=== PATIENT | male | born 1950 | race Caucasian/White ===

== ENCOUNTER 2020-08-08 13:58 | Outpatient (REF) | payer MEDICARE, MEDICAID, SELFPAY ==
--- NOTE | 2020-08-08 | US_ITS ---
EXAMINATION: US pelvic, LIMITED/FOLLOW UP CLINICAL INFORMATION: Left buttock cyst COMPARISON: Previous CT of the pelvis May 2016 TECHNIQUE: Grayscale and color imaging of the superficial soft tissues of the left buttock. FINDINGS: There is a 4.2 x 4.1 x 3.4 cm solid appearing lesion in the subcutaneous soft tissues of the left buttock. This is hypoechoic, slightly heterogeneous and avascular. This is similar to previous CT from January 2016. This most likely represents an epidermoid cyst. IMPRESSION: Solid-appearing mass in the subcutaneous fat of the left buttock similar to previous CT from 2015. This probably represents an epidermoid cyst.
== END 2020-08-08 13:59 | disposition home or self-care (01) ==
LOC: HO.US 13:58
PROVIDERS: PCP Family Medicine; Visit Provider Emergency Medicine
DX: L72.9 Follicular cyst of the skin and subcutaneous tissue, unspecified (principal)
CPT/HCPCS: 76857

== ENCOUNTER → 2020-08-26 13:09 | Outpatient (BNVA) | payer MEDICARE, MEDICAID, SELFPAY | PROVIDERS: PCP Family Medicine; Visit Provider Surgery | DX: T80.89XA Other complications following infusion, transfusion and therapeutic injection, initial encounter (principal); M79.89 Other specified soft tissue disorders | CPT/HCPCS: 99203 ==

== ENCOUNTER 2020-09-10 06:03 | Day surgery (SDC) | payer MEDICARE, MEDICAID, SELFPAY ==
--- NOTE | 2020-09-08 14:52 | P.CONAN_ITS ---
Documented by User: Meseret Leary 09/08/20 15:07 HPI - Anesthesia Eval Consult details Narrative: 70yo M for Excision Soft Tissue Buttock Mass PMFSH Past Medical History Medical History Coronary artery disease History of CVA (cerebrovascular accident) HLD (hyperlipidemia) HTN (hypertension) Ischemic cardiomyopathy Myelofibrosis Family History Family History Mother History of cancer of unknown primary site Surgical History Surgical History History of appendectomy Social History Social History Alcohol intake: never Smoking Status: Never smoker Use of substances other than those prescribed or required for medical reasons: No Advance Directives: No Meds Allergies Allergy/AdvReac Type Severity Reaction Status Date / Time No Known Allergies Allergy Verified 08/26/20 13:29 Home Medications Medication Instructions Recorded Confirmed Type acetaminophen 500 mg tablet mg PO 08/26/20 08/26/20 History aspirin 81 mg tablet,delayed 81 mg PO DAILY 08/26/20 08/26/20 History release atorvastatin 80 mg tablet 80 mg PO DAILY 08/26/20 08/26/20 History clopidogrel 75 mg tablet 75 mg PO DAILY 08/26/20 08/26/20 History metoprolol tartrate 25 mg tablet mg PO 08/26/20 08/26/20 History ruxolitinib 20 mg tablet 20 mg PO BID 08/26/20 08/26/20 History warfarin 3 mg tablet mg PO 08/26/20 08/26/20 History Exam Exam Date and Time: September 08, 2020 1452 Narrative Narrative: EKG 04/2020: sinus rhythm@60, leftward axis, right bundle-branch block pattern. Cath 04/14/2020: Chronic total occlusion of LAD ECHO 05/28/20: LV sys function low nml, impaired relaxation, no evidence of thrombus in LV with RWMA in distal LAD terrritory, nml valve doppler, nml RV sys pressure, no pericardial effusion Per Cardiology 05/2020: 1. Atherosclerotic cardiovascular disease - Clinically, no further angina. Continue medical therapy for stable coronary disease. Recent MRI had shown nonviable chronic appearing infarct in the LV apex and inferoapical segments with aneurysm formation. 2. Chronic total occlusion of coronary artery - Plan as above. 3. Stable angina pectoris - No further anginal symptoms at this time. He was able to exercise for 7 minutes and 30 seconds on Leander protocol without any angina. 4. Left ventricular thrombosis - Continue Coumadin. Duration to be decided. In the repeat echocardiogram, no evidence of any LV thrombus. 5. Ischemic cardiomyopathy - EF on the cardiac MRI was 48%. 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 Cardiology OK'd stopping coumadin without bridge preop, stay on plavix Assessment and Plan Assessment Anesthesia Assessment: Chart Reviewed Documented by User: Mahendra Benjamin 09/10/20 07:24 [facility] Past Medical History Medical History Coronary artery disease History of CVA (cerebrovascular accident) HLD (hyperlipidemia) HTN (hypertension) Ischemic cardiomyopathy Myelofibrosis Family History Family History Mother History of cancer of unknown primary site Surgical History Surgical History History of appendectomy Social History Social History Alcohol intake: never Smoking Status: Never smoker Use of substances other than those prescribed or required for medical reasons: No Advance Directives: No Meds Allergies Allergy/AdvReac Type Severity Reaction Status Date / Time No Known Allergies Allergy Verified 08/26/20 13:29 Home Medications Medication Instructions Recorded Confirmed Type acetaminophen 500 mg tablet mg PO 08/26/20 08/26/20 History aspirin 81 mg tablet,delayed 81 mg PO DAILY 08/26/20 08/26/20 History release atorvastatin 80 mg tablet 80 mg PO DAILY 08/26/20 08/26/20 History clopidogrel 75 mg tablet 75 mg PO DAILY 08/26/20 08/26/20 History metoprolol tartrate 25 mg tablet mg PO 08/26/20 08/26/20 History ruxolitinib 20 mg tablet 20 mg PO BID 08/26/20 08/26/20 History warfarin 3 mg tablet mg PO 08/26/20 08/26/20 History Exam Narrative Narrative: Missing teeth Airway Mallampati Class: II TM Dist: >3cm Neck ROM: Full Assessment and Plan Assessment Anesthesia Assessment: Anesthesia Plan Discussed and Chart Reviewed Final Anesthetic Review NPO: Yes ASA Class: IV Final Preanesthetic Review: No Changes in Pt Med Stat, Meds/Allgs Chart Reviewed, Consent Obtained/Reviewed and Anes Risks/Benef Reviewed Patient Risk: High Procedure Risk: Low Anesthetic Plan Anesthetic Plan: MAC: and Agree w/ Assess. and Plan Disposition: Standard PACU
[2020-09-10 06:34] VITALS: BMI 28.3
[2020-09-10 06:45] VITALS: BP 116/59; PULSE 54; RESP 18; TEMP 36.3; O2SAT 95
[2020-09-10 06:45] LABS: INTERNATIONAL NORM RATIO 1.1 (0.9-1.1); Prothrombin Time 13.5 SEC (10.8-13.0)
[2020-09-10] MEDS: ceFAZolin Sodium/Dextrose,Iso 2 GM/50 ML PIGGYBACK IV (06:54)
[2020-09-10] MEDS: Lactated Ringers 1,000 ML 50 ML IVCONT (06:54)
--- NOTE | 2020-09-10 07:20 | MHC.SHP ---
Pre-Procedural Eval Section A The patient is an INPATIENT: No Changes since office visit: Yes Patient answered all questions; No Cold of Flu in the past 2 weeks, No New Medical Problems and No Changes in Medication The History & Physical has been completed within 30 days and I have reviewed it.: Yes Section B Chief Complaint: Soft tissue mass at injection site Allergies: Allergies Allergy/AdvReac Type Severity Reaction Status Date / Time No Known Allergies Allergy Verified 08/26/20 13:29 Plan Diagnosis/Plan: Unchanged Patient has been examined and remains a candidate for the planned procedure
[2020-09-10 08:20] VITALS: BP 107/54; PULSE 55; RESP 16; TEMP 36.6; O2SAT 96
--- NOTE | 2020-09-10 08:25 | P.OP_ITS ---
Operative Note Operative Note Narrative: Preoperative diagnosis: Mass left buttock Postoperative diagnosis: Cyst, left buttock Procedure: Excision of mass left buttock Electrical Equipment Technician: None Anesthesia: Monitored anesthesia care with local Estimated blood loss: Less than 5 cc Specimen: Cyst left buttock Immediate complications: None Indications: This is a 70-year-old gentleman with a history of an enlarging mass at an injection site in the upper aspect of the left buttock. He has pain associated with it and excision is planned. Procedure in detail: With patient lying on his right side, adequate sedation was obtained. Time-out procedure was performed. 2 g of cefazolin were infused for antibiotic prophylaxis. Incision lines were marked on the skin and skin and subcutaneous tissues were infiltrated with local anesthetic. Further anesthetic infiltration was carried out as needed throughout the procedure. An elliptical incision was made overlying the mass and was carried down to it. In the immediate subdermal tissues, the wall of the mass was entered. It was evident that it was a cystic structure. It appeared consistent with an epidermal cyst. It was dissected free circumferentially and excised. There was no significant bleeding. The wound was irrigated with saline solution. There was a small amount of oozing that was controlled with electrosurgical pencil. The wound was then closed with interrupted subcutaneous sutures of 3-0 Polysorb. Skin was closed with a running subcuticular suture of 4-0 Polysorb. Steri-Strips and dry sterile dressings were applied. He tolerated the procedure well and was transported to the recovery room in stable condition. Sponge and sharp counts were correct.
[2020-09-10 08:35] VITALS: BP 113/61; PULSE 58; RESP 15; TEMP 36.2; O2SAT 97
--- NOTE | 2020-09-10 08:58 | HO.POSTANES ---
Post Anesthesia Evaluation Post Anesthesia Evaluation Vital Signs: Vital Signs Temp Pulse Resp BP Pulse Ox 09/10/20 08:35 97.2 F 58 15 113/61 97 09/10/20 08:20 98 F 55 16 107/54 L 96 09/10/20 06:45 97.3 F 54 18 116/59 L 95 Anesthesia: Monitored (tiva) Mental Status: Awake Pain Control: Satisfactory Nausea/Vomiting: None Hydration: Adequate Anesthesia-Related Issues: No Anes. Related Issues
== END 2020-09-10 09:25 | disposition home or self-care (01) ==
PROVIDERS: Nurse Practitioner; PCP Family Medicine; Visit Provider Surgery
DX: T80.89XA Other complications following infusion, transfusion and therapeutic injection, initial encounter (principal); L72.0 Epidermal cyst; Y84.8 Other medical procedures as the cause of abnormal reaction of the patient, or of later complication, without mention of misadventure at the time of the procedure; I10 Essential (primary) hypertension; E78.5 Hyperlipidemia, unspecified; I25.5 Ischemic cardiomyopathy; I25.10 Atherosclerotic heart disease of native coronary artery without angina pectoris; D75.81 Myelofibrosis; Z86.73 Personal history of transient ischemic attack (TIA), and cerebral infarction without residual deficits; Z79.01 Long term (current) use of anticoagulants; Z79.82 Long term (current) use of aspirin; Z79.899 Other long term (current) drug therapy
CPT/HCPCS: 11406; 12032; 36415; 85610; 88304; J0690; J2250; J3010

== ENCOUNTER → 2020-09-18 10:09 | Outpatient (BNVA) | payer MEDICARE, MEDICAID, SELFPAY | PROVIDERS: PCP Family Medicine; Referring Provider Family Medicine; Visit Provider Surgery | DX: T80.89XA Other complications following infusion, transfusion and therapeutic injection, initial encounter (principal); M79.89 Other specified soft tissue disorders | CPT/HCPCS: 99212 ==

== ENCOUNTER → 2020-10-22 14:18 | Outpatient (BNVA) | payer MEDICARE, SELFPAY | PROVIDERS: PCP Family Medicine; Visit Provider Internal Medicine | DX: I25.10 Atherosclerotic heart disease of native coronary artery without angina pectoris (principal); I25.5 Ischemic cardiomyopathy; I51.3 Intracardiac thrombosis, not elsewhere classified | CPT/HCPCS: 99212 ==

== ENCOUNTER → 2020-12-22 13:50 | Outpatient (BNV) | payer MEDICARE, SELFPAY | PROVIDERS: PCP Family Medicine; Visit Provider Internal Medicine Medical Oncology | DX: R16.1 Splenomegaly, not elsewhere classified (principal); D75.81 Myelofibrosis | CPT/HCPCS: 99213; 99214; G2211 ==

== ENCOUNTER → 2021-03-03 07:36 | Outpatient (REF) | payer MEDICARE, SELFPAY ==
--- NOTE | 2021-03-03 07:38 | CA_ITS ---
Transthoracic Echocardiogram Patient (Last, First, Middle): Mervin Liu, Gender: Male Date of : 1950 Age: 71 Procedure Date: 03/03/2021 Procedure Type: Transthoracic Echocardiogram Location: OP Height: 165.1 cm Weight: 77.11 kg BSA: 1.85 m2 Heart Rate: bpm BP: 124 / 70 mmHg Director Athletic: Referring MD: Greg Galaviz MD Symptoms: I51.3 - Intracardiac thrombosis, not elsewhere classified Study Quality: Good ECG Rhythm: Sinus Conclusions: - The left ventricular systolic function is low normal. The visually estimated ejection fraction is between 50-55%. - The apex and apical inferior segments are akinetic. - Mildly increased right ventricular cavity size. - There is mild mitral valve regurgitation. Findings Procedure Information Contrast agent, definity, is being given per protocol without apparent complications. Left Ventricle Normal left ventricular cavity size. There is normal left ventricular wall thickness. The left ventricular systolic function is low normal. The visually estimated ejection fraction is between 50-55%. There is evidence of regional wall motion abnormalities. Diastolic function is normal for age. Wall Motion Rest Echo Findings The apex and apical inferior segments are akinetic. Right Ventricle Mildly increased right ventricular cavity size. There is normal right ventricular systolic function. Atria The left atrium is mildly dilated. The right atrium is normal in size. Aortic Valve There is a normal trileaflet aortic valve. There is no aortic valve stenosis. There is no aortic valve regurgitation. Mitral Valve The mitral valve appears normal. There is mild mitral valve regurgitation. There is no mitral valve stenosis. Pulmonic Valve The pulmonic valve was not well visualized. There is trace to mild pulmonic valve regurgitation. Tricuspid Valve Normal tricuspid valve structure. There is mild tricuspid valve regurgitation. The pulmonary artery systolic pressure is normal. Great Vessels The aortic annulus, sinuses of valsalva, and asc aorta are normal in size. Venous The inferior vena cava is normal in size and collapses greater than 50% with inspiration. Pericardium/Pleural There is no evidence of pericardial effusion. Prior Study Comparison No significant change compared to prior study dated: 05/28/2020. Measurements 2D Linear Measurements Ao Root: 3.10 2.1-3.5 cm LVOT Diam: 2.50 3.0+(-)1.3 cm Mitral Valve MV Pk E: 0.70 MV PK A: 0.67 MV Decel Time: 239.00 E/A: 1.00 E'Lateral: 9.67 E'Medial: 6.77 E/E' Med: 10.30 E/E' Lat: 7.20 PHT: 70.00 MVA PHT: 3.14 Decel Pacific: 2.92 Aortic Valve AoV Pk Mio: 1.25 AoV Mn Mio: 0.81 AoV VTI: 0.34 AoV Pk Grad: 6.00 Aov Mn Grad: 3.00 YANDEL Cont.VTI: 2.95 LVOT LVOT Pk Mio: 0.72 LVOT Mn Mio: 0.48 LVOT VTI: 0.20 LVOT Pk Grad: 2.00 LVOT Mn Grad: 1.00 LVOT Diam: 2.50 LVOT Area: 4.91 Diastolic Function MV Pk E: 0.70 MV Pk A: 0.67 E/A: 1.00 E'Medial: 6.77 E/E' Med: 10.30 E' Laterial: 9.67 E/E' Lat: 7.20 Tricuspid Valve TR Pk Mio: 2.33 TR Pk Grad: 22.00 RA Press: 3.00 RVSP: 25.00 Great Vessels Aorta Ao Root-2D: 3.10 2.0-3.7 cm Ao Asc: 3.20 2.1-3.4 cm Pulmonary Valve PV Pk Mio: 1.02 Peak PV Grad: 4.00 Updated in Other Vendor System with Status of Final Greg Galaviz MD electronically signed on 03/05/2021 4:56:27 PM with status of Final
== END ==
LOC: HO.CARD 07:36
PROVIDERS: Visit Provider Internal Medicine
DX: I51.3 Intracardiac thrombosis, not elsewhere classified (principal)
CPT/HCPCS: 93306; Q9957

== ENCOUNTER → 2021-04-30 12:10 | Outpatient (BNVA) | payer MEDICARE, SELFPAY | PROVIDERS: PCP Family Medicine; Referring Provider Family Medicine; Visit Provider Internal Medicine | DX: I25.10 Atherosclerotic heart disease of native coronary artery without angina pectoris (principal); I51.3 Intracardiac thrombosis, not elsewhere classified | CPT/HCPCS: 99212 ==

== ENCOUNTER 2021-05-12 06:34 | Outpatient (REF) | payer MEDICARE, SELFPAY ==
[2021-05-12 07:41] LABS: HDL Cholesterol 32 mg/dL; Triglycerides 79 mg/dL
[2021-05-12 08:02] LABS: Cholesterol 96 mg/dL; LDL Cholesterol Calculated 49 mg/dl
== END 2021-05-12 06:35 | disposition home or self-care (01) ==
LOC: HO.LAB 06:34
PROVIDERS: PCP Family Medicine; Visit Provider Internal Medicine
DX: E78.5 Hyperlipidemia, unspecified (principal); I25.10 Atherosclerotic heart disease of native coronary artery without angina pectoris
CPT/HCPCS: 36415; 80061

== ENCOUNTER → 2021-11-11 10:56 | Outpatient (BNVA) | payer MEDICARE, SELFPAY | PROVIDERS: PCP Family Medicine; Referring Provider Family Medicine; Visit Provider Internal Medicine | DX: I25.10 Atherosclerotic heart disease of native coronary artery without angina pectoris (principal); I51.3 Intracardiac thrombosis, not elsewhere classified; I45.10 Unspecified right bundle-branch block; Z79.01 Long term (current) use of anticoagulants; Z79.02 Long term (current) use of antithrombotics/antiplatelets; Z79.82 Long term (current) use of aspirin | CPT/HCPCS: 93005; 99212 ==

== ENCOUNTER 2023-07-12 08:28 | Outpatient (REF) | payer MEDICARE, SELFPAY ==
[2023-07-12 11:40] LABS: Alanine Aminotransferase 35 U/L (0-40); Alkaline Phosphatase 96 U/L (39-117); Anion Gap 12 (12-20); Aspartate Amino Transferase 32 U/L (5-37); Bilirubin Direct 0.3 mg/dL (0.0-0.5); Bilirubin Total 0.6 mg/dL (0.0-1.0); Blood Urea Nitrogen 15 mg/dL (9-16); Calcium 9.3 mg/dL (8.4-10.2); Carbon Dioxide 25 mmol/L (22-29); Chloride 108 mmol/L (96-108); Cholesterol 98 mg/dL (<200); Estimated Glomerular Filt Rate > 60; Glucose Random 86 mg/dL (60-115); HDL Cholesterol 32 mg/dL (>40); LDL Cholesterol Calculated 55 mg/dL (<100); Potassium 4.6 mmol/L (3.3-5.1); Sodium 140 mmol/L (135-145); Total Protein 6.9 g/dL (6.5-8.0); Triglycerides 57 mg/dL (<150)
[2023-07-12 11:45] LABS: Hematocrit 42.7 % (42.0-52.0); Hemoglobin 11.7 g/dl (14.0-18.0); Mean Corpuscular HGB Conc 27.4 g/dl (31.0-36.0); Mean Corpuscular Hemoglobin 22.4 pg (27.0-33.0); Mean Corpuscular Volume 81.6 fL (80.0-98.0); Red Blood Count 5.23 X10*6/uL (4.60-5.80); Red Cell Distribution Width 19.7 % (11.0-16.0)
[2023-07-12 11:46] LABS: NRBC Pct Auto 2.2 /100WBC (0.0-0.2); PLT ABN DIST 1; Platelet Count 41 X10*3/uL (160-400); WBC ABN SCTR FOR CBC 1
[2023-07-12 11:47] LABS: White Blood Count 18.6 X10*3/uL (4.8-10.8)
[2023-07-12 12:00] LABS: ~HepC Num1 0.04 S/CO (0.00-0.79); ~Hepatitis C Antibody Nonreactive (Nonreactive)
[2023-07-12 13:22] LABS: Atypical Lymph Absolute Manual 0.7 x10*3/uL; Atypical Lymphs Percent Manual 4 % (0-6); Band Neutrophils Percent 29 % (3-5); Blast Percent 3 %; Blastocytes Absolute 0.6 X10*3/uL; Lymphocytes Absolute Manual 2.6 X10*3/uL (1.2-4.9); Lymphocytes Percent Manual 14 % (20-40); Metamyelocytes Absolute 1.9 X10*3/uL; Metamyelocytes Percent 10 %; Monocytes Absolute Manual 1.5 X10*3/uL (0.1-1.2); Monocytes Percent Manual 8 % (2-11); Myelocytes Absolute 0.9 X10*/uL; Myelocytes Percent 5 %; Neutrophils Absolute Manual 9.9 X10*3/uL (2.0-8.3); Neutrophils Percent Manual 24 % (45-73); Promyelocytes Absolute 0.6 X10*3/uL; Promyelocytes Percent 3 %
[2023-07-12 13:23] LABS: Nucleated Red Blood Cells 4 /100WBC (0-0)
[2023-07-12 13:25] LABS: Microcytosis 1+ (5-14) /OIF; Platelet Morphology Comment NORM; RBC Morphology NOTED
[2023-07-12 13:26] LABS: Acanthocytes 1+ (0-2) /OIF; Burr Cells 2+ (3-5) /OIF; Hypochromasia 1+ (5-14) /OIF; Ovalocytes 1+ (5-14) /OIF; Polychromasia 1+ (0-2) /OIF; Schistocytes 1+ (0-2) /OIF; Tear Drop Cells 1+ (0-2) /OIF
== END 2023-07-12 08:29 | disposition home or self-care (01) ==
LOC: HO.HHCL 08:28
PROVIDERS: Visit Provider Family Medicine
DX: Z11.59 Encounter for screening for other viral diseases (principal); D47.1 Chronic myeloproliferative disease; I25.10 Atherosclerotic heart disease of native coronary artery without angina pectoris; E78.5 Hyperlipidemia, unspecified; I10 Essential (primary) hypertension
CPT/HCPCS: 36415; 80048; 80061; 80076; 85007; 85027; 86803

== ENCOUNTER 2023-08-01 13:11 | Outpatient (AMB) | payer MEDICARE, SELFPAY ==
[2023-08-01 13:17] VITALS: BP 125/63; PULSE 60; BMI 30.1
--- NOTE | 2023-08-01 13:17 | MHC.OFFVIS ---
Intake Vital Signs 08/01/23 13:17 Height 5 ft 5 in Weight 181 lb BMI 30.1 BP 125/63 Blood Pressure Location Rt brachial Position Sitting Pulse 60 Intake Visit Reasons: recall colonoscopy screening Intake Note: This patient presents for a recall colonoscopy screening. Patient denies any complaints at this time. Sheet Metal Worker Helper Required: Yes Sheet Metal Worker Helper Language: Is Manager Name: Patient declined interperter Accompanied by: Other Relationship Allergies No Known Allergies Allergy (Verified 08/01/23 13:24) Medication List - Last Reconciled 08/01/23 by Harshal Hartley MD acetaminophen 500 mg PO DAILY aspirin 81 mg PO DAILY atorvastatin 80 mg PO DAILY metoprolol tartrate 12.5 mg PO BID ruxolitinib 20 mg PO BID warfarin 3 mg PO DAILY HPI recall colonoscopy screening HPI Details 73-year-old male referred for screening colonoscopy. He denies any GI complaints. He denies any problems with bowel movements. He remains active and says he feels very healthy. He does have a history of a left ventricular thrombus and is on anticoagulation. He is also undergoing treatment for myelofibrosis and sees Dr. Flanagan regularly. [facility] Medical History (Updated 08/01/23 @ 13:43 by Harshal Hartley MD) Encounter for screening colonoscopy Left ventricular thrombus Atherosclerotic cardiovascular disease HLD (hyperlipidemia) HTN (hypertension) Ischemic cardiomyopathy History of CVA (cerebrovascular accident) Myelofibrosis Coronary artery disease Surgical History History of appendectomy Family History Mother History of cancer of unknown primary site Social History Household Members: Family Alcohol intake: former Patient Tobacco Use Status: Never used Tobacco service: No Review of Systems Const Denies chills and Denies fever(s) Card Denies chest pain, Denies dyspnea and Denies dyspnea on exertion Resp Denies cough, Denies dyspnea and Denies dyspnea on exertion GI Denies hematochezia and Denies change in bowel habits Denies hematuria and Denies difficulty urinating Musc Denies back pain and Denies limited range of motion Neuro Denies focal weakness and Denies convulsions Psych Denies depression and Denies mood swings Physical Exam Vital Signs: Last Vital Signs Pulse 60 08/01/23 13:17 BP 125/63 08/01/23 13:17 BMI result Body Mass Index 30.1 Const General: comfortable and no acute distress Orientation/consciousness: patient oriented x3 Neck Neck: Yes no lymphadenopathy Resp Auscultation: clear to auscultation bilaterally Cardio Rhythm: regular rhythm GI Other: Spleen enlarged and palpable as per baseline because of his myelofibrosis Palpation (GI): Soft to palpation, nontender and no guarding Neuro General: patient oriented x3 Assessment & Plan Assessment & Plan (1) Encounter for screening colonoscopy: Code(s): Z12.11 - Encounter for screening for malignant neoplasm of colon Plan: He was referred for a repeat colonoscopy. Review of his records show that his last colonoscopy was in 2018. A small polyp was removed at that time and this was a tubular adenoma. Current guidelines recommend a follow-up colonoscopy within 7-10 years if the adenoma is less than 1 cm I explained this to him. His next colonoscopy may therefore be in 2024. He says he is agreeable to this. He denies any current complaints at this time Coding Level of Care Code New Pt Level 3 (52520) Diagnoses Encounter for screening colonoscopy Z12.11
== END 2023-08-01 13:40 | disposition home or self-care (01) ==
PROVIDERS: PCP Family Medicine; Visit Provider Surgery
DX: Z12.11 Encounter for screening for malignant neoplasm of colon (principal)
CPT/HCPCS: 99203

== ENCOUNTER → 2023-08-01 13:11 | Outpatient (BNVA) | payer MEDICARE, SELFPAY | PROVIDERS: PCP Family Medicine; Visit Provider Surgery ==

== ENCOUNTER 2024-01-26 08:43 | Outpatient (REF) | payer MEDICARE, SELFPAY ==
[2024-01-26 11:42] LABS: Hematocrit 34.4 % (42.0-52.0); Hemoglobin 9.3 g/dl (14.0-18.0); Mean Corpuscular Hemoglobin 21.7 pg (27.0-33.0); Mean Corpuscular Volume 80.4 fL (80.0-98.0); PLT CLUMP 1; Red Blood Count 4.28 X10*6/uL (4.60-5.80); Red Cell Distribution Width 21.6 % (11.0-16.0)
[2024-01-26 11:46] LABS: NRBC Pct Auto 8.2 /100WBC (0.0-0.2); WBC ABN SCTR FOR CBC 1
[2024-01-26 11:58] LABS: Alanine Aminotransferase 78 U/L (0-40); Albumin Level 3.5 g/dL (3.5-5.0); Alkaline Phosphatase 112 U/L (39-117); Anion Gap 15 (12-20); Aspartate Amino Transferase 47 U/L (5-37); Atypical Lymphs Percent Manual 3 % (0-6); Band Neutrophils Percent 15 % (3-5); Basophils Percent Manual 1 % (0-2); Bilirubin Direct 0.3 mg/dL (0.0-0.5); Bilirubin Total 0.5 mg/dL (0.0-1.0); Blast Percent 2 %; Blood Urea Nitrogen 14 mg/dL (9-16); Carbon Dioxide 23 mmol/L (22-29); Chloride 108 mmol/L (96-108); Cholesterol 78 mg/dL (<200); Estimated Glomerular Filt Rate > 60; Glucose Random 82 mg/dL (60-115); HDL Cholesterol 28 mg/dL (>40); Iron 33 mcg/dL (45-160); LDL Cholesterol Calculated 39 mg/dL (<100); Lymphocytes Percent Manual 7 % (20-40); Metamyelocytes Percent 15 %; Monocytes Percent Manual 9 % (2-11); Myelocytes Percent 9 %; Neutrophils Percent Manual 32 % (45-73); Nucleated Red Blood Cells 16 /100WBC (0-0); Percent Iron Saturation 12 % (15-50); Potassium 3.9 mmol/L (3.3-5.1); Promyelocytes Percent 7 %; Sodium 142 mmol/L (135-145); Total Iron Binding Capacity 281 mcg/dL (228-428); Total Protein 6.7 g/dL (6.5-8.0); Triglycerides 55 mg/dL (<150); Unsaturated Iron Binding 248 ug/dL
[2024-01-26 12:00] LABS: Ferritin 290 ng/mL (20-250)
[2024-01-26 12:01] LABS: Large Platelet PRESENT; Microcytosis 1+ (5-14) /OIF; Platelet Estimate DECREASED (NORMAL); Platelet Morphology Comment NOTED; RBC Morphology NOTED
[2024-01-26 12:02] LABS: Acanthocytes 1+ (0-2) /OIF; Burr Cells 1+ (0-2) /OIF; Ovalocytes 1+ (5-14) /OIF; Polychromasia 2+ (3-5) /OIF; Schistocytes 1+ (0-2) /OIF; Stomatocytes 1+ (5-14) /OIF; Target Cells 1+ (5-14) /OIF; Tear Drop Cells 1+ (0-2) /OIF
[2024-01-26 12:05] LABS: Atypical Lymph Absolute Manual 0.9 x10*3/uL; Basophils Abs Manual 0.3 X10*3/uL (0.0-0.2); Blastocytes Absolute 0.6 X10*3/uL; Metamyelocytes Absolute 4.3 X10*3/uL; Monocytes Absolute Manual 2.6 X10*3/uL (0.1-1.2); Myelocytes Absolute 2.6 X10*/uL; Neutrophils Absolute Manual 13.3 X10*3/uL (2.0-8.3); White Blood Count 28.4 X10*3/uL (4.8-10.8)
[2024-01-26 12:06] LABS: Platelet Count 73 X10*3/uL (160-400)
[2024-01-26 12:26] LABS: Vitamin B12 > 2000 pg/mL (200-900)
== END 2024-01-26 08:44 | disposition home or self-care (01) ==
LOC: HO.HHCL 08:43
PROVIDERS: Visit Provider Family Medicine
DX: D47.1 Chronic myeloproliferative disease (principal); I10 Essential (primary) hypertension; E78.5 Hyperlipidemia, unspecified
CPT/HCPCS: 36415; 80048; 80061; 80076; 82607; 82728; 83540; 85007; 85027

== ENCOUNTER 2024-01-30 13:13 | Outpatient (AMB) | payer MEDICARE, SELFPAY ==
--- NOTE | 2024-01-30 13:29 | MHC.OFFVIS ---
Intake Vital Signs 01/30/24 13:31 Height 5 ft 5 in Weight 170 lb 10.205 oz BMI 28.4 BP 126/65 Blood Pressure Location Rt brachial Position Sitting Pulse 63 Pulse Source Pulse Oximeter Intake Visit Reasons: [facility]/01-16/Abscess removal( HS) Answering Service Operator Required: No Cardiothoracic Anesthesia Technician: Cardiothoracic Anesthesia Technician Present Allergies No Known Allergies Allergy (Verified 01/30/24 13:33) Medication List - Last Reconciled 01/30/24 by [place] NP-C acetaminophen 500 mg PO DAILY amoxicillin-pot clavulanate 875-125 mg 1 tab PO BID apixaban (Eliquis) 5 mg PO Q12H aspirin 81 mg PO DAILY atorvastatin 80 mg PO DAILY chlorhexidine gluconate 0.12% 15 mL PO BID polyethylene glycol 3350 (Purelax) 17 grams PO DAILY ruxolitinib 20 mg PO BID tamsulosin (Flomax) 0.4 mg PO BEDTIME HPI [facility]/01-16/Abscess removal( HS) HPI Details Mervin is a 73-year-old male with past medical history of hypertension, hyperlipidemia, CAD, anterior infarct, apical thrombus, right bundle branch block who presents for follow-up. His last prior visit to our office was on 11/11/2021. He was recently admitted to [facility] and had drainage of an abscess in his right cheek/jaw. He was taken off Coumadin at that time. Today he reports that he has been doing well since his hospital discharge last week. He had issues with urinary retention when he was in the hospital and he still has a Quinones catheter in place. His daughter reports that he had blood in his urine 4 days ago which has since resolved. His abscess area in the right cheek is healing up well. He did not have any cardiac issues when he was in the hospital as far as they know. No chest discomfort at rest or with activity. No heart palpitations, shortness of breath, lightheadedness, presyncope, syncope, falls. No PND, orthopnea or edema. Tells me he exercises with walking and riding his bike which he tolerates well. Taking all his other meds as directed. Daughter assisting with Mongolian interpretation at their request. Permit signed. [facility] Medical History (Updated 01/30/24 @ 15:12 by FRANK BennettC) Encounter for screening colonoscopy Left ventricular thrombus Atherosclerotic cardiovascular disease HLD (hyperlipidemia) HTN (hypertension) Ischemic cardiomyopathy History of CVA (cerebrovascular accident) Myelofibrosis Coronary artery disease Surgical History History of appendectomy Family History Mother History of cancer of unknown primary site Social History Household Members: Family Alcohol intake: former Patient Tobacco Use Status: Never used Tobacco service: No Review of Systems Const All systems reviewed & are unremarkable except as noted in HPI and below Denies fatigue, Denies frequent falls and Reports weight loss ENT Details: recent dental abcess with drainage. Denies dizziness Card Denies no additional complaints, Denies chest pain, Denies chest pain at rest, Denies chest pain with activity, Denies syncope, Denies leg edema, Denies dyspnea, Denies dyspnea on exertion and Denies orthopnea Resp Denies dyspnea and Denies dyspnea on exertion GI Denies no additional complaints Details: urinary retention - Quinones catheter in place. Has had some hematuria Neuro Denies no additional complaints, Denies dizziness, Denies syncope and Denies frequent falls Endo Denies fatigue Physical Exam Vital Signs: Last Vital Signs Pulse 63 01/30/24 13:31 BP 126/65 01/30/24 13:31 BMI result Body Mass Index 28.4 Const General: cooperative, healthy appearing, comfortable and no acute distress Orientation/consciousness: patient oriented x3 Neck Neck: Yes normal visual inspection and Yes no JVD Resp Effort & Inspection: normal respiratory effort Auscultation: clear to auscultation bilaterally, no rales, no rhonchi and no wheezes Cardio Jugular venous distension: no JVD Rate: regular rate Rhythm: regular rhythm Heart sounds: S1 normal heart sound present, S2 normal heart sound present, no murmurs and no rubs Neuro General: patient oriented x3 Extrem General: Yes normal to inspection, No no pedal edema and No calf tenderness Psych Appearance: grossly normal Mental Status: mental status grossly normal Speech and movement: Normal speech and movement present Office Procedures EKG Details: Today, read by me, sinus bradycardia, right bundle branch block, left anterior fascicular block, borderline first-degree AV block, MI interval 202 milliseconds, rate 58, QTC 398 milliseconds [id number], Complete Assessment & Plan Assessment & Plan (1) Atherosclerotic cardiovascular disease: Code(s): I25.10 - Atherosclerotic heart disease of agdaagux coronary artery without angina pectoris Plan: History of CAD with evidence of prior anterior wall TN. 03/2020 he was admitted to [facility] with reports of angina. 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 He was also found to have a left ventricular apical thrombus. He was put on Coumadin for anticoagulation. Last echocardiogram in our system done 03/03/2021 showed EF 50-55%, the apex, apical inferior segments are akinetic, mild increase in the RV cavity size. 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 Last visit to our office was 11/11/2021. He did have recent admission to [facility] for noncardiac reason however echocardiogram was done and he recalls being told there was no clot in his heart. He was having bleeding from his abscess site in his left cheek/jaw. His platelets were low and he was given platelet transfusion. His Coumadin was placed on hold. At this time he remains off Coumadin. He denies any anginal sounding symptoms. EKG done today showing sinus bradycardia, right bundle branch block, left anterior fascicular block, rate 58. Labs done on 01/26/2024 showed hematocrit 34.4, platelets 73. He has a known history myelofibrosis and follows with Dr. Flanagan. Will send her a message regarding restarting Coumadin. At this time he will continue on aspirin. Continue atorvastatin 80 mg daily with ideal LDL goal less than 70. Labs done 01/26/2024 showed LDL 39. He was on metoprolol which seems to have been stopped at some point since he was last seen. Heart rate and blood pressure are within normal limits today. No med changes made. Will plan to call him regarding Coumadin usage. Cardiology follow-up in 6 months, sooner if needed. (2) Anterior myocardial infarction: Code(s): I21.09 - ST elevation (STEMI) myocardial infarction involving other coronary artery of anterior wall Plan: As above (3) Left ventricular thrombus: Code(s): I51.3 - Intracardiac thrombosis, not elsewhere classified Plan: Not noted on last echocardiogram. 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 (4) RBBB: Code(s): I45.10 - Unspecified right bundle-branch block Plan: Finding on EKG (5) Left anterior fascicular block: Code(s): I44.4 - Left anterior fascicular block Plan: New finding on EKG. Will need to continue to follow for electrical changes (6) HTN (hypertension): Code(s): I10 - Essential (primary) hypertension Plan: Well controlled at present time. No medication changes made (7) HLD (hyperlipidemia): Code(s): E78.5 - Hyperlipidemia, unspecified Plan: As above, currently well controlled (8) Hospital discharge follow-up: Code(s): Z09 - Encounter for follow-up examination after completed treatment for conditions other than malignant neoplasm Plan: As above. Working on obtaining records for [facility] Plan Time spent on chart review, documentation, interview and assessment Coding Level of Care Code Est Pt Level 4 (98716) Diagnoses Atherosclerotic cardiovascular disease I25.10 Anterior myocardial infarction I21.09 Left ventricular thrombus I51.3 RBBB I45.10 Left anterior fascicular block I44.4 HTN (hypertension) I10 HLD (hyperlipidemia) E78.5 Hospital discharge follow-up Z09 CPT Codes EKG - CPT: [id number], Complete ([id number]) Time Spent (min) 28
[2024-01-30 13:31] VITALS: BP 126/65; PULSE 63; BMI 28.4
== END 2024-01-30 14:07 | disposition home or self-care (01) ==
PROVIDERS: PCP Family Medicine; Visit Provider Nurse Practitioner Family
DX: I25.10 Atherosclerotic heart disease of native coronary artery without angina pectoris (principal); I21.09 ST elevation (STEMI) myocardial infarction involving other coronary artery of anterior wall; I51.3 Intracardiac thrombosis, not elsewhere classified; I45.10 Unspecified right bundle-branch block; I44.4 Left anterior fascicular block; I10 Essential (primary) hypertension; E78.5 Hyperlipidemia, unspecified; Z09 Encounter for follow-up examination after completed treatment for conditions other than malignant neoplasm
CPT/HCPCS: 93010; 99214

== ENCOUNTER → 2024-01-30 13:13 | Outpatient (BNVA) | payer MEDICARE, SELFPAY | PROVIDERS: PCP Family Medicine; Visit Provider Nurse Practitioner Family | DX: I10 Essential (primary) hypertension (principal); E78.5 Hyperlipidemia, unspecified; I25.10 Atherosclerotic heart disease of native coronary artery without angina pectoris; I21.09 ST elevation (STEMI) myocardial infarction involving other coronary artery of anterior wall; I51.3 Intracardiac thrombosis, not elsewhere classified; I45.10 Unspecified right bundle-branch block; I44.4 Left anterior fascicular block | CPT/HCPCS: 93005; 99212 ==

== ENCOUNTER 2024-02-01 08:47 | Outpatient (AMB) | payer MEDICARE, SELFPAY ==
--- NOTE | 2024-02-01 09:12 | MHC.OFFVIS ---
Intake Intake Visit Reasons: Voiding Trial Intake Note: New Patient presents for initial visit for voiding trial Urology Medications: tamsulosin Blood Thinner: aspirin PVR: Player Development Manager Required: Yes Player Development Manager Name: SHANELLE MCDONALD Accompanied by: Unknown Allergies No Known Allergies Allergy (Verified 02/01/24 10:13) Medication List - Last Reconciled 02/01/24 by AMANDO Ardon acetaminophen 500 mg PO DAILY amoxicillin-pot clavulanate 875-125 mg 1 tab PO BID apixaban (Eliquis) 5 mg PO Q12H aspirin 81 mg PO DAILY atorvastatin 80 mg PO DAILY chlorhexidine gluconate 0.12% 15 mL PO BID polyethylene glycol 3350 (Purelax) 17 grams PO DAILY ruxolitinib 20 mg PO BID tamsulosin (Flomax) 0.4 mg PO BEDTIME HPI HPI Comments History of Present Illness Details Mervin is a pleasant 73-year-old Marshallese-speaking male patient of Dr. Vanessa. He has a past medical history of left ventricular thrombosis, ACD, hyperlipidemia, hypertension, ischemic cardiomyopathy, CVA, and bone marrow cancer. He presents to the office today as a new patient for urinary retention. In discussion with the patient today he reports having had a dental procedure approximately 2 weeks ago at which time he went into urinary retention and a Quinones catheter was placed. He denies having had any urinary issues prior to this episode of urinary retention. In office voiding trial performed however patient unable to independently void. Therefore discussed attempting to go home and void in call office by 15:00 if unable to void and or to replace Quinones at this current time. He reports having started Flomax since this episode of urinary retention. He otherwise denies any bothersome urinary issues or concerns. He reports having never followed up with a urologist in the past as he had never had any urological issues or concerns. [facility] Medical History Encounter for screening colonoscopy Left ventricular thrombus Atherosclerotic cardiovascular disease HLD (hyperlipidemia) HTN (hypertension) Ischemic cardiomyopathy History of CVA (cerebrovascular accident) Myelofibrosis Coronary artery disease Surgical History History of appendectomy Family History Mother History of cancer of unknown primary site Social History Household Members: Family Alcohol intake: former Patient Tobacco Use Status: Never used Tobacco service: No Review of Systems Const Reports as per HPI Eyes Reports no additional complaints ENT Reports no additional complaints Card Reports as per HPI Resp Reports no additional complaints GI Reports no additional complaints Reports as per HPI Musc Reports as per HPI Neuro Reports no additional complaints Psych Reports no additional complaints Endo Reports no additional complaints Apollo/Lymph Reports as per HPI Aller/Immun Reports as per HPI Physical Exam Const General: cooperative, healthy appearing, comfortable, no acute distress, well developed, alert and awake Nutritional Appearance: thin Orientation/consciousness: patient oriented x3 Limitations: no limitations HEENT Head: Yes normal to inspection, Yes normocephalic and Yes atraumatic Ears: hearing grossly normal bilaterally Eyes General: appearance normal, both eyes and all related structures Neck Neck: Yes normal visual inspection and Yes trachea midline Chest Chest palpation & inspection: normal inspection of the chest Resp Effort & Inspection: normal respiratory effort and able to speak in complete sentences Cardio Rate: regular rate GI Inspection: Yes normal to inspection General: Yes no CVA tenderness Back/Spine/Pelvis Back: no CVA tenderness Skin General skin exam: no rashes or lesions noted Neuro General: patient oriented x3 Extrem General: Yes normal to inspection Psych Appearance: grossly normal and well kempt Mental Status: mental status grossly normal Speech and movement: Normal speech and movement present and Clear speech present Affect: normal affect Attitude: cooperative Thought process: Normal thought process present Thought content: Normal thought content present Insight: Fair insight present (Psych) Judgement: Fair judgement present (Psych) Office Procedures Bladder/Catheter Procedure Details: 120 mls sterile water instilled into bladder, 16 fr cath w 10 ml balloon removed, pt tolerated removal well. MA to room to bladder scan. [id number] of Bladder Procedure code (CPT) selection complete Assessment & Plan Assessment & Plan (1) Urinary retention: Code(s): R33.9 - Retention of urine, unspecified (2) BPH (benign prostatic hyperplasia): Code(s): N40.0 - Benign prostatic hyperplasia without lower urinary tract symptoms Plan In office voiding trial performed however patient unable to independently void he will go home in attempt to drinking urinate he will call office if unable to void prior to 15:00; this was discussed at length Discussed at length potential causes for urinary retention. Will obtain retroperitoneal ultrasound in 3 months. Will obtain PSA in 2 months given recent Quinones catheter placement. Continue Flomax as discussed and prescribed. Start finasteride 5 mg daily. Discussed if unable to void will replace Quinones later today and will repeat office voiding trial in 1 month. Discussed at length potential for near future in office cystoscopy for further assessment evaluation. Follow-up with nursing in 2 weeks for PVR Follow-up with me in 3 months with imaging and labs to be completed prior; or sooner with any issues, concerns, and or questions. Orders: Orders AMB Bladder/Catheter Procedure Today R33.9 - Retention of urine, unspecified US retroperitoneal comp Today R33.9 - Retention of urine, unspecified AMB Urinalysis Automated Today Z13.9 - Encounter for screening, unspecified Prostate Specific Antigen 2 Months N40.0 - Benign prostatic hyperplasia without lower urinary tract symptoms Medications: New finasteride 5 mg PO DAILY 90 days 90 tabs 1RF N40.1 - Benign prostatic hyperplasia with lower urinary tract symptoms, R33.9 - Retention of urine, unspecified Patient Instructions: The patient had an opportunity to ask questions regarding the treatment plan. All questions were answered. Physical exam, labs, and imaging were discussed and reviewed in detail. As well as risks, benefits, and discussion of treatment choices. No major barriers to understanding were identified. The patient expressed understanding and agreement with the above treatment plan. The patient was made aware they should contact our office by phone for worsening of their current condition, the appearance of new symptoms, or with any questions or concerns. Compliance is encouraged with any medications and follow up testing that is ordered. It is a privilege to be allowed the opportunity to participate in? your urological care.? Again, if you have any questions or concerns If you have any questions or concerns please do not hesitate to contact me. The office is [phone]. This note is constructed using voice recognition software. While every effort has been made to ensure accuracy drug abuse social worker errors may have been included. Yours sincerely, AMANDO Ardon Coding Level of Care Code New Pt Level 4 (71011) Diagnoses Urinary retention R33.9 BPH (benign prostatic hyperplasia) N40.0 CPT Codes Bladder/Catheter Procedure - CPT: 09747-Dhsuccvwer of Bladder ([id number])
== END 2024-02-01 09:49 | disposition home or self-care (01) ==
PROVIDERS: PCP Family Medicine; Visit Provider Nurse Practitioner Family
DX: R33.9 Retention of urine, unspecified (principal); N40.0 Benign prostatic hyperplasia without lower urinary tract symptoms
CPT/HCPCS: 51700; 99204

== ENCOUNTER → 2024-02-01 08:47 | Outpatient (BNVA) | payer MEDICARE, SELFPAY | PROVIDERS: PCP Family Medicine; Visit Provider Nurse Practitioner Family | DX: N40.1 Benign prostatic hyperplasia with lower urinary tract symptoms (principal); R33.8 Other retention of urine; Z46.6 Encounter for fitting and adjustment of urinary device | CPT/HCPCS: 51700; 51798; 99202 ==

== ENCOUNTER → 2024-02-09 14:57 | Outpatient (BNV) | payer MEDICARE, SELFPAY ==
--- NOTE | 2024-02-09 14:57 | AM.OFFVISNUR ---
Intake Intake Visit Reasons: Amb Documentation Allergies No Known Allergies Allergy (Verified 02/01/24 10:13) Nursing Note Patient came to office requesting to be seen. Patient stated that patient is having lots of burning with urination and is very uncomfortable. Reviewed with Nancy- check if patient is on augmentin that is in chart, see if patient is willing to give urine sample and she will send Bactrim for patient. Let pt know Nancy would like to do a urine test and culture, she sent abx to [facility]. UA done in office after sample provided, will send urine for culture. Patient and patient agreeable with plan at this time. Results AMB Urinalysis, Automated UA Leukoctes 125 Leonard/uL Last Edit by Momo Esqueda LPN on 02/09/24 14:58 UA Nitrite Positive Last Edit by Momo Esqueda LPN on 02/09/24 14:58 UA Urobilinogen 0 mg/dL Last Edit by Momo Esqueda LPN on 02/09/24 14:58 UA Protein 300 mg/dL Last Edit by Momo Esqueda LPN on 02/09/24 14:58 UA pH 6.0 Last Edit by Momo Esqueda LPN on 02/09/24 14:58 UA Blood 200 Robbin/uL Last Edit by Momo Esqueda LPN on 02/09/24 14:58 UA Specific Premium 1.025 Last Edit by Momo Esqueda LPN on 02/09/24 14:58 UA Ketone Negative Last Edit by Momo Esqueda LPN on 02/09/24 14:58 UA Bilirubin 0 mg/dL Last Edit by Momo Esqueda LPN on 02/09/24 14:58 UA Glucose 0 mg/dL Last Edit by Momo Esqueda LPN on 02/09/24 14:58 Coding
== END ==
PROVIDERS: PCP Family Medicine
DX: R33.9 Retention of urine, unspecified (principal)
CPT/HCPCS: 81003

== ENCOUNTER 2024-02-09 17:08 | Outpatient (REF) | payer MEDICARE, SELFPAY | END 2024-02-09 17:09 | disposition home or self-care (01) | LOC: HO.LNP 17:08 | PROVIDERS: Visit Provider Nurse Practitioner Family | DX: R33.9 Retention of urine, unspecified (principal) | CPT/HCPCS: 87086; 87088; 87186 ==

== ENCOUNTER → 2024-02-29 09:17 | Outpatient (BNVA) | payer MEDICARE, SELFPAY | PROVIDERS: PCP Family Medicine; Visit Provider Nurse Practitioner Family | DX: R33.9 Retention of urine, unspecified (principal); N40.0 Benign prostatic hyperplasia without lower urinary tract symptoms | CPT/HCPCS: 51700; 51798 ==

== ENCOUNTER 2024-04-25 12:27 | Outpatient (REF) | payer MEDICARE, SELFPAY ==
--- NOTE | ~2024-04-25 | US_ITS ---
EXAMINATION: US RETROPERITONEAL COMPLETE (RENAL) CLINICAL INFORMATION: Retention of urine, unspecified. COMPARISON: CT abdomen and pelvis 06/18/2016. Ultrasound abdomen complete 01/31/2015 and 08/12/2014. TECHNIQUE: Real-time imaging of the kidneys and bladder. FINDINGS: RIGHT KIDNEY: 12.1 x 5.8 x 5.5 cm (SAG x AP x TRV). The kidney is normal in size, contour, and echogenicity. Renal cortical thickness is normal. No calculi or focal parenchymal lesions. No hydronephrosis. LEFT KIDNEY: 11.3 x 4.7 x 3.9 cm (SAG x AP x TRV). The kidney is normal in size, contour, and echogenicity. Renal cortical thickness is normal. No calculi or focal parenchymal lesions. No hydronephrosis. BLADDER: Well distended and normal. Bilateral ureteral jets are demonstrated. Prevoid bladder volume is 249 mL. Postvoid bladder volume is 110 mL. PROSTATE: Prostate dimensions are 3.5 x 3.4 x 4.1 cm (volume 25.4 mL). ADDITIONAL FINDINGS: There is splenomegaly, with a longitudinal span of 24.4 cm. Accessory splenic tissue is noted. US/US retroperitoneal comp IMPRESSION: 1. Unremarkable ultrasound appearance of the kidneys. 2. There is an increased postvoid residual volume. 3. There is splenomegaly.
== END 2024-04-25 12:28 | disposition home or self-care (01) ==
LOC: HO.US 12:27
PROVIDERS: PCP Family Medicine; Visit Provider Nurse Practitioner Family
DX: R33.9 Retention of urine, unspecified (principal)
CPT/HCPCS: 76770

== ENCOUNTER 2024-05-02 07:15 | Outpatient (REF) | payer MEDICARE, SELFPAY ==
[2024-05-02 11:12] LABS: Prostate Specific Antigen 2.13 ng/mL (<0.05-4.0)
== END 2024-05-02 07:16 | disposition home or self-care (01) ==
LOC: HO.LAB 07:15
PROVIDERS: PCP Family Medicine; Visit Provider Nurse Practitioner Family
DX: Z12.5 Encounter for screening for malignant neoplasm of prostate (principal); R33.9 Retention of urine, unspecified
CPT/HCPCS: 36415; 81003; 84153; 99212

== ENCOUNTER 2024-05-02 13:29 | Outpatient (AMB) | payer MEDICARE, SELFPAY ==
--- NOTE | 2024-05-02 13:32 | MHC.OFFVIS ---
Intake Visit Reasons: 3m/US/PSA Intake Note: Patient is present for 3m/US/PSA Urology Medication:finasteride,terazosin,methenamine hippurate,ascorbic acid Antibiotic Allergy:none Blood Thinner:aspirin [employer] Van Truck Driver Required: No Allergies No Known Allergies Allergy (Verified 05/02/24 14:16) Medication List - Last Reconciled 05/02/24 by POLA Ardon- acetaminophen 500 mg PO DAILY apixaban (Eliquis) 5 mg PO Q12H ascorbic acid (vitamin C) 500 mg PO DAILY 90 days aspirin 81 mg PO DAILY atorvastatin 80 mg PO DAILY chlorhexidine gluconate 0.12% 15 mL PO BID finasteride 5 mg PO DAILY 90 days methenamine hippurate 1 g PO DAILY 90 days metoprolol tartrate 25 mg PO BID 90 days polyethylene glycol 3350 (Purelax) 17 grams PO DAILY ruxolitinib 20 mg PO BID spironolactone (Aldactone) 25 mg PO DAILY terazosin 5 mg PO BEDTIME 30 days HPI Comments Details: Mervin is a pleasant 74-year-old Italian-speaking male patient of Dr. Vanessa. He has a past medical history of left ventricular thrombosis, ACD, hyperlipidemia, hypertension, ischemic cardiomyopathy, CVA, and bone marrow cancer. He presents to the office today for a follow up of her urinary retention. Of note, patient was seen approximately 3 months ago as a new patient for urinary retention at which time an in office voiding trial was performed and patient was unable to void and returned back to the office for reinsertion of Quinones catheter. However, he followed up with nursing thereafter and was able to successfully have another voiding trial and able to independently urinate. He reports he has been able to independently void over the last 6-8 weeks. He currently denies any bothersome urinary issues or concerns. He reports compliance with finasteride, terazosin, methenamine, and vitamin-C as prescribed. Recent retroperitoneal ultrasound results reviewed with the patient today. Bilateral kidneys with no lesions, hydronephrosis, or renal calculi. The bladder is well distended and normal. Pre void bladder volume is approximately 250 mL. Postvoid bladder volume is approximately 110 mL. Prostate measures approximately 25 mL. He denies urinary urgency, urinary frequency, incontinence, nocturia, hematuria, dysuria, foul smelling urine, changes to urinary stream, flank pain, fever, and or chills. PVR 0 mL. He otherwise offers no other issues or concerns at this time [facility] Medical History Encounter for screening colonoscopy Left ventricular thrombus Atherosclerotic cardiovascular disease HLD (hyperlipidemia) HTN (hypertension) Ischemic cardiomyopathy History of CVA (cerebrovascular accident) Myelofibrosis Coronary artery disease Surgical History History of appendectomy Family History Mother History of cancer of unknown primary site Social History Household Members: Family Alcohol intake: former Patient Tobacco Use Status: Never used Tobacco service: No Review of Systems Const Reports as per HPI Eyes Reports no additional complaints ENT Reports no additional complaints Card Reports as per HPI Resp Reports no additional complaints GI Reports no additional complaints Reports as per HPI Musc Reports as per HPI Neuro Reports no additional complaints Psych Reports no additional complaints Endo Reports no additional complaints Apollo/Lymph Reports as per HPI Aller/Immun Reports as per HPI Physical Exam Const General: cooperative, healthy appearing, comfortable, no acute distress, well developed, alert and awake Nutritional Appearance: thin Orientation/consciousness: patient oriented x3 Limitations: no limitations HEENT Head: Yes normal to inspection, Yes normocephalic and Yes atraumatic Ears: hearing grossly normal bilaterally Eyes General: appearance normal, both eyes and all related structures Neck Neck: Yes normal visual inspection and Yes trachea midline Chest Chest palpation & inspection: normal inspection of the chest Resp Effort & Inspection: normal respiratory effort and able to speak in complete sentences Cardio Rate: regular rate GI Inspection: Yes normal to inspection General: Yes no CVA tenderness Back/Spine/Pelvis Back: no CVA tenderness Skin General skin exam: no rashes or lesions noted Neuro General: patient oriented x3 Extrem General: Yes normal to inspection Psych Appearance: grossly normal and well kempt Mental Status: mental status grossly normal Speech and movement: Normal speech and movement present and Clear speech present Affect: normal affect Attitude: cooperative Thought process: Normal thought process present Thought content: Normal thought content present Insight: Fair insight present (Psych) Judgement: Fair judgement present (Psych) Results AMB Urinalysis, Automated UA Leukoctes 0 Leonard/uL Last Edit by Ynes Keane [facility] on 05/02/24 13:45 UA Nitrite Negative Last Edit by Ynes Keane [facility] on 05/02/24 13:45 UA Urobilinogen 0.2 mg/dL Last Edit by Ynes Keane [facility] on 05/02/24 13:45 UA Protein 0 mg/dL Last Edit by Ynes Keane [facility] on 05/02/24 13:45 UA pH 6.0 Last Edit by Ynes Keane [facility] on 05/02/24 13:45 UA Blood 0 Robbin/uL Last Edit by Ynes Keane [facility] on 05/02/24 13:45 UA Specific Fate 1.015 Last Edit by Ynes Keane [facility] on 05/02/24 13:45 UA Ketone Positive Last Edit by Ynes Keane [facility] on 05/02/24 13:45 UA Bilirubin 0 mg/dL Last Edit by Ynes Keane [facility] on 05/02/24 13:45 UA Glucose 0 mg/dL Last Edit by Ynes Keane [facility] on 05/02/24 13:45 Results Reviewed Results Reviewed: Laboratory Last Values Urine pH (Auto) 6.0 05/02/24 13:44 Specific Fate (Auto) 1.015 05/02/24 13:44 Urine Protein (Auto) 0 mg/dL 05/02/24 13:44 Glucose (UA)(Auto) 0 mg/dL 05/02/24 13:44 Urine Ketones (Auto) Positive 05/02/24 13:44 Urine Blood (Auto) 0 Robbin/uL 05/02/24 13:44 Urine Nitrite (Auto) Negative 05/02/24 13:44 Urine Bilirubin (Auto) 0 mg/dL 05/02/24 13:44 Urine Urobilinogen (Auto) 0.2 mg/dL 05/02/24 13:44 Leukocyte Esterase (Auto) 0 Leonard/uL 05/02/24 13:44 Date of Service: 04/25/24 EXAMINATION: US RETROPERITONEAL COMPLETE (RENAL) FINDINGS: RIGHT KIDNEY: 12.1 x 5.8 x 5.5 cm (SAG x AP x TRV). The kidney is normal in size, contour, and echogenicity. Renal cortical thickness is normal. No calculi or focal parenchymal lesions. No hydronephrosis. LEFT KIDNEY: 11.3 x 4.7 x 3.9 cm (SAG x AP x TRV). The kidney is normal in size, contour, and echogenicity. Renal cortical thickness is normal. No calculi or focal parenchymal lesions. No hydronephrosis. BLADDER: Well distended and normal. Bilateral ureteral jets are demonstrated. Prevoid bladder volume is 249 mL. Postvoid bladder volume is 110 mL. PROSTATE: Prostate dimensions are 3.5 x 3.4 x 4.1 cm (volume 25.4 mL). ADDITIONAL FINDINGS: There is splenomegaly, with a longitudinal span of 24.4 cm. Accessory splenic tissue is noted. IMPRESSION: 1. Unremarkable ultrasound appearance of the kidneys. 2. There is an increased postvoid residual volume. 3. There is splenomegaly. Assessment & Plan Assessment & Plan (1) Urinary retention: Code(s): R33.9 - Retention of urine, unspecified Category: Medical Plan In office urinalysis results reviewed with the patient today; as noted above. PVR 0ml's. Continue finasteride, terazosin, methenamine, and vitamin-C. Recent retroperitoneal ultrasound results reviewed with the patient today; as noted above. Patient currently denies any bothersome urinary issues or concerns. He reports be happy with current voiding parameters. Will obtain PSA. Follow-up in 6 months with PSA to be completed prior PVR at next office visit; or sooner with any issues, concerns, and or questions. Orders: Orders AMB Urinalysis Automated 05/02/24 Z13.9 - Encounter for screening, unspecified Prostate Specific Antigen 05/02/24 N40.0 - Benign prostatic hyperplasia without lower urinary tract symptoms Patient Instructions: The patient had an opportunity to ask questions regarding the treatment plan. All questions were answered. Physical exam, labs, and imaging were discussed and reviewed in detail. As well as risks, benefits, and discussion of treatment choices. No major barriers to understanding were identified. The patient expressed understanding and agreement with the above treatment plan. The patient was made aware they should contact our office by phone for worsening of their current condition, the appearance of new symptoms, or with any questions or concerns. Compliance is encouraged with any medications and follow up testing that is ordered. It is a privilege to be allowed the opportunity to participate in? your urological care.? Again, if you have any questions or concerns If you have any questions or concerns please do not hesitate to contact me. The office is [phone]. This note is constructed using voice recognition software. While every effort has been made to ensure accuracy back seam stitcher errors may have been included. Yours sincerely, AMANDO Ardon Coding Level of Care Code Est Pt Level 3 (85655) Diagnoses Urinary retention R33.9
== END 2024-05-02 14:12 | disposition home or self-care (01) ==
PROVIDERS: PCP Family Medicine; Visit Provider Nurse Practitioner Family
DX: R33.9 Retention of urine, unspecified (principal)
CPT/HCPCS: 99213

== ENCOUNTER 2025-03-12 11:22 | Outpatient (REF) | payer MEDICARE, SELFPAY ==
--- NOTE | ~2025-03-12 | XR_ITS ---
EXAMINATION: XR SHOULDER, RIGHT CLINICAL INFORMATION: PAIN COMPARISON: None available. TECHNIQUE: AP external rotation, Grashey, scapular Y, and axillary views of the right shoulder. FINDINGS: Normal bone mineralization. No fracture, dislocation, or suspicious bone lesion. Normal alignment. The glenohumeral joint is normal. The AC joint demonstrates mild to moderate spurring, both superior and undersurface. There is a type II acromion. No undersurface spurring. The subacromial space is preserved. Remainder of the soft tissue and bony structures appear normal. XR/XR shoulder RT min 2V IMPRESSION: No acute bony abnormalities right shoulder. Electronically signed by: Brady Jernigan MD 03/12/2025 01:14 PM EDT
--- OUTSIDE RECORDS SUMMARY | 2025-03-12 12:51 | XMS_ITS | Clinical Summary ---
Author Organization [employer] Address [address] [facility] [address] [place] [address] Care Team Providers Care Crystal Growing Technician Name Role Phone Siobhan Vanessa MD Primary Care Provider [phone] Allergies No known active allergies Medications Acetaminophen Extra Strength 500 MG tablet TAKE 2 TABLETS BY MOUTH EVERY 6 HOURS NEEDED FOR MODERATE PAIN SCALE 4-6 12/18/19 24 Active metoprolol succinate XL (Toprol XL) 25 MG 24 hr tabletIndicatio ns:Benign essential hypertension Take 1 tablet (25 mg) by mouth in the morning. Do not crush or chew. 90 tablet 3 01/25/20 24 Active tamsulosin (Flomax) 0.4 MG 24 hr capsuleIndicati ons:Benign prostatic hyperplasia with lower urinary tract symptoms, symptom details unspecified Take 1 capsule (0.4 mg) by mouth in the morning. 90 capsule 3 02/01/20 24 Active Jakafi 20 MG chemo tabletIndicatio ns:Myeloprolife rative disorder (CMS/HCC) 02/20/20 24 Active spironolactone (Aldactone) 25 MG tabletIndicatio ns:Ischemic myocardial dysfunction,Domingo ign essential hypertension Take 1 tablet (25 mg) by mouth Once per day. 30 tablet 11 02/29/20 24 Active Stool Softener/Laxati ve 50-8.6 MG tabletIndicatio ns:Constipation , unspecified constipation type TAKE 2 TABLETS BY MOUTH EVERY DAY NEEDED FOR CONSTIPATION 180 tablet 3 08/14/20 24 Active apixaban (Eliquis) 5 MG tabletIndicatio ns:Mural thrombus of left ventricle TAKE 1 TABLET BY MOUTH TWICE DAILY IN THE MORNING AND IN THE EVENING 180 tablet 3 09/03/20 24 Active aspirin (Aspirin Low Dose) 81 MG EC tabletIndicatio ns:Coronary artery disease involving [place] coronary artery of [place] heart without angina pectoris TAKE 1 TABLET BY MOUTH EVERY MORNING 90 tablet 3 11/09/19 25 Active atorvastatin (Lipitor) 80 MG tabletIndicatio ns:Coronary artery stenosis TAKE 1 TABLET BY MOUTH AT BEDTIME 90 tablet 3 03/07/20 25 Active Diclofenac Sodium 1 % gel Apply 4 g topically if needed in the morning, at noon, in the evening, and at bedtime (pain). 100 g 03/12/20 25 Active atorvastatin (Lipitor) 80 MG tabletIndicatio ns:Coronary artery stenosis take 1 tablet by oral route every day at bedtime 90 tablet 3 02/01/20 24 2024 Discontinued Active Problems Problem Noted Date Diagnosed Date Preop examination 01/25/2025 Iron deficiency anemia 02/03/2024 Assessment & Plan (02/03/2024 9:58 AM EDT): Lab Results Component Value Date FERRITIN 290 (H) 01/26/2024 HGB 9.3 (L) 01/26/2024 HGB 11.7 (L) 07/12/2023 HGB 11.7 (L) 07/12/2023 Likely due to recent blood loss. Ferritin maybe elevated as an acute phase reactant to recent infection. Will not start iron at this time due to risk of constipation while patient is having urinary retention. Will check in one month. Transaminitis 02/03/2024 Assessment & Plan (02/03/2024 9:59 AM EDT): Lab Results Component Value Date AST 47 (H) 01/26/2024 ALT 78 (H) 01/26/2024 ALP 112 01/26/2024 DIRECTBILIRU 0.3 01/26/2024 Check Hep C and repeat in one month. Urinary retention 01/25/2024 Overview (05/22/2024): Quinones placed 01/21/24 in hospital at [place] [facility] for urinary retention. They recommend follow up 1 week urology. -Seen by urology 02/01/24 In office voiding trial performed however patient unable to independently void. - Bladder scan showed over 800mls, Quinones catheter reinserted, follow up in 1 month. - Finasteride added by Urology -seen by urology 05/22/24 Continue finasteride, terazosin, methenamine, and vitamin-C. Assessment & Plan (02/03/2024 10:02 AM EDT): Quinones placed 01/21/24 in hospital [facility] for urinary retention. They recommend follow up 1 week urology. -Seen by urology 02/01/24 In office voiding trial performed however patient unable to independently void. - Bladder scan showed over 800mls, Quinones catheter reinserted, follow up in 1 month. - Finasteride added by Urology Assessment & Plan (01/25/2024 12:27 PM EDT): Quinones placed 01/21/24 in hospital [facility] for urinary retention. They recommend follow up 1 week urology. -referral placed 01/25/24 Dementia 01/17/2024 Overview (02/22/2024): Patients VNA from [facility] requested evaluation for worsening memory 01/2024. Family repots memory has been getting progressively worse. MOCA/mini mental exam done with RN . MMSE2 in Welsh completed with pt. Pt states graduated high school as highest level of education. Pt was able to recall and repeat 2/3 words directly after they were listed for him but several minutes later when asked to recall, remembered 1/3. He knew the month and day of the week but when asked what year it was responded, 2002 , thought it was summer and that we are on the third floor. He was completely disoriented to place. He was unable to do any math. Also offered alternate activity of spelling leche backwards and couldn't complete that either, just answered, cow . He was able to name facial parts and follow a simple written instruction (after a long pause and lots of prompting). He was unable to repeat a spoken sentence in chilean and was also unable to write a sentence that was spoken to him. Was prompted to write Mi color favorito es... followed by his favorite color. He said, byrnes and then wrote Sool without the rest of the sentence. He was able to name a square but answered, lines for triangle and zero for [place]. Lastly he was able to copy a shape on paper. -Pt scored a 10 out of a possible 30 points. This is considered severe cognitive impairment and at an increased odds for dementia status. -referral to geriatrics memory clinic placed 02/22/24 Assessment & Plan (02/22/2024 9:18 AM EDT): Patients VNA from [facility] requested evaluation for worsening memory 01/2024. Family repots memory has been getting progressively worse. MOCA/mini mental exam done with RN . MMSE2 in Welsh completed with pt. Pt states graduated high school as highest level of education. Pt was able to recall and repeat 2/3 words directly after they were listed for him but several minutes later when asked to recall, remembered 1/3. He knew the month and day of the week but when asked what year it was responded, 2002 , thought it was summer and that we are on the third floor. He was completely disoriented to place. He was unable to do any math. Also offered alternate activity of spelling leche backwards and couldn't complete that either, just answered, cow . He was able to name facial parts and follow a simple written instruction (after a long pause and lots of prompting). He was unable to repeat a spoken sentence in chilean and was also unable to write a sentence that was spoken to him. Was prompted to write Mi color favorito es... followed by his favorite color. He said, byrnes and then wrote Sool without the rest of the sentence. He was able to name a square but answered, lines for triangle and zero for [place]. Lastly he was able to copy a shape on paper. -Pt scored a 10 out of a possible 30 points. This is considered severe cognitive impairment and at an increased odds for dementia status. -referral to geriatrics memory clinic placed 02/22/24 Chronic congestive splenomegaly 07/08/2023 Overview (07/08/2023): -Due to myeloproliferative disorder Assessment & Plan (07/08/2023 9:25 AM EDT): -Due to myeloproliferative disorder Frail elderly 07/08/2023 Assessment & Plan (01/25/2024 12:32 PM EDT): Pt requires 24 hour care. Referred to our med records 01/25/24 for resources. Assessment & Plan (07/08/2023 9:39 AM EDT): He had 28 hours YARD ENGINEER serves but when he moved he was reevaluated by someone who did not speak Welsh. Pt state he said yes to everything but did not know what was being asked and lost services. Number for [facility] given to sister 07/08/23 to call for evaluation. Has [facility] for INR draws as was not able to get to outside INR checks. 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 Changed to eliquis after eco showed resolution of thrombus at [facility] 12/2023. Discharge summary from [facility] reviewed states LIV demonstrated resolution of LV mural thrombus and patient was transitioned off warfarin an onto Eliquis for clot prophylaxis in the setting of LV aneurysm and history of DVTs. Assessment & Plan (01/25/2024 1:52 PM EDT): - For left ventricular thrombus. Changed to eliquis after eco showed resolution of thrombus at [facility] 12/2023. Assessment & Plan (07/08/2023 8:28 AM EDT): - For left ventricular thrombus. INR dosed by PCP. Preventative health care 07/06/2023 Overview (01/25/2024): -next physical exam due after 07/08/2024 -eye care facilitated by [facility] -has health care proxy on file 01/25/24 Assessment & Plan (01/25/2024 1:53 PM EDT): -next physical exam due after 07/08/2024 -eye care facilitated by Eliezer -dentist [facility] -has health care proxy on file 01/25/24 History of CVA (cerebrovascular accident) 2022 Overview (07/06/2023): He saw neurology during hospitalization Oct 2011who reviewed his neurological work up in [place] including carotid ultrasound that was unremarkable. Neurology recommended no further work up and continuing aspirin. - coninue ASA and atorvastatin 80qhs Assessment & Plan (07/08/2023 8:29 AM EDT): He saw neurology during hospitalization Oct 2011who reviewed his neurological work up in [place] including carotid ultrasound that was unremarkable. Neurology recommended no further work up and continuing aspirin. 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 No evidence of hematoma. Reassurance given and we reviewed importance of taking his meds (which he does) even though bruising is a side effect. Reviewed to go ER for any falls that involve head trauma. He and his YARD ENGINEER agree with the plan. Assessment & Plan (03/11/2023 3:33 PM EDT): Today I re-check INR is 3.5 I advise to hold coumadin for today and then resume Hematology office will be contacted to reports coumadin side effect decision to continue or switch to other agent will be done by specialist, I explain this to patient he understood and agreed Coronary artery stenosis 12/26/2021 Overview (02/18/2024): Admitted to [facility] in March of 2020 due to cardiac issues and angina like symptoms. Cardiac catherization 03/2020 showed proximal LAD 100% stenosis, thought to be a chronic total occlusion . He was also found to have left ventricular apical thrombus and anticoagulation started.ASA initially held but accidentally restarted. Pt saw cardiology 11/11/2020 and asa and Coumadin continued and Plavix d/c. Cardiac MRI showed non viable chronic appearing infarct in the L apex and in the inferior apical segments with aneurysm formation. -Continue low-dose beta cass 25 mg 1.5 tab a day with baseline bradycardia. -Continue atorvastatin 80 mg qd. -Continue ASA and Eliquis changed in [facility] 12/2023 due to thrombus resolved on echo and required transfusion for bleeding tooth abscess -Followed by Dr. Greg Galaviz of [facility], we called 07/08/23 and they repot he missed last appointment. -echo in [facility] 12/2023 showed mildly reduced ejection fraction of 45% and was initiated on metoprolol as part of GDMT. -seen by [facility] 01/2024, continue Eliquis Assessment & Plan (07/08/2023 9:33 AM EDT): Admitted to [facility] in March of 2020 due to cardiac issues and angina like symptoms. Cardiac catherization 03/2020 showed proximal LAD 100% stenosis, thought to be a chronic total occlusion .He was also found to have left ventricular apical thrombus and anticoagulation started. He is on Coumadin and ASA. ASA initially held but accidentally restarted. Pt saw cardiology 11/11/2020 and asa and Coumadin continued and Plavix d/c. Pt has no further angina. Continue medical therapy Cardiac MRI showed non viable chronic appearing infarct in the L apex and in the inferior apical segments with aneurysm formation. -Continue low-dose beta cass 25 mg 1.5 tab a day with baseline bradycardia. -Continue atorvastatin 80 mg qd. -Continue ASA and Coumadin (for cardiac thrombus) -Followed by Dr. Greg Galaviz of [facility], we called 07/08/23 and they repot he missed last appointment. Benign essential hypertension 12/26/2021 Overview (07/06/2023): -Blood pressure is at goal -Continue lifestyle modifications -Continue current medications Dyslipidemia 12/26/2021 Overview (07/06/2023): No results found for: CHOLESTEROL, LDLCHOL, TRIG, HDLCHOL, CHOLHDLRAT -continue lifestyle modifications -continue atorvastatin 80mg qhs Tubular adenoma 07/13/2018 Overview (12/11/2024): -05/[address] Hartley revealed a small polyp that was subsequently removed. Next colonoscopy due in 5 years. -referral placed 07/08/23 and 12/11/24 Assessment & Plan (12/11/2024 12:13 PM EST): -05/[address] Hartley revealed a small polyp that was subsequently removed. Next colonoscopy due in 5 years. -referral placed 07/08/23 and 12/11/24 Assessment & Plan (07/08/2023 8:29 AM EDT): -05/[address] Hartley revealed a small polyp that was subsequently removed. Next colonoscopy due in 5 years. History of appendectomy 01/17/2013 Myeloproliferative disorder 01/17/2013 Overview (04/26/2024): - Followed by Dr. Flanagan, Surgical Territory Manager.Note from 04/19/24 reviewed. - Stable on Jakafi (Ruxolitinib) started June 28, 2014 - CAT scan of abdomen performed on 06/01/16. -he has difficulty maintain weight due to his chronic illness , Rx Boost for nutrition supplementation Assessment & Plan (07/08/2023 9:01 AM EDT): - Followed by Dr. Flanagan, Surgical Territory Manager. - Stable on Jakafi (Ruxolitinib) started June 28, 2014 - CAT scan of abdomen performed on 06/01/16. - he has difficulty maintain weight due to his chronic illness , Rx Boost for nutrition supplementation Resolved Problems Problem Noted Date Diagnosed Date Resolved Date CVA (cerebral vascular accident) 01/17/2024 01/25/2024 Submandibular abscess 01/17/20242023 Overview (01/25/2024): S/p I and D 12/2023, doing well. Tooth was extracted. No evidence of infection. Assessment & Plan (01/25/2024 1:52 PM EDT): S/p I and D 12/2023, doing well. Tooth was extracted. No evidence of infection. Anticoagulated on Coumadin 07/06/2023 0 01/25/2024 Overview (07/08/2023): -for left ventricular thrombus. INR dosed by PCP. Assessment & Plan (07/08/2023 9:33 AM EDT): -for left ventricular thrombus. INR dosed by PCP. -pt to have molar teeth removed via surgery. Pt on coumadin for mural aneurysm with thrombus. -Followed by Dr. Greg Galaviz of [facility], we called 07/08/23 and they repot he missed last appointment. They recommend fax dental note to them and they will fill out recommendations. They will contact pt if he needs to come in. Encounters Date Type Department Care Team Description 03/12/2025 10:00 AM EDT Office Visit [facility] [address] [place] [phone] Acute pain of right shoulder (Primary Dx) 03/06/[address] [address] Siobhan Vanessa MD Coronary artery stenosis 01/25/2025 10:30 AM EDT Office Visit [address] [address] Roshni Robertson FNP Preop examination (Primary Dx); Mural thrombus of left ventricle; Benign essential hypertension; History of CVA (cerebrovascular accident) 01/25/2025 Travel 01/25/[address] [address] Maria Alejandra Watts RN 01/24/2025 Orders Only [address] [address] Siobhan Vanessa MD 01/08/[address] [address] Siobhan Vanessa MD march Recalls 01/08/2025 Travel 01/01/2025 Telephone [facility] [address] [place] [address] Siobhan Vanessa MD Chart Prep from Last 3 Months Immunizations Name Administration Dates Next Due Influenza injectable quadriv alent IIV4 with preservative 08/12/2016,10/03/2015 Influenza injectable quadrivalent preservative f ree 11/11/2021 Influenza, IIV3, injectable 08/01/2014 Influenza, Split (incl. purified surface antigen ) 01/17/2013 Pfizer Covid-19 Vaccine 12+ Bivalent 07/08/2023 Pneumococcal Conjugate PCV 13 11/14/2015 Pneumococcal Polysaccharide PPSV23 11/11/2021 Tdap 05/06/2014 Zoster, Recombinant 07/08/2023 Social History Tobacco Use Types Packs/Day Years Used Date Smoking Tobacco: Never Passive Smoke Exposure: Never Smokeless Tobacco: Never Tobacco Cessation:Counseling Given: Not Answered Depression Answer Date Recorded Patient Health Questionnaire-9 Score 0 01/25/2025 Patient Health Questionnaire-9 Score 0 01/25/2025 Last PHQ-9: Questionnaire Data Not on file 0 01/25/2025 Housing Stability Answer Date Recorded What is your housing situation today? I have marlen cristina 01/25/[address] you li ve. Do you have problems with any of the following? None of the above 01/25/2025 Food Insecurity Answer Date Recorded Within the past 12 months, y ou worried that your food would run out before you got money to buy more: Never True 01/25/2025 Within the past 12 months,th e food you bought just didn't last and you didn't have enough money to get more: Never True Transportation Answer Date Recorded In the past 12 months, has l ack of transportation kept you from medical appts, meetings, work or from getting things needed for daily living? No 01/25/2025 Utilities Answer Date Recorded In the past 12 months, has t he electric, gas, oil or water company threatened to shut off services in your home? No 01/25/2025 Depression Answer Date Recorded Patient Health Questionnaire-2 Score 0 01/25/2025 Internet Access Answer Date Recorded Internet Access Q1 Yes 01/25/2025 Internet Access Q2 Not on file 01/25/2025 Sex and Gender Information Value Date Recorded Sex Assigned at Male 08/30/2022 10:22 AM EDT Legal Sex Male 10:22 AM EDT Gender Identity Male 08/30/2022 10:22 AM EDT Sexual Orientation Straight 08/30/2022 10 :22 AM EDT Last Filed Vital Signs Vital Sign Reading Time Taken Comments Blood Pressure 113/72 03/12/2025 10:00 AM EDT Pulse 67 03/12/2025 10:00 AM EDT Temperature 36.7 ??C (98 ??F) 03/12/2025 10:00 AM EDT Respiratory Rate 18 03/12/2025 10:00 AM EDT Oxygen Saturation 98% 03/12/2025 10:00 AM EDT Inhaled Oxygen Concentration - - Weight 77.6 kg (171 lb) 03/12/2025 10:00 AM EDT Height 165.1 cm (5' 5 ) 01/25/2025 11:18 AM EDT Body Mass Index 28.46 01/25/2025 11:18 AM EDT Plan of Treatment Upcoming Encounters Date Type Department Care Team (Late st Contact Info) Description 04/03/2025 10:30 AM EDT Office Visit [facility] [address] [place] [phone] Siobhan Vanessa MD [address] [place] [address] Health Maintenance Due Date Last Done Comments CT Colonography 1950 FIT DNA/Cologuard 1950 FIT 1950 FOBT 1950 Sigmoidoscopy 1950 Colonoscopy 06/23/2023 06/23/2018 Colorectal Cancer Screening 06/23/2023 Zoster Vaccines (2 of 2) 09/02/2023 07/08/2023 DTaP/Tdap/Td Vaccines (2 - Td or Tdap) 05/06/2024 05/06/2014 COVID-19 Vaccine ( - season) 2024 07/08/2023, 11/11/2021, 01/30/2021, Additional history exists Influenza Vaccine (#1) 2024 , 08/12/2016, 10/03/2015, Additional history exists RSV Patients and Patients Aged 60 years or older (1 - 1-dose 75+ series) 2025 Alcohol/Substance Use Screening 01/25/2026 01/25/2025 Depression Screening 01/25/2026 01/25/2025, 01/26/20 SDOH Screening 01/25/2026 01/25/2025 Tobacco Screening 03/12/2026 03/12/2025 Lipid Panel 01/25/2029 01/26/2024, 07/01, 05/12/2021, Additional history exists Pneumococcal Vaccine: 50+ Years Completed 11/11/2021, 11/14/2015 Hepatitis C Screening Completed 07/12/2023 HIB Vaccines Aged Out No longer eligi ble based on patient's age to complete this topic HPV Vaccines Aged Out No longer eligi ble based on patient's age to complete this topic Hepatitis A Vaccines Aged Out No long er eligible based on patient's age to complete this topic Hepatitis B Vaccines Aged Out No long er eligible based on patient's age to complete this topic IPV Vaccines Aged Out No longer eligi ble based on patient's age to complete this topic Meningococcal Vaccine Aged Out No cheyanne sabra eligible based on patient's age to complete this topic RSV under 20 months Aged Out No longe r eligible based on patient's age to complete this topic Rotavirus Vaccines Aged Out No longer eligible based on patient's age to complete this topic Goals Goal Patient Goal Type Associated Problems Recent Progress Patient-Stated? Author Blood Pressure < 140/90 Blood Pressure 113/72(2024 10:00 AM EDT) No Carmenza Ybarra Record your blood pressure once per day Blood Pressure No Carmenza Ybarra Procedures Procedure Name Priority Date/Time Associated Diagnosis Comments LIPID PANEL, STANDARD Routine 01/26/2024 8:46 AM EDT Dyslipidemia HEPATITIS C ANTIBODY Routine 07/12/2023 8:31 AM EDT Encounter for hepatitis C screening test for low risk patient [facility] COLONOSCOPY Routine 06/23/2018 from Last 3 Months or Most Recently Relevant to Health Maintenance Results * (ABNORMAL) Lipid Panel, Standard (01/26/2024 8:46 AM EDT) Triglycerides 55 <150 mg/dL [facility] Comment:Desirable Triglyceri de: less than 150 mg/dLBorderline High Triglyceride 150-199 mg/dLHigh Triglyceride: 200-499 mg/dLVery High Triglyceride: greater than or equal to 5OO mg/dL Cholesterol 78 <200 mg/dL [facility] Comment:Desirable Cholestero l: less than 200 mg/dLBorderline High Cholesterol: 200-239 mg/dLHigh Cholesterol: greater than 239 mg/dL LDL Cholesterol Calculated 39 <100 mg/dL [facility] Comment:Desirable LDL: less than 100 mg/dLNear Optimal/Above Optimal LDL: 110- 129 mg/dLBorderline High LDL: 130-159 mg/dLHigh LDL: 160-189 mg/dLVery High LDL: greater than or equal to 190 mg/dL HDL Cholesterol 28(L) >40 mg/dL [facility] Comment:Desirable HDL: great er than 40 mg/dL Note: This HDL assay may give artificially low results in patients with liver disease. Blood Venous blood specimen / Unknown 01/26/2024 8:46 AM EDT 01/26/2024 11:17 AM EDT Siobhan Vanessa MD LAB BLOOD ORDERABLES Final Result Performing Organization Address [facility] de Phone Number [facility] [address] [place] [phone] * Hepatitis C Ab (07/12/2023 8:31 AM EDT) Hepatitis C Antibody Nonreactive Nonreactive [facility] Comment:Antibodies to HCV no t detected; does not exclude early acuteHCV infection. Blood 07/12/2023 8:31 AM EDT 07/12/2023 11:10 AM EDT Siobhan Vanessa MD LAB BLOOD ORDERABLES Final Result Performing Organization Address [facility] Co de Phone Number [facility] [address] [place] [address] [phone] * Colonoscopy (06/23/2018) Colonoscopy tubular adenoma with Dr. Hartley us Historical Provider HEALTH MAINTENANCE Final Result from Last 3 Months or Most Recently Relevant to Health Maintenance Insurance [facility] DUAL COMPLETE Advance Directives Documents on File Type Date Recorded Patient Director Funeral Expl anation Advance Directives and Livin g Will 01/25/2024 Health Care Proxy Care Teams Crystal Growing Technician Relationship Specialty Start Date End Date Rasheeda, MD Siobhan [address] [place] [address], [place] [address] PCP - General Family Medicine 01/04/12
--- OUTSIDE RECORDS SUMMARY | 2025-03-12 12:51 | XMS_ITS | Encounter Summary ---
Author Organization [employer] Address [address] [facility] 7t [place] [address] Care Team Providers Care Lpn Name Role Phone Siobhan Vanessa MD Primary Care Provider +- [phone] Encounter Details Date Type Department Care Team ([facility] st Contact Info) Description 01/24/2025 Orders Only [facility] MEDICINE [address] [place], [place] [phone] Siobhan Vanessa MD [address] [place] [address] Social History Tobacco Use Types Packs/Day Years Used Date Smoking Tobacco: Never Passive Smoke Exposure: Never Smokeless Tobacco: Never Depression Answer Date Recorded Patient Health Questionnaire-9 Score 0 01/25/2025 Patient Health Questionnaire-9 Score 0 01/25/2025 Last PHQ-9: Questionnaire Data Not on file 0 01/25/2025 Housing Stability Answer Date Recorded What is your housing situation today? I have marlen evans 01/25/[address] you li [...] Orientation Straight 08/30/2022 10 :22 AM EDT documented as of this encounter Plan of Treatment Upcoming Encounters Date Type Department Care Team (Late st Contact Info) Description 04/03/2025 10:30 AM EDT Office Visit [facility] MEDICINE [address] [place] [address] Siobhna Vanessa MD [address] [place] [address] documented as of this encounter Goals Goal Patient Goal Type Associated Problems Recent Progress Patient-Stated? Author Blood Pressure < 140/90 Blood Pressure 113/72(2024 10:00 AM EDT) No Carmenza Ybarra Record your blood pressure once per day Blood Pressure No Carmenza Ybarra documented as of this encounter Visit Diagnoses Not on filedocumented in this encounter Additional Health Concerns Assessment Noted Time PHQ-9 Depression Total Score: 5 07/08/20 23 9:02 AM EDT documented as of this encounter Care Teams Lpn Relationship Specialty Start Date End Date Siobhan Vanessa MD [address] [place] [address] PCP - General Family Medicine 01/04/12 documented as of this encounter
--- OUTSIDE RECORDS SUMMARY | 2025-03-12 12:51 | XMS_ITS | Encounter Summary ---
Author Organization [employer] Address [address] [facility] 7t [place] [address] Care Team Providers Care Special Crimes Investigator Name Role Phone Siobhan Vanessa MD Primary Care Provider +1- [phone] Reason for Visit * Reason Onset Date Comments Med Refill 2024 Encounter Details Date Type Department Care Team (Late st Contact Info) Description 2024 Telephone [facility] MEDICINE [address] [place], [place] [phone] Siobhan Vanessa MD 230 [place] [address] Med Refill Social History Tobacco Use Types Packs/Day Years Used Date Smoking Tobacco: Never Passive Smoke Exposure: Never Smokeless Tobacco: Never Depression Answer Date Recorded Patient Health Questionnaire-9 Score 5 07/08/2023 Housing Stability Answer Date Recorded What is your housing situation today? I have marlen evans 08/17/[address] you li ve. Do you have problems with any of the following? None of the above 08/17/2023 Food Insecurity Answer Date Recorded Within the past 12 months, y ou worried that your food would run out before you got money to buy more: Never True 08/17/2023 Within the past 12 months,th e food you bought just didn't last and you didn't have enough money to get more: Never True Transportation Answer Date Recorded In the past 12 months, has l ack of transportation kept you from medical appts, meetings, work or from getting things needed for daily living? No 08/17/2023 Utilities Answer Date Recorded In the past 12 months, has t he electric, gas, oil or water company threatened to shut off services in your home? No 08/17/2023 Depression Answer Date Recorded Patient Health Questionnaire-2 Score 2 07/08/2023 Sex and Gender Information Value Date Recorded Sex Assigned at Male 08/30/2022 10:22 AM EDT Legal Sex Male 10:22 AM EDT Gender Identity Male 08/30/2022 10:22 AM EDT Sexual Orientation Straight 08/30/2022 10 :22 AM EDT documented as of this encounter Miscellaneous Notes * Telephone Encounter - Yessi Light PharmD - 02/28/2024 9:24 AM EDT Spironolactone 25mg daily was started during hospitalization in December, prescribed by [facility] for HFr[facility]. Patient has been taking since discharge * Telephone Encounter - Roxy Gayle LPN - 2024 2:21 PM EDT Please review request.Medication was discontinued on 01/25/24 * Telephone Encounter - Yani Spears - 2024 2:07 PM EDT TC from pt requesting a med refil for medication spironolactone 25mg. Pt need refill for medboxes pt is without meds. PCP DR. Vanessa documented in this encounter Plan of Treatment Upcoming Encounters Date Type Department Care Team (Late st Contact Info) Description 04/03/2025 10:30 AM EDT Office Visit [facility] MEDICINE [address] [place], [place] [phone] Siobhan Vanessa MD 230 [place] [address] documented as of this encounter Goals Goal [...] documented as of this encounter Care Teams Special Crimes Investigator Relationship Specialty Start Date End Date Siobhan Vanessa MD 230 [place] [address] PCP - General Family Medicine 01/04/12 documented as of this encounter
--- OUTSIDE RECORDS SUMMARY | 2025-03-12 12:51 | XMS_ITS | Encounter Summary ---
Author Organization [employer] Address 75 [facility] 7t [place] [address] Care Team Providers Care Fishing Tool Technician Oil Well Name Role Phone Siobhan Vanessa MD Primary Care Provider +- [phone] Encounter Details Date Type Department Care Team ([facility] st Contact Info) Description 2024 Orders Only [facility] MEDICINE [address] [place], [place] [phone] Siobhan Vanessa MD 230 [place] [address] Social History Tobacco Use Types Packs/Day Years [...] t he electric, gas, oil or water [employer] threatened to shut off services in your [...] Description 04/03/2025 10:30 AM EDT Office Visit [facility] MEDICINE [address] [place] [address] Siobhan Vanessa MD [address] [place] [address] documented as of this encounter Goals Goal [...] documented as of this encounter Care Teams Fishing Tool Technician Oil Well Relationship Specialty Start Date End Date Siobhan Vanessa MD [address] [place] [address] PCP - General Family Medicine 01/04/12 documented as of this encounter
--- OUTSIDE RECORDS SUMMARY | 2025-03-12 12:51 | XMS_ITS | Encounter Summary ---
Author Organization [employer] Address [address] [facility] 7t [place] [address] Care Team Providers Care Lace And Textiles Restorer Name Role Phone Siobhan Vanessa MD Primary Care Provider +1- [phone] Reason for Visit * Reason Onset Date Comments Med Refill 02/28/2024 Encounter Details Date Type Department Care Team (Late st Contact Info) Description 02/28/2024 Telephone [facility] MEDICINE 230 [place], [place] [phone] Siobhan Vanessa MD [address] [place] [address] Med Refill Social History Tobacco Use Types [...] encounter Miscellaneous Notes * Telephone Encounter - Laura Ramirez LPN - 02/28/2024 9:51 AM EDT Medication was discontinued. * Telephone Encounter - Jacquelin Martinez - 02/28/2024 9:34 AM EDT TC from pt requesting medication refill. Medications needing refill : spironolactone (Aldactone) 25 MG tablet Pt is getting delivery today To be sent to: [facility] - [place], [place] - [address] [place] [address] documented in this encounter Plan of Treatment Upcoming Encounters Date Type Department Care Team ([facility] st Contact Info) Description 04/03/2025 10:30 AM EDT Office Visit [facility] MEDICINE [address] [place] [address] Siobhan Vanessa MD [address] [place] [address] documented as of this encounter Goals Goal Patient Goal Type Associated Problems Recent Progress Patient-Stated? Author Blood Pressure < 140/90 Blood Pressure 113/72(2024 10:00 AM EDT) Carmenza Wren Record your blood pressure once per day Blood Pressure No Carmenza Ybarra documented as of this encounter Visit Diagnoses Not on filedocumented in this encounter Additional Health Concerns Assessment Noted Time PHQ-9 Depression Total Score: 5 07/08/20 23 9:02 AM EDT documented as of this encounter Care Teams Lace And Textiles Restorer Relationship Specialty Start Date End Date Siobhan Vanessa MD [address] [place] [address] PCP - General Family Medicine 01/04/12 documented as of this encounter
--- OUTSIDE RECORDS SUMMARY | 2025-03-12 12:52 | XMS_ITS | Encounter Summary ---
Author Organization [employer] Address 75 [facility] 7t [place] [address] Care Team Providers Care Data Modeler Name Role Phone Siobhan Vanessa MD Primary Care Provider +1- [phone] Reason for Visit * Reason Onset Date Comments Med Refill 09/29/2023 Encounter Details Date Type Department Care Team ([facility] st Contact Info) Description 09/29/2023 Telephone [facility] MEDICINE [address] [place], [place] [phone] Siobhan Vanessa MD [address] [place] [address] Med Refill Social History Tobacco Use Types [...] Telephone Encounter - Laura Ramirez LPN - 09/29/2023 1:41 PM EST Medication is prescribed by Oncology. * Telephone Encounter - Donna Hansen - 09/29/2023 1:37 PM EST Tc from pt requesting medication refill on Jakafi 20 MG chemo tablet to be sent to [facility] - [place], [place] - [address] [facility] documented in this encounter Plan of Treatment Upcoming Encounters Date Type Department Care Team (Late st Contact Info) Description 04/03/2025 10:30 AM EDT Office Visit [facility] MEDICINE [address] [place] [address] Siobhan Vanessa MD [address] [place] [address] documented as of this encounter Goals Goal [...] documented as of this encounter Care Teams Data Modeler Relationship Specialty Start Date End Date Siobhan Vanessa MD [address] [place] [address] PCP - General Family Medicine 01/04/12 documented as of this encounter
--- OUTSIDE RECORDS SUMMARY | 2025-03-12 12:52 | XMS_ITS | Encounter Summary ---
Author Organization [employer] Address [address] [facility] 7t [place] [address] Care Team Providers Care Herbicide Service Sales Representative Name Role Phone Siobhan Vanessa MD Primary Care Provider +1- [phone] Reason for Visit * Reason Onset Date Comments Coagulation Disorder 02/22/2023 Encounter Details Date Type Department Care Team (Late st Contact Info) Description 02/22/2023 Telephone [facility] MEDICINE [address] [place] [address] Siobhan Vanessa MD [address] [place] [address] Coagulation Disorder Social History Tobacco Use Types Packs/Day Years Used Date Smoking Tobacco: Never Assessed Sex and Gender Information Value Date Recorded Sex Assigned at Male 08/30/2022 10:22 AM EDT Legal Sex Male 10:22 AM EDT Gender Identity Male 08/30/2022 10:22 AM EDT Sexual Orientation Straight 08/30/2022 10 :22 AM EDT documented as of this encounter Miscellaneous Notes * Telephone Encounter - Kristie Solis - 02/22/2023 12:16 PM EDT Tc from Rosie zelaya Visiting Nurse calling to report an INR for a mutual Pt. Please contact rosie at [phone] documented in this encounter Plan of Treatment Upcoming Encounters Date Type Department Care Team (Late st Contact Info) Description 04/03/2025 10:30 AM EDT Office Visit [facility] MEDICINE [address] [place] [address] Siobhan Vanessa MD [address] [place] [address] documented as of this encounter Visit Diagnoses Not on filedocumented in this encounter Care Teams Herbicide Service Sales Representative Relationship Specialty Start Date End Date Siobhan Vanessa MD [address] [place] [address] PCP - General Family Medicine 01/04/12 documented as of this encounter
--- OUTSIDE RECORDS SUMMARY | 2025-03-12 12:52 | XMS_ITS | Encounter Summary ---
Author Organization [employer] Address [address] [facility] 7t [place] [address] Care Team Providers Care Reservations Specialist Name Role Phone Siobhan Vanessa MD Primary Care Provider +1- [phone] Reason for Visit * Reason Onset Date Comments INR Report 11/22/2023 Encounter Details Date Type Department Care Team ([facility] st Contact Info) Description 11/22/2023 Telephone [facility] MEDICINE [address] [place] [address] Siobhan Vanessa MD [address] [place] [address] INR Report Social History Tobacco Use Types Packs/Day Years [...] encounter Miscellaneous Notes * Telephone Encounter - Ami Natarajan RN - 11/22/2023 3:41 PM EST Incoming call to critical line to Report INR of 1.6. Per maria dolores carvajal VM at team nurse Mayda CARRANZA ext but has not had a call back with orders. Forwarded to team for follow up. * Telephone Encounter - Ally Oliveira - 11/22/2023 3:34 PM EST Tc from Kayla from [facility] calling to report INR . documented in this encounter Plan of Treatment Upcoming Encounters Date Type Department Care Team (Late st Contact Info) Description 04/03/2025 10:30 AM EDT Office Visit [facility] MEDICINE [address] [place] [address] Siobhan Vanessa MD [address] [place] [address] documented as of this encounter Goals Goal [...] documented as of this encounter Care Teams Reservations Specialist Relationship Specialty Start Date End Date Siobhan Vanessa MD [address] [place] [address] PCP - General Family Medicine 01/04/12 documented as of this encounter
--- OUTSIDE RECORDS SUMMARY | 2025-03-12 12:52 | XMS_ITS | Clinical Summary ---
Author Organization [facility] Address [address] [place] [address] Care Team Providers Care Centrifuge Separator Operator Name Role Phone Unavailable Primary Care Provider Unavailabl e Source Comments PLEASE NOTE, if this patient is a minor, it may be UNLAWFUL to discuss sensitive information that is contained in these records (such as FAMILY PLANNING, MENTAL HEALTH or SUBSTANCE ABUSE) with the minor patient's parent or other person without the patient's specific authorization.[facility] Allergies No known active allergies Medications No known medications Social History Tobacco Use Types Packs/Day Years Used Date Smoking Tobacco: Never Passive Smoke Exposure: Never Smokeless Tobacco: Never Tobacco Cessation:Counseling Given: Not Answered Social Connections Answer Date Recorded Connectedness 0 07/15/2024 Financial Resource Strain Answer Date R ecorded Financial Resource Strain 0 2022 Stress Answer Date Recorded Stress 0 10/14/2023 Physical Activity Answer Date Recorded Physical Activity 0 10/14/2023 Food Insecurity Answer Date Recorded Food 0 07/26/2024 Transportation Needs Answer Date Record ed Transportation 0 10/14/2023 Housing Stability Answer Date Recorded Housing 0 10/14/2023 Safety and Environment Answer Date Henry rded Safety 0 10/14/2023 Utilities Answer Date Recorded Utilities 0 10/14/2023 Employment Answer Date Recorded Stress 0 07/15/2024 Sex and Gender Information Value Date Recorded Sex Assigned at Not on file Legal Sex Male 7:17 AM PST Gender Identity Not on file Sexual Orientation Not on file Last Filed Vital Signs Vital Sign Reading Time Taken Comments Blood Pressure 134/87 11/11/2023 9:15 AM EST Pulse 78 11/11/2023 9:15 AM EST Temperature - - Respiratory Rate - - Oxygen Saturation - - Inhaled Oxygen Concentration - - Weight - - Height - - Body Mass Index - - Plan of Treatment Health Maintenance Due Date Last Done Comments Hepatitis C Screening 1950 Lipid Screening [address] Colonography 1995 Colonoscopy 1995 Colorectal Cancer Screening 1995 FIT/gFOBT 1995 Fecal DNA 1995 Flexible Sigmoidoscopy 1995 Imm-Zoster, Recombinant (1 of 2) 02/28/2000 Falls Prevention 2015 Imm-DTaP/Tdap/Td (2 - Td or Tdap) 05/06/2024 014 Kts-PMIHR-41 (2 - season) 2024 023 Imm-Influenza (#1) 2024 11/11/2021, 1 , 10/03/2015, Additional history exists Dental BW 10/16/2024 10/14/2023 Dental Examination 10/16/2024 10/14/2023 Dental Perio Charting 10/16/2024 10/14/2023 Dental Prophy 10/16/2024 10/14/2023 Alcohol and Drug Screen 10/31/2024 Depression Annual Screen 10/31/2024 Hypertension Screening (#1) 11/10/2024 Dental FMX/Pano 11/13/2028 11/11/2023, 10/14/2023 Imm-Pneumococcal 65+ Completed 11/11/2021, 11/14/19 16 Procedures Procedure Name Priority Date/Time Associated Diagnosis Comments 32 PANORAMIC RADIOGRAPHIC IMAGE Routine 11/11/2023 9:40 AM EST Chronic apical periodontitis COMP PERIODONTAL EVALUATION - NEW/EST PATIENT Routine 10/14/2023 1:00 PM EST Encounter for dental examination Full INTRAORAL - COMP SERIES OF RADIOGRAPHIC IMAGES Routine 10/14/2023 1:00 PM EST Encounter for dental examination Full PROPHYLAXIS - ADULT Routine 10/14/2023 1:00 PM EST Encounter for dental examination Full COMP ORAL EVALUATION - NEW/ESTABLISHED PATIENT Routine 10/14/2023 1:00 PM EST Encounter for dental examination from Last 3 Months or Most Recently Relevant to Health Maintenance Insurance [facility] - [facility]
--- OUTSIDE RECORDS SUMMARY | 2025-03-12 12:52 | XMS_ITS | Encounter Summary ---
Author Organization [employer] Address [address] [facility] 7t [place] [address] Care Team Providers Care Air Cargo Specialist Name Role Phone Siobhan Vanessa MD Primary Care Provider +- [phone] Encounter Details Date Type Department Care Team ([facility] st Contact Info) Description 01/30/2024 Telephone [facility] MEDICINE [address] [place], [place] [phone] Siobhan Vanessa MD [address] [place], [place] [phone] Social History Tobacco Use Types Packs/Day Years [...] the past 12 months, has t he [employer], gas, oil or water company threatened to [...] Description 04/03/2025 10:30 AM EDT Office Visit [facility] MEDICINE [address] [place] [address] Siobhan Vanessa MD [address] [place] [address] documented as of this encounter Goals Goal [...] documented as of this encounter Care Teams Air Cargo Specialist Relationship Specialty Start Date End Date Siobhan Vanessa MD [address] [place] [address] PCP - General Family Medicine 01/04/12 documented as of this encounter
--- OUTSIDE RECORDS SUMMARY | 2025-03-12 12:52 | XMS_ITS | Encounter Summary ---
Author Organization [employer] Address [address] [facility] 7t [place] [address] Care Team Providers Care Naturopathic Oncology Provider Name Role Phone Siobhan Vanessa MD Primary Care Provider +1- [phone] Reason for Referral * Consultation (Routine) - Pending Review Specialty Diagnoses / Procedures Referred By Abby higgins Referred To Contact Orthopaedic Surgery Diagnoses Acute pain of right shoulder Cole Haas MD [address] [place] [address] Phone: tel: fax: Referral ID Status Reason Start Date Expiration Date Visits Requested Visits Authorized [id number] Pending Review Specialty Services Required 03/12/2025 03/12/2026 1 1 Reason for Visit * Reason Comments Shoulder Pain Encounter Details Date Type Department Care Team (Late st Contact Info) Description 03/12/2025 10:00 AM EDT Office Visit [facility] [address] [place] [phone] Acute pain of right shoulder (Primary Dx) Social History Tobacco Use Types Packs/Day Years [...] AM EDT documented as of this encounter Last Filed Vital Signs Vital Sign Reading Time Taken Comments Blood Pressure 113/72 03/12/2025 10:00 AM EDT Pulse 67 03/12/2025 10:00 AM EDT Temperature 36.7 ??C (98 ??F) 03/12/2025 10:00 AM EDT Respiratory Rate 18 03/12/2025 10:00 AM EDT Oxygen Saturation 98% 03/12/2025 10:00 AM EDT Inhaled Oxygen Concentration - - Weight 77.6 kg (171 lb) 03/12/2025 10:00 AM EDT Height - - Body Mass Index 28.46 01/25/2025 11:18 AM EDT documented in this encounter Plan of Treatment Upcoming Encounters Date Type Department Care Team (Late st Contact Info) Description 04/03/2025 10:30 AM EDT Office Visit [facility] MEDICINE [address] [place] [address] Siobhan Vanessa MD [address] [place] [address] Scheduled Orders Name Type Priority Associated Diagnoses Orde r Schedule XR Shoulder 2+ Views Right Imaging Routine Acute pain of right shoulder Expected: 03/12/2025, Expires: 03/12/2026 Scheduled Referrals Name Type Priority Associated Diagnoses Order Schedule Referral to Orthopaedic Surgery Outpatient Referral Routine Acute pain of right shoulder Expected: 03/12/2025 (Approximate), Expires: 03/12/2026 documented as of this encounter Goals Goal Patient Goal Type Associated Problems Recent Progress Patient-Stated? Author Blood Pressure < 140/90 Blood Pressure 113/72(2024 10:00 AM EDT) No Carmenza Ybarra Record your blood pressure once per day Blood Pressure No Carmenza Ybarra documented as of this encounter Visit Diagnoses Diagnosis Acute pain of right shoulder- Primary documented in this encounter Additional Health Concerns Assessment Noted Time PHQ-9 Depression Total Score: 0 01/26/20 25 11:20 AM EDT documented as of this encounter Care Teams Naturopathic Oncology Provider Relationship Specialty Start Date End Date Siobhan Vanessa MD [address] [place] [address] PCP - General Family Medicine 01/04/12 documented as of this encounter
--- OUTSIDE RECORDS SUMMARY | 2025-03-12 12:52 | XMS_ITS | Encounter Summary ---
Author Organization [employer] Address 75 [facility] 7t [place] [address] Care Team Providers Care Tester Vibrator Equipment Name Role Phone Siobhan Vanessa MD Primary Care Provider +- [phone] Reason for Visit * Reason Comments Med Refill Encounter Details Date Type Department Care Team (Late st Contact Info) Description 03/06/2025 Refill [facility] MEDICINE [address] [place], [place] [phone] Siobhan Vanessa MD [address] [place], [place] [phone] Coronary artery stenosis Social History Tobacco Use Types Packs/Day Years [...] Description 04/03/2025 10:30 AM EDT Office Visit [facility] MEDICINE [address] [place] [address] Siobhan Vanessa MD [address] [place] [address] documented as of this encounter Goals Goal Patient Goal Type Associated Problems Recent Progress Patient-Stated? Author Blood Pressure < 140/90 Blood Pressure 113/72(2024 10:00 AM EDT) No Carmenza Ybarra Record your blood pressure once per day Blood Pressure No Carmenza Ybarra documented as of this encounter Visit Diagnoses Diagnosis Coronary artery stenosis Coronary atherosclerosis of unspecified type of vessel, [place] or graft documented in this encounter Additional Health Concerns Assessment Noted Time PHQ-9 Depression Total Score: 0 01/26/20 25 11:20 AM EDT documented as of this encounter Care Teams Tester Vibrator Equipment Relationship Specialty Start Date End Date Siobhan Vanessa MD [address] [place] [address] PCP - General Family Medicine 01/04/12 documented as of this encounter
--- OUTSIDE RECORDS SUMMARY | 2025-03-12 12:52 | XMS_ITS | Clinical Summary ---
Author Organization [facility] Address [address] [place] [address] Care Team Providers Care Hand Quilter Name Role Phone Siobhan Vanessa MD Primary Care Provider [phone] Allergies No known active allergies Medications No known medications Active Problems No known active problems Social History Tobacco Use Types Packs/Day Years Used Date Smoking Tobacco: Never Assessed Sex and Gender Information Value Date Recorded Sex Assigned at Male 01/16/2024 7:18 PM EDT Gender Identity Male 01/16/2024 7:18 PM EDT Sexual Orientation Not on file Job Start Date Occupation Industry Not on file Not on file Not on file Last Filed Vital Signs Vital Sign Reading Time Taken Comments Blood Pressure 136/75 01/16/2024 11:53 PM EDT Pulse 77 01/16/2024 11:53 PM EDT Temperature 36.7 ??C (98.1 ??F) 01/16/2024 11:53 PM E DT Respiratory Rate 17 01/16/2024 11:53 PM EDT Oxygen Saturation 98% 01/16/2024 11:53 PM EDT Inhaled Oxygen Concentration - - Weight - - Height - - Body Mass Index - - Plan of Treatment Health Maintenance Due Date Last Done Comments Hepatitis C Screening 1950 Depression Screening 1962 Preventative Health Evaluation 02/28/1968 Colon Cancer Screening (Colonoscopy) 1995 Fall Risk Assessment 2015 Shingrix-Zoster Vaccine (2 of 2) 09/02/2023 07/08/2023 DTap / Tdap / Td (2 - Td or Tdap) 05/06/2024 05/06/2014 COVID-19 Vaccine (2 - season) 2024 07/08/2023 Influenza Vaccine (#1) 2024 2, 08/12/2016, 10/03/2015, Additional history exists RSV Adult > 60+ Yrs or (1 - 1-dose 75+ series) 2025 Pneumococcal Vaccine Completed 11/11/2021, 11/14/19 16 Hepatitis B Vaccines Aged Out No long er eligible based on patient's age to complete this topic RSV Ped < 20 months Aged Out No longe r eligible based on patient's age to complete this topic Care Teams Hand Quilter Relationship Specialty Start Date End Date [place], MD Siobhan [address] [place] [address] PCP - General Family Medicine 01/16/24
--- OUTSIDE RECORDS SUMMARY | 2025-03-12 12:52 | XMS_ITS ---
Author Name Tati Martinez NP Address [address] [place] [address] Phone [phone] [facility] Care Team Providers Care Financial Planning Advisor Name Role Phone Tati Martinez Unavailable [phone] Unavailable Unavailable Unavailable Reason for Referral Not Available Allergies, adverse reactions, alerts No known allergies History of medication use Medication Class Instructions Start Date End Date Aspirin Low Dose 81 mg Tab delayed rel No Data Available 2022-10-25 No Data Available Warfarin Sodium 3 mg Tab Take one tablet by mouth daily 2022-10-13 2024-03-28 Atorvastatin Calcium 80 mg Tab take 1 tablet orally once daily 2022-04-15 No Data Available Jakafi 20 mg Tab 1 tablet orally daily 2022-04-09 No Data Available Metoprolol Succinate ER 25 m g Tab ER 24hr TAKE 1 TABLET BY MOUTH EVERY MORNING DO NOT BREAK, CRUSH, DISSOLVE OR CHEW 2022-05-27 No Data Available Aspirin 81 mg Tab delayed rel take 1 tab let orally once daily 2024-03-28 No Data Available Finasteride 5 mg Tab 1 tablet orally daily 2024-03-28 2024-03-28 Methenamine Hippurate 1 GM Tab 1 tablet orally 2 times per day 2024-03-28 No Data Available Spironolactone 25 mg Tab 1 tab po q am 2024-03-28 No Data Available Terazosin 5 mg Cap 1 tab daily 2024-03-28 No Data A vailable Vitamin C 500 mg Tab 1 tablet daily 2024-03-28 No Da ta Available Eliquis 5 mg Tab 1 tablet once daily 2024-03-28 No D sandi Available Medbox Status USE DIRECTED 2023-09-07 No Data Mabel ilable Acetaminophen 325 mg Tab TAKE 3 TAB (975 MG TOTAL) BY MOUTH 3 (THREE) TIMES A DAY IN THE MORNING, MID-DAY AND EARLY EVENING. 2023-12-04 No Data Available traMADol 50 mg Tab TAKE 1 TABLET BY ANGELY TH TWICE DAILY 2023-12-04 No Data Available Ibuprofen 600 mg Tab TAKE 1 TABLET BY MO UTH 3 TIMES A DAY (EVERY 6 HOURS) FOR 7 DAYS 2024-01-11 No Data Available Amoxicillin 500 mg Tab TAKE 1 TABLET BY MOUTH 3 TIMES A DAY FOR 7 DAYS 2024-01-11 No Data Available Stool Softener/Laxative 50/8.6 mg Tab TAKE 2 TABLETS BY MOUTH EVERY DAY NEEDED FOR CONSTIPATION 2024-01-21 No Data Available Tamsulosin 0.4 mg Cap TAKE 1 CAPSULE BY MOUTH EVERY EVENING 2024-01-21 No Data Available Spironolactone 25 mg Tab TAKE 1 TABLET B Y MOUTH EVERY MORNING 2024-01-21 No Data Available Eliquis 5 mg Tab TAKE 1 TABLET BY ANGELY TH TWICE DAILY IN THE MORNING AND IN THE EVENING 2024-01-21 No Data Available [facility] Purelax 17 GM Packet TAKE 1 PACKET ( 17 G TOTAL) BY MOUTH DAILY. DO NOT START BEFORE JANUARY 22, 2024. 2024-01-21 No Data Available Chlorhexidine Gluconate 0.12 % Solution SWISH WITH 15MLS TWICE DAILY, SPIT OUT/DONT SWALLOW 2024-01-21 No Data Available Bisacodyl 10 mg Suppository INSERT 1 SUP POSITORY INTO THE RECTUM DAILY NEEDED FOR CONSTIPATION. 2024-01-21 No Data Available Amoxicillin-Pot Clavulanate 875/125 mg Tab TAKE 1 TABLET BY MOUTH TWICE A DAY 2024-01-21 No Data Available Finasteride 5 mg Tab TAKE 1 TABLET BY MO UTH EVERY DAY 2024-02-01 No Data Available Vitamin C 500 mg Tab TAKE 1 TABLET BY MO UTH EVERY MORNING 2024-02-29 No Data Available Terazosin 5 mg Cap TAKE 1 CAPSULE BY MO UTH AT BEDTIME 2024-02-29 No Data Available Methenamine Hippurate 1 GM Tab TAKE 1 TABLET BY MOUTH EVERY MORNING 2024-02-29 No Data Available Problem List Problem Status Onset Date Resolved Date History of DVT (deep vein th rombosis)tank terminal gauger current use of anticoagulant Active 2023-04-19 N/A Hypertension Active 2023-04-19 N/A History of CVA (cerebrovascular accident) Active 2023-04-19 N/A Other problems related to 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 Encounters Encounters Type Facility Date of Service Diagnosis/Complaint New patient,40-59min; chronic exacerbation, 2 stable chronic or 1 acute illness add add modifier 95 for video (do not use for phone, instead use [id number]) [facility] ([place] MyelofibrosisImmunodeficienc y, unspecifiedPersonal history of other venous thrombosis and embolismLong term (current) use of anticoagulantsPrsnl hx of TIA (TIA), and cereb infrc w/o resid deficitsEssential (primary) hypertension New patient,40-59min; chronic exacerbation, 2 stable chronic or 1 acute illness add add modifier 95 for video (do not use for phone, instead use 65328-58) [facility] New patient,40-59min; chronic exacerbation, 2 stable chronic or 1 acute illness add add modifier 95 for video (do not use for phone, instead use 66121-13) [facility] New patient,40-59min; chronic exacerbation, 2 stable chronic or 1 acute illness add add modifier 95 for video (do not use for phone, instead use 36727-65) [facility] New patient,40-59min; chronic exacerbation, 2 stable chronic or 1 acute illness add add modifier 95 for video (do not use for phone, instead use 44936-76) [facility] New patient,40-59min; chronic exacerbation, 2 stable chronic or 1 acute illness add add modifier 95 for video (do not use for phone, instead use 94736-15) [facility] New patient,40-59min; chronic exacerbation, 2 stable chronic or 1 acute illness add add modifier 95 for video (do not use for phone, instead use 15920-61) [facility] [place] New patient,40-59min; chronic exacerbation, 2 stable chronic or 1 acute illness add add modifier 95 for video (do not use for phone, instead use 48216-32) [facility] [place] New patient,40-59min; chronic exacerbation, 2 stable chronic or 1 acute illness add add modifier 95 for video (do not use for phone, instead use 21037-73) [facility] ([place] New patient,40-59min; chronic exacerbation, 2 stable chronic or 1 acute illness add add modifier 95 for video (do not use for phone, instead use 29043-94) [facility] ([place]23 Unlisted special service; to be used for medical record reviews and reporting CPTII codes (1111F, etc) [facility] ([place]) 08/08/2023 Other specified counseling Unlisted special service; to be used for medical record reviews and reporting CPTII codes (1111F, etc) [facility]) 08/08/2023 Unlisted special service; to be used for medical record reviews and reporting CPTII codes (1111F, etc) [facility] ([place] 08[place]08/[place]23 Estab. patient 30-39min; chronic exacerbation, 2 stable chronic or 1 acute illness add add modifier 95 for video, (do not use for phone, instead use 65886-77) [facility] ([place] 03[place]28/2024 MyelofibrosisImmunodeficienc y, unspecifiedOther problems related to medical facilities and other health carePersonal history of other venous thrombosis and embolismLong term (current) use of anticoagulantsPrsnl hx of TIA (TIA), and cereb infrc w/o resid deficitsEssential (primary) hypertensionUnspecified dementia without behavioral disturbancePersonal history of other medical treatment Estab. patient 30-39min; chronic exacerbation, 2 stable chronic or 1 acute illness add add modifier 95 for video, (do not use for phone, instead use 30273-43) [facility] ([place] 03[place]28/20[place] Estab. patient 30-39min; chronic exacerbation, 2 stable chronic or 1 acute illness add add modifier 95 for video, (do not use for phone, instead use 56158-03) [facility] [place] 03[place]28[place] Estab. patient 30-39min; chronic exacerbation, 2 stable chronic or 1 acute illness add add modifier 95 for video, (do not use for phone, instead use 16983-23) [facility] [place] 03[place]28/[place] Estab. patient 30-39min; chronic exacerbation, 2 stable chronic or 1 acute illness add add modifier 95 for video, (do not use for phone, instead use 74562-89) [facility] [place] 03[place]28/[place] Estab. patient 30-39min; chronic exacerbation, 2 stable chronic or 1 acute illness add add modifier 95 for video, (do not use for phone, instead use 29676-24) [facility] [place] 03[place]28/20[place] Estab. patient 30-39min; chronic exacerbation, 2 stable chronic or 1 acute illness add add modifier 95 for video, (do not use for phone, instead use 66655-18) [facility] [place] 03[place]28/20[place] Estab. patient 30-39min; chronic exacerbation, 2 stable chronic or 1 acute illness add add modifier 95 for video, (do not use for phone, instead use 74997-97) [facility] [place] 03[place]28/20[place] Estab. patient 30-39min; chronic exacerbation, 2 stable chronic or 1 acute illness add add modifier 95 for video, (do not use for phone, instead use 78209-55) [facility] [place] 03[place]28/20[place] Estab. patient 30-39min; chronic exacerbation, 2 stable chronic or 1 acute illness add add modifier 95 for video, (do not use for phone, instead use 87399-69) [facility] [place] 03[place]/2024 No Data Available [facility] [place]19[place]2024 Unspecified dementia without behavioral disturbanceMyelofibrosisOther problems related to medical facilities and other health careImmunodeficiency, unspecified No Data Available [facility], ([place]) 07/19/2024 Vital Signs Date of Collection Vitals 2023-04-19 08:55:27 Height - 165.1 cmWei ght - 77.11 kgBody Mass Index (BMI) - 28.29 kg/m2BP Diastolic - 93.0 mm[Hg]BP Systolic - 149.0 mm[Hg]Pain Scale - 0.0 {score} 2024-03-28 11:15:09 Weight - 77.11 kgBod y Mass Index (BMI) - 28.29 kg/m2BP Diastolic - 70.0 mm[Hg]BP Systolic - 132.0 mm[Hg] Social History Social History Social History Observation Description Effec tive Time Current Smoking Status Never smoker 2025-02-28 3 Sex Male History of Procedures Procedures Service Procedure code Service date Servicing provider Phone# New patient,40-59min; chronic exacerbation, 2 stable chronic or 1 acute illness add add modifier 95 for video (do not use for phone, instead use [id number]) 19210 2023-04-19 No Data Available No Data Availa ble Medication List Documented (1159F) 1159F 2023-04-19 No Data Available No Data Mabel ilable Medication Review by prescribing provider or pharmacist documented (1160F) 1160F 2023-04-19 No Data Available No Data Mabel ilable Functional Status Assessed (1170F) 1170F 2023-04-19 No Data Available No Data Avail able Pain Assessment - NO pain present (1126F) 1126F 2023-04-19 No Data Available No Data A vailable Advance Care Directive Advance care planning discussion documented in the medical record (1158F) 1158F 2023-04-19 No Data Available No Data Availa ble BMI obtained (3008F) 3008F 2023-04-19 No Data Availab le No Data Available SBP >= 140 3077F 2023-04-19 No Data Available No Data Available DBP >=90 3080F 2023-04-19 No Data Available No Data Available Advance care planning discussed and documented ? advance care plan or surrogate decision-maker was documented in the medical record. (1123F) 1123F 2023-04-19 No Data Available No Data Availa ble Unlisted special service; to be used for medical record reviews and reporting CPTII codes (1111F, etc) 49805 2023-08-08 No Data Available No Data Availa ble SBP < 130 (3074F) 3074F 2023-08-08 No Data Available No Data Available DBP <80 (3078F) 3078F 2023-08-08 No Data Available No Data Available Estab. patient 30-39min; chronic exacerbation, 2 stable chronic or 1 acute illness add add modifier 95 for video, (do not use for phone, instead use 13006-59) 54062 2024-03-28 No Data Available No Data Availa ble Medication List Documented (1159F) 1159F 2024-03-28 No Data Available No Data Mabel ilable Medication Review by prescribing provider or pharmacist documented (1160F) 1160F 2024-03-28 No Data Available No Data Mabel ilable Pain Assessment - NO pain present (1126F) 1126F 2024-03-28 No Data Available No Data A vailable BMI obtained (3008F) 3008F 2024-03-28 No Data Availab le No Data Available Advance Care Directive Advance care planning discussion documented in the medical record (1158F) 1158F 2024-03-28 No Data Available No Data Availa ble Advance care planning discussed and documented ? advance care plan or surrogate decision-maker was documented in the medical record. (1123F) 1123F 2024-03-28 No Data Available No Data Availa ble SBP 130-139 (3075F) 3075F 2024-03-28 No Data Availabl e No Data Available DBP <80 (3078F) 3078F 2024-03-28 No Data Available No Data Available Functional Status Assessed (1170F) 1170F 2024-03-28 No Data Available No Data Avail able No Data Available 87081 2024-07-19 No Data Available No Data Available Medication List Documented (1159F) 1159F 2024-07-19 No Data Available No Data Mabel ilable Functional Status Functional Category Effective Dates Activities of Daily Livin2023-04-19 Dressing: Independent 2023-04-19 Bathing: Independent 2023-04-19 Eating: Independent 2023-04-19 Ambulation/Walking: Independent Toileting: Independent 2023-04-19 Transferring: Independent 2023-04-19 Mental Status Status Date No deficits. Alert and Oriented X 3. 202 01-04-20 Assessments Date of Service Assessments 2023-04-19 08:55:27 MyelofibrosisImmunod eficiencyHistory of DVT (deep vein thrombosis)care home current use of anticoagulantHistory of CVA (cerebrovascular accident)Hypertension 2024-03-28 11:15:09 MyelofibrosisImmunod eficiencyOther problems related to medical facilities and other health careHistory of DVT (deep vein thrombosis)tank terminal gauger current use of anticoagulantHistory of CVA (cerebrovascular accident)HypertensionDementia without behavioral disturbance, psychotic disturbance, mood disturbance, or anxiety, unspecified dementia severity, unspecified dementia typeHospitalization or health care facility admission within last 6 months 2024-07-19 15:21:32 Other problems relat ed to medical facilities and other health careDementia without behavioral disturbance, psychotic disturbance, mood disturbance, or anxiety, unspecified dementia severity, unspecified dementia typeMyelofibrosisImmunodeficiency Plan of Care Date of Service Plans 2023-04-19 08:55:27 Pain Assessment - NO pain documented (1126F)Medication Review by prescribing provider or pharmacist documented (1160F)Medication List Documented (1159F)Functional Status Assessed (1170F)Advance Care Directive Advance care planning discussion documented in the medical record (1158F)BMI obtained (3008F)SBP >= 140DBP >=90Televideo new patient,40-59min; chronic exacerbation, 2 stable chronic or 1 acute illness add modifier 95Advance care planning discussed and documented ? advance care plan or surrogate decision-maker was documented in the medical record. (1123F)Continue to see PCP. Follow-up with [facility] as needed for any acute or disease education needs that may arise.Follows up with Manager Career, Oncologist and PCP regularly. Manager Career every 6 months. Has appt this week.Oncologist every 6 month. Next appt this week. Taking:Jakafi 20 mg Tab QDImmunodeficiency due to: weakened immune system, encourage hand washing, avoid large crowds, stay up to date on vaccines (annual flu), monitor for and report early any s/s of infectionDenies any acute complaints.Advised to follow up as scheduled.Contact [facility] 23/05 as needed.History of DVT.care home current use of anticoagulants with INR goal of 2.0-3.0Last INR 2.50 04/12/23 outside records. Has home nurse once a week. Last INR reported by patient 2.3, done by home nurse today 04/19/23. Taking:Warfarin Sodium 3 mg Tab QDDenies any acute complaints. Advised to follow up with Hem as scheduled.Contact CB 23/05 as needed.History of stroke 10 years ago. Denies any sequela. Denies any acute complaints. Reports he can perform all ADL independently. Has home nurse once a week. Taking:Atorvastatin Calcium 80 mg Tab take 1 tablet orally once dailyReports he stays active, follows a heart healthy diet, and likes to workout daily.Follows up with PCP regularly.Reports BP has been normal checked by home nurse once a week. Last home nurse visit was this morning and BP was normal per patient, but he does not remember reading.Last BP from outside records 149/93.Taking:Metoprolol Tartrate 25 mg Tab TAKE 1/2 TABLET BY MOUTH TWICE DAILYDoing well on current treatment.Denies any acute complaint.Continue treatment as prescribed, follow up as instructed.Monitor BP regularly.Low Sodium diet. Contact CB 23/05 as needed. 2023-08-08 11:11:29 Unlisted special ser vice; to be used for medical record reviews and reporting CPTII codes (1111F, etc)SBP < 130 (3074F)DBP <80 (3078F) 2024-03-28 11:15:09 Medication Review by prescribing provider or pharmacist documented (1160F)Medication List Documented (1159F)Functional Status Assessed (1170F)Advance Care Directive Advance care planning discussion documented in the medical record (1158F)BMI obtained (3008F)SBP 130-139 (3075F)DBP <80 (3078F)Televideo 30-39min; chronic exacerbation, 2 stable chronic or 1 acute illness add modifier 95Advance care planning discussed and documented ? advance care plan or surrogate decision-maker was documented in the medical record. (1123F)Continue to see PCP. Follow-up with [facility] as needed for any acute or disease education needs that may arise.Follows up with Manager Career, Oncologist and PCP regularly. Manager Career every 6 months. Has appt this week.Oncologist every 6 month. Next appt this week. Taking:Jakafi 20 mg Tab QDImmunodeficiency due to: weakened immune system, encourage hand washing, avoid large crowds, stay up to date on vaccines (annual flu), monitor for and report early any s/s of infectionDenies any acute complaints.Advised to follow up as scheduled.Contact [facility] 23/05 as needed.When member to call: 1. If bp is elevated sbp>150; dbp>90 or symptomatic-h/a, dizziness, cp, sob. 2. if there is a fall 3. if BS >300 or BS<90 or symptomatic; i.e., dizzy, off balance , shaky, general weakness. 4. if UTI symptoms arise-urinary frequency, dysuria, low abd pain. 5. if pain in knees increases/ or joint pain increased Please remember to call CBContinue to see PCP. Follow-up with [facility] as needed for any acute or disease education needs that may arise 23/05.DEMENTIA CONTINGENCY PLANMember to call for the following symptoms: Agitation/ Anxiety/ BP <100/60??/ Delirium/ WithdrawnPlanned intervention: Ask home health nurse to obtain sample for urinalysis and culture/ Ask about last bowel movement/ Assess for UTI symptoms; if present, start Bactrim DS BID x3 days/ Trazodone 50mg at bedtimeHistory of DVT.tank terminal gauger current use of anticoagulants with INR goal of 2.0-3.0Last INR 2.50 04/12/23 outside records. Has home nurse once a week. Last INR reported by patient 2.3, done by home nurse today 04/19/23. Taking:Warfarin Sodium 3 mg Tab QDDenies any acute complaints. Advised to follow up with Hem as scheduled.Contact CB 23/05 as needed.History of stroke 10 years ago. Denies any sequela. Denies any acute complaints. Reports he can perform all ADL independently. Has home nurse once a week. Taking:Atorvastatin Calcium 80 mg Tab take 1 tablet orally once dailyReports he stays active, follows a heart healthy diet, and likes to workout daily.Follows up with PCP regularly.Reports BP has been normal checked by home nurse once a week. Last home nurse visit was this morning and BP was normal per patient, but he does not remember reading.Last BP from outside records 149/93.Taking:Metoprolol Tartrate 25 mg Tab TAKE 1/2 TABLET BY MOUTH TWICE DAILYDoing well on current treatment.Denies any acute complaint.Continue treatment as prescribed, follow up as instructed.Monitor BP regularly.Low Sodium diet. Contact CB 23/05 as needed.Dx recently due to increased forgetfulness, self neglect, requring assistance with all IADLs and most ADLs. He is in the process of obtaining CERTIFIED OPHTHALMIC TECHNOLOGIST hours (number provided for follow up)01/17/24: MMSE2 scored 10/30 pointsMedical Records requested, approx 01/18/24 'Pt presented with submandibular abscess. Sent to 4 facilities, ultimately at [facility] where I and D was done. Hospital course complicated by urinary retention, quinteros placed 01/21/24 recommending follow up with urinology 1 week for voiding trail. Pt is on Tamsulosin. Echo done and per daughter thrombus resolved. Pt changed from warfarin to eliquis. Daughter reports pt doing well. Urinary cathter is uncomfortable.' 2024-07-19 15:21:32 Phone (patient, pare nt, or guardian); 5-10 minutes of medical discussion (no modifier 95)Continue to see PCP. Follow-up with [facility] as needed for any acute or disease education needs that may arise 23/05.Add Contingency PlanDx recently due to increased forgetfulness, self neglect, requring assistance with all IADLs and most ADLs. He is in the process of obtaining CERTIFIED OPHTHALMIC TECHNOLOGIST hours (number provided for follow up)01/17/24: MMSE2 scored 10/30 points07/19/24Sister/CG reports he is doing well enough, is in good spirits, enjoys going fishing and they have gone 2 or 3 times recently.Follows up with Manager Career, Oncologist and PCP regularly. Manager Career every 6 months. Has appt this week.Oncologist every 6 month. Next appt this week. Taking:Jakafi 20 mg Tab QDImmunodeficiency due to: weakened immune system, encourage hand washing, avoid large crowds, stay up to date on vaccines (annual flu), monitor for and report early any s/s of infectionDenies any acute complaints.Advised to follow up as scheduled.Contact [facility] 23/05 as needed. 07/19/2024Have been having trouble getting the Jakafi, it was shipped but [employer] has not delivered it, they say no one was home but no one rang the doorbell.Advice - give address of the management office at the building (staff is friendly with patient). Also be sure to alert prescriber before pt runs out.Caregiver verbalized understanding. Goals Date Goal 2023-04-19 Remember to keep all appointments with your PCP and specialists. Call CB 23/05 if you have questions or concerns. [facility] Health Concerns Date Concern 2024-07-19 Visit completed via audio by telephone. Patient/Guardian agreed to visit via telehealth.Time spent in visit: 0:10:00 2024-07-19 Most recent hospital stay(s) or ER visit(s) and precipitating factors: 2024-07-19 HEDIS review:
--- OUTSIDE RECORDS SUMMARY | 2025-03-12 12:52 | XMS_ITS ---
Author Name [facility] Organization Unknown Results Test Name/Text Value Interpretation Date Range Source INR PPP 2.4 Above high normal [id number] 0.8 - 1.1 [facility] PT TIME PPP 28.2sec Above high normal [id number] 10.5 - 13.3 [facility] History of Medication Use Medication Directions Dispensed Refills Start Date End Date Stat us acetaminophen (TYLENOL) tablet 975 mg 975 mg, Oral, Once, On 01/16/24 at 2130, For 1 dose 01/17/2024 01/17/2024 completed Problems Problem Status Onset Date Problem Type Date of Resoluti on Source Dento alveolar abscess active EncounterDiagnosisAct [facility]SF RAN Encounters Encounter Type Encounter Reason Primary Diagnosis Location Date Inpatient Periapical abscess without sinus Periapical abscess without sinus [facility] 01/17/2024 Emergency Periapical abscess without sinus Periapical abscess without sinus [facility] [place] [facility] 01/16/2024 Care Team Organization Name Specialty Phone Email Start Date End Da te [facility] 01/17/2024 [facility] 01/17/2024 01/16/2025 [facility] 01/17/2024 [facility] 01/16/2024 [facility] 01/16/2024 [facility] 01/16/2024
--- OUTSIDE RECORDS SUMMARY | 2025-03-12 12:52 | XMS_ITS | Encounter Summary ---
Author Organization [employer] Address [address] [facility] 7t [place] [address] Care Team Providers Care Procurement Representative Name Role Phone Siobhan Vanessa MD Primary Care Provider + [phone] Encounter Details Date Type Department Care Team (Late st Contact Info) Description 12/27/2022 Abstract [facility] [address] [place] [address] [phone] Siobhan Vanessa MD [address] [place] [address] [phone] Social History Tobacco Use Types Packs/Day Years [...] Description 04/03/2025 10:30 AM EDT Office Visit [facility] [address] [place] [address] [phone] Siobhan Vanessa MD [address] [place] [address] [phone] documented as of this encounter Procedures Procedure Name Priority Date/Time Associated Diagnosis Comments HM COLONOSCOPY Routine 06/23/2018 documented in this encounter Results * Hm Colonoscopy (06/23/2018) Colonoscopy tubular adenoma with Dr. Hartley us Historical Provider HEALTH MAINTENANCE Final Result documented in this encounter Visit Diagnoses Not on filedocumented in this encounter Care Teams Procurement Representative Relationship Specialty Start Date End Date Siobhan Vanessa MD [address] [place] [address] PCP - General Family Medicine 01/04/12 documented as of this encounter
--- OUTSIDE RECORDS SUMMARY | 2025-03-12 12:52 | XMS_ITS | Clinical Summary ---
Author Organization Formerly [facility] Address [address] [place] [address] Care Team Providers Care Gun Stocker Name Role Phone Siobhan Vanessa MD Primary Care Provider [phone]- [phone] Allergies No known active allergies Medications aspirin enteric coated (ECOTRIN LOW STRENGTH) 81 MG EC tabletIndicatio ns:Dental abscess,Cerebro vascular accident (CVA), unspecified mechanism (HCC) Take 1 tablet (81 mg total) by mouth daily. 30 tablet 01/21/20 24 Active ruxolitinib (Jakafi) 20 MG tabletIndicatio ns:Myeloprolife rative neoplasm (HCC) Take 1 tablet (20 mg total) by mouth 2 (two) times a day 60 tablet 01/21/20 24 Active atorvastatin (LIPITOR) 80 MG tabletIndicatio ns:Cerebrovascu lar accident (CVA), unspecified mechanism (HCC) Take 1 tablet (80 mg total) by mouth daily. 30 tablet 01/21/20 24 Active acetaminophen (TYLENOL) 325 MG tabletIndicatio ns:Dental abscess Take 3 tablets (975 mg total) by mouth 3 (three) times a day in the morning, mid-day and early evening. 90 tablet 01/21/20 24 Active apixaban (ELIQUIS) 5 MG tabletIndicatio ns:Aneurysm of heart Take 1 tablet (5 mg total) by mouth every 12 (twelve) hours around the clock. 30 tablet 01/21/20 24 Active bisacodyl (DULCOLAX) 10 MG suppositoryIndi cations:Urinary retention Insert 1 suppository (10 mg total) into the rectum daily as needed for constipation. 12 suppository 01/21/20 24 Active chlorhexidine (PERIDEX) 0.12 % oral solutionIndicat ions:Dental abscess Apply 15 mL to the mouth or throat 2 (two) times a day. 420 mL 01/21/20 24 Active metoPROLOL SUCCINATE (TOPROL-XL) 25 MG 24 hr tabletIndicatio ns:Aneurysm of heart Take 1 tablet (25 mg total) by mouth daily. 30 tablet 01/21/20 24 Active polyethylene glycol (miraLAx) 17 g packetIndicatio ns:Urinary retention Take 1 packet (17 g total) by mouth daily. Do not start before January 22, 2024. 30 packet 01/22/20 24 Active senna-docusate (SENNA-S) 8.6-50 MGIndications:U rinary retention Take 2 tablets by mouth nightly. 60 tablet 01/21/20 24 Active tamsulosin (FLOMAX) 0.4 MG capsuleIndicati ons:Urinary retention Take 1 capsule (0.4 mg total) by mouth every evening after dinner. 30 capsule 01/21/20 24 Active spironolactone (ALDACTONE) 25 MG tabletIndicatio ns:LV (left ventricular) mural thrombus Take 1 tablet (25 mg total) by mouth daily. 30 tablet 01/21/20 24 Active Active Problems Problem Noted Date Diagnosed Date Submandibular abscess 01/17/2024 Primary hypertension 01/17/2024 Mixed hyperlipidemia 01/17/2024 Myeloproliferative neoplasm 01/17/2024 CVA (cerebral vascular accident) 01/17/2024 Aneurysm of heart 01/17/2024 Cognitive impairment 01/17/2024 Resolved Problems Problem Noted Date Diagnosed Date Resolved Date LV (left ventricular) mural thrombus 01/17/2024 01/21/2024 Social History Tobacco Use Types Packs/Day Years Used Date Smoking Tobacco: Never Smokeless Tobacco: Never Tobacco Cessation:Counseling Given: Not Answered Alcohol Use Standard Drinks/Week Comments Not Currently 0 (1 standard drink = 0.6 oz pur e alcohol) [facility] Utilities Answer Date Recorded In the past 12 months has e [employer], gas, oil, or water [employer] threatened to shut off services in your home? No 01/20/2024 AUDIT-C Answer Date Recorded Q1: How often do you have a drink containing alcohol? Never 01/17/2024 Q2: How many drinks containi ng alcohol do you have on a typical day when you are drinking? Patient does not drink Q3: How often do you have si x or more drinks on one occasion? Never 01/17/2024 Overall Financial Resource Strain (CARDIA) Answe r Date Recorded How hard is it for you to pa y for the very basics like food, housing, medical care, and heating? Somewhat hard 01/20/2024 Hunger Vital Sign Answer Date Recorded Within the past 12 months, y ou worried that your food would run out before you got the money to buy more. Never true 01/20/20 24 Within the past 12 months, t he food you bought just didn't last and you didn't have money to get more. Never true 01/20/2024 PRAPARE - Transportation Answer Date Re corded In the past 12 months, has l ack of transportation kept you from medical appointments or from getting medications? No 12/30 In the past 12 months, has l ack of transportation kept you from meetings, work, or from getting things needed for daily living? No 01/20/2024 Housing Stability Vital Sign Answer Mina e Recorded In the last 12 months, was t here a time when you were not able to pay the mortgage or rent on time? No 01/20/2024 In the last 12 months, how many places have you lived? 1 01/20/2024 In the last 12 months, was t here a time when you did not have a steady place to sleep or slept in a chcf (including now)? No 01/20/2024 Sex and Gender Information Value Date Recorded Sex Assigned at Male 01/17/2024 12:39 AM EDT Legal Sex Male 11:10 PM EDT Gender Identity Male 01/17/2024 12:39 AM EDT Sexual Orientation Heterosexual (straight) 01/16 12:39 AM EDT Last Filed Vital Signs Vital Sign Reading Time Taken Comments Blood Pressure 132/70 01/21/2024 8:21 AM EDT Pulse 74 01/21/2024 8:21 AM EDT Temperature 36.1 ??C (97 ??F) 01/21/2024 6:50 AM EDT Respiratory Rate 18 01/20/2024 2:43 PM EDT Oxygen Saturation 96% 01/21/2024 6:50 AM EDT Inhaled Oxygen Concentration - - Weight 78 kg (171 lb 15.3 oz) 01/17/2024 11:53 A M EDT Height 165.1 cm (5' 5 ) 01/17/2024 11:53 AM EDT Body Mass Index 28.62 01/17/2024 11:53 AM EDT Plan of Treatment Health Maintenance Due Date Last Done Comments Hepatitis C Virus Screening 1950 DTaP/Tdap/Td Vaccines (1 - Tdap) 1969 Colonoscopy 1995 Pneumococcal Vaccines 50+ (1 of 1 - PCV) 02/28/2000 Zoster (Shingles) Vaccine (1 of 2) 02/28/2000 COVID-19 Vaccine (2 - season) 2024 07/08/2023 RSV Vaccine 60 years and older and Patients (1 - 1-dose 75+ series) 2025 Influenza Vaccine 05/31/2025 11/11/2021, , 10/03/2015, Additional history exists Hepatitis B Vaccines Aged Out No long er eligible based on patient's age to complete this topic Insurance [facility] [employer] [facility] MEDICARE Advance Directives Documents on File Type Date Recorded Patient Airline Managerial Supervisor Expl anation Advance Directive-Scan 01/17/2024 Josh WALTERS. HEALTH CARE PROXY 01/17/2024 HH * Full Code (Latest Code Status on File) Date Activated Date Inactivated Comments 01/17/2024 5:57 AM Healthcare Agents on File Name Relationship Healthcare Agent Relationship Communication Gladys Nesbitt Healthcare employer relations representative 1. Health Care Airline Managerial Supervisor Care Teams Gun Stocker Relationship Specialty Start Date End Date Siobhan Vanessa MD [address] [place] [id number] PCP - General Family Medicine 01/17/24
== END 2025-03-12 11:23 | disposition home or self-care (01) ==
LOC: HO.HHCX 11:22
PROVIDERS: Visit Provider Emergency Medicine
DX: M25.511 Pain in right shoulder (principal)
CPT/HCPCS: 73030

== ENCOUNTER → 2025-03-12 11:23 | Outpatient (BNV) | payer MEDICARE, SELFPAY | PROVIDERS: Visit Provider Radiology Diagnostic Radiology | DX: M25.511 Pain in right shoulder (principal) | CPT/HCPCS: 73030 ==

== ENCOUNTER 2025-03-28 09:21 | Outpatient (AMB) | payer MEDICARE, SELFPAY ==
[2025-03-28 09:27] VITALS: BP 114/60; PULSE 80; O2SAT 96; BMI 27.4
--- NOTE | 2025-03-28 09:27 | MHC.OFFVIS ---
Vital Signs 03/28/25 09:27 Height 5 ft 5 in Weight 164 lb 7.437 oz BMI 27.4 BP 114/60 Blood Pressure Location Lt brachial Position Sitting Pulse 80 Pulse Source Pulse Oximeter Pulse Oximetry (%) 96 Oxygen Delivery Method Room Air Intake Visit Reasons: 1yr follow-up Intake Note: Pt presents to the office today for a 1 year follow up. Pt states he is overall feeling well and denies any concerns at this time. Wind Turbine Installer Required: Yes Wind Turbine Installer Language: Abattoir Manager Services: Wind Turbine Installer Present Wind Turbine Installer Name: Sophie([id number]) Accompanied by: Sister Allergies No Known Allergies Allergy (Verified 03/28/25 09:27) Medication List - Last Reconciled 03/28/25 by LUISA Bennett acetaminophen 500 mg PO DAILY apixaban (Eliquis) 5 mg PO Q12H ascorbic acid (vitamin C) 500 mg PO DAILY 90 days aspirin 81 mg PO DAILY atorvastatin 80 mg PO DAILY chlorhexidine gluconate 0.12% 15 mL PO BID finasteride 5 mg PO DAILY 90 days methenamine hippurate 1 g PO DAILY 90 days metoprolol tartrate 25 mg PO BID 90 days polyethylene glycol 3350 (Purelax) 17 grams PO DAILY ruxolitinib 20 mg PO BID ruxolitinib 20 mg PO BID spironolactone 25 mg PO QAM terazosin 5 mg PO BEDTIME 30 days HPI HPI 1yr follow-up: Details: Mervin is a 75-year-old male with past medical history of hypertension, hyperlipidemia, CAD, anterior infarct, apical thrombus, right bundle branch block who presents for follow-up. His last prior visit to our office was on 01/30/2024. Today he reports that he recently hurt his right arm trying to put an air conditioner in the window. He is experiencing pain and bruising. His daughter says that he has a tear but does not know of any details. His arm is in a sling and he has orthopedic follow-up in 2 weeks. No plan for surgery at this time. No chest discomfort at rest or with activity. No shortness of breath, PND, orthopnea or edema. No lightheadedness, presyncope, syncope. He walks routinely and tolerates normal ADLs without difficulty. Taking all his other meds as directed. Daughter assisting with Maldivian interpretation at their request. [facility] Medical History Encounter for screening colonoscopy Left ventricular thrombus Atherosclerotic cardiovascular disease HLD (hyperlipidemia) HTN (hypertension) Ischemic cardiomyopathy History of CVA (cerebrovascular accident) Myelofibrosis Coronary artery disease Surgical History History of appendectomy Family History Mother History of cancer of unknown primary site Social History Household Members: Family Alcohol intake: former Patient Tobacco Use Status: Never used Tobacco service: No Review of Systems Const All systems reviewed & are unremarkable except as noted in HPI and below Card Denies chest pain, Denies chest pain at rest, Denies chest pain with activity, Denies syncope, Denies rapid heart rate, Denies pedal edema, Denies leg edema, Denies dyspnea, Denies dyspnea on exertion and Denies orthopnea Resp Denies dyspnea and Denies dyspnea on exertion GI Denies no additional complaints Musc Details: bruising and pain right arm following injury - wearing sling Neuro Denies syncope Physical Exam Vital Signs: Last Vital Signs Pulse 80 03/28/25 09:27 BP 114/60 03/28/25 09:27 Pulse Ox 96 03/28/25 09:27 Oxygen Delivery Method Room Air 03/28/25 09:27 BMI result Body Mass Index 27.4 Const General: cooperative, healthy appearing, comfortable and no acute distress Orientation/consciousness: patient oriented x3 Neck Neck: Yes normal visual inspection Resp Effort & Inspection: normal respiratory effort Auscultation: clear to auscultation bilaterally, no rales, no rhonchi and no wheezes Cardio Jugular venous distension: no JVD Rate: regular rate Rhythm: regular rhythm Heart sounds: S1 normal heart sound present, S2 normal heart sound present, no gallops, no murmurs and no rubs Neuro General: patient oriented x3 Extrem Other: Wearing sling right arm, has upper arm soft ecchimosis, right hand assessment normal General: Yes no pedal edema Psych Appearance: grossly normal Mental Status: mental status grossly normal Speech and movement: Normal speech and movement present Office Procedures EKG Details: Today, read by me, Sinus rhythm with sinus arrythmia, occassional PVC, RBBB, LAFB, rate 74, Qtc 444ms [id number], Complete Assessment & Plan Assessment & Plan (1) Atherosclerotic cardiovascular disease: Code(s): I25.10 - Atherosclerotic heart disease of [place] coronary artery without angina pectoris Category: Medical Plan: History of CAD with prior anterior wall CT. 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 He was also found to have a left ventricular apical thrombus. He was put on Coumadin for anticoagulation which has since been changed to Eliquis. Last echocardiogram in our system done 03/03/2021 showed EF 50-55%, the apex, apical inferior segments are akinetic, mild increase in the RV cavity size. 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 Following last visit notes obtained from [facility] showed that LIV was done demonstrating resolution of a left ventricular mural thrombus. 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 - he is on aspirin as well, atorvastatin, metoprolol. EKG from today showed sinus rhythm with bifascicular block ( not new), rate 74. Signs and symptoms of angina reviewed. Will update echocardiogram. Cardiology follow-up in 6 months, sooner if needed. (2) Anterior myocardial infarction: Code(s): I21.09 - ST elevation (STEMI) myocardial infarction involving other coronary artery of anterior wall Category: Medical Plan: As above (3) Left ventricular thrombus: Code(s): I51.3 - Intracardiac thrombosis, not elsewhere classified Category: Medical Plan: Last known to be resolved with Eliquis - updating echo (4) RBBB: Code(s): I45.10 - Unspecified right bundle-branch block Category: Medical Plan: Finding on EKG (5) Left anterior fascicular block: Code(s): I44.4 - Left anterior fascicular block Category: Medical Plan: Finding on EKG. Will need to continue to follow for electrical changes (6) HTN (hypertension): Code(s): I10 - Essential (primary) hypertension Category: Medical Plan: BP goal < 130/80. Well controlled at present time. No medication changes made (7) HLD (hyperlipidemia): Code(s): E78.5 - Hyperlipidemia, unspecified Category: Medical Plan: [place] LDL goal less than 70. Labs done 01/26/2024 shows LDL 39. Will update labs. Continue atorvastatin. Plan Time spent on chart review, documentation, interview and assessment I discussed with the patient to follow with orthopedics to determine if any intervention is needed for the management of his arm injury. I advised that Eliquis should be halted two days before any surgery to minimize bleeding risks. We discussed his cardiac condition and need for echocardiogram for reevaluation of his cardiac stability. I instructed the patient to notify us of any new symptoms, such as chest pain or dyspnea, and informed him of the plan for cardiology follow-up contingent on test results. Orders: Orders Comprehensive [place]. Panel Fast Today I25.10 - Atherosclerotic heart disease of [place] coronary artery without angina pectoris Lipid Panel Today I25.10 - Atherosclerotic heart disease of [place] coronary artery without angina pectoris CA echo transthoracic complete Today I21.09 - ST elevation (STEMI) myocardial infarction involving other coronary artery of anterior wall, I51.3 - Intracardiac thrombosis, not elsewhere classified Complete Blood Count Auto Diff Today I25.10 - Atherosclerotic heart disease of [place] coronary artery without angina pectoris Patient Instructions: - Follow up with patient relations specialist as planned on the - Continue taking medications as prescribed - Stop Eliquis two days before any planned surgery - Report any new chest pain or shortness of breath immediately - Await call for scheduling echocardiogram - No appointment needed for blood work Patient was informed and verbally consented to the use of an ambient scribe for clinic note documentation during this visit. Coding Level of Care Code Est Pt Level 4 (62978) Complex EM visit Add On G2211 Diagnoses Atherosclerotic cardiovascular disease I25.10 Anterior myocardial infarction I21.09 Left ventricular thrombus I51.3 RBBB I45.10 Left anterior fascicular block I44.4 HTN (hypertension) I10 HLD (hyperlipidemia) E78.5 CPT Codes EKG - CPT: [id number], Complete ([id number]) Time Spent (min) 28
--- OUTSIDE RECORDS SUMMARY | 2025-03-28 09:45 | XMS_ITS | Encounter Summary ---
Author Organization [employer] Address [address] [facility] 7t [place] [address] Care Team Providers Care Helicopter Crew Chief Name Role Phone Siobhan Vanessa MD Primary Care Provider [phone]- [phone] Reason for Visit * Reason Onset Date Comments Med Refill 02/28/2024 Encounter Details Date Type Department Care Team ([facility] st Contact Info) Description 02/28/2024 Telephone [facility] MEDICINE [address] [place], [place] [phone] Siobhan Vanessa MD [address] [place] [address] Med Refill Social History Tobacco Use Types [...] getting delivery today To be sent to: [facility] - [place], [place] - [address] [place] [address] documented in this encounter Plan of Treatment Upcoming Encounters Date Type Department Care Team ([facility] st Contact Info) Description 04/03/2025 10:30 AM EDT Office Visit [facility] MED[facility]INE [address] [place] [address] Siobhan Vanessa MD [address] [place] [address] documented as of this encounter Goals Goal Patient Goal Type Associated Problems Recent Progress Patient-Stated? Author Blood Pressure < 140/90 Blood Pressure 120/69(2024 9:27 AM EDT) Carmenza Wren Record your blood pressure once per day Blood Pressure No Carmenza Ybarra documented as of this encounter Visit Diagnoses Not on filedocumented in this encounter Additional Health Concerns Assessment Noted Time PHQ-9 Depression Total Score: 5 07/08/20 23 9:02 AM EDT documented as of this encounter Care Teams Helicopter Crew Chief Relationship Specialty Start Date End Date Siobhan Vanessa MD [address] [place] [address] PCP - General Family Medicine 01/04/12 documented as of this encounter
== END 2025-03-28 10:01 | disposition home or self-care (01) ==
LOC: HO.HCS 09:22
PROVIDERS: PCP Family Medicine; Visit Provider Nurse Practitioner Family
DX: I25.10 Atherosclerotic heart disease of native coronary artery without angina pectoris (principal); I21.09 ST elevation (STEMI) myocardial infarction involving other coronary artery of anterior wall; I51.3 Intracardiac thrombosis, not elsewhere classified; I45.10 Unspecified right bundle-branch block; I44.4 Left anterior fascicular block; I10 Essential (primary) hypertension; E78.5 Hyperlipidemia, unspecified
CPT/HCPCS: 93010; 99214; G2211

== ENCOUNTER → 2025-03-28 09:21 | Outpatient (BNVA) | payer MEDICARE, SELFPAY | PROVIDERS: PCP Family Medicine; Visit Provider Nurse Practitioner Family | DX: I25.10 Atherosclerotic heart disease of native coronary artery without angina pectoris (principal); I10 Essential (primary) hypertension; E78.5 Hyperlipidemia, unspecified; I45.10 Unspecified right bundle-branch block; I21.09 ST elevation (STEMI) myocardial infarction involving other coronary artery of anterior wall; I51.3 Intracardiac thrombosis, not elsewhere classified; I44.4 Left anterior fascicular block | CPT/HCPCS: 93005; 99212 ==

== ENCOUNTER 2025-04-05 07:48 | Outpatient (REF) | payer MEDICARE, SELFPAY ==
--- OUTSIDE RECORDS SUMMARY | 2025-04-05 07:50 | XMS_ITS | Encounter Summary ---
Author Organization [employer] Address [address] [facility] [address] [place] [address] Care Team Providers Care Sample Worker Name Role Phone Siobhan Vanessa MD Primary Care Provider [phone]- [phone] [place] Unavailable Pepper Flanagan MD Unavailable [phone] Harshal Hartley MD Unavailable [phone] Nancy Lyles NP Unavailable Reason for Visit * Reason Onset Date Comments Med Refill 02/28/2024 Encounter Details Date Type Department Care Team (Late st Contact Info) Description 02/28/2024 Telephone [facility] [address] [place], [place] [phone] Siobhan Vanessa MD [address] [place], [place] [phone] Med Refill Social History Tobacco Use Types [...] getting delivery today To be sent to: [facility] - [place], [place] - [address] [facility] documented in this encounter Plan of Treatment Not on file documented as of this encounter Goals Goal Patient Goal Type Associated Problems Recent Progress Patient-Stated? Author Blood Pressure < 140/90 Blood Pressure 102/64(2024 10:31 AM EDT) Carmenza Wren Record your blood pressure once per day Blood Pressure No Carmenza Ybarra documented as of this encounter Visit Diagnoses Not on filedocumented in this encounter Additional Health Concerns Assessment Noted Time PHQ-9 Depression Total Score: 5 07/08/20 23 9:02 AM EDT documented as of this encounter Care Teams Sample Worker Relationship Specialty Start Date End Date [place], MD Siobhan [address] [place] [address] PCP - General Family Medicine 01/04/12 [place] [address] [place] [address] Cardiology 03/28/25 Pepper Flanagan MD [address] [place] [phone] Hematology and Oncology 04/03/25 Harshal Hartley MD [address] [place] [address] General Surgery 04/03/25 Nancy Lyles NP [address] [place] [address] Urology 04/03/25 documented as of this encounter
[2025-04-05 08:35] LABS: Hematocrit 35.8 % (42.0-52.0); Hemoglobin 10.2 g/dl (14.0-18.0); Mean Corpuscular HGB Conc 28.5 g/dl (31.0-36.0); Mean Corpuscular Hemoglobin 22.4 pg (27.0-33.0); Mean Corpuscular Volume 78.5 fL (80.0-98.0); NRBC Pct Auto 3.1 /100WBC (0.0-0.2); PLT CLUMP 1; Red Blood Count 4.56 X10*6/uL (4.60-5.80); Red Cell Distribution Width 19.1 % (11.0-16.0)
[2025-04-05 09:08] LABS: Creatinine Urine 135.91 mg/dL; Microalbum/Creatinine Ratio Ur 5.1 ug/mg cr (<30)
[2025-04-05 09:18] LABS: Alanine Aminotransferase 31 U/L (0-40); Albumin Level 3.7 g/dL (3.5-5.0); Alkaline Phosphatase 78 U/L (39-117); Anion Gap 9 (12-20); Aspartate Amino Transferase 31 U/L (5-37); Bilirubin Direct 0.3 mg/dL (0.0-0.5); Bilirubin Total 0.7 mg/dL (0.0-1.0); Blood Urea Nitrogen 17 mg/dL (9-16); Calcium 9.1 mg/dL (8.4-10.2); Carbon Dioxide 26 mmol/L (22-29); Chloride 112 mmol/L (96-108); Cholesterol 69 mg/dL (<200); Estimated Glomerular Filt Rate > 60; Glucose Fasting 87 mg/dL (60-99); HDL Cholesterol 23 mg/dL (>40); Iron 35 mcg/dL (45-160); LDL Cholesterol Calculated 36 mg/dL (<100); Percent Iron Saturation 13 % (15-50); Potassium 4.4 mmol/L (3.3-5.1); Sodium 143 mmol/L (135-145); Total Iron Binding Capacity 270 mcg/dL (228-428); Total Protein 6.2 g/dL (6.5-8.0); Triglycerides 51 mg/dL (<150); Unsaturated Iron Binding 235 ug/dL
[2025-04-05 09:29] LABS: Prostate Specific Antigen 1.28 ng/mL (<0.05-4.0)
[2025-04-05 09:33] LABS: Ferritin 60 ng/mL (20-250); TSH reflex Free T4 2.33 uIU/mL (0.32-4.0)
[2025-04-05 09:48] LABS: Folate 11.1 ng/mL (> or = 4.0); Vitamin B12 > 2000 pg/mL (200-900)
[2025-04-05 12:05] LABS: Band Neutrophils Percent 6 % (3-5); Basophils Percent Manual 2 % (0-2); Blast Percent 1 %; Eosinophils Percent Manual 2 % (0-4); Lymphocytes Percent Manual 12 % (20-40); Metamyelocytes Percent 6 %; Monocytes Percent Manual 15 % (2-11); Myelocytes Percent 6 %; Neutrophils Percent Manual 46 % (45-73); Nucleated Red Blood Cells 5 /100WBC (0-0); Promyelocytes Percent 4 %
[2025-04-05 12:09] LABS: Macrocytosis 1+ (5-14) /OIF; Microcytosis 1+ (5-14) /OIF; RBC Morphology NOTED
[2025-04-05 12:12] LABS: Burr Cells 3+ (>5) /OIF; Large Platelet PRESENT; Platelet Estimate DECREASED (NORMAL); Platelet Morphology Comment NOTED; Polychromasia 1+ (0-2) /OIF; Schistocytes 1+ (0-2) /OIF; Tear Drop Cells 3+ (>5) /OIF
[2025-04-05 13:29] LABS: Basophils Abs Manual 0.3 X10*3/uL (0.0-0.2); Blastocytes Absolute 0.2 X10*3/uL; Eosinophils Absolute Manual 0.3 X10*3/uL (0.0-0.4); Lymphocytes Absolute Manual 2.1 X10*3/uL (1.2-4.9); Monocytes Absolute Manual 2.6 X10*3/uL (0.1-1.2); Neutrophils Absolute Manual 8.9 X10*3/uL (2.0-8.3); Platelet Count 65 X10*3/uL (160-400); Promyelocytes Absolute 0.7 X10*3/uL; White Blood Count 17.2 X10*3/uL (4.8-10.8)
== END 2025-04-05 07:49 | disposition home or self-care (01) ==
LOC: HO.LAB 07:48
PROVIDERS: Nurse Practitioner Family; PCP Family Medicine; Visit Provider Nurse Practitioner Family
DX: I25.10 Atherosclerotic heart disease of native coronary artery without angina pectoris (principal); I10 Essential (primary) hypertension; N40.0 Benign prostatic hyperplasia without lower urinary tract symptoms; D50.9 Iron deficiency anemia, unspecified; R74.01 Elevation of levels of liver transaminase levels; Z12.5 Encounter for screening for malignant neoplasm of prostate
CPT/HCPCS: 36415; 80053; 80061; 80076; 82043; 82570; 82607; 82728; 82746; 83540; 84153; 84443; 85007; 85027

== ENCOUNTER 2025-04-11 14:21 | Outpatient (AMB) | payer MEDICARE, SELFPAY ==
--- NOTE | 2025-04-11 14:48 | A.OFFVIS_ITS ---
Intake Visit Reasons: follow up/PSA/PVR Intake Note: Patient presents today for follow up on: Retention and psa lab resuts PSA: 1.28 Urology Medication:finasteride,terazosin,methenamine , and vitamin c Antibiotic Allergy:none Blood Thinner:aspirin PVR:88 ml Activities Coordinator Required: Yes Activities Coordinator Services: Activities Coordinator Present Activities Coordinator Name: Matthew Guillen609 Accompanied by: Self / Same As Patient Allergies No Known Allergies Allergy (Verified 04/11/25 15:15) Medication List - Last Reconciled 04/11/25 by AMANDO Ardon acetaminophen 500 mg PO DAILY apixaban (Eliquis) 5 mg PO Q12H ascorbic acid (vitamin C) 500 mg PO DAILY 90 days aspirin 81 mg PO DAILY atorvastatin 80 mg PO DAILY chlorhexidine gluconate 0.12% 15 mL PO BID methenamine hippurate 1 g PO DAILY 90 days metoprolol tartrate 25 mg PO BID 90 days ruxolitinib 20 mg PO BID ruxolitinib 20 mg PO BID spironolactone 25 mg PO QAM terazosin 5 mg PO BEDTIME 30 days HPI Comments Details: Mervin is a pleasant 75-year-old Algerian-speaking male patient of Dr. aVnessa. He has a past medical history of left ventricular thrombosis, ACD, hyperlipidemia, hypertension, ischemic cardiomyopathy, CVA, and bone marrow cancer. He presents to the office today for a follow up of her urinary retention. In discussion with the patient today he reports to be doing and feeling well. He reports compliance with finasteride, methenamine, vitamin-C, and terazosin as prescribed. He does report noting episodes of urinary urgency and frequency however he feels he is managing this well independently. In office urinalysis results reviewed with the patient today. PVR 88 mL. He reports since having Quinones catheter removed he has been able to void independently without difficulty. Previous workup has included retroperitoneal ultrasound 04/23 noting bilateral kidneys with no lesions, hydronephrosis, or renal calculi. The bladder is well distended and normal. Pre void bladder volume is approximately 250 mL. Postvoid bladder volume is approximately 110 mL. Prostate measures approximately 25 mL. He denies incontinence, hematuria, dysuria, foul smelling urine, changes to urinary stream, flank pain, fever, and or chills. Recent PSA results are as follows: PSA: 05/23 2.1, 04/24 1.3 He otherwise offers no other issues or concerns at this time. [facility] Medical History Encounter for screening colonoscopy Left ventricular thrombus Atherosclerotic cardiovascular disease HLD (hyperlipidemia) HTN (hypertension) Ischemic cardiomyopathy History of CVA (cerebrovascular accident) Myelofibrosis Coronary artery disease Surgical History History of appendectomy Family History Mother History of cancer of unknown primary site Social History Household Members: Family Alcohol intake: former Patient Tobacco Use Status: Never used Tobacco service: No Review of Systems Const Reports as per HPI Eyes Reports no additional complaints ENT Reports no additional complaints Card Reports as per HPI Resp Reports no additional complaints GI Reports no additional complaints Reports as per HPI Musc Reports as per HPI Neuro Reports no additional complaints Psych Reports no additional complaints Endo Reports no additional complaints Apollo/Lymph Reports as per HPI Aller/Immun Reports as per HPI Physical Exam Const General: cooperative, healthy appearing, comfortable, no acute distress, well developed, alert and awake Nutritional Appearance: thin Orientation/consciousness: patient oriented x3 Limitations: no limitations HEENT Head: Yes normal to inspection, Yes normocephalic and Yes atraumatic Ears: hearing grossly normal bilaterally Eyes General: appearance normal, both eyes and all related structures Neck Neck: Yes normal visual inspection and Yes trachea midline Chest Chest palpation & inspection: normal inspection of the chest Resp Effort & Inspection: normal respiratory effort and able to speak in complete sentences Cardio Rate: regular rate GI Inspection: Yes normal to inspection General: Yes no CVA tenderness Back/Spine/Pelvis Back: no CVA tenderness Skin General skin exam: no rashes or lesions noted Neuro General: patient oriented x3 Extrem General: Yes normal to inspection Psych Appearance: grossly normal and well kempt Mental Status: mental status grossly normal Speech and movement: Normal speech and movement present and Clear speech present Affect: normal affect Attitude: cooperative Thought process: Normal thought process present Thought content: Normal thought content present Insight: Fair insight present (Psych) Judgement: Fair judgement present (Psych) Office Procedures Post Void Residual Post Residual Void Post Void Residual (PVR): 88 [id number] Void Residual by ultrasound Results AMB Urinalysis, Automated UA Leukoctes 0 Loenard/uL Last Edit by Ana Rosa Nicholas [place] on 04/11/25 15:05 UA Nitrite Negative Last Edit by [facility] [place] on 04/11/25 15:05 UA Urobilinogen 3.5 mg/dL Last Edit by Ana Rosa [place] on 04/11/25 15:05 UA Protein 15 mg/dL Last Edit by [facility] [place] on 04/11/25 15:05 UA pH 6.0 Last Edit by [facility] [place] on 04/11/25 15:05 UA Blood 0 Robbin/uL Last Edit by [facility] [place] on 04/11/25 15:05 UA Specific Dundas 1.010 Last Edit by Ana Rosa [place] on 04/11/25 15:05 UA Ketone Negative Last Edit by Ana Rosa [place] on 04/11/25 15:05 UA Bilirubin 0 mg/dL Last Edit by [facility] [place] on 04/11/25 15:05 UA Glucose 0 mg/dL Last Edit by [facility] [place] on 04/11/25 15:05 Results Reviewed Results Reviewed: Laboratory Last Values Urine pH (Auto) 6.0 04/11/25 14:50 Specific Dundas (Auto) 1.010 04/11/25 14:50 Urine Protein (Auto) 15 mg/dL 04/11/25 14:50 Glucose (UA)(Auto) 0 mg/dL 04/11/25 14:50 Urine Ketones (Auto) Negative 04/11/25 14:50 Urine Blood (Auto) 0 Robbin/uL 04/11/25 14:50 Urine Nitrite (Auto) Negative 04/11/25 14:50 Urine Bilirubin (Auto) 0 mg/dL 06/12/25 14:50 Urine Urobilinogen (Auto) 3.5 mg/dL 04/11/25 14:50 Leukocyte Esterase (Auto) 0 Leonard/uL 04/11/25 14:50 Assessment & Plan Assessment & Plan (1) Urinary retention: Code(s): R33.9 - Retention of urine, unspecified Category: Medical (2) Lower urinary tract symptoms: Code(s): R39.9 - Unspecified symptoms and signs involving the genitourinary system Category: Medical (3) Urinary frequency: Code(s): R35.0 - Frequency of micturition Category: Medical (4) Nocturia: Code(s): R35.1 - Nocturia Category: Medical Plan In office urinalysis results with the patient today; as noted above. PVR 88 mL. Recent PSA results reviewed with the patient today; as noted above. Continue finasteride, terazosin, methenamine, and vitamin-C as prescribed. We discussed bladder triggers and irritants. We discussed potential causes of lower urinary tract symptoms patients had is experiencing as well as further treatment options and risks and benefits of these treatment options. Will continue with surveillance monitoring at this time. Follow-up in 3 months with PVR; or sooner with any issues, concerns, and or questions. Orders: Orders AMB Urinalysis Automated 04/11/25 Z13.9 - Encounter for screening, unspecified AMB Post Void Residual by ultrasound 04/11/25 R33.9 - Retention of urine, unspecified Patient Instructions: The patient had an opportunity to ask questions regarding the treatment plan. All questions were answered. Physical exam, labs, and imaging were discussed and reviewed in detail. As well as risks, benefits, and discussion of treatment choices. No major barriers to understanding were identified. The patient expressed understanding and agreement with the above treatment plan. The patient was made aware they should contact our office by phone for worsening of their current condition, the appearance of new symptoms, or with any questions or concerns. Compliance is encouraged with any medications and follow up testing that is ordered. It is a privilege to be allowed the opportunity to participate in? your urological care.? Again, if you have any questions or concerns If you have any questions or concerns please do not hesitate to contact me. The office is [phone]. This note is constructed using voice recognition software. While every effort has been made to ensure accuracy hogshead filler errors may have been included. Yours sincerely, POLA Ardon-BC Coding Level of Care Code Est Pt Level 3 (92966) Complex EM visit Add On G2211 Diagnoses Urinary retention R33.9 Lower urinary tract symptoms R39.9 Urinary frequency R35.0 Nocturia R35.1 CPT Codes Post Residual Void - PVR CPT Code: 74882-Kcni Void Residual by ultrasound ([id number])
--- OUTSIDE RECORDS SUMMARY | 2025-04-11 16:54 | XMS_ITS | Encounter Summary ---
Author Organization [employer] Address [address] [facility] [address] [place] [address] Care Team Providers Care Science Editor Name Role Phone Siobhan Vanessa MD Primary Care Provider [phone] [place] Unavailable Pepper Flanagan MD Unavailable [phone] Harshal Hartley MD Unavailable [phone] Nancy Lyles NP Unavailable Reason for Visit * Reason Onset Date Comments Med Refill 02/28/2024 Encounter Details Date Type Department Care Team (Late st Contact Info) Description 02/28/2024 Telephone [facility] [address] [place], [place] [phone] Siobhan Vanessa MD [address] [place], [place] [phone] Med Refill Social History Tobacco Use Types [...] getting delivery today To be sent to: [facility] - [place], [place] - [address] [facility] documented in this encounter Plan of [...] documented as of this encounter Care Teams Science Editor Relationship Specialty Start Date End Date Rasheeda, MD Siobhan [address] [place] [address] PCP - General Family Medicine 01/04/12 [place] [address] [place] [address] Cardiology 03/28/25 Pepper Flanagan MD [address] [place] [address] Hematology and Oncology 04/03/25 Harshal Hartley MD [address] [place] [address] General Surgery 04/03/25 Nancy Lyles NP [address] [place] [address] Urology 04/03/25 documented as of this encounter
== END 2025-04-11 15:15 | disposition home or self-care (01) ==
LOC: HO.HUSH 14:22
PROVIDERS: PCP Family Medicine; Visit Provider Nurse Practitioner Family
DX: Z13.9 Encounter for screening, unspecified (principal)

== ENCOUNTER → 2025-04-11 14:21 | Outpatient (BNVA) | payer MEDICARE, SELFPAY | PROVIDERS: PCP Family Medicine; Visit Provider Nurse Practitioner Family | DX: R33.9 Retention of urine, unspecified (principal); R39.9 Unspecified symptoms and signs involving the genitourinary system; R35.1 Nocturia; R35.0 Frequency of micturition | CPT/HCPCS: 51798; 81003; 99212 ==

== ENCOUNTER 2025-07-15 14:11 | Outpatient (AMB) | payer MEDICARE, SELFPAY ==
--- OUTSIDE RECORDS SUMMARY | 2025-07-11 08:30 | XMS_ITS | Encounter Summary ---
Author Organization [facility] Address [address] [place] [address] Care Team Providers Care Special Procedures Tech Name Role Phone Siobhan Vanessa MD Primary Care Provider [phone]- [phone] Reason for Visit * Consultation (Routine) - Authorized Specialty Diagnoses / Procedures Referred By Abby higgins Referred To Contact Physical Therapy Diagnoses Unspecified rotator cuff tear or rupture of left shoulder, not specified as traumatic Other specific arthropathies, not elsewhere classified, left shoulder Suzanne Coffey PA [address] [place] [phone] Phone: tel: fax: Referral ID Status Reason Start Date Expiration Date Visits Requested Visits Authorized [id number] Authorized Specialty Services Required 04/24/2025 04/24/2026 15 15 Encounter Details Date Type Department Care Team (Late st Contact Info) Description 07/11/2025 8:30 AM EDT Treatment [address] [address] Vitor Joe PTA Chronic right shoulder pain (Primary Dx) Social History Tobacco Use Types Packs/Day Years Used Date Smoking Tobacco: Never Assessed Sex and Gender Information Value Date Recorded Sex Assigned at Not on file Legal Sex Male 5:05 AM EST Gender Identity Not on file Sexual Orientation Not on file documented as of this encounter Progress Notes * Vitor Joe PTA - 07/11/2025 8:30 AM EDT [facility] - Outpatient PHYSICAL THERAPY DAILY TREATMENT NOTE - OP Date: 07/11/2025 Visit Number: 4 Patient Name: Mervin Alonso : 1950 Age: 75 y.o. Gender: male Diagnosis: ICD-10-CM ICD-9-CM 1. Chronic right shoulder pain M25.511 719.41 G89.29 338.29 Date of Onset/Surgery: 06/19/2025 Referring Provider: Suzanne Coffey PA Insurance: Payor: [facility] MEDICARE / Plan: [facility] MEDICARE ADVANTAGE / Product Type: *No Product type* / Patient Identified by: Vitor Joe PTA Language: Sami Medications: No current outpatient medications on file prior to visit. No current facility-administered medications on file prior to visit. Allergies: has No Known Allergies. Precautions: H/o R biceps tendon tear, HTN, coronary artery stenosis, h/o cancer (bone) Fall risk: No SUBJECTIVE Subjective Report: pt reports feeling the tape was somewhat helpful. Doing exs at home. Chart Reviewed: Yes Pain 7/10 right shoulder pain OBJECTIVE TREATMENT INTERVENTION: UBE x 3 min forward only Standing shld pulleys for flexion in tolerable ROM Red tubing rows and B shld ext x 20 ea Black tubing R scap depression x 20 Seated shld flexion with bolster on table x 15 x 2 sets Seated scap squeeze with tactile cues to avoid R shld elevation x 15 R GH jt post and inf glides R GH jt distraction Passive Shld IR/ER in supine Trial of kinesiotaping to R shld for ant/post delt support - -not done, still has tape from last visit ASSESSMENT/Response to Treatment Fair Pt continues with sig UT substitution with shld elevation - somewhat better with cues Patient Education: Education provided: Yes. Taping instructions/precautions Education Provided To: Patient and Family utilizing Explanation mode(s) of education Response to Education: Verbal Understanding PLAN POC Development/Review: No Change in the Plan of Care; Participants: Patient Total Treatment Time: 30 Modalities: Therapeutic procedures: Manual Therapy Time Entry: 15 Therapeutic Exercise Time Entry: 15 Documentation completed by Vitor Joe PTA documented in this encounter Plan of Treatment Upcoming Encounters Date Type Department Care Team (Late st Contact Info) Description 07/17/2025 8:30 AM EDT Treatment [facility] [address] [address] Nuzhat Ernandez, PT 07/23/2025 8:30 AM EDT Treatment [address] [address] Vitor Joe, MOTOR VEHICLE COMPLIANCE ANALYST 07/25/2025 8:30 AM EDT Treatment [address] [address] Vitor Joe, MOTOR VEHICLE COMPLIANCE ANALYST 07/30/2025 8:30 AM EDT Treatment [address] [address] Nuzhat Ernandez, PT documented as of this encounter Visit Diagnoses Diagnosis Chronic right shoulder pain- Primary Pain in joint, shoulder region documented in this encounter Care Teams Special Procedures Tech Relationship Specialty Start Date End Date Siobhan Vanessa MD [address] [place] [phone] PCP - General 01/16/24 documented as of this encounter
--- OUTSIDE RECORDS SUMMARY | 2025-07-15 08:30 | XMS_ITS | Encounter Summary ---
Author Organization [facility] Address [address] [place] [address] Care Team Providers Care Global Ceo Name Role Phone Siobhan Vanessa MD Primary Care Provider [phone]- [phone] Reason for Visit * Consultation (Routine) - Authorized Specialty Diagnoses / Procedures Referred By Abby higgins Referred To Contact Physical Therapy Diagnoses Unspecified rotator cuff tear or rupture of left shoulder, not specified as traumatic Other specific arthropathies, not elsewhere classified, left shoulder Suzanne Coffey PA [address] [place] [phone] Phone: tel: fax: Referral ID Status Reason Start Date Expiration Date Visits Requested Visits Authorized [id number] Authorized Specialty Services Required 04/24/2025 04/24/2026 15 15 Encounter Details Date Type Department Care Team (Late st Contact Info) Description 07/15/2025 8:30 AM EDT Treatment [facility] [address] [facility] [address] [place] [address] Natan Morris PTA Chronic right shoulder pain [...] Morris PTA - 07/15/2025 8:30 AM EDT [facility] - Outpatient PHYSICAL THERAPY DAILY TREATMENT NOTE - OP Date: 07/15/2025 Visit Number: 5 Patient Name: Mervin Alonso : 1950 Age: 75 y.o. Gender: male Diagnosis: ICD-10-CM ICD-9-CM 1. Chronic right shoulder pain M25.511 719.41 G89.29 338.29 Date of Onset/Surgery: No data found Referring Provider: Suzanne Coffey PA Insurance: Payor: [employer] MEDICARE / Plan: [facility] MEDICARE ADVANTAGE / Product Type: *No Product type* / Patient Identified by: Natan Morris PTA Language: Citizen Of [place] Medications: No current outpatient medications on file [...] Info) Description 07/17/2025 8:30 AM EDT Treatment [address] [address] Nuzhat Ernandez, RUDY 07/23/2025 8:30 AM EDT Treatment [facility] [address] [address] Vitor Joe, ENTERPRISE SYSTEMS ENGINEER 07/25/2025 8:30 AM EDT Treatment [facility] [address] [address] Vitor Joe, ENTERPRISE SYSTEMS ENGINEER 07/30/2025 8:30 AM EDT Treatment [address] [address] Nuzhat Ernandez, PT documented as of this encounter Visit Diagnoses Diagnosis Chronic right shoulder pain- Primary Pain in joint, shoulder region documented in this encounter Care Teams Global Ceo Relationship Specialty Start Date End Date Rasheeda, MD Siobhan [address] [place] [phone] PCP - General 01/16/24 documented as of this encounter
--- OUTSIDE RECORDS SUMMARY | 2025-07-15 11:30 | XMS_ITS | Encounter Summary ---
Author Organization [employer] Address [address] [facility] [address] [place] [address] Care Team Providers Care Cardiac Cath Lab Manager Name Role Phone Siobhan Vanessa MD Primary Care Provider [phone] [place] Unavailable Pepper Flanagan MD Unavailable [phone] Harshal Hartley MD Unavailable [phone] Nancy Lyles NP Unavailable Encounter Details Date Type Department Care Team (Late st Contact Info) Description 07/15/2025 11:30 AM EDT Office Visit [facility] [address] [place], [place] [phone] Siobhan Vanessa MD [address] [place], [place] [phone] Dementia without behavioral disturbance, psychotic disturbance, mood disturbance, or anxiety, unspecified dementia severity, unspecified dementia type (CMS/HCC) (Primary Dx); Dyslipidemia; Benign essential hypertension; Iron deficiency anemia, unspecified iron deficiency anemia type; Transaminitis; Myelofibrosis (CMS/HCC); Myeloproliferative disorder (CMS/HCC); Tubular adenoma; Injury of tendon of biceps Social History Tobacco Use Types Packs/Day Years Used Date Smoking Tobacco: Never Passive Smoke Exposure: Never Smokeless Tobacco: Never Tobacco Cessation:Counseling Given: Not Answered Alcohol Use Standard Drinks/Week Comments Never 0 (1 standard drink = 0.6 oz pur e alcohol) Depression Answer Date Recorded Patient Health Questionnaire-9 [...] Sign Reading Time Taken Comments Blood Pressure 114/58 07/15/2025 11:25 AM EDT Pulse 52 07/15/2025 11:25 AM EDT Temperature 36.2 C (97.1 F) 07/15/2025 11:25 AM EDT Respiratory Rate 20 07/15/2025 11:25 AM EDT Oxygen Saturation 99% 07/15/2025 11:25 AM EDT Inhaled Oxygen Concentration - - Weight 71.9 kg (158 lb 9.6 oz) 07/15/2025 11:25 AM EDT Height 165.7 cm (5' 5.25 ) 07/15/2025 11:25 AM E DT Body Mass Index 26.19 07/15/2025 11:25 AM EDT documented in this encounter Progress Notes * Siobhan Vanessa MD - 07/15/2025 11:30 AM EDT Subjective Patient ID: Mervin Alonso is a 75 y.o. male with past medical history of hypertension, hyperlipidemia, transaminitis, mural thrombus of left ventricle, CVA, myeloproliferative disorder, and mild conative memory dysfunction who presents for follow-up chronic conditions. Family enquired about disability and discussed pt would not qualify as he does not have the necessary diagnoses. Encouraged to call for follow-up regarding tubular adenoma for colon cancer screening. Discussed coming back and getting labs done fasting. Review of Systems Constitutional: Negative for fever and unexpected weight change. Respiratory: Negative for shortness of breath. Cardiovascular: Negative for chest pain. Gastrointestinal: Negative for abdominal pain. Genitourinary: Negative for difficulty urinating. Musculoskeletal: Negative for back pain. Objective Visit Vitals BP 114/58 (BP Location: Left arm, Patient Position: Sitting, BP Cuff Size: Adult) Pulse 52 Temp 97.1 ??F (36.2 ??C) (Temporal) Resp 20 Body mass index is 26.19 kg/m??. Physical Exam Constitutional: Appearance: Normal appearance. Cardiovascular: Rate and Rhythm: Normal rate and regular rhythm. Heart sounds: Normal heart sounds. Pulmonary: Effort: Pulmonary effort is normal. Breath sounds: Normal breath sounds. Abdominal: General: Abdomen is flat. Palpations: Abdomen is soft. Tenderness: There is no abdominal tenderness. Musculoskeletal: Cervical back: Normal range of motion and neck supple. Lymphadenopathy: Cervical: No cervical adenopathy. Skin: General: Skin is warm and dry. Neurological: Mental Status: Mental status is at baseline. Psychiatric: Behavior: Behavior normal. Assessment & Plan Dementia without behavioral disturbance, psychotic disturbance, mood disturbance, or anxiety, unspecified dementia severity, unspecified dementia type (CMS/HCC) Patients VNA from [facility] requested evaluation for worsening memory 01/2024. Family repots memory has been getting progressively worse. MOCA/mini mental exam done with RN . MMSE2 in [place] completed with pt. Pt states graduated high school as highest level of education. Pt was able to recall and repeat 2/3 words directly after they were listed for him but several minutes later when asked to recall, remembered 1/3. He knew the month and day of the week but when askedwhat year it was responded, 2002 , thought [...] (after a long pause and lots of prompting).He was unable to repeat a spoken sentence in y[place]i and was also unable to write a sentence that was spoken to him. Was prompted to write Mi color favorito es... followed by his favorite color. Hesaid, byrnes and then wrote Sool without the rest of the sentence. He was able to name a square but answered, lines for triangle and zero for torres martinez. Lastly he was able to copy a shape on paper. -Pt scored a 10 out of a possible 30 points. This is considered severe cognitive impairment and at an increased odds for dementia status. -referral to geriatrics memory clinic placed 02/22/24 -stable no behavior disturbance 07/15/25 Dyslipidemia Lab Results Component Value Date CHOL 78 01/26/2024 CHOL 98 07/12/2023 TRIG 55 01/26/2024 TRIG 57 07/12/2023 HDL 28 (L) 01/26/2024 HDL 32 (L) 07/12/2023 LDLCHOLCAL 39 01/26/2024 LDLCHOLCAL 55 07/12/2023 -continue lifestyle modification -continue atorvastatin 80mg at bedtime -ordered repeat FLP's 07/15/25 Orders: Lipid Panel, Standard; Future Benign essential hypertension -Blood pressure is at goal -Continue lifestyle modifications -Continue current medications Orders: Albumin, Random Urine W/Creatinine; Future Basic Metabolic Panel; Future Iron deficiency anemia, unspecified iron deficiency anemia type Lab Results Component Value Date FERRITIN 290 (H) 01/26/2024 HGB 10.2 (L) 04/05/2025 HGB 10.2 (L) 04/05/2025 HGB 9.3 (L) 01/26/2024 -recheck labs Orders: Hepatic Function Panel; Future Hepatitis C Antibody with Reflex to HCV, RNA, Quantitative, Real-Time PCR; Future Transaminitis Lab Results Component Value Date TOTALBILIRUB 0.5 01/26/2024 AST 47 (H) 01/26/2024 ALT 78 (H) 01/26/2024 ALP 112 01/26/2024 HEPCAB Nonreactive 07/12/2023 FERRITIN 290 (H) 01/26/2024 -ordered repeat liver labs 07/15/25 Myelofibrosis (CMS/HCC) - Followed by Dr. Flanagan, Transportation Mechanic.Note from 04/19/24 reviewed. - Stable on Jakafi (Ruxolitinib) started June 28, 2014 - CAT scan of abdomen performed on 06/01/16. -he has difficulty maintain weight due to his chronic illness , Rx Boost for nutrition supplementation Myeloproliferative disorder (CMS/HCC) - Followed by Dr. Flanagan, Transportation Mechanic.Note from 04/19/24 reviewed. - Stable on Jakafi (Ruxolitinib) started June 28, 2014 - CAT scan of abdomen performed on 06/01/16. -he has difficulty maintain weight due to his chronic illness , Rx Boost for nutrition supplementation Tubular adenoma -05/[address] Hartley revealed a small polyp that was subsequently removed. Next colonoscopy due in 5 years. -referral placed 07/08/23 and 12/11/24 and 04/03/25 -07/15/25 given number to call Injury of tendon of biceps -Seen by [facility] [place], [facility] 04/16/25x ray revased superior humeral head migration, degenerative changes at the greater tuberosity with cystic changes. 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 Follow up in about 9 months (around 04/14/2026) for physical. I, Allison Greer, am serving as a scribe to document services personally performed by Dr. Amaya, based on the patient's response to questions by provider and providers statements to me. documented in this encounter Miscellaneous Notes * Assessment & Plan Note - Siobhan Vanessa MD - 07/15/2025 11:30 AM EDT Associated Problem(s): Dyslipidemia Lab Results Component Value Date CHOL 78 01/26/2024 CHOL 98 07/12/2023 TRIG 55 01/26/2024 TRIG 57 07/12/2023 HDL 28 (L) 01/26/2024 HDL 32 (L) 07/12/2023 LDLCHOLCAL 39 01/26/2024 LDLCHOLCAL 55 07/12/2023 -continue lifestyle modification -continue atorvastatin 80mg at bedtime -ordered repeat FLP's 07/15/25 Orders: Lipid Panel, Standard; Future * Assessment & Plan Note - Siobhan Vanessa MD - 07/15/2025 11:30 AM EDT Associated Problem(s): Benign essential hypertension -Blood pressure is at goal -Continue lifestyle modifications -Continue current medications Orders: Albumin, Random Urine W/Creatinine; Future Basic Metabolic Panel; Future * Assessment & Plan Note - Siobhan Vanessa MD - 07/15/2025 11:30 AM EDT Associated Problem(s): Transaminitis Lab Results Component Value Date TOTALBILIRUB 0.5 01/26/2024 AST 47 (H) 01/26/2024 ALT 78 (H) 01/26/2024 ALP 112 01/26/2024 HEPCAB Nonreactive 07/12/2023 FERRITIN 290 (H) 01/26/2024 -ordered repeat liver labs 07/15/25 * Assessment & Plan Note - Siobhan Vanessa MD - 07/15/2025 11:30 AM EDT Associated Problem(s): Tubular adenoma -05/[address] Hartley revealed a small polyp that was subsequently removed. Next colonoscopy due in 5 years. -referral placed 07/08/23 and 12/11/24 and 04/03/25 -07/15/25 given number to call * Assessment & Plan Note - Siobhan Vanessa MD - 07/15/2025 11:30 AM EDT Associated Problem(s): Myeloproliferative disorder (CMS/HCC) - Followed by Dr. Flanagan, Transportation Mechanic.Note from 04/19/24 reviewed. - Stable on Jakafi (Ruxolitinib) started June 28, 2014 - CAT scan of abdomen performed on 06/01/16. -he has difficulty maintain weight due to his chronic illness , Rx Boost for nutrition supplementation * Assessment & Plan Note - Siobhan Vanessa MD - 07/15/2025 11:30 AM EDT Associated Problem(s): Iron deficiency anemia Lab Results Component Value Date FERRITIN 290 (H) 01/26/2024 HGB 10.2 (L) 04/05/2025 HGB 10.2 (L) 04/05/2025 HGB 9.3 (L) 01/26/2024 -recheck labs Orders: Hepatic Function Panel; Future Hepatitis C Antibody with Reflex to HCV, RNA, Quantitative, Real-Time PCR; Future * Assessment & Plan Note - Siobhan Vanessa MD - 07/15/2025 11:30 AM EDT Associated Problem(s): Dementia (CMS/HCC) Patients VNA from [facility] requested evaluation for worsening memory 01/2024. Family repots memory has been getting progressively worse. MOCA/mini mental exam done with RN . MMSE2 in [place] completed with pt. Pt states graduated high school as highest level of education. Pt was able to recall and repeat 2/3 words directly after they were listed for him but several minutes later when asked to recall, remembered 1/3. He knew the month and day of the week but when askedwhat year it was responded, 2002 , thought [...] (after a long pause and lots of prompting).He was unable to repeat a spoken sentence in yemeni and was also unable to write a sentence that was spoken to him. Was prompted to write Mi color favorito es... followed by his favorite color. Hesaid, byrnes and then wrote Sool without the rest of the sentence. He was able to name a square but answered, lines for triangle and zero for torres martinez. Lastly he was able to copy a shape on paper. -Pt scored a 10 out of a possible 30 points. This is considered severe cognitive impairment and at an increased odds for dementia status. -referral to geriatrics memory clinic placed 02/22/24 -stable no behavior disturbance 07/15/25 * Assessment & Plan Note - Siobhan Vanessa MD - 07/15/2025 11:30 AM EDT Associated Problem(s): Myelofibrosis (CMS/HCC) - Followed by Dr. Flanagan, Transportation Mechanic.Note from 04/19/24 reviewed. - Stable on Jakafi (Ruxolitinib) started June 28, 2014 - CAT scan of abdomen performed on 06/01/16. -he has difficulty maintain weight due to his chronic illness , Rx Boost for nutrition supplementation * Assessment & Plan Note - Siobhan Vanessa MD - 07/15/2025 11:30 AM EDT Associated Problem(s): Injury of tendon of biceps -Seen by [facility] [place], [facility] 04/16/25x ray revased superior humeral head migration, degenerative changes at the greater tuberosity with cystic changes. 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 documented in this encounter Plan of Treatment Scheduled Orders Name Type Priority Associated Diagnoses Orde r Schedule Albumin, Random Urine W/Creatinine Lab Routine Benign essential hypertension Expected: 07/15/2025 (Approximate), Expires: 07/15/2026 Hepatic Function Panel Lab Routine Iron deficiency anemia, unspecified iron deficiency anemia type Expected: 07/15/2025 (Approximate), Expires: 07/15/2026 Lipid Panel, Standard Lab Routine Dyslipidemia Expected: 07/15/2025 (Approximate), Expires: 07/15/2026 Basic Metabolic Panel Lab Routine Benign essential hypertension Expected: 07/15/2025 (Approximate), Expires: 07/15/2026 Hepatitis C Antibody with Reflex to HCV, RNA, Quantitative, Real-Time PCR Lab Routine Iron deficiency anemia, unspecified iron deficiency anemia type Expected: 07/15/2025, Expires: 07/15/2026 documented as of this encounter Goals Goal Patient Goal Type Associated Problems Recent Progress Patient-Stated? Author Blood Pressure < 140/90 Blood Pressure 114/58(2024 11:25 AM EDT) No Carmenza Ybarra Record your blood pressure once per day Blood Pressure No Carmenza Ybarra documented as of this encounter Visit Diagnoses Diagnosis Dementia without behavioral disturbance, psychotic disturbance, mood disturbance, or anxiety, unspecified dementia severity, unspecified dementia type (CMS/HCC)- Primary Dyslipidemia Other and unspecified hyperlipidemia Benign essential hypertension Essential hypertension, benign Iron deficiency anemia, unspecified iron deficiency anemia type Transaminitis Nonspecific elevation of levels of transaminase or lactic acid dehydrogenase (LDH) Myelofibrosis (CMS/HCC) Myelofibrosis Myeloproliferative disorder (CMS/HCC) Neoplasm of uncertain behavior of other lymphatic and hematopoietic tissues Tubular adenoma Benign neoplasm of unspecified site Injury of tendon of biceps documented in this encounter Additional Health Concerns Assessment Noted Time PHQ-9 Depression Total Score: 0 01/26/20 11:20 AM EDT documented as of this encounter Care Teams Cardiac Cath Lab Manager Relationship Specialty Start Date End Date Siobhan Vanessa MD [address] [place] [address] PCP - General Family Medicine 01/04/12 [place] [address] [place] [address] Cardiology 03/28/25 Pepper Flanagan MD [address] [place] [address] Hematology and Oncology 04/03/25 Harshal Hartley MD [address] [address] General Surgery 04/03/25 Nancy Lyles NP [address] [place] [address] Urology 04/03/25 [facility] [address] [place] [address] Orthopaedic Surgery 04/24/25 documented as of this encounter
--- NOTE | 2025-07-15 14:24 | A.OFFVIS_ITS ---
Intake Visit Reasons: 3m follow up/ PVR Intake Note: patient presents today for: 3mo follow up/PVR urology medications: terazosin, vit c, methenaminbe hippurate blood thinners:b aspirin, apixaban today's PVR: 121 mls Medical Billing Coder Required: Yes Medical Billing Coder Services: Medical Billing Coder Present Medical Billing Coder Name: Hever Harvey Accompanied by: Sister Allergies No Known Allergies Allergy (Verified 07/15/25 15:06) Medication List - Last Reconciled 07/15/25 by AMANDO Ardon acetaminophen 500 mg PO DAILY apixaban (Eliquis) 5 mg PO Q12H ascorbic acid (vitamin C) 500 mg PO DAILY 90 days aspirin 81 mg PO DAILY atorvastatin 80 mg PO DAILY chlorhexidine gluconate 0.12% 15 mL PO BID methenamine hippurate 1 g PO DAILY 90 days metoprolol tartrate 25 mg PO BID 90 days ruxolitinib 20 mg PO BID ruxolitinib 20 mg PO BID spironolactone 25 mg PO QAM terazosin 5 mg PO BEDTIME 30 days HPI Comments Details: Mervin is a pleasant 75-year-old [place]ican-speaking male patient of Dr. Vanessa. He has a past medical history of left ventricular thrombosis, ACD, hyperlipidemia, hypertension, ischemic cardiomyopathy, CVA, and bone marrow cancer. He presents to the office today for a follow up of her urinary retention. In discussion with the patient today he reports to be doing and feeling well. He reports compliance with finasteride, methenamine, vitamin-C, and terazosin as prescribed. He denies having had any bothersome urinary issues or concerns since his last office visit here. He reports he has been independently voiding without difficulty. In office urinalysis results reviewed with the patient today negative leukocytes negative nitrates negative microscopic hematuria. PVR 121. Previous workup has included retroperitoneal ultrasound 04/23 noting bilateral kidneys with no lesions, hydronephrosis, or renal calculi. The bladder is well distended and normal. Pre void bladder volume is approximately 250 mL. Postvoid bladder volume is approximately 110 mL. Prostate measures approximately 25 mL. He denies incontinence, hematuria, dysuria, foul smelling urine, changes to urinary stream, flank pain, fever, and or chills. Recent PSA results are as follows: PSA: 05/23 2.1, 04/24 1.3 He otherwise offers no other issues or concerns at this time. [facility] Medical History Encounter for screening colonoscopy Left ventricular thrombus Atherosclerotic cardiovascular disease HLD (hyperlipidemia) HTN (hypertension) Ischemic cardiomyopathy History of CVA (cerebrovascular accident) Myelofibrosis Coronary artery disease Surgical History History of appendectomy Family History Mother History of cancer of unknown primary site Social History Household Members: Family Alcohol intake: former Patient Tobacco Use Status: Never used Tobacco service: No Review of Systems Const Reports as per HPI Eyes Reports no additional complaints ENT Reports no additional complaints Card Reports as per HPI Resp Reports no additional complaints GI Reports no additional complaints Reports as per HPI Musc Reports as per HPI Neuro Reports no additional complaints Psych Reports no additional complaints Endo Reports no additional complaints Apollo/Lymph Reports as per HPI Aller/Immun Reports as per HPI Physical Exam Const General: cooperative, healthy appearing, comfortable, no acute distress, well developed, alert and awake Nutritional Appearance: thin Orientation/consciousness: patient oriented x3 Limitations: no limitations HEENT Head: Yes normal to inspection, Yes normocephalic and Yes atraumatic Ears: hearing grossly normal bilaterally Eyes General: appearance normal, both eyes and all related structures Neck Neck: Yes normal visual inspection and Yes trachea midline Chest Chest palpation & inspection: normal inspection of the chest Resp Effort & Inspection: normal respiratory effort and able to speak in complete sentences Cardio Rate: regular rate GI Inspection: Yes normal to inspection General: Yes no CVA tenderness Back/Spine/Pelvis Back: no CVA tenderness Skin General skin exam: no rashes or lesions noted Neuro General: patient oriented x3 Extrem General: Yes normal to inspection Psych Appearance: grossly normal and well kempt Mental Status: mental status grossly normal Speech and movement: Normal speech and movement present and Clear speech present Affect: normal affect Attitude: cooperative Thought process: Normal thought process present Thought content: Normal thought content present Insight: Fair insight present (Psych) Judgement: Fair judgement present (Psych) Office Procedures Post Void Residual Post Residual Void Post Void Residual (PVR): 121 [id number] Void Residual by ultrasound Assessment & Plan Assessment & Plan (1) Urinary retention: Code(s): R33.9 - Retention of urine, unspecified Category: Medical (2) Lower urinary tract symptoms: Code(s): R39.9 - Unspecified symptoms and signs involving the genitourinary system Category: Medical (3) Urinary frequency: Code(s): R35.0 - Frequency of micturition Category: Medical (4) Nocturia: Code(s): R35.1 - Nocturia Category: Medical Plan In office urinalysis results with the patient today; as noted above. PVR 121 mL. Continue finasteride, terazosin, methenamine, and vitamin-C as prescribed. Patient currently denies any bothersome urinary issues or concerns. He reports be happy with current voiding parameters. We did discussed potential causes of urinary retention. We will continue with surveillance monitoring at this time. Will obtain PSA in 3-6 months Follow-up in 3-6 months with PSA and PVR; or sooner with any issues, concerns, and or questions. Orders: Orders Prostate Specific Antigen 3 Months R33.9 - Retention of urine, unspecified, R35.0 - Frequency of micturition, R35.1 - Nocturia, R39.9 - Unspecified symptoms and signs involving the genitourinary system AMB Post Void Residual by ultrasound Today R35.1 - Nocturia US retroperitoneal comp 3 Months R33.9 - Retention of urine, unspecified, R35.0 - Frequency of micturition, R35.1 - Nocturia, R39.9 - Unspecified symptoms and signs involving the genitourinary system Patient Instructions: The patient had an opportunity to ask questions regarding the treatment plan. All questions were answered. Physical exam, labs, and imaging were discussed and reviewed in detail. As well as risks, benefits, and discussion of treatment choices. No major barriers to understanding were identified. The patient expressed understanding and agreement with the above treatment plan. The patient was made aware they should contact our office by phone for worsening of their current condition, the appearance of new symptoms, or with any questions or concerns. Compliance is encouraged with any medications and follow up testing that is ordered. It is a privilege to be allowed the opportunity to participate in? your urological care.? Again, if you have any questions or concerns If you have any questions or concerns please do not hesitate to contact me. The office is [phone]. This note is constructed using voice recognition software. While every effort has been made to ensure accuracy printed circuit board assembly repairer errors may have been included. Yours sincerely, AMANDO Ardon Coding Level of Care Code Est Pt Level 3 (75587) Complex EM visit Add On G2211 Diagnoses Urinary retention R33.9 Lower urinary tract symptoms R39.9 Urinary frequency R35.0 Nocturia R35.1 CPT Codes Post Residual Void - PVR CPT Code: 29605-Ebwh Void Residual by ultrasound ([id number])
--- OUTSIDE RECORDS SUMMARY | 2025-07-15 19:31 | XMS_ITS | Encounter Summary ---
Author Organization [employer] Address [address] [place] [address] Care Team Providers Care Concrete Mixer Name Role Phone Siobhan Vanessa MD Primary Care Provider [phone] [place] Unavailable Pepper Flanagan MD Unavailable [phone] Harshal Hartley MD Unavailable [phone] Nancy Lyles NP Unavailable Reason for Visit * Reason Onset Date Comments Med Refill 02/28/2024 Encounter Details Date Type Department Care Team (Late st Contact Info) Description 02/28/2024 Telephone [facility] MEDICINE [address] [place] [address] Siobhan Vanessa MD [address] [place] [address] Med Refill Social History Tobacco Use Types [...] getting delivery today To be sent to: [facility] - [place], [place] - [address] [facility] documented in this encounter Plan of Treatment Not on file documented as of this encounter Goals Goal Patient Goal Type Associated Problems Recent Progress Patient-Stated? Author Blood Pressure < 140/90 Blood Pressure 114/58(2024 11:25 AM EDT) Carmenza Wren Record your blood pressure once per day Blood Pressure No Carmenza Ybarra documented as of this encounter Visit Diagnoses Not on filedocumented in this encounter Additional Health Concerns Assessment Noted Time PHQ-9 Depression Total Score: 5 07/08/20 23 9:02 AM EDT documented as of this encounter Care Teams Concrete Mixer Relationship Specialty Start Date End Date Siobhan Vanessa MD [address] [place] [address] PCP - General Family Medicine 01/04/12 [place] [address] [place] [address] Cardiology 03/28/25 Pepper Flanagan MD [address] [place] [address] Hematology and Oncology 04/03/25 Harshal Hartley MD [address] [address] General Surgery 04/03/25 Nancy Lyles NP [address] [place] [address] Urology 04/03/25 [facility]opedic [place], [facility] [address] [place] [address] Orthopaedic Surgery 04/24/25 documented as of this encounter
--- OUTSIDE RECORDS SUMMARY | 2025-07-15 19:31 | XMS_ITS | Encounter Summary ---
Author Organization [employer] Address [address] [place] [address] Care Team Providers Care Instructor Robotics Name Role Phone Siobhan Vanessa MD Primary Care Provider [phone] [place] Unavailable Pepper Flanagan MD Unavailable [phone] Harshal Hartley MD Unavailable Nancy Lyles NP Unavailable Encounter Details Date Type Department Care Team (Late st Contact Info) Description 2024 Orders Only [facility] MEDICINE [address] [place], [place] [phone] Siobhan Vanessa MD [address] [place], [place] [phone] Social History Tobacco Use Types Packs/Day Years Used Date Smoking Tobacco: Never Passive Smoke Exposure: Never Smokeless Tobacco: Never Depression Answer Date Recorded Patient Health Questionnaire-9 Score 5 07/08/2023 Housing Stability Answer Date Recorded What is your housing situation today? I have marlenrosario evans 08/17/[address] you [...] as of this encounter Plan of Treatment Not on [...] documented as of this encounter Care Teams Instructor Robotics Relationship Specialty Start Date End Date Siobhan Vanessa MD [address] [place] [address] PCP - General Family Medicine 01/04/[address] [place] [address] [place] [address] Cardiology 03/28/25 Pepper Flanagan MD [address] [place] [address] Hematology and Oncology 04/03/25 Harshal Hartley MD [address] [place] [address] General Surgery 04/03/25 Nancy Lyles NP [address] [place] [address] Urology 04/03/25 [facility] Orthopedic [place], [facility] [address] [place] [address] Orthopaedic Surgery 04/24/25 documented as of this encounter
--- OUTSIDE RECORDS SUMMARY | 2025-07-15 19:31 | XMS_ITS | Encounter Summary ---
Author Organization [employer] Address [address] [facility] [address] [place] [address] Care Team Providers Care Rate Analyst Name Role Phone Siobhan Vanessa MD Primary Care Provider [phone] [place] Unavailable Pepper Flanagan MD Unavailable [phone] Harshal Hartley MD Unavailable Nancy Lyles NP Unavailable Reason for Visit * Reason Onset Date Comments Med Refill 2024 Encounter Details Date Type Department Care Team (Late st Contact Info) Description 2024 Telephone [facility] MEDICINE [address] [place] [address] Siobhan Vanessa MD [address] [place] [address] Med Refill Social History Tobacco [...] started during hospitalization in December, prescribed by [facility] for HFrEF. Patient has been taking since [...] documented as of this encounter Care Teams Rate Analyst Relationship Specialty Start Date End Date Siobhan Vanessa MD [address] [place] [address] PCP - General Family Medicine 01/04/12 [place] [address] [place] [address] [address] [place] [address] Cardiology 03/28/25 Pepper Flanagan MD [address] [place] [address] Hematology and Oncology 04/03/25 Harshal Hartley MD [address] [place] [address] [address] [place] [address] General Surgery 04/03/25 Nancy Lyles NP [address] [place] [address] Urology 04/03/25 [facility] Orthopedic [place], [facility] [address] [place] [address] Orthopaedic Surgery 04/24/25 documented as of this encounter
--- OUTSIDE RECORDS SUMMARY | 2025-07-15 19:31 | XMS_ITS ---
Author Name LamLea jin NP Umer Address [address] [place] [address] Phone [phone] [facility] Care Team Providers Care Cycle Analyst Name Role Phone Lea Lam Unavailable [phone] JORDI HAWKINS Unavailable [phone] Unavailable Unavailable Unavailable Reason for Referral Not [...] mg Tab TAKE 1 TABLET BY MO UT EVERY DAY 2024-02-01 No Data Available Vitamin C 500 mg Tab TAKE 1 TABLET BY MO UTH EVERY MORNING 2024-02-29 No Data Available Terazosin 5 mg Cap TAKE 1 CAPSULE BY MO UT AT BEDTIME 2024-02-29 No Data Available Methenamine Hippurate 1 GM Tab TAKE 1 TABLET BY MOUTH EVERY MORNING 2024-02-29 No Data Available Latanoprost 0.005 % Solution INSTILL 1 D ROP INTO BOTH EYES AT BEDTIME 2024-12-04 No Data Available Ketorolac Tromethamine 0.5 % Solution USE 1 DROP IN OPERATIVE EYE TWICE DAILY. START 2 DAYS PRIOR TO SURGERY. 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 Has home nurse once a week. Last INR reported by patient 2.3, done by home nurse today 04/19/23. Denies any acute complaints. Advised to follow up with Hem as scheduled.Contact CB 23/05 as needed. Eliquis for DVT Hypertension Active 2023-04-01 0 N/A Follows up with PCP regularly.Reports BP has been normal checked by home nurse once a week. Last home nurse visit was this morning and BP was normal per patient, but he does not remember reading.Last BP from outside records 149/93.Taking:Metoprol ol Tartrate 25 mg Tab TAKE 1/2 TABLET BY MOUTH TWICE DAILYDoing well on current treatment.Denies any acute complaint.Continue treatment as prescribed, follow up as instructed.Monitor BP regularly.Low Sodium diet. Contact CB 23/05 as needed.Does not have a machine at home. States never has had a problem with BP taking BP med for blood clots Encouraged heart healthy diet History of CVA (cerebrovascu lar accident) Active 2023-04-01 0 N/A History of stroke 10 years ago. Denies any sequela. Denies any acute complaints. Reports he can perform all ADL independently. Has home nurse once a week. Taking:Atorvastatin Calcium 80 mg Tab take 1 tablet orally once dailyReports he stays active, follows a heart healthy diet, and likes to workout daily. Other problems related to nc dical facilities and other health care Active 2023-12-30 2 N/A PAIN CONTINGENCY PLANLast updated: 07/11/2025Member to call for the following symptoms: Decreased mobility/ Fall / Increased painPlanned intervention: Tylenol 1,000mg q6h/ Voltaren gel to affected area/ Apply heat to affected area/ Apply ice to affected area Hospitalization or health ca re facility admission within last 6 months Resolved 2024-03-01 9 2025-07-11 Medical Records requested, approx 01/18/24 'Pt presented with submandibular abscess. Sent to 4 facilities, ultimately at where I and D was done. Hospital course complicated by urinary retention, quinteros placed 01/21/24 recommending follow up with urinology 1 week for voiding trail. Pt is on Tamsulosin. Echo done and per daughter thrombus resolved. Pt changed from warfarin to eliquis. Daughter reports pt doing well. Urinary cathter is uncomfortable.' Dementia without behavioral disturbance, psychotic disturbance, mood disturbance, or anxiety, unspecified dementia severity, unspecified dementia type Active 2024-03-01 9 N/A Dx recently due to increased forgetfulness, self neglect, requring assistance with all IADLs and most ADLs. He is in the process of obtaining PRODUCT MANAGEMENT ANALYST hours (number provided for follow up)01/17/24: MMSE2 scored 10/30 points07/19/24Sister/CG reports he is doing well enough, is in good spirits, enjoys going fishing and they have gone 2 or 3 times recently.confirms DX of dementia. No on meds currently. Able to answer questions appropriately. Reports as being forgetful.. MyelofibrosisImmunodeficiency Active 0 N/A Follows up with Cable Systems Installer, Oncologist and PCP regularly. [employer] Systems Installer every 6 months. Has appt this week.Oncologist [...] alert prescriber before pt runs out.Caregiver verbalized understanding.Continue s follow up with on every 3 months. Recommended consistent use of medications. HLD (hyperlipidemia) Active 2025-07-01 1 N/A Continue statin as prescribed.Avoid animal products. Follow low sodium/heart healthy diet. Arm pain Active 2025-07-01 1 N/A Right arm pain. Decreased ROM. fall at home while walking on the sidewalk.Going to PT. Has not had an xray yet. Follow up with PCP today 07/11/2025Taking diclofenac for pain Recommend ice/ heat and muscle rubs. Encounters Encounters Type Facility Date of Service Diagnosis/Complaint New patient,40-59min; chronic exacerbation, 2 stable chronic or 1 acute illness add add modifier 95 for video (do not use for phone, instead use 97534-07) [facility], ([place]) [place]19[place] MyelofibrosisImmunodeficienc y, unspecifiedPersonal history of other venous thrombosis and embolismLong term (current) use of anticoagulantsPrsnl hx of TIA (TIA), and cereb infrc w/o resid deficitsEssential (primary) hypertension New patient,40-59min; chronic exacerbation, 2 stable chronic or 1 acute illness add add modifier 95 for video (do not use for phone, instead use 36823-79) [facility], ([place]) 04/19/2023 New patient,40-59min; chronic exacerbation, 2 stable chronic or 1 acute illness add add modifier 95 for video (do not use for phone, instead use 68164-23) [facility], ([place]) 04[place]19/2023 New patient,40-59min; chronic exacerbation, 2 stable chronic or 1 acute illness add add modifier 95 for video (do not use for phone, instead use 63775-80) [facility], ([place]) 04/19/2023 New patient,40-59min; chronic exacerbation, 2 stable chronic or 1 acute illness add add modifier 95 for video (do not use for phone, instead use 46195-23) [facility], ([place] 04/19/2023 New patient,40-59min; chronic exacerbation, 2 stable chronic or 1 acute illness add add modifier 95 for video (do not use for phone, instead use 69318-00) [facility], ([place]) 04/19/2023 New patient,40-59min; chronic exacerbation, 2 stable chronic or 1 acute illness add add modifier 95 for video (do not use for phone, instead use 16295-42) [facility], ([place]) 04/19/2023 New patient,40-59min; chronic exacerbation, 2 stable chronic or 1 acute illness add add modifier 95 for video (do not use for phone, instead use 33582-36) [facility], ([place]) 04/19/2023 New patient,40-59min; chronic exacerbation, 2 stable chronic or 1 acute illness add add modifier 95 for video (do not use for phone, instead use 91860-58) [facility], ([place]) 04/19/2023 New patient,40-59min; chronic exacerbation, 2 stable chronic or 1 acute illness add add modifier 95 for video (do not use for phone, instead use 48626-26) [facility], ([place]) 04/19/2023 Unlisted special service; to be used for medical record reviews and reporting CPTII codes (1111F, etc) [facility] ([place]) 08/08/2023 Other specified counseling Unlisted special service; to be used for medical record reviews and reporting CPTII codes (1111F, etc) [facility] ([place] 08/08/2023 Unlisted special service; to be used for medical record reviews and reporting CPTII codes (1111F, etc) [facility] ([place]) 08/08/2023 Estab. patient 30-39min; chronic exacerbation, 2 stable chronic or 1 acute illness add add modifier 95 for video, (do not use for phone, instead use 11284-84) [facility], ([place]) 03/28/2024 MyelofibrosisImmunodeficienc y, unspecifiedOther problems related to [...] (do not use for phone, instead use 80847-51) [facility], ([place]) 03/28/2024 Estab. patient 30-39min; chronic exacerbation, 2 stable chronic or 1 acute illness add add modifier 95 for video, (do not use for phone, instead use 30826-22) [facility], ([place]) 03/28/2024 Estab. patient 30-39min; chronic exacerbation, 2 stable chronic or 1 acute illness add add modifier 95 for video, (do not use for phone, instead use 47739-74) [facility], ([place]) 03/28/2024 Estab. patient 30-39min; chronic exacerbation, 2 stable chronic or 1 acute illness add add modifier 95 for video, (do not use for phone, instead use 16713-07) [facility], ([place]) 03/28/2024 Estab. patient 30-39min; chronic exacerbation, 2 stable chronic or 1 acute illness add add modifier 95 for video, (do not use for phone, instead use 27576-35) [facility], ([place]) 03/28/2024 Estab. patient 30-39min; chronic exacerbation, 2 stable chronic or 1 acute illness add add modifier 95 for video, (do not use for phone, instead use 30780-76) [facility], ([place]) 03/28/2024 Estab. patient 30-39min; chronic exacerbation, 2 stable chronic or 1 acute illness add add modifier 95 for video, (do not use for phone, instead use 13564-62) [facility], ([place]) 03/28/2024 Estab. patient 30-39min; chronic exacerbation, 2 stable chronic or 1 acute illness add add modifier 95 for video, (do not use for phone, instead use 27071-71) [facility], ([place]) 03/28/2024 Estab. patient 30-39min; chronic exacerbation, 2 stable chronic or 1 acute illness add add modifier 95 for video, (do not use for phone, instead use 50022-42) [facility], ([place]) 03/28/2024 No Data Available [facility], [facility] 07/19/2024 Unspecified dementia without behavioral disturbanceMyelofibrosisOther problems related to medical facilities and other health careImmunodeficiency, unspecified No Data Available [facility], ([place] 07/19/20[place] Estab. patient 10-29min; 1 minor problem; add add modifier 95 for video, modifier 93 for phone [facility], [place] 07/11/2025 MyelofibrosisImmunodeficienc y, unspecifiedUnspecified dementia without behavioral disturbancePersonal history of other venous thrombosis and embolismLong term (current) use of anticoagulantsPrsnl hx of TIA (TIA), and cereb infrc w/o resid deficitsEssential (primary) hypertensionHyperlipidemia, unspecifiedPain in arm, unspecified Estab. patient 10-29min; 1 minor problem; add add modifier 95 for video, modifier 93 for phone [facility], ([place]) 07/11/2025 Estab. patient 10-29min; 1 minor problem; add add modifier 95 for video, modifier [address] [facility], ([place]) 07/11/2025 Estab. patient 10-29min; 1 minor problem; add add modifier 95 for video, modifier [address] [facility], [facility] 07/11/2025 Estab. patient 10-29min; 1 minor problem; add add modifier 95 for video, modifier [address] [facility], [facility] 07/11/2025 Estab. patient 10-29min; 1 minor problem; add add modifier 95 for video, modifier [address] [facility], [place] 07/11/2025 Estab. patient 10-29min; 1 minor problem; add add modifier 95 for video, modifier [address] [facility], [place]) 07/11/2025 Vital Signs Date of Collection Vitals 2023-04-19 08:55:27 Height - 165.1 cmWei ght - 77.11 kgBody Mass Index (BMI) - 28.29 kg/m2BP Diastolic - 93.0 mm[Hg]BP Systolic - 149.0 mm[Hg]Pain Scale - 0.0 {score} 2024-03-28 11:15:09 Weight - 77.11 kgBod y Mass Index (BMI) - 28.29 kg/m2BP Diastolic - 70.0 mm[Hg]BP Systolic - 132.0 mm[Hg] 2025-07-11 06:46:04 Height - 165.1 cmWei ght - 72.58 kgBody Mass Index (BMI) - 26.63 kg/m2Pain Scale - 8.0 {score} Social History Social History Social History Observation Description Effec tive Time Current Smoking Status Never smoker 2025-07-01 5 Sex Male Gender identity Man History of Procedures Procedures Service Procedure code Service date Servicing provider Phone# New patient,40-59min; chronic exacerbation, 2 stable chronic or 1 acute illness add add modifier 95 for video (do not use for phone, instead use 76812-09) 78669 2023-04-19 No Data Available No Data Availa [...] Available Advance care planning discussed and documented advance care plan or surrogate decision-maker was documented in the medical record. (1123F) 1123F 2023-04-19 No Data Available No Data Availa ble Unlisted special service; to be used for medical record reviews and reporting CPTII codes (1111F, etc) 07025 2023-08-08 No Data Available No Data Availa ble SBP < 130 (3074F) 3074F 2023-08-08 No Data Available No Data Available DBP <80 (3078F) 3078F 2023-08-08 No Data Available No Data Available Estab. patient 30-39min; chronic exacerbation, 2 stable chronic or 1 acute illness add add modifier 95 for video, (do not use for phone, instead use 86475-90) 77015 2024-03-28 No Data Available No Data Availa [...] ble Advance care planning discussed and documented advance care plan or surrogate decision-maker was documented in the medical record. (1123F) 1123F 2024-03-28 No Data Available No Data Availa ble SBP 130-139 (3075F) 3075F 2024-03-28 No Data Availabl e No Data Available DBP <80 (3078F) 3078F 2024-03-28 No Data Available No Data Available Functional Status Assessed (1170F) 1170F 2024-03-28 No Data Available No Data Avail able No Data Available [id number] 2024-07-19 No Data Available No Data Available Medication List Documented (1159F) 1159F 2024-07-19 No Data Available No Data Mabel ilable Estab. patient 10-29min; 1 minor problem; add add modifier 95 for video, modifier 93 for phone [id number] 2025-07-11 No Data Available No Data Availa ble Medication List Documented (1159F) 1159F 2025-07-11 No Data Available No Data Mabel ilable Medication Review by prescribing provider or pharmacist documented (1160F) 1160F 2025-07-11 No Data Available No Data Mabel ilable Functional Status Assessed (1170F) 1170F 2025-07-11 No Data Available No Data Avail able Advance Care Directive Advance care planning discussion documented in the medical record (1158F) 1158F 2025-07-11 No Data Available No Data Availa ble Advance care planning discussed and documented advance care plan or surrogate decision-maker was documented in the medical record. (1123F) 1123F 2025-07-11 No Data Available No Data Availa ble Pain Assessment - NO pain present (1126F) 1126F 2025-07-11 No Data Available No Data A vailable Functional Status Functional Category Effective Dates Cognition Status: Dementia - mild (needs IADL assistance) 2025-07-11 ADL: Bathing Needs Assistanc e , Dressing Needs Assistance , Eating Independent , Ambulation Independent , Transferring Independent and Toileting Independent 2025-07-11 IADL: Medication Needs Chance tance , Meal Prep Needs Assistance , Shopping Needs Assistance , Driving or Public Transport Needs Assistance , Housework Needs Assistance , Finances Needs Assistance 2025-07-11 How many falls within the last 6 months? 1 2025-07-11 Do you feel unsteady on your feet? No 25-07-11 Do you worry about falling? No 2025-07-01 1 DME used with ambulation: None 2025-07-01 1 Mental Status No Information Assessments Date of Service Assessments 2023-04-19 08:55:27 MyelofibrosisImmunod eficiencyHistory of DVT (deep vein thrombosis)intermediate current use of anticoagulantHistory of CVA (cerebrovascular accident)Hypertension 2024-03-28 11:15:09 MyelofibrosisImmunod eficiencyOther problems related to medical facilities and other health careHistory of DVT (deep vein thrombosis)intermediate project manager current use of anticoagulantHistory of CVA (cerebrovascular accident)HypertensionDementia without behavioral disturbance, psychotic disturbance, mood disturbance, or anxiety, unspecified dementia severity, unspecified dementia typeHospitalization or health care facility admission within last 6 months 2024-07-19 15:21:32 Other problems relat ed to medical facilities and other health careDementia without behavioral disturbance, psychotic disturbance, mood disturbance, or anxiety, unspecified dementia severity, unspecified dementia typeMyelofibrosisImmunodeficiency 2025-07-11 06:46:04 MyelofibrosisImmunod eficiencyDementia without behavioral disturbance, psychotic disturbance, mood disturbance, or anxiety, unspecified dementia severity, unspecified dementia typeHistory of DVT (deep vein thrombosis)intermediate project manager current use of anticoagulantHistory of CVA (cerebrovascular accident)HypertensionHLD (hyperlipidemia)Arm painOther problems related to medical facilities and other health care Plan of Care Date of Service Plans [...] modifier 95Advance care planning discussed and documented advance care plan or surrogate decision-maker was documented in the medical record. (1123F)Continue to see PCP. Follow-up with [facility] as needed for any acute or disease education needs that may arise.Follows up with Cable Systems Installer, Oncologist and PCP regularly. Cable Systems Installer every 6 months. Has appt this week.Oncologist every 6 month. Next appt this week. 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 Has home nurse once a week. Last INR reported by patient 2.3, done by home nurse today 04/19/23. Taking:Warfarin Sodium 3 mg Tab QDDenies any acute complaints. Advised to follow up with Hem as scheduled.Contact CB 24/ as needed.History of stroke 10 years ago. [...] as instructed.Monitor BP regularly.Low Sodium diet. Contact 23/05 as needed. 2023-08-08 11:11:29 Unlisted special [...] modifier 95Advance care planning discussed and documented advance care plan or surrogate decision-maker was documented in the medical record. (1123F)Continue to see PCP. Follow-up with [facility] as needed for any acute or disease education needs that may arise.Follows up with Cable Systems Installer, Oncologist and PCP regularly. Cable Systems Installer every 6 months. Has appt this week.Oncologist every 6 month. Next appt this week. Taking:Jakafi 20 mg Tab QDImmunodeficiency due to: weakened immune system, encourage hand washing, avoid large crowds, stay up to date on vaccines (annual flu), monitor for and report early any s/s of infectionDenies any acute complaints.Advised to follow up as scheduled.Contact [facility] 24 as needed.When member to call: 1. If [...] for the following symptoms: Agitation/ Anxiety/ BP <100/60 / Delirium/ WithdrawnPlanned intervention: Ask home health nurse to obtain sample for urinalysis and culture/ Ask about last bowel movement/ Assess for UTI symptoms; if present, start Bactrim DS BID x3 days/ Trazodone 50mg at bedtimeHistory of DVT.intermediate project manager current use of anticoagulants with INR goal [...] He is in the process of obtaining PRODUCT MANAGEMENT ANALYST hours (number provided for follow up)01/17/24: MMSE2 scored 10/30 pointsMedical Records requested, approx 01/18/24 'Pt presented with submandibular abscess. Sent to 4 facilities, ultimately at where I and D was done. Hospital [...] modifier 95)Continue to see PCP. Follow-up with [facility] as needed for any acute or disease education needs that may arise 23/05.Add Contingency PlanDx recently due to increased forgetfulness, self neglect, requring assistance with all IADLs and most ADLs. He is in the process of obtaining PRODUCT MANAGEMENT ANALYST hours (number provided for follow up)01/17/24: MMSE2 scored 10/30 points07/19/24Sister/CG reports he is doing well enough, is in good spirits, enjoys going fishing and they have gone 2 or 3 times recently.Follows up with Cable Systems Installer, Oncologist and PCP regularly. Cable Systems Installer every 6 months. Has appt this week.Oncologist [...] prescriber before pt runs out.Caregiver verbalized understanding. 2025-07-11 06:46:04 Medication Review by prescribing provider or pharmacist documented (1160F)Medication List Documented (1159F)Functional Status Assessed (1170F)Advance Care Directive Advance care planning discussion documented in the medical record (1158F)Advance care planning discussed and documented advance care plan or surrogate decision-maker was documented in the medical record. (1123F)Estab. patient 20-29min; 1 stable chronic or 2 minor; add add modifier 95 for video, modifier 93 for phoneContinue to see PCP. Follow-up with [facility] as needed for any acute or disease education needs that may arise.Taking:Jakafi 20 mg Tab QDContinues follow up with on every 3 months. Recommended consistent use of medications.confirms DX of dementia. No on meds currently. Able to answer questions appropriately. Reports as being forgetful..Eliquis for DVTHistory of stroke 10 years ago. Denies any sequela. Denies any acute complaints. Has home nurse once a week. Taking:Atorvastatin Calcium 80 mg Tab take 1 tablet orally once dailyReports he stays active, follows a heart healthy diet, and likes to workout daily.Does not have a machine at home. States never has had a problem with BP taking BP med for blood clots Encouraged heart healthy dietContinue statin as prescribed.Avoid animal products. Follow low sodium/heart healthy diet.Right arm pain. Decreased ROM. fall at home while walking on the sidewalk.Going to PT. Has not had an xray yet. Follow up with PCP today 07/11/2025Taking diclofenac for pain Recommend ice/ heat and muscle rubs.PAIN CONTINGENCY PLANLast updated: 07/11/2025[facility] the [facility]: Decreased mobility/ Fall / Increased painPlanned intervention: Tylenol 1,000mg q6h/ Voltaren gel to affected area/ Apply heat to affected area/ Apply ice to affected area Goals Date Goal 2023-04-19 Remember to keep all appointments with your PCP and specialists. Call CB 23/05 if you have questions or concerns. Discussed how to contact [facility] via phone or tablet. Health Concerns Date Concern 2025-07-11 Mervin orourke with language line assisting Armond Gonzalez present as well. agreed to visit via telehealth. Today, patient has chief complaint of: annual visit.Visit completed via:[x] audio and video; [ ] audio onlyInformed verbal consent was obtained from this patient to communicate and provide care using virtual and other telecommunications tools. This patient has been explained the risks, if any, related to the encounter. I explained that care provided through video or audio communication cannot replace the need for physical examination or an in-person visit for some disorders or urgent problems. 2025-07-11 Concerns for today's visit:No acute concerns or needs.Reviewed allergies, medications, active medical conditions, past medical and surgical history, social history. 2025-07-11 Most recent hospital stay or ER visit:Member denies ER visits or hospitalizations in last year. 2025-07-11 Open HEDIS Measures: No open measures 2025-07-11 Advance Care Planmakayla hartley Conversation<.>acp and <.>seriousillness [employer] here 2025-07-11 Functional Assessmen t<.>functional [employer] here 2025-07-11 REMINDERS (DELETE OK IOR TO SIGNING NOTE):Update demographicsAdd PCP to patient's provider listAdd pharmacyAdd pain score, weight, height, and BP in vitals. Report location where vitals were obtained if not patient reported.[place] current medications and all active diagnoses to this noteRecord PHQ2 or PHQ9 and export to noteAsk about influenza, COVID, pneumococcal, and RSV Vaccines
--- OUTSIDE RECORDS SUMMARY | 2025-07-15 19:31 | XMS_ITS | Encounter Summary ---
Author Organization [employer] Address [address] [facility] 7t [place] [address] Care Team Providers Care Front Desk Worker Name Role Phone Siobhan Vanessa MD Primary Care Provider [phone] [place] Unavailable Pepper Flanagan MD Unavailable [phone] Harshal Hartley MD Unavailable Nancy Lyles NP Unavailable Encounter Details Date Type Department Care Team (Late st Contact Info) Description 01/24/2025 Orders Only [facility] [address] [place], [place] [phone] Siobhan Vanessa MD [address] [place], [place] [phone] Social History Tobacco Use Types Packs/Day Years [...] AM EDT documented as of this encounter Functional Status * Over the past 2 weeks, how often have you been bothered by any of the following problems? Question Answer Date of Assessment Author Patient Health Questionnaire-2 Score 0 01/25/2025 11:20 AM EDT Melly Edwards [place] * Little interest or pleasure in doing things Answer Date of Assessment Author Not at all 01/25/2025 11:20 AM EDT Melly Garvey [place], [place] * Feeling down, depressed, or hopeless Answer Date of Assessment Author Not at all 01/25/2025 11:20 AM EDT Melly Garvey [place], [place] * Trouble falling or staying asleep, or sleeping too much Answer Date of Assessment Author Not at all 01/25/2025 11:20 AM EDT Melly Garvey [place], [place] * Feeling tired or having little energy Answer Date of Assessment Author Not at all 01/25/2025 11:20 AM LISAT Melly Garvey [place], [place] * Poor appetite or overeating Answer Date of Assessment Author Not at all 01/25/2025 11:20 AM EDT Melly Garvey [place], [place] * Feeling bad about yourself - or that you are a failure or have let yourself or your family down Answer Date of Assessment Author Not at all 01/25/2025 11:20 AM EDT Melly Garvey [place], [place] * Trouble concentrating on things, such as reading the newspaper or watching television Answer Date of Assessment Author Not at all 01/25/2025 11:20 AM EDT Melly Garvey [place], [place] * Moving or speaking so slowly that other people could have noticed? Or the opposite - being so fidgety or restless that you have been moving around a lot more than usual. Answer Date of Assessment Author Not at all 01/25/2025 11:20 AM EDT Melly Garvey [place], [place] * Thoughts that you would be better off or hurting yourself in some way Answer Date of Assessment Author Not at all 01/25/2025 11:20 AM EDT Melly Garvey [place], [place] * Patient Health Questionnaire-9 Score Answer Date of Assessment Author 0 01/25/2025 11:20 AM EDT Melly Garvey [place], [place] documented as of this encounter Plan of [...] documented as of this encounter Care Teams Front Desk Worker Relationship Specialty Start Date End Date Siobhan Vanessa MD [address] [place] [id number] PCP - General Family Medicine 01/04/12 [place] [address] [place] [address] [address] [place] [address] Cardiology 03/28/25 Pepper Flanagan MD [address] [place] [address] Hematology and Oncology 04/03/25 Harshal Hartley MD [address] 3rd [place] [address] General Surgery 04/03/25 Nancy Lyles NP [address] [place] [address] Urology 04/03/25 [facility]opedic [place], [facility] [address] [place] [address] Orthopaedic Surgery 04/24/25 documented as of this encounter
--- OUTSIDE RECORDS SUMMARY | 2025-07-15 19:32 | XMS_ITS | Clinical Summary ---
Author Organization [facility] Address [address] [place] [address] Care Team Providers Care Commissioner Conservation Of Resources Name Role Phone Siobhan Vanessa MD Primary Care Provider [phone]- [phone] Allergies No known active allergies Medications No [...] 77 01/16/2024 11:53 PM EDT Temperature 36.7 C (98.1 F) 01/16/2024 11:53 PM EDT Respiratory Rate 17 01/16/2024 11:53 PM EDT [...] (2 - Td or Tdap) 05/06/2024 05/06/2014 RSV Adult > 60+ Yrs or (1 - 1-dose 75+ series) 2025 COVID-19 Vaccine ( - season) 2025 07/08/2023 Influenza Vaccine (#1) 2025 2, 08/12/2016, 10/03/2015, Additional history exists Pneumococcal Vaccine Completed 11/11/2021, 11/14/19 16 Hepatitis B Vaccines Aged Out No long er eligible based on patient's age to complete this topic RSV Ped < 20 months Aged Out No longe r eligible based on patient's age to complete this topic Care Teams Commissioner Conservation Of Resources Relationship Specialty Start Date End Date [place], MD Siobhan [address] [place] [id number] PCP - General Family Medicine 01/16/24
--- OUTSIDE RECORDS SUMMARY | 2025-07-15 19:32 | XMS_ITS ---
Author Name [facility] Organization Unknown Results Test Name/Text Value Interpretation Date Range Source INR PPP 2.4 Above high normal 01/17/2024 0.8 - 1.1 C TTHSFRAN PT TIME PPP 28.2 sec Above high normal 01/17/2024 10.5 - 13 .3 CTTHSFRAN History of Medication Use Medication Directions Dispensed Refills Start Date End Date Stat acetaminophen (TYLENOL) tablet 975 mg 975 mg, Oral, Once, On 01/16/24 at 2130, For 1 dose 01/17/2024 01/17/2024 completed Problems Problem Status Onset Date Problem Type Date of Resoluti on Source Dento alveolar abscess active EncounterDiagnosisAct CTTHSF RAN Encounters Encounter Type Encounter Reason Primary Diagnosis Location Date Inpatient Periapical abscess without sinus Periapical abscess without sinus [email or web address] 01/17/2024 Emergency Periapical abscess without sinus Periapical abscess without sinus [facility] 01/16/2024 Care Team Organization Name Specialty Phone Email Start Date End Da te [email or web address] Primary Care 01/17/2024 [email or web address] 01/17/2024 01/16/2025 [facility] [employer] 01/17/2024 [facility] Primary Care 01/16/2024 [facility] 01/16/2024 05/14/2025 [facility] 01/16/2024
--- OUTSIDE RECORDS SUMMARY | 2025-07-15 19:32 | XMS_ITS | Encounter Summary ---
Author Organization [employer] Address [address] [facility] 7t [place] [address] Care Team Providers Care Electro Mechanical Solar Technician Name Role Phone Siobhan Vanessa MD Primary Care Provider [phone] [place] Unavailable Pepper Flanagan MD Unavailable [phone] Harshal Hartley MD Unavailable Nancy Lyles NP Unavailable Reason for Visit * Reason Onset Date Comments INR Report 11/22/2023 Encounter Details Date Type Department Care Team (Late st Contact Info) Description 11/22/2023 Telephone [facility] [address] [place] [address] Siobhan Vanessa MD [address] [place], [place] [phone] INR Report Social History Tobacco Use Types [...] Oliveira - 11/22/2023 3:34 PM EST Tc [facility] calling to report INR . documented in [...] documented as of this encounter Care Teams Electro Mechanical Solar Technician Relationship Specialty Start Date End Date Siobhan Vanessa MD [address] [place] [address] PCP - General Family Medicine 01/04/12 [place] [address] [place] [address] Cardiology 03/28/25 Pepper Flanagan MD [address] [place] [address] Hematology and Oncology 04/03/25 Harshal Hartley MD [address] [address] General Surgery 04/03/25 Nancy Lyles NP [address] [place] [address] Urology 04/03/25 [facility] Orthopedic [place], [facility] [address] [place] [address] Orthopaedic Surgery 04/24/25 documented as of this encounter
--- OUTSIDE RECORDS SUMMARY | 2025-07-15 19:32 | XMS_ITS | Encounter Summary ---
Author Organization [employer] Address [address] [facility] 7t [place] [address] Care Team Providers Care Shovel Oiler Name Role Phone Siobhan Vanessa MD Primary Care Provider [phone] [place] Unavailable Pepper Flanagan MD Unavailable [phone] Harshal Hartley MD Unavailable Nancy Lyles NP Unavailable Encounter Details Date Type Department Care Team (Late st Contact Info) Description 12/27/2022 Abstract [facility] [address] [place], [place] [phone] Siobhan Vanessa MD [address] [place], [place] [phone] Social History Tobacco Use Types Packs/Day Years [...] on file documented as of this encounter Procedures Procedure Name Priority Date/Time Associated Diagnosis Comments COLONOSCOPY Routine 06/23/2018 documented in this encounter Results * Colonoscopy (06/23/2018) Colonoscopy tubular adenoma with Dr. Hartley us Historical Provider HEALTH MAINTENANCE Final Result documented in this encounter Visit Diagnoses Not on filedocumented in this encounter Care Teams Shovel Oiler Relationship Specialty Start Date End Date Siobhan Vanessa MD [address] [place] [address] PCP - General Family Medicine 01/04/12 [place] [address] [facility] [address] [place] [address] Cardiology 03/28/25 Pepper Flanagan MD [address] [place] [address] Hematology and Oncology 04/03/25 Harshal Hartley MD [address] [address] General Surgery 04/03/25 Nancy Lyles NP [address] [place] [address] Urology 04/03/25 [facility] Orthopedic [place], [address] [address] Orthopaedic Surgery 04/24/25 documented as of this encounter
--- OUTSIDE RECORDS SUMMARY | 2025-07-15 19:32 | XMS_ITS | Encounter Summary ---
Author Organization [employer] Address [address] [facility] 7t [place] [address] Care Team Providers Care Line Painting Machine Operator Name Role Phone Siobhan Vanessa MD Primary Care Provider [phone] [place] Unavailable Pepper Flanagan MD Unavailable [phone] Harshal Hartley MD Unavailable [phone] Nancy Lyles NP Unavailable Reason for Visit * Reason Onset Date Comments Coagulation Disorder 02/22/2023 Encounter Details Date Type Department Care Team (Late st Contact Info) Description 02/22/2023 Telephone [facility] [address] [place], [place] [phone] Siobhan Vanessa MD [address] [place], [place] [phone] Coagulation Disorder Social History Tobacco Use Types Packs/Day Years Used Date Smoking Tobacco: Never Assessed Sex and Gender Information Value Date Recorded Sex Assigned at Male 08/30/2022 10:22 AM EDT Legal Sex Male 10:22 AM EDT Gender Identity Male 08/30/2022 10:22 AM EDT Sexual Orientation Straight 08/30/2022 10 :22 AM EDT documented as of this encounter Miscellaneous Notes * Telephone Encounter - Kristie Packrero - 02/22/2023 12:16 PM EDT Tc from [facility] Vis[facility] calling to report an INR for a mutual Pt. Please contact rosie at [phone] documented in this encounter Plan of Treatment Not on file documented as of this encounter Visit Diagnoses Not on filedocumented in this encounter Care Teams Line Painting Machine Operator Relationship Specialty Start Date End Date Siobhan Vanessa MD [address] [place] [address] PCP - General Family Medicine 01/04/12 [place] [address] [facility] 3rd [place] [address] Cardiology 03/28/25 Pepper Flanagan MD [address] [place] [address] Hematology and Oncology 04/03/25 Harshal Hartley MD [address] [address] General Surgery 04/03/25 Nancy Lyles NP [address] [place] [address] Urology 04/03/25 [facility] [place], [facility] [address] [place] [address] Orthopaedic Surgery 04/24/25 documented as of this encounter
--- OUTSIDE RECORDS SUMMARY | 2025-07-15 19:32 | XMS_ITS | Clinical Summary ---
Author Organization [employer] Address [address] [facility] [place] [address] Care Team Providers Care Certified Coding Specialist Name Role Phone Siobhan Vanessa MD Primary Care Provider [phone] [place] Unavailable Pepper Flanagan MD Unavailable [phone] Harshal Hartley MD Unavailable Nancy Lyles NP Unavailable Allergies No known active allergies Medications tamsulosin (Flomax) 0.4 MG 24 hr capsuleIndicatio ns:Benign prostatic hyperplasia with lower urinary tract symptoms, symptom details unspecified Take 1 capsule (0.4 mg) by mouth in the morning. 90 capsule 3 4 Active Jakafi 20 MG chemo tabletIndication s:Myeloprolifera tive disorder (CMS/HCC) 4 Active Stool Softener/Laxativ e 50-8.6 MG tabletIndication s:Constipation, unspecified constipation type TAKE 2 TABLETS BY MOUTH EVERY DAY NEEDED FOR CONSTIPATION 180 tablet 3 4 Active apixaban (Eliquis) 5 MG tabletIndication s:Mural thrombus of left ventricle TAKE 1 TABLET BY MOUTH TWICE DAILY IN THE MORNING AND IN THE EVENING 180 tablet 3 4 Active Diclofenac Sodium 1 % gelIndications:P ain Apply 4 g topically if needed in the morning, at noon, in the evening, and at bedtime (pain). 100 g 5 Active metoprolol succinate XL (Toprol XL) 25 MG 24 hr tabletIndication s:Benign essential hypertension Take 1 tablet (25 mg) by mouth Once per day. Do not crush or chew. 90 tablet 3 5 026 Active spironolactone (Aldactone) 25 MG tabletIndication s:Benign essential hypertension,Isc hemic myocardial dysfunction Take 1 tablet (25 mg) by mouth Once per day. 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 Flanagan, Degreaser.Note from 04/19/24 reviewed. - Stable on Jakafi (Ruxolitinib) started June 28, 2014 - CAT scan of abdomen performed on 06/01/16. -he has difficulty maintain weight due to his chronic illness , Rx Boost for nutrition supplementation Injury of tendon of biceps 03/26/2025 Overview (07/15/2025): -Seen by [facility], [facility] 04/16/25x ray revased superior humeral head migration, degenerative changes at the greater tuberosity with cystic changes. 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 Assessment & Plan (07/15/2025 12:07 PM EDT): -Seen by [facility], [facility] 04/16/25x ray revased superior humeral head migration, degenerative changes at the greater tuberosity with cystic changes. 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 Assessment & Plan (03/26/2025 12:00 PM EDT): I will prescribe the patient tramadol 50 mg every 6 hours for 7 days until he follows up with PCP and also orthopedics Iron deficiency anemia 02/03/2024 Overview (07/15/2025): Lab Results Component Value Date FERRITIN 290 (H) 01/26/2024 HGB 10.2 (L) 04/05/2025 HGB 10.2 (L) 04/05/2025 HGB 9.3 (L) 01/26/2024 -recheck labs Assessment & Plan (07/15/2025 12:07 PM EDT): Lab Results Component Value Date FERRITIN 290 (H) 01/26/2024 HGB 10.2 (L) 04/05/2025 HGB 10.2 (L) 04/05/2025 HGB 9.3 (L) 01/26/2024 -recheck labs Orders: Hepatic Function Panel; Future Hepatitis C Antibody with Reflex to HCV, RNA, Quantitative, Real-Time PCR; Future Assessment & Plan (04/03/2025 10:43 AM EDT): Lab Results Component Value Date FERRITIN 290 (H) 01/26/2024 HGB 9.3 (L) 01/26/2024 HGB 11.7 (L) 07/12/2023 HGB 11.7 (L) 07/12/2023 -recheck labs Assessment & Plan (02/03/2024 9:58 AM EDT): [...] Will check in one month. Transaminitis 02/03/2024 Overview (07/15/2025): Lab Results Component Value Date TOTALBILIRUB 0.5 01/26/2024 AST 47 (H) 01/26/2024 ALT 78 (H) 01/26/2024 ALP 112 01/26/2024 HEPCAB Nonreactive 07/12/2023 FERRITIN 290 (H) 01/26/2024 -ordered repeat liver labs 07/15/25 Assessment & Plan (07/15/2025 12:07 PM EDT): Lab Results Component Value Date TOTALBILIRUB 0.5 01/26/2024 AST 47 (H) 01/26/2024 ALT 78 (H) 01/26/2024 ALP 112 01/26/2024 HEPCAB Nonreactive 07/12/2023 FERRITIN 290 (H) 01/26/2024 -ordered repeat liver labs 07/15/25 Assessment & Plan (04/03/2025 10:44 AM EDT): Lab Results Component Value Date TOTALBILIRUB 0.5 01/26/2024 AST 47 (H) 01/26/2024 ALT 78 (H) 01/26/2024 ALP 112 01/26/2024 HEPCAB Nonreactive 07/12/2023 FERRITIN 290 (H) 01/26/2024 Assessment & Plan (02/03/2024 9:59 AM EDT): Lab Results Component Value Date AST 47 (H) 01/26/2024 ALT 78 (H) 01/26/2024 ALP 112 01/26/2024 DIRECTBILIRU 0.3 01/26/2024 Check Hep C and repeat in one month. Urinary retention 01/25/2024 Overview (04/12/2025): Quinones placed 01/21/24 in [facility] for urinary retention. They recommend follow up 1 week urology. -Seen by urology 02/01/24 In office voiding trial performed however patient unable to independently void. - Bladder scan showed over 800mls, Quinones catheter reinserted, follow up in 1 month. - Finasteride added by Urology -seen by urology 05/22/24 Continue finasteride, terazosin, methenamine, and vitamin-C. -note from Cornelius Trupti agee 04/12/25 Assessment & Plan (02/03/2024 10:02 AM EDT): Quinones placed 01/21/24 in hospital at [facility] for urinary retention. They recommend follow up 1 week urology. -Seen by urology 02/01/24 In office voiding trial performed however patient unable to independently void. - Bladder scan showed over 800mls, Quinones catheter reinserted, follow up in 1 month. - Finasteride added by Urology Assessment & Plan (01/25/2024 12:27 PM EDT): Quinones placed 01/21/24 in hospital at [facility] for urinary retention. They recommend follow up 1 week urology. -referral placed 01/25/24 Dementia 01/17/2024 Overview (07/15/2025): Patients VNA from [facility] requested evaluation for worsening memory 01/2024. Family repots memory has been getting progressively worse. MOCA/mini mental exam done with RN . MMSE2 in Czech completed with pt. Pt states graduated high [...] unable to repeat a spoken sentence in telugu and was also unable to write a sentence that was spoken to him. Was prompted to write Mi color favorito es... followed by his favorite color. He said, byrnes and then wrote Sool without the rest of the sentence. He was able to name a square but answered, lines for triangle and zero for gila river. Lastly he was able to copy a shape on paper. -Pt scored a 10 out of a possible 30 points. This is considered severe cognitive impairment and at an increased odds for dementia status. -referral to geriatrics memory clinic placed 02/22/24 -stable no behavior disturbance 07/15/25 Assessment & Plan (07/15/2025 12:07 PM EDT): Patients VNA from [facility] requested evaluation for worsening memory 01/2024. Family repots memory has been getting progressively worse. MOCA/mini mental exam done with RN . MMSE2 in Czech completed with pt. Pt states graduated high [...] unable to repeat a spoken sentence in telugu and was also unable to write a sentence that was spoken to him. Was prompted to write Mi color favorito es... followed by his favorite color. He said, byrnes and then wrote Sool without the rest of the sentence. He was able to name a square but answered, lines for triangle and zero for gila river. Lastly he was able to copy a shape on paper. -Pt scored a 10 out of a possible 30 points. This is considered severe cognitive impairment and at an increased odds for dementia status. -referral to geriatrics memory clinic placed 02/22/24 -stable no behavior disturbance 07/15/25 Assessment & Plan (04/03/2025 10:42 AM EDT): Patients VNA from [facility] requested evaluation for worsening memory 01/2024. Family repots memory has been getting progressively worse. MOCA/mini mental exam done with RN . MMSE2 in Czech completed with pt. Pt states graduated high [...] unable to repeat a spoken sentence in telugu and was also unable to write a sentence that was spoken to him. Was prompted to write Mi color favorito es... followed by his favorite color. He said, byrnes and then wrote Sool without the rest of the sentence. He was able to name a square but answered, lines for triangle and zero for gila river. Lastly he was able to copy a shape on paper. -Pt scored a 10 out of a possible 30 points. This is considered severe cognitive impairment and at an increased odds for dementia status. -referral to geriatrics memory clinic placed 02/22/24 Assessment & Plan (02/22/2024 9:18 AM EDT): Patients VNA from [facility] requested evaluation for worsening memory 01/2024. Family repots memory has been getting progressively worse. MOCA/mini mental exam done with RN . MMSE2 in Czech completed with pt. Pt states graduated high [...] unable to repeat a spoken sentence in telugu and was also unable to write a sentence that was spoken to him. Was prompted to write Mi color favorito es... followed by his favorite color. He said, byrnes and then wrote Sool without the rest of the sentence. He was able to name a square but answered, lines for triangle and zero for gila river. Lastly he was able to copy a [...] 9:39 AM EDT): He had 28 hours PARLIAMENTARY ARCHIVIST serves but when he moved he was reevaluated by someone who did not speak Czech. Pt state he said yes to everything but did not know what was being asked and lost services. Number for [facility] given to sister 07/08/23 to call for evaluation. Has [facility] for INR draws as was not able to get to outside INR checks. 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 Changed to eliquis after eco showed resolution of thrombus at [facility] 12/2023. 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 Assessment & Plan (04/03/2025 10:42 AM EDT): - For left ventricular thrombus. Changed to eliquis after eco showed resolution of thrombus at [facility] 12/2023. 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 Assessment & Plan (01/25/2024 1:52 PM EDT): - For left ventricular thrombus. Changed to eliquis after eco showed resolution of thrombus at [facility] 12/2023. Assessment & Plan (07/08/2023 8:28 AM EDT): - For left ventricular thrombus. INR dosed by PCP. Other specified health status 07/06/2023 Overview (04/03/2025): -next comprehensive annual evaluation due after 04/03/26 -eye care facilitated by [facility] health care proxy on file 01/25/24 Assessment & Plan (04/03/2025 10:44 AM EDT): -next comprehensive annual evaluation due after 04/03/26 -eye care facilitated by [facility] health care proxy on file 01/25/24 Assessment & Plan (01/25/2024 1:53 PM EDT): -next physical exam due after 07/08/2024 -eye care facilitated by [facility] health care proxy on file 01/25/24 History of CVA (cerebrovascular accident) 2022 Overview (07/06/2023): He saw neurology during hospitalization Oct 2011who reviewed his neurological work up in [place] including carotid ultrasound that was unremarkable. Neurology recommended no further work up and continuing aspirin. - coninue ASA and atorvastatin 80qhs Assessment & Plan (04/03/2025 10:43 AM EDT): He saw neurology during hospitalization Oct 2011who reviewed his neurological work up in [place] including carotid ultrasound that was unremarkable. Neurology recommended no further work up and continuing aspirin. - coninue ASA and atorvastatin 80qhs Assessment & Plan (07/08/2023 8:29 AM EDT): He saw neurology during hospitalization Oct 2011who reviewed his neurological work up in [place] including carotid ultrasound that was unremarkable. Neurology recommended no further work up and continuing aspirin. - coninue ASA and atorvastatin 80qhs Coronary artery stenosis 12/26/2021 Overview (03/28/2025): Admitted to [facility] in March of 2020 due to [...] qd. -Continue ASA and Eliquis changed in [facility] 12/2023 due to thrombus resolved on echo and required transfusion for bleeding tooth abscess -Followed by Dr. Greg Galaviz of [facility], we called 07/08/23 and they repot he missed last appointment. -echo in [facility] 12/2023 showed mildly reduced ejection fraction of 45% and was initiated on metoprolol as part of GDMT. -seen by [place] [facility] 02/2025 continue Eliquis Assessment & Plan (04/03/2025 10:43 AM EDT): Admitted to [facility] in March of 2020 due to [...] qd. -Continue ASA and Eliquis changed in [facility] 12/2023 due to thrombus resolved on echo and required transfusion for bleeding tooth abscess -Followed by Dr. Greg Galaviz of [facility], we called 07/08/23 and they repot he missed last appointment. -echo in [facility] 12/2023 showed mildly reduced ejection fraction of 45% and was initiated on metoprolol as part of GDMT. -seen by [place] 02/2025 continue Eliquis Assessment & Plan (07/08/2023 9:33 AM EDT): Admitted to [facility] in March of 2020 due to [...] thrombus) -Followed by Dr. Greg Galaviz of [facility], we called 07/08/23 and they repot he missed last appointment. Benign essential hypertension 12/26/2021 Overview (07/06/2023): -Blood pressure is at goal -Continue lifestyle modifications -Continue current medications Assessment & Plan (07/15/2025 12:07 PM EDT): -Blood pressure is at goal -Continue lifestyle modifications -Continue current medications Orders: Albumin, Random Urine W/Creatinine; Future Basic Metabolic Panel; Future Assessment & Plan (04/03/2025 10:42 AM EDT): -Blood pressure is at goal -Continue lifestyle modifications -Continue current medications Dyslipidemia 12/26/2021 Overview (07/15/2025): Lab Results Component Value Date CHOL 78 01/26/2024 CHOL 98 07/12/2023 TRIG 55 01/26/2024 TRIG 57 07/12/2023 HDL 28 (L) 01/26/2024 HDL 32 (L) 07/12/2023 LDLCHOLCAL 39 01/26/2024 LDLCHOLCAL 55 07/12/2023 -continue lifestyle modification -continue atorvastatin 80mg at bedtime -ordered repeat FLP's 07/15/25 Assessment & Plan (07/15/2025 12:07 PM EDT): Lab Results Component Value Date CHOL 78 01/26/2024 CHOL 98 07/12/2023 TRIG 55 01/26/2024 TRIG 57 07/12/2023 HDL 28 (L) 01/26/2024 HDL 32 (L) 07/12/2023 LDLCHOLCAL 39 01/26/2024 LDLCHOLCAL 55 07/12/2023 -continue lifestyle modification -continue atorvastatin 80mg at bedtime -ordered repeat FLP's 07/15/25 Orders: Lipid Panel, Standard; Future Assessment & Plan (04/03/2025 10:43 AM EDT): Lab Results Component Value Date CHOL 78 01/26/2024 CHOL 98 07/12/2023 TRIG 55 01/26/2024 TRIG 57 07/12/2023 HDL 28 (L) 01/26/2024 HDL 32 (L) 07/12/2023 LDLCHOLCAL 39 01/26/2024 LDLCHOLCAL 55 07/12/2023 -continue lifestyle modification -continue atorvastatin 80mg qhs Tubular adenoma 07/13/2018 Overview (07/15/2025): -05/[address] Hartley revealed a small polyp that was subsequently removed. Next colonoscopy due in 5 years. -referral placed 07/08/23 and 12/11/24 and 04/03/25 -07/15/25 given number to call Assessment & Plan (07/15/2025 12:07 PM EDT): -05/[address] Hartley revealed a small polyp that was subsequently removed. Next colonoscopy due in 5 years. -referral placed 07/08/23 and 12/11/24 and 04/03/25 -07/15/25 given number to call Assessment & Plan (04/03/2025 10:56 AM EDT): -05/[address] Hartley revealed a small polyp that was subsequently removed. Next colonoscopy due in 5 years. -referral placed 07/08/23 and 12/11/24 and 04/03/25 Assessment & Plan (12/11/2024 12:13 PM EST): [...] Overview (04/26/2024): - Followed by Dr. Flanagan, Degreaser.Note from 04/19/24 reviewed. - Stable on Jakafi (Ruxolitinib) started June 28, 2014 - CAT scan of abdomen performed on 06/01/16. -he has difficulty maintain weight due to his chronic illness , Rx Boost for nutrition supplementation Assessment & Plan (07/15/2025 12:07 PM EDT): - Followed by Dr. Flanagan, Degreaser.Note from 04/19/24 reviewed. - Stable on Jakafi (Ruxolitinib) started June 28, 2014 - CAT scan of abdomen performed on 06/01/16. -he has difficulty maintain weight due to his chronic illness , Rx Boost for nutrition supplementation Assessment & Plan (04/03/2025 10:42 AM EDT): - Followed by Dr. Flanagan, Degreaser.Note from 04/19/24 reviewed. - Stable on Jakafi (Ruxolitinib) started June 28, 2014 - CAT scan of abdomen performed on 06/01/16. -he has difficulty maintain weight due to his chronic illness , Rx Boost for nutrition supplementation Assessment & Plan (07/08/2023 9:01 AM EDT): - Followed by Dr. Flanagan, Degreaser. - Stable on Jakafi (Ruxolitinib) started June 28, 2014 - CAT scan of abdomen performed on 06/01/16. - he has difficulty maintain weight due to his chronic illness , Rx Boost for nutrition supplementation Resolved Problems Problem Noted Date Diagnosed Date Resolved Date Preop examination 01/25/2025 04/03/2025 CVA (cerebral vascular accident) 01/17/2024 01/25/2024 Submandibular [...] thrombus. -Followed by Dr. Greg Galaviz of [facility], we called 07/08/23 and they repot he missed last appointment. They recommend fax dental note to them and they will fill out recommendations. They will contact pt if he needs to come in. 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 No evidence of hematoma. Reassurance given and we reviewed importance of taking his meds (which he does) even though bruising is a side effect. Reviewed to go ER for any falls that involve head trauma. He and his PARLIAMENTARY ARCHIVIST agree with the plan. Assessment & Plan (03/11/2023 3:33 PM EDT): Today I re-check INR is 3.5 I advise to hold coumadin for today and then resume Hematology office will be contacted to reports coumadin side effect decision to continue or switch to other agent will be done by specialist, I explain this to patient he understood and agreed Encounters Date Type Department Care Team Description 07/15/2025 11:30 AM EDT Office Visit [facility] [address] [place] [phone] Siobhan Vanessa MD Dementia without behavioral disturbance, psychotic disturbance, mood disturbance, or anxiety, unspecified dementia severity, unspecified dementia type (CMS/HCC) (Primary Dx); Dyslipidemia; Benign essential hypertension; Iron deficiency anemia, unspecified iron deficiency anemia type; Transaminitis; Myelofibrosis (CMS/HCC); Myeloproliferative disorder (CMS/HCC); Tubular adenoma; Injury of tendon of biceps 07/15/2025 Travel 07/12/2025 Telephone [facility] [address] [place] [phone] Siobhan Vanessa MD CHART PREP 06/20/2025 Orders Only [facility] [address] [place] [phone] Siobhan Vanessa MD Acute pain of right shoulder (Primary Dx) 06/20/2025 Telephone [facility] [address] [place] [phone] Siobhan Vanessa MD Appointment Request 06/20/2025 Travel 06/19/2025 Telephone [facility] [address] [facility] [place] [phone] Siobhan Vanessa MD Appointment Request 06/19/2025 Telephone [facility] [address] [facility] [place] [address] Siobhan Vanessa MD Referral 05/06/2025 Telephone [facility] [address] [place], [place] [phone] Siobhan Vanessa MD Medication Question from Last 3 Months Immunizations Immunization Administration Dates Next Due Influenza injectable quadriv alent IIV4 with preservative 08/12/2016,10/03/2015 Influenza injectable quadrivalent preservative f ree 11/11/2021 Influenza, IIV3, injectable 08/01/2014 Influenza, Split (incl. purified surface antigen ) 01/17/2013 Pfizer Covid-19 Vaccine 12+ Bivalent 07/08/2023 Pneumococcal Conjugate PCV 13 11/14/2015 Pneumococcal Polysaccharide PPSV23 11/11/2021 Tdap 04/03/2025,05/06/2014 Zoster, Recombinant 07/08/2023 Social History Tobacco Use [...] Mass Index 26.19 07/15/2025 11:25 AM EDT Plan of Treatment Health Maintenance Due Date Last Done Comments CT Colonography 1950 FIT DNA/Cologuard 1950 FIT 1950 FOBT 1950 Sigmoidoscopy 1950 Colonoscopy 06/23/2023 06/23/2018 Colorectal Cancer Screening 06/23/2023 Zoster Vaccines (2 of 2) 09/02/2023 07/08/2023 RSV Patients and Patients Aged 60 years or older (1 - 1-dose 75+ series) 2025 COVID-19 Vaccine ( season) 2025 07/08/2023, 11/11/2021, 01/30/2021, Additional history exists Influenza Vaccine (#1) 2025 , 08/12/2016, 10/03/2015, Additional history exists Alcohol/Substance Use Screening 01/25/2026 01/25/2025 Depression Screening 01/25/2026 01/25/2025, 01/26/20 SDOH Screening 01/25/2026 01/25/2025 Tobacco Screening 07/15/2026 07/15/2025 Lipid Panel 01/25/2029 01/26/2024, 07/01, 05/12/2021, Additional history exists DTaP/Tdap/Td Vaccines (3 - Td or Tdap) 04/03/2035 04/03/2025, 05/06/2014 Pneumococcal Vaccine: 50+ Years Completed 11/11/2021, 11/14/2015 [...] patient's age to complete this topic Meningococcal B Vaccine Aged Out No l onger eligible based on patient's age to complete [...] 8:46 AM EDT) Triglycerides 55 <150 mg/dL [facility] Comment:Desirable Triglyceri de: less than 150 mg/dLBorderline High Triglyceride 150-199 mg/dLHigh Triglyceride: 200-499 mg/dLVery High Triglyceride: greater than or equal to 5OO mg/dL Cholesterol 78 <200 mg/dL [facility] Comment:Desirable Cholestero l: less than 200 mg/dLBorderline High Cholesterol: 200-239 mg/dLHigh Cholesterol: greater than 239 mg/dL LDL Cholesterol Calculated 39 <100 mg/dL [facility] Comment:Desirable LDL: less than 100 mg/dLNear Optimal/Above Optimal LDL: 110- 129 mg/dLBorderline High LDL: 130-159 mg/dLHigh LDL: 160-189 mg/dLVery High LDL: greater than or equal to 190 mg/dL HDL Cholesterol 28(L) >40 mg/dL [facility] Comment:Desirable HDL: great er than 40 mg/dL Note: This HDL assay may give artificially low results in patients with liver disease. Blood Venous blood specimen / Unknown 01/26/2024 8:46 AM EDT 01/26/2024 11:17 AM EDT us Siobhan Vanessa MD LAB BLOOD ORDERABLES Final Result [facility] [address], [place] [phone] * Hepatitis C Ab (07/12/2023 8:31 AM EDT) Hepatitis C Antibody Nonreactive Nonreactive [facility] Comment:Antibodies to HCV no t detected; does not exclude early acuteHCV infection. Blood 07/12/2023 8:31 AM EDT 07/12/2023 11:10 AM EDT Siobhan Vanessa MD LAB BLOOD ORDERABLES Final Result [facility] [address] [place] [phone] * Colonoscopy (06/23/2018) Colonoscopy tubular adenoma with Dr. Hartley Historical Provider HEALTH MAINTENANCE Final Result from Last 3 Months or Most Recently Relevant to Health Maintenance Insurance Advance Directives Documents on File Type Date Recorded Patient Mold Stamper Expl anation Advance Directives and Livin g Will 01/25/2024 Health Care Proxy Care Teams Certified Coding Specialist Relationship Specialty Start Date End Date Siobhan Vanessa MD [address] [place] [address] PCP - General Family Medicine 01/04/12 [facility] [address] [place] [address] Cardiology 03/28/25 Pepper Flanagan MD [address] [place] [address] Hematology and Oncology 04/03/25 Harshal Hartley MD 11 [address] [facility] 3rd [place] [address] General Surgery 04/03/25 Nancy Lyles NP [address] [place] [address] Urology 04/03/25 [facility] Orthopedic [place], [facility] [address] [place] [address] Orthopaedic Surgery 04/24/25
--- OUTSIDE RECORDS SUMMARY | 2025-07-15 19:32 | XMS_ITS | Clinical Summary ---
Author Organization [facility] Address [address] [place] [address] Phone Care Team Providers Care Behavioral Health Counselor Name Role Phone [place], Siobhan [place] Primary Care Provider +1- [phone] Allergies No known active allergies Active Problems Problem Noted Date Diagnosed Date CVA (cerebral vascular accident) (CMS/HCC V24, C MS/HCC V28) 01/17/2024 Benign essential hypertension 12/26/2021 Overview (03/21/2025): -Blood pressure is at goal -Continue lifestyle modifications -Continue current medications Coronary artery stenosis 12/26/2021 Overview (03/21/2025): Admitted to [facility] [place] in March of 2020 due to cardiac [...] qd. -Continue ASA and Eliquis changed in [facility] 12/2023 due to thrombus resolved on echo and required transfusion for bleeding tooth abscess -Followed by Dr. Greg Galaviz of [facility], we called 07/08/23 and they repot he missed last appointment. -echo in [facility] 12/2023 showed mildly reduced ejection fraction of 45% and was initiated on metoprolol as part of GDMT. -seen by [facility] 01/2024, continue Eliquis Myeloproliferative disorder ([facility]/HCC V24, [facility]/ C V28) 01/17/2013 Overview (03/21/2025): - Followed by Dr. Flanagan, [employer] [employer].Note from 04/19/24 reviewed. - Stable on Jakafi (Ruxolitinib) started June 28, 2014 - CAT scan of abdomen performed on 06/01/16. -he has difficulty maintain weight due to his chronic illness , Rx Boost for nutrition supplementation Encounters Date Type Department Care Team Description 07/15/2025 8:30 AM EDT Treatment [address] [address] Natan Morris, RV PARTS AND SERVICE DIRECTOR Chronic right shoulder pain (Primary Dx) 07/11/2025 8:30 AM EDT Treatment [address] [address] Vitor Joe, RV PARTS AND SERVICE DIRECTOR Chronic right shoulder pain (Primary Dx) 07/09/2025 8:30 AM EDT Treatment [address] [address] Vitor Joe, RV PARTS AND SERVICE DIRECTOR Chronic right shoulder pain (Primary Dx) 07/04/2025 1:30 PM EDT Treatment [address] [address] Chucky Meier, RV PARTS AND SERVICE DIRECTOR Chronic right shoulder pain (Primary Dx) 06/19/2025 7:00 AM EDT Evaluation [address] [address] Nuzhat Ernandez, PT Chronic right shoulder pain (Primary Dx) from Last 3 Months Medical History Medical History Date Comments Cancer (CMS/HCC V24, CMS/HCC V28) DX:Cancer (HCC);COMMENT:bone Social History Tobacco Use Types Packs/Day Years Used Date Smoking Tobacco: Never Assessed Sex and Gender Information Value Date Recorded Sex Assigned at Not on file Legal Sex Male 5:05 AM EST Gender Identity Not on file Sexual Orientation Not on file Obstetrics History Last Filed Vital Signs Vital Sign Reading Time Taken Comments Blood Pressure 135/81 03/21/2025 12:34 PM EDT Pulse 78 03/21/2025 12:34 PM EDT Temperature 36.7 C (98.1 F) 03/21/2025 12:34 PM EDT Respiratory Rate 12 03/21/2025 12:34 PM EDT Oxygen Saturation 97% 03/21/2025 12:34 PM EDT Inhaled Oxygen Concentration - - Weight 77.1 kg (170 lb) 03/21/2025 12:29 AM EDT Height 165.1 cm (5' 5 ) 03/21/2025 12:29 AM EDT Body Mass Index 28.29 03/21/2025 12:29 AM EDT Plan of Treatment Upcoming Encounters Date Type Department Care Team (Late st Contact Info) Description 07/17/2025 8:30 AM EDT Treatment [facility] [address] [address] Nuzhat Ernandez, PT 07/23/2025 8:30 AM EDT Treatment [facility] [address] [address] Vitor Joe, RV PARTS AND SERVICE DIRECTOR 07/25/2025 8:30 AM EDT Treatment [facility] [address] [address] Vitor Joe, RV PARTS AND SERVICE DIRECTOR 07/30/2025 8:30 AM EDT Treatment [facility] [address] [address] Nuzhat Ernandez, PT Health Maintenance Due Date Last Done Comments Zoster Vaccines (2 of 2) 09/02/2023 07/08/2023 Colorectal Cancer Screening: Colonoscopy 05/22/2024 Falls Risk Assessment 05/22/2024 Hepatitis C Screening 05/22/2024 Medicare Annual Wellness Visit 05/22/2024 Social Influencers of Health Screening 05/22/2024 Depression Screening 10/31/2024 RSV Immunization Adult Patients (1 - 1-dose 75+ series) 2025 COVID-19 Vaccine ( season) 2025 07/08/2023, 11/11/2021, 01/30/2021, Additional history exists Influenza Vaccine (#1) 2025 , 08/12/2016, 10/03/2015, Additional history exists Hypertension/CHF/CAD Annual BMP Blood Test 03/21/2026 03/21/2025, 01/21/2024, 01/20/2024, Additional history exists Cholesterol Screening (Lipid Panel) 01/25/2029 01/26/2024 DTaP,Tdap,and Td Vaccines (3 - Td or Tdap) 04/03/2035 04/03/2025, 05/06/2014 Pneumococcal Vaccine: 50+ Years Completed 11/11/2021, 11/14/2015 HIB Vaccines Aged Out No longer eligi [...] on patient's age to complete this topic MMR Vaccines Aged Out No longer eligi ble based on patient's age to complete this topic Meningococcal ACWY Vaccine Aged Out N o longer eligible based on patient's age to complete this topic Meningococcal B Vaccine Aged Out No l onger eligible based on patient's age to complete this topic RSV Immunization Patients Under 20 months Aged Out No longer eligible based on patient's age to complete this topic Varicella Vaccines Aged Out No longer eligible based on patient's age to complete this topic Procedures Procedure Name Priority Date/Time Associated Diagnosis Comments COMPREHENSIVE METABOLIC PANEL STAT 03/21/2025 12:46 AM EDT from Last 3 Months or Most Recently Relevant to Health Maintenance Results * (ABNORMAL) Comprehensive metabolic panel (03/21/2025 12:46 AM EDT) Sodium 134 133 - 145 mmol/L LAB CHEMISTRY METHOD 03/21/2025 1:51 AM [facility] Potassium 4.4 3.5 - 5.5 mmol/L LAB CHEMISTRY METHOD 03/21/2025 1:51 AM [facility] Chloride 102 96 - 110 mmol/L LAB CHEMISTRY METHOD 03/21/2025 1:51 AM [facility] CO2 25 21 - 32 mmol/L LAB CHEMISTRY METHOD 03/21/2025 1:51 AM [facility] Anion Gap 7 3 - 11 LAB CHEMISTRY METHOD 03/21/2025 1:51 AM [facility] Glucose 184(H) 70 - 100 mg/dL LAB CHEMISTRY METHOD 03/21/2025 1:51 AM [facility] BUN 16 5 - 25 mg/dL LAB CHEMISTRY METHOD 03/21/2025 1:51 AM [facility] Creatinine 0.85 0.70 - 1.30 mg/dL LAB CHEMISTRY METHOD 03/21/2025 1:51 AM [facility] eGFR 91 >=60 mL/min/1. 73m2 LAB CHEMISTRY METHOD 03/21/2025 1:51 AM [facility] Comment:Calculation based on the Chronic Kidney Disease Epidemiology Collaboration (CKD-EPI) equation refit without adjustment for race. BUN/Creatinine Ratio 18.8 LAB CHEMISTRY METHOD 03/21/2025 1:51 AM [facility] Calcium 8.5 8.5 - 10.5 mg/dL LAB CHEMISTRY METHOD 03/21/2025 1:51 AM [facility] AST (SGOT) 36 10 - 42 unit/L LAB CHEMISTRY METHOD 03/21/2025 1:51 AM [facility] ALT (SGPT) 47 10 - 60 unit/L LAB CHEMISTRY METHOD 03/21/2025 1:51 AM [facility] Alkaline Phosphatase 94 42 - 121 unit/L LAB CHEMISTRY METHOD 03/21/2025 1:51 AM EDT [facility] Total Protein 6.5 6.0 - 8.0 g/dL LAB CHEMISTRY METHOD 03/21/2025 1:51 AM EDT [facility] Albumin 3.6 3.2 - 5.0 g/dL LAB CHEMISTRY METHOD 03/21/2025 1:51 AM EDT [facility] Total Bilirubin 0.6 0.0 - 1.4 mg/dL LAB CHEMISTRY METHOD 03/21/2025 1:51 AM EDT [facility] Blood Venous blood specimen / Unknown Venipuncture / Unknown 03/21/2025 12:46 AM EDT 03/21/2025 1:27 AM EDT us Sadia Downey MD LAB BLOOD ORDERABLES Fin al Result [facility] [address] [place] [address], from Last 3 Months or Most Recently Relevant to Health Maintenance Insurance MEDICAID - [place] UNITED [employer] MEDICARE Care Teams Behavioral Health Counselor Relationship Specialty Start Date End Date [place], MD Siobhan [address] [place] [phone] PCP - General 01/16/24
--- OUTSIDE RECORDS SUMMARY | 2025-07-15 19:32 | XMS_ITS | Encounter Summary ---
Author Organization [facility] Address [address] 7t [place] [address] Care Team Providers Care Printed Circuit Boards Beveler Name Role Phone Siobhan Vanessa MD Primary Care Provider [phone]- [phone] [facility] Unavailable Pepper Flanagan MD Unavailable [phone] Harshal Hartley MD Unavailable Nancy Lyles NP Unavailable Reason for Visit * Reason Onset Date Comments CHART PREP 07/12/2025 Encounter Details Date Type Department Care Team (Late st Contact Info) Description 07/12/2025 Telephone [facility] MEDICINE [address] [place] [address] Siobhan Vanessa MD [address] [place], [place] [phone] CHART PREP Social History Tobacco Use Types Packs/Day Years Used Date Smoking Tobacco: Never Passive Smoke Exposure: Never Smokeless Tobacco: Never Alcohol Use Standard Drinks/Week Comments Never 0 [...] encounter Miscellaneous Notes * Telephone Encounter - Walker Jackson [place] - 07/12/2025 11:46 AM EDT Chart Prep Labs: done Images: not applicable Referrals: called [facility] Vaccines due: Covid, Flu, RSV, and Zoster Screenings: colonoscopy Overdue care gaps: Not applicable documented in this encounter Plan of Treatment [...] documented as of this encounter Care Teams Printed Circuit Boards Beveler Relationship Specialty Start Date End Date Siobhan Vanessa MD [address] [place] [address] PCP - General Family Medicine 01/04/12 [facility] [address] [place] [address] Cardiology 03/28/25 Pepper Flanagan MD [address] [place] [address] Hematology and Oncology 04/03/25 Harshal Hartley MD [address] [address] General Surgery 04/03/25 Nancy Lyles NP [address] [place] [address] Urology 04/03/25 [facility] Orthopedic [place], [facility] [address] [place] [address] Orthopaedic Surgery 04/24/25 documented as of this encounter
--- OUTSIDE RECORDS SUMMARY | 2025-07-15 19:32 | XMS_ITS | Clinical Summary ---
Author Organization [facility] Address [address] [place] [address] Care Team Providers Care Co Supervisor Grounds And Landscape Name Role Phone Unavailable Primary Care Provider [...] (2 - Td or Tdap) 05/06/2024 014 Dental BW 10/16/2024 10/14/2023 Dental Examination 10/16/2024 10/14/2023 Dental Perio Charting 10/16/2024 10/14/2023 Dental Prophy 10/16/2024 10/14/2023 Alcohol and Drug Screen 10/31/2024 Depression Annual Screen 10/31/2024 Hypertension Screening (#1) 11/10/2024 Imm-RSV (adult) (1 - 1-dose 75+ series) 2025 [id number] (2 - season) 2025 023 Imm-Influenza (#1) 2025 11/11/2021, 1 , 10/03/2015, Additional history exists Dental FMX/Pano 11/13/2028 11/11/2023, 10/14/2023 Imm-Pneumococcal 50+ Completed 11/11/2021, 11/14/19 16 Procedures Procedure Name [...] Most Recently Relevant to Health Maintenance Insurance [facility] - DENTAL Member Subscriber Plan / Payer (Ef fective 2022-Present) Name:Mervin Boyle Relation to Subscriber:Self Name:Mervin Boyle Payer ID:[id number] (NAIC) Group ID:Not on file Type:Indemnity Address: [place] [id number]
--- OUTSIDE RECORDS SUMMARY | 2025-07-15 19:32 | XMS_ITS | Encounter Summary ---
Author Organization [facility] Address [address] [facility] 7t [place] [address] Care Team Providers Care Bunch Maker Name Role Phone Siobhan Vanessa MD Primary Care Provider [phone]- [phone] [facility] Unavailable Pepper Flanagan MD Unavailable [phone] Harshal Hartley MD Unavailable [phone] Nancy Lyles NP Unavailable Reason for Visit * Reason Onset Date Comments Appointment Request 06/19/2025 Encounter Details Date Type Department Care Team (Late st Contact Info) Description 06/19/2025 Telephone [facility] MEDICINE [address] [place] [address] Siobhan Vanessa MD [address] [place] [address] Appointment Request Social History Tobacco Use Types Packs/Day Years [...] encounter Miscellaneous Notes * Telephone Encounter - Cindy Gtz - 06/19/2025 9:28 AM EDT Tc from [facility] requesting a Follow appt due to Pt cronic condition Contact Izabel at [phone] documented in this encounter Plan of Treatment [...] documented as of this encounter Care Teams Bunch Maker Relationship Specialty Start Date End Date Siobhan Vanessa MD [address] [place] [address] PCP - General Family Medicine 01/04/12 [facility] [address] [place] [address] Cardiology 03/28/25 Pepper Flanagan MD [address] [place] [address] Hematology and Oncology 04/03/25 Harshal Hartley MD [address] [facility] 3rd [place] [address] General Surgery 04/03/25 Nancy Lyles NP [address] [place] [address] Urology 04/03/25 [facility] Orthopedic [place], [facility] [address] [place] [address] Orthopaedic Surgery 04/24/25 documented as of this encounter
--- OUTSIDE RECORDS SUMMARY | 2025-07-15 19:32 | XMS_ITS | Encounter Summary ---
Author Organization [facility] Address [address] 7t [place] [address] Care Team Providers Care Supervisor Photocomposition Name Role Phone Siobhan Vanessa MD Primary Care Provider [phone]- [phone] [facility] Unavailable Pepper Flanagan MD Unavailable [phone] Harshal Hartley MD Unavailable [phone] Nancy Lyles NP Unavailable Encounter Details Date Type Department Care Team (Latest Contact Info) Description 07/15/2025 Travel Social History Tobacco Use Types Packs/Day Years [...] documented as of this encounter Care Teams Supervisor Photocomposition Relationship Specialty Start Date End Date Siobhan Vanessa MD [address] [place] [address] PCP - General Family Medicine 01/04/12 [facility] [address] [place] [address] Cardiology 03/28/25 Pepper Flanagan MD [address] [place] [address] Hematology and Oncology 04/03/25 Harshal Hartley MD [address] [place] [address] General Surgery 04/03/25 Nancy Lyles NP [address] [place] [address] Urology 04/03/25 [facility] Orthopedic [place], [facility] [address] [place] [address] Orthopaedic Surgery 04/24/25 documented as of this encounter
--- OUTSIDE RECORDS SUMMARY | 2025-07-15 19:32 | XMS_ITS | Clinical Summary ---
Author Organization [facility] Address [address] [place] [address] Care Team Providers Care Conference Services Director Name Role Phone Siobhan Vanessa MD Primary Care Provider +1- [phone] Allergies No known active allergies Medications aspirin [...] In the past 12 months has e [employer], gas, oil, or water [place] threatened to shut off services in your [...] place to sleep or slept in a snf (including now)? No 01/20/2024 Sex and Gender [...] 74 01/21/2024 8:21 AM EDT Temperature 36.1 C (97 F) 01/21/2024 6:50 AM EDT Respiratory Rate 18 [...] Zoster (Shingles) Vaccine (1 of 2) 02/28/2000 RSV Vaccine 60 years and older and Patients (1 - 1-dose 75+ series) 2025 Influenza Vaccine 05/31/2025 11/11/2021, , 10/03/2015, Additional history exists COVID-19 Vaccine ( - season) 2025 07/08/2023 Advance Care Planning Completed 01/17/2024 Hepatitis B Vaccines Aged Out No long er eligible based on patient's age to complete this topic Insurance [facility] UNITED HE[employer] MGD MEDICARE Advance Directives Documents on File Type Date Recorded Patient Dental Officer Expl anation Advance Directive-Scan 01/17/2024 Josh WALTERS. HEALTH CARE PROXY 01/17/2024 HH * Full Code (Latest Code Status on File) Date Activated Date Inactivated Comments 01/17/2024 5:57 AM Healthcare Agents on File Name Relationship Healthcare Agent Relationship Communication Gladys Nesbitt Healthcare installation service representative 1. Health Care Dental Officer Care Teams Conference Services Director Relationship Specialty Start Date End Date Siobhan Vanessa MD [address] [place] [address] PCP - General Family Medicine 01/17/24
--- OUTSIDE RECORDS SUMMARY | 2025-07-15 19:32 | XMS_ITS | Encounter Summary ---
Author Organization [facility] Address [address] [facility] 7t [place] [address] Care Team Providers Care Driver Material Handler Name Role Phone Siobhan Vanessa MD Primary Care Provider [phone]- [phone] [facility] Unavailable Pepper Flanagan MD Unavailable [phone] Harshal Hartley MD Unavailable Nancy Lyles NP Unavailable Reason for Visit * Reason Onset Date Comments Med Refill 09/29/2023 Encounter Details Date Type Department Care Team (Late st Contact Info) Description 09/29/2023 Telephone [facility] MEDICINE [address] [place] [address] Siobhan Vanessa MD [address] [place] [address] Med Refill Social History Tobacco [...] MG chemo tablet to be sent to [facility] [place], [place] - [address] [facility] documented in this encounter Plan of [...] documented as of this encounter Care Teams Driver Material Handler Relationship Specialty Start Date End Date Bentley Vanessaie, MD [address] [place] [address] PCP - General Family Medicine 01/04/12 [facility] [address] 3rd [place] [address] Cardiology 03/28/25 Pepper Flanagan MD [address] [place] [address] Hematology and Oncology 04/03/25 Harshal Hartley MD [address]rd [place] [address] General Surgery 04/03/25 Nancy Lyles NP [address] [place] [address] Urology 04/03/25 [facility] Orthopedic [place], [address] [address] Orthopaedic Surgery 04/24/25 documented as of this encounter
== END 2025-07-15 15:11 | disposition home or self-care (01) ==
LOC: HO.HUSH 14:12
PROVIDERS: PCP Family Medicine; Visit Provider Nurse Practitioner Family
DX: R33.9 Retention of urine, unspecified (principal); R39.9 Unspecified symptoms and signs involving the genitourinary system; R35.0 Frequency of micturition; R35.1 Nocturia
CPT/HCPCS: 99213; G2211

== ENCOUNTER → 2025-07-15 14:11 | Outpatient (BNVA) | payer MEDICARE, SELFPAY | PROVIDERS: PCP Family Medicine; Visit Provider Nurse Practitioner Family | DX: R33.9 Retention of urine, unspecified (principal); R39.9 Unspecified symptoms and signs involving the genitourinary system; R35.0 Frequency of micturition; R35.1 Nocturia | CPT/HCPCS: 51798; 99212 ==

== ENCOUNTER 2025-07-16 08:25 | Outpatient (REF) | payer MEDICARE, SELFPAY ==
--- OUTSIDE RECORDS SUMMARY | 2025-07-11 08:30 | XMS_ITS | Encounter Summary ---
Author Organization [facility] Address [address] [place] [address] Care Team Providers Care Clinic Mgr Name Role Phone Siobhan Vanessa MD Primary Care Provider [phone] Reason for Visit * Consultation (Routine) - Authorized Specialty Diagnoses / Procedures Referred By Abby higgins Referred To Contact Physical Therapy Diagnoses Unspecified rotator cuff tear or rupture of left shoulder, not specified as traumatic Other specific arthropathies, not elsewhere classified, left shoulder Suzanne Coffey PA [address] [place] [phone] Phone: tel: fax: Referral ID Status Reason Start Date Expiration Date Visits Requested Visits Authorized [id number] Authorized Specialty Services Required 04/24/2025 04/24/2026 15 15 Encounter Details Date Type Department Care Team (Late st Contact Info) Description 07/11/2025 8:30 AM EDT Treatment [address] [place] [address] Vitor Joe PTA Chronic right shoulder pain [...] Joe PTA - 07/11/2025 8:[address] [facility] - Outpatient PHYSICAL THERAPY DAILY TREATMENT NOTE - OP Date: 07/11/2025 Visit Number: 4 Patient Name: Mervin Alonso : 1950 Age: 75 y.o. Gender: male Diagnosis: ICD-10-CM ICD-9-CM 1. Chronic right shoulder pain M25.511 719.41 G89.29 338.29 Date of Onset/Surgery: 06/19/2025 Referring Provider: Suzanne Coffey PA Insurance: Payor: [facility] MEDICARE / Plan: [facility] MEDICARE ADVANTAGE / Product Type: *No Product type* / Patient Identified by: Vitor Joe PTA Language: Greek Medications: No current outpatient medications on file [...] 07/17/2025 8:30 AM EDT Treatment [facility] [address] [address] Nuzhat Ernandez, PT 07/23/2025 8:30 AM EDT Treatment [address] [address] Vitor Joe, RETENTION REPRESENTATIVE 07/25/2025 8:30 AM EDT Treatment [address] [address] Vitor Joe, RETENTION REPRESENTATIVE 07/30/2025 8:30 AM EDT Treatment [address] [address] Nuzhat Ernandez, PT documented as of this encounter Visit Diagnoses Diagnosis Chronic right shoulder pain- Primary Pain in joint, shoulder region documented in this encounter Care Teams Clinic Mgr Relationship Specialty Start Date End Date Siobhan Vanessa MD [address] [place] [phone] PCP - General 01/16/24 documented as of this encounter
--- OUTSIDE RECORDS SUMMARY | 2025-07-15 08:30 | XMS_ITS | Encounter Summary ---
Author Organization [facility] Address [address] [place] [address] Care Team Providers Care Roll Grinder Name Role Phone Siobhan Vanessa MD Primary Care Provider [phone]- [phone] Reason for Visit * Consultation (Routine) - Authorized Specialty Diagnoses / Procedures Referred By Abby higgins Referred To Contact Physical Therapy Diagnoses Unspecified rotator cuff tear or rupture of left shoulder, not specified as traumatic Other specific arthropathies, not elsewhere classified, left shoulder Suzanne Coffey PA [address] [place] [phone] Phone: tel: fax: Referral ID Status Reason Start Date Expiration Date Visits Requested Visits Authorized [id number] Authorized Specialty Services Required 04/24/2025 04/24/2026 15 15 Encounter Details Date Type Department Care Team (Late st Contact Info) Description 07/15/2025 8:30 AM EDT Treatment [facility] [address] [facility] [address] [place] [address] Natan Morris PTA Chronic right shoulder pain (Primary Dx) Social History Tobacco Use Types Packs/Day Years Used Date Smoking Tobacco: Never Assessed Sex and Gender Information Value Date Recorded Sex Assigned at Not on file Legal Sex Male 5:05 AM EST Gender Identity Not on file Sexual Orientation Not on file documented as of this encounter Progress Notes * Natan Morris PTA - 07/15/2025 8:30 AM EDT [facility] - Outpatient PHYSICAL THERAPY DAILY TREATMENT NOTE - OP Date: 07/15/2025 Visit Number: 5 Patient Name: Mervin Alonso : 1950 Age: 75 y.o. Gender: male Diagnosis: ICD-10-CM ICD-9-CM 1. Chronic right shoulder pain M25.511 719.41 G89.29 338.29 Date of Onset/Surgery: No data found Referring Provider: Suzanne Coffey PA Insurance: Payor: [employer] MEDICARE / Plan: [facility] MEDIC[facility] ADVANTAGE / Product Type: *No Product type* / Patient Identified by: Natan Morris PTA Language: Wallisian Medications: No current outpatient medications on file prior to visit. No current facility-administered medications on file prior to visit. Allergies: has No Known Allergies. Precautions: H/o R biceps tendon tear, HTN, coronary artery stenosis, h/o cancer (bone) Fall risk: No SUBJECTIVEpt reports feeling pretty good right now. Chart Reviewed: Yes Pain 02/07 right shoulder pain TREATMENT INTERVENTION: UBE x 4:25 min forward only shld pulleys for flexion in tolerable ROM Red tubing rows and B shld ext x 20 ea Black tubing R scap depression x 20-held Seated shld flexion with bolster on table x 15 x 2 sets Seated scap squeeze with tactile cues to avoid R shld elevation x 15 R GH jt post and inf glides R GH jt distraction Passive Shld IR/ER in supine ASSESSMENT/Response to Treatment Fair Pt continues to guard and have limited elevation with exercises Patient Education: Education provided: Yes. Taping instructions/precautions Education Provided To: Patient and Family utilizing Explanation mode(s) of education Response to Education: Verbal Understanding PLAN POC Development/Review: No Change in the Plan of Care; Participants: Patient Total Treatment Time: 30 Modalities: Therapeutic procedures: Documentation completed by Natan Morris PTA documented in this encounter Plan of Treatment Upcoming Encounters Date Type Department Care Team (Late st Contact Info) Description 07/17/2025 8:30 AM EDT Treatment [address] [address] Nuzhat Ernandez, RUDY 07/23/2025 8:30 AM EDT Treatment [facility] [address] [address] Vitor Joe, FIELD KILN BURNER 07/25/2025 8:30 AM EDT Treatment [facility] [address] [address] Vitor Joe, FIELD KILN BURNER 07/30/2025 8:30 AM EDT Treatment [address] [address] Nuzhat Ernandez, PT documented as of this encounter Visit Diagnoses Diagnosis Chronic right shoulder pain- Primary Pain in joint, shoulder region documented in this encounter Care Teams Roll Grinder Relationship Specialty Start Date End Date Rasheeda, MD Siobhan [address] [place] [phone] PCP - General 01/16/24 documented as of this encounter
--- OUTSIDE RECORDS SUMMARY | 2025-07-15 11:30 | XMS_ITS | Encounter Summary ---
Author Organization [employer] Address [address] [facility] 7t [place] [address] Care Team Providers Care Oliving Machine Operator Name Role Phone Siobhan Vanessa MD Primary Care Provider [phone] [place] Unavailable Pepper Flanagan MD Unavailable [phone] Harshal Hartley MD Unavailable [phone] Nancy Lyles NP Unavailable Encounter Details Date Type Department Care Team (Late st Contact Info) Description 07/15/2025 11:30 AM EDT Office Visit [facility] [address] [place], [place] [phone] Siobhan Vanessa MD [address] [place], [place] [phone] Dementia without behavioral disturbance, psychotic disturbance, mood [...] unspecified dementia type (CMS/HCC) Patients VNA from [facility] requested evaluation for worsening memory 01/2024. Family repots memory has been getting progressively worse. MOCA/mini mental exam done with RN . MMSE2 in [place]ian completed with pt. Pt states graduated high [...] unable to repeat a spoken sentence in swedish and was also unable to write a sentence that was spoken to him. Was prompted to write Mi color favorito es... followed by his favorite color. Hesaid, byrnes and then wrote Sool without the rest of the sentence. He was able to name a square but answered, lines for triangle and zero for [place]. Lastly he was able to copy a [...] Myelofibrosis (CMS/HCC) - Followed by Dr. Flanagan, Elevated Motorman.Note from 04/19/24 reviewed. - Stable on Jakafi (Ruxolitinib) started June 28, 2014 - CAT scan of abdomen performed on 06/01/16. -he has difficulty maintain weight due to his chronic illness , Rx Boost for nutrition supplementation Myeloproliferative disorder (CMS/HCC) - Followed by Dr. Flanagan, Elevated Mot[employer].Note from 04/19/24 reviewed. - Stable on Jakafi [...] Injury of tendon of biceps -Seen by [facility] [place], [facility] 04/16/25x ray revased superior humeral head [...] disorder (CMS/HCC) - Followed by Dr. Flanagan, Elevated Motorman.Note from 04/19/24 reviewed. - Stable on Jakafi [...] Associated Problem(s): Dementia (CMS/HCC) Patients VNA from [facility] requested evaluation for worsening memory 01/2024. Family repots memory has been getting progressively worse. MOCA/mini mental exam done with RN . MMSE2 in [place] completed with pt. Pt states graduated high [...] unable to repeat a spoken sentence in swedish and was also unable to write a sentence that was spoken to him. Was prompted to write Mi color favorito es... followed by his favorite color. Hesaid, byrnes and then wrote Sool without the rest of the sentence. He was able to name a square but answered, lines for triangle and zero for [place]. Lastly he was able to copy a [...] Myelofibrosis (CMS/HCC) - Followed by Dr. Flanagan, Elevated Mot[employer].Note from 04/19/24 reviewed. - Stable on Jakafi (Ruxolitinib) started June 28, 2014 - CAT scan of abdomen performed on 06/01/16. -he has difficulty maintain weight due to his chronic illness , Rx Boost for nutrition supplementation * Assessment & Plan Note - Siobhan Vanessa MD - 07/15/2025 11:30 AM EDT Associated Problem(s): Injury of tendon of biceps -Seen by [facility] [place], [facility] 04/16/25x ray revased superior humeral head [...] documented as of this encounter Care Teams Oliving Machine Operator Relationship Specialty Start Date End Date Siobhan Vanessa MD [address] [place] [address] PCP - General Family Medicine 01/04/12 [place] [address] [place] [address] Cardiology 03/28/25 Pepper Flanagan MD [address] [place] [address] Hematology and Oncology 04/03/25 Harshal Hartley MD [address] [address] General Surgery 04/03/25 Nancy Lyles NP [address] [place] [address] Urology 04/03/25 [facility] [address] [place] [address] Orthopaedic Surgery 04/24/25 documented as of this encounter
--- OUTSIDE RECORDS SUMMARY | 2025-07-16 09:56 | XMS_ITS | Encounter Summary ---
Author Organization [facility] Address [address] [facility] 7t [place] [address] Care Team Providers Care Licensing Registration Examiner Name Role Phone Siobhan Vanessa MD Primary Care Provider [phone] [facility] Unavailable Pepper Flanagan MD Unavailable [phone] Harshal Hartley MD Unavailable [phone] Nancy Lyles NP Unavailable Reason for Visit * Reason Onset Date Comments Med Refill 02/28/2024 Encounter Details Date Type Department Care Team (Late st Contact Info) Description 02/28/2024 Telephone [facility] MEDICINE [address] [place] [address] Siobhan Vanessa MD [address] [place] [address] Med Refill Social History Tobacco [...] getting delivery today To be sent to: [facility] [place], [place] - [address] [facility] documented in this encounter Plan of Treatment [...] documented as of this encounter Care Teams Licensing Registration Examiner Relationship Specialty Start Date End Date Siobhan Vanessa MD [address] [place] [address] PCP - General Family Medicine 01/04/12 [facility] [address] [place] [address] Cardiology 03/28/25 Pepper Flanagan MD [address] [place] [address] Hematology and Oncology 04/03/25 Harshal Hartley MD [address] [address] General Surgery 04/03/25 Nancy Lyles NP [address] [place] [address] Urology 04/03/25 [facility] Orthopedic [place], [facility] [address] [place] [address] Orthopaedic Surgery 04/24/25 documented as of this encounter
--- OUTSIDE RECORDS SUMMARY | 2025-07-16 09:56 | XMS_ITS | Encounter Summary ---
Author Organization [facility] Address [address] [facility] 7t [place] [address] Care Team Providers Care Greens Cutter Name Role Phone Siobhan Vanessa MD Primary Care Provider [phone]- [phone] [facility] Unavailable Pepper Flanagan MD Unavailable [phone] Harshal Hartley MD Unavailable [phone] Nancy Lyles NP Unavailable Encounter Details Date Type Department Care Team (Late st Contact Info) Description 01/24/2025 Orders Only [facility] MEDICINE [address] [place], [place] [phone] Siobhan Vanessa MD [address] [place], [place] [phone] Social History Tobacco Use Types Packs/Day Years [...] documented as of this encounter Care Teams Greens Cutter Relationship Specialty Start Date End Date Siobhan Vanessa MD [address] [place] [address] PCP - General Family Medicine 01/04/12 [facility] [address] [place] [address] 3[address] [place] [address] Cardiology 03/28/25 Pepper Flanagan MD [address] [place] [address] Hematology and Oncology 04/03/25 Harshal Hartley MD [address] 3rd [place] [address] General Surgery 04/03/25 Nancy Lyles NP [address] [place] [address] Urology 04/03/25 [facility] Orthopedic [place], [facility] [address] [place] [address] Orthopaedic Surgery 04/24/25 documented as of this encounter
--- OUTSIDE RECORDS SUMMARY | 2025-07-16 09:56 | XMS_ITS | Encounter Summary ---
Author Organization [facility] Address [address] [facility] [address] 7t [place] [address] Care Team Providers Care Web Content Coordinator Name Role Phone Siobhan Vanessa MD Primary Care Provider [phone]- [phone] [place] [facility] Unavailable Pepper Flanagan MD Unavailable [phone] Harshal Hartley MD Unavailable [phone] Nancy Lyles NP Unavailable Encounter Details Date Type Department Care Team (Late st Contact Info) Description 2024 Orders Only [facility] MEDICINE 230 [place], [place] [phone] Siobhan Vanessa MD [address] [place], [place] [phone] Social History Tobacco Use Types Packs/Day Years [...] documented as of this encounter Care Teams Web Content Coordinator Relationship Specialty Start Date End Date Siobhan Vanessa MD [address] [place] [address] PCP - General Family Medicine 01/04/[address] [place] [address] Cardiology 03/28/25 Pepper Flanagan MD [address] [place] [address] Hematology and Oncology 04/03/25 Harshal Hartley MD [address] [place] [address] General Surgery 04/03/25 Nancy Lyles NP [address] [place] [address] Urology 04/03/25 [facility] Orthopedic [place], [facility] [address] [place] [address] Orthopaedic Surgery 04/24/25 documented as of this encounter
--- OUTSIDE RECORDS SUMMARY | 2025-07-16 09:56 | XMS_ITS | Encounter Summary ---
Author Organization [employer] Address [address] [facility] 7t [place] [address] Care Team Providers Care Driver Name Role Phone Siobhan Vanessa MD Primary Care Provider [phone]- [phone] [place] Unavailable Pepper Flanagan MD Unavailable [phone] Harshal Hartley MD Unavailable Nancy Lyles NP Unavailable Reason for Visit * Reason Onset Date Comments Med Refill 2024 Encounter Details Date Type Department Care Team (Late st Contact Info) Description 2024 Telephone [facility] [address] [place] [address] Siobhan Vanessa MD [address] [place] [address] Med Refill Social History Tobacco [...] started during hospitalization in December, prescribed by [facility] for HFrEF. Patient has been taking [...] as of this encounter Care Teams Driver Relationship Specialty Start Date End Date Siobhan Vanessa MD [address] [place] [address] PCP - General Family Medicine 01/04/12 [place] [address] [place] [address] [address] [place] [address] Cardiology 03/28/25 Pepper Flanagan MD [address] [place] [address] Hematology and Oncology 04/03/25 Harshal Hartley MD [address] [place] [address] [address] [place] [address] General Surgery 04/03/25 Nancy Lyles NP [address] [place] [address] Urology 04/03/25 [facility] Orthopedic [place], [facility] [address] [place] [address] Orthopaedic Surgery 04/24/25 documented as of this encounter
--- OUTSIDE RECORDS SUMMARY | 2025-07-16 09:57 | XMS_ITS | Encounter Summary ---
Author Organization [employer] Address [address] [facility] 7t [place] [address] Care Team Providers Care Bronc Buster Name Role Phone Siobhan Vanessa MD Primary Care Provider [phone] [place] Unavailable Pepper Flanagan MD Unavailable [phone] Harshal Hartley MD Unavailable [phone] Nancy Lyles NP Unavailable Reason for Visit * Reason Onset Date Comments Appointment Request 06/19/2025 Encounter Details Date Type Department Care Team (Late st Contact Info) Description 06/19/2025 Telephone [facility] [address] [place] [address] Siobhan Vanessa MD [address] [place] [address] Appointment Request Social History Tobacco [...] to Pt cronic condition Contact Izabel at [phone] documented in this encounter Plan of Treatment [...] documented as of this encounter Care Teams Bronc Buster Relationship Specialty Start Date End Date Siobhan Vanessa MD [address] [place] [address] PCP - General Family Medicine 01/04/12 [place] [address] [place] [address] Cardiology 03/28/25 Pepper Flanagan MD [address] [place] [address] Hematology and Oncology 04/03/25 Harshal Hartley MD 11 [facility] 3[address] [place] [address] General Surgery 04/03/25 Nancy Lyles NP [address] [place] [address] Urology 04/03/25 [facility] Orthopedic [place], [facility] [address] [place] [address] Orthopaedic Surgery 04/24/25 documented as of this encounter
--- OUTSIDE RECORDS SUMMARY | 2025-07-16 09:57 | XMS_ITS | Clinical Summary ---
Author Organization [facility] Address [address] [place] [address] Care Team Providers Care Bunch Breaker Machine Operator Name Role Phone Siobhan Vanessa MD Primary Care Provider [phone]- [phone] Allergies No known active allergies Medications aspirin [...] drink = 0.6 oz pur e alcohol) [facility] Utilities Answer Date Recorded In the past 12 months has e [employer], gas, oil, or water [employer] threatened to shut off services in your [...] place to sleep or slept in a correction (including now)? No 01/20/2024 Sex and Gender [...] patient's age to complete this topic Insurance [facility] UNITED HEALTHCARE MGD MEDICARE Advance Directives Documents on File Type Date Recorded Patient Direct Mail Coordinator Expl anation Advance Directive-Scan 01/17/2024 Josh WALTERS. HEALTH CARE PROXY 01/17/2024 HH * Full Code (Latest Code Status on File) Date Activated Date Inactivated Comments 01/17/2024 5:57 AM Healthcare Agents on File Name Relationship Healthcare Agent Relationship Communication Gladys Nesbitt Healthcare technical support representative 1. Health Care Direct Mail Coordinator Care Teams Bunch Breaker Machine Operator Relationship Specialty Start Date End Date Siobhan Vanessa MD [address] [place] [address] PCP - General Family Medicine 01/17/24
--- OUTSIDE RECORDS SUMMARY | 2025-07-16 09:57 | XMS_ITS | Clinical Summary ---
Author Organization [facility] Address [address] [place] [address] Phone Care Team Providers Care Ethylbenzene Oxidizer Name Role Phone Warrick, Siobhan [place] Primary Care Provider [phone]- [phone] Allergies No known active allergies Active Problems Problem Noted Date Diagnosed Date CVA (cerebral vascular accident) (CMS/HCC V24, C MS/HCC V28) 01/17/2024 Benign essential hypertension 12/26/2021 Overview (03/21/2025): -Blood pressure is at goal -Continue lifestyle modifications -Continue current medications Coronary artery stenosis 12/26/2021 Overview (03/21/2025): Admitted to [facility] in March of 2020 due to [...] qd. -Continue ASA and Eliquis changed in [facility] 12/2023 due to thrombus resolved on echo and required transfusion for bleeding tooth abscess -Followed by Dr. Greg Galaviz of [facility], we called 07/08/23 and they repot he missed last appointment. -echo in [facility] 12/2023 showed mildly reduced ejection fraction of 45% and was initiated on metoprolol as part of GDMT. -seen by [place] 01/2024, continue Eliquis Myeloproliferative disorder ([facility]/HCC V24, [facility]/ C V28) 01/17/2013 Overview (03/21/2025): - Followed by Dr. Flanagan, Betting Agency Manager.Note from 04/19/24 reviewed. - Stable on Jakafi (Ruxolitinib) started June 28, 2014 - CAT scan of abdomen performed on 06/01/16. -he has difficulty maintain weight due to his chronic illness , Rx Boost for nutrition supplementation Encounters Date Type Department Care Team Description 07/15/2025 8:30 AM EDT Treatment [address] [address] Natan Morris, EMBOSSING MACHINE TENDER Chronic right shoulder pain (Primary Dx) 07/11/2025 8:30 AM EDT Treatment [address] [address] Vitor Joe, EMBOSSING MACHINE TENDER Chronic right shoulder pain (Primary Dx) 07/09/2025 8:30 AM EDT Treatment [address] [address] Vitor Joe, EMBOSSING MACHINE TENDER Chronic right shoulder pain (Primary Dx) 07/04/2025 1:30 PM EDT Treatment [address] [address] Chucky Meier, EMBOSSING MACHINE TENDER Chronic right shoulder pain (Primary Dx) 06/19/2025 7:00 AM EDT Evaluation [address] [address] Nuzhat Ernandez, PT Chronic right shoulder pain [...] Info) Description 07/17/2025 8:30 AM EDT Treatment [facility] [address] [address] Nuzhat Ernandez, PT 07/23/2025 8:30 AM EDT Treatment [facility] [address] [address] Vitor Joe, EMBOSSING MACHINE TENDER 07/25/2025 8:30 AM EDT Treatment [facility] [address] [address] Vitor Joe, EMBOSSING MACHINE TENDER 07/30/2025 8:30 AM EDT Treatment [facility] [address] [address] Nuzhat Ernandez, PT Health Maintenance Due Date [...] mmol/L LAB CHEMISTRY METHOD 03/21/2025 1:51 AM [facility] Potassium 4.4 3.5 - 5.5 mmol/L LAB CHEMISTRY METHOD 03/21/2025 1:51 AM [facility] Chloride 102 96 - 110 mmol/L LAB CHEMISTRY METHOD 03/21/2025 1:51 AM [facility] CO2 25 21 - 32 mmol/L LAB CHEMISTRY METHOD 03/21/2025 1:51 AM [facility] Anion Gap 7 3 - 11 LAB CHEMISTRY METHOD 03/21/2025 1:51 AM [facility] Glucose 184(H) 70 - 100 mg/dL LAB CHEMISTRY METHOD 03/21/2025 1:51 AM [facility] BUN 16 5 - 25 mg/dL LAB CHEMISTRY METHOD 03/21/2025 1:51 AM [facility] Creatinine 0.85 0.70 - 1.30 mg/dL LAB CHEMISTRY METHOD 03/21/2025 1:51 AM [facility] eGFR 91 >=60 mL/min/1. 73m2 LAB CHEMISTRY METHOD 03/21/2025 1:51 AM [facility] Comment:Calculation based on the Chronic Kidney Disease Epidemiology Collaboration (CKD-EPI) equation refit without adjustment for race. BUN/Creatinine Ratio 18.8 LAB CHEMISTRY METHOD 03/21/2025 1:51 AM [facility] Calcium 8.5 8.5 - 10.5 mg/dL LAB CHEMISTRY METHOD 03/21/2025 1:51 AM [facility] AST (SGOT) 36 10 - 42 unit/L LAB CHEMISTRY METHOD 03/21/2025 1:51 AM [facility] ALT (SGPT) 47 10 - 60 unit/L LAB CHEMISTRY METHOD 03/21/2025 1:51 AM [facility] Alkaline Phosphatase 94 42 - 121 unit/L LAB CHEMISTRY METHOD 03/21/2025 1:51 AM EDT [facility] Total Protein 6.5 6.0 - 8.0 g/dL LAB CHEMISTRY METHOD 03/21/2025 1:51 AM EDT [facility] Albumin 3.6 3.2 - 5.0 g/dL LAB CHEMISTRY METHOD 03/21/2025 1:51 AM EDT [facility] Total Bilirubin 0.6 0.0 - 1.4 mg/dL LAB CHEMISTRY METHOD 03/21/2025 1:51 AM EDT [facility] Blood Venous blood specimen / Unknown Venipuncture / Unknown 03/21/2025 12:46 AM EDT 03/21/2025 1:27 AM EDT us Sadia Downey MD LAB BLOOD ORDERABLES Fin al Result [facility] [address] [place] [address], from Last 3 Months or Most Recently Relevant to Health Maintenance Insurance MEDICAID - [place] UNITED HEALTHCARE MEDICARE Care Teams Ethylbenzene Oxidizer Relationship Specialty Start Date End Date Warrick, MD Siobhan [address] [place] [phone] PCP - General 01/16/24
--- OUTSIDE RECORDS SUMMARY | 2025-07-16 09:57 | XMS_ITS | Encounter Summary ---
Author Organization [employer] Address [address] [facility] 7t [place] [address] Care Team Providers Care Country Director Name Role Phone Siobhan Vanessa MD Primary Care Provider [phone] [place] Unavailable Pepper Flanagan MD Unavailable [phone] Harshal Hartley MD Unavailable Nancy Lyles NP Unavailable Reason for Visit * Reason Onset Date Comments INR Report 11/22/2023 Encounter Details Date Type Department Care Team (Late st Contact Info) Description 11/22/2023 Telephone [facility] MEDICINE [address] [place] [address] Siobhan Vanessa MD [address] [place], [place] [phone] INR Report Social History Tobacco Use Types [...] 11/22/2023 3:34 PM EST [facility] calling to report INR . documented in [...] documented as of this encounter Care Teams Country Director Relationship Specialty Start Date End Date Siobhan Vanessa MD [address] [place] [address] PCP - General Family Medicine 01/04/12 [place] [address] [place] [address] Cardiology 03/28/25 Pepper Flanagan MD [address] [place] [address] Hematology and Oncology 04/03/25 Harshal Hartley MD [address] [address] General Surgery 04/03/25 Nancy Lyles NP [address] [place] [address] Urology 04/03/25 [facility] Orthopedic [place], [facility] [address] [place] [address] Orthopaedic Surgery 04/24/25 documented as of this encounter
--- OUTSIDE RECORDS SUMMARY | 2025-07-16 09:57 | XMS_ITS | Encounter Summary ---
Author Organization [employer] Address [address] [facility] [address] 7t [place] [address] Care Team Providers Care Coverstitch Elastic Attacher Name Role Phone Siobhan Vanessa MD Primary Care Provider +- [phone] [place] Unavailable Pepper Flanagan MD Unavailable [phone] Harshal Hartley MD Unavailable [phone] Nancy Lyles NP Unavailable Encounter Details Date [...] documented as of this encounter Care Teams Coverstitch Elastic Attacher Relationship Specialty Start Date End Date Siobhan Vanessa MD [address] [place] [address] PCP - General Family Medicine 01/04/12 [place] [address] [place] [address] Cardiology 03/28/25 Pepper Flanagan MD [address] [place] [address] Hematology and Oncology 04/03/25 Harshal Hartley MD [address] [place] [address] General Surgery 04/03/25 Nancy Lyles NP [address] [place] [address] Urology 04/03/25 [facility] Orthopedic [place], [facility] [address] [place] [address] Orthopaedic Surgery 04/24/25 documented as of this encounter
--- OUTSIDE RECORDS SUMMARY | 2025-07-16 09:57 | XMS_ITS | Encounter Summary ---
Author Organization [employer] Address [address] [facility] 7t [place] [address] Care Team Providers Care Traffic Superintendent Name Role Phone Siobhan Vanessa MD Primary Care Provider [phone] [place] Unavailable Pepper Flanagan MD Unavailable [phone] Harshal Hartley MD Unavailable Nancy Lyles NP Unavailable Reason for Visit * Reason Onset Date Comments Coagulation Disorder 02/22/2023 Encounter Details Date Type Department Care Team (Late st Contact Info) Description 02/22/2023 Telephone [facility] [address] [place], [place] [phone] Siobhan Vanessa MD [address] [place], [place] [phone] Coagulation Disorder Social History Tobacco Use Types [...] a mutual Pt. Please contact rosie at [phone] documented in this encounter Plan of Treatment Not on file documented as of this encounter Visit Diagnoses Not on filedocumented in this encounter Care Teams Traffic Superintendent Relationship Specialty Start Date End Date Siobhan Vanessa MD [address] [place] [address] PCP - General Family Medicine 01/04/12 [place] [address] [facility] 3rd [place] [address] Cardiology 03/28/25 Pepper Flanagan MD [address] [place] [address] Hematology and Oncology 04/03/25 Harshal Hartley MD [address] [address] General Surgery 04/03/25 Nancy Lyles NP [address] [place] [address] Urology 04/03/25 [facility] Orthopedic [place], [facility] [address] [place] [address] Orthopaedic Surgery 04/24/25 documented as of this encounter
--- OUTSIDE RECORDS SUMMARY | 2025-07-16 09:57 | XMS_ITS | Clinical Summary ---
Author Organization [employer] Address [address] [facility] 7t [place] [address] Care Team Providers Care Student Worker Name Role Phone Siobhan Vanessa MD Primary Care Provider [phone] [place] Unavailable Pepper Flanagan MD Unavailable [phone] Harshal Hartley MD Unavailable Nancy Lyles [...] MG EC tabletIndication s:Coronary artery disease involving tatitlek coronary artery of tatitlek heart without angina pectoris TAKE 1 TABLET BY MOUTH EVERY MORNING 90 tablet 3 5 Active atorvastatin (Lipitor) 80 MG tabletIndication s:Coronary artery stenosis TAKE 1 TABLET BY MOUTH AT BEDTIME 90 tablet 3 5 Active Active Problems Problem Noted Date Diagnosed Date Myelofibrosis 07/15/2025 Assessment & Plan (07/15/2025 12:07 PM EDT): - Followed by Dr. Flanagan, Local Area Network Systems Adminstrator.Note from 04/19/24 reviewed. - Stable on Jakafi (Ruxolitinib) started June 28, 2014 - CAT scan of abdomen performed on 06/01/16. -he has difficulty maintain weight due to his chronic illness , Rx Boost for nutrition supplementation Injury of tendon of biceps 03/26/2025 Overview (07/15/2025): -Seen by [facility], [facility] 04/16/25x ray revased superior humeral head migration, degenerative changes at the greater tuberosity with cystic changes. 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 Assessment & Plan (07/15/2025 12:07 PM EDT): -Seen by [facility] [employer] [facility], [facility] 04/16/25x ray revased superior humeral head [...] 01/25/2024 Overview (04/12/2025): Quinones placed 01/21/24 in [facility] for urinary retention. They recommend follow up [...] EDT): Quinones placed 01/21/24 in hospital at [facility] for urinary retention. They recommend follow up 1 week urology. -Seen by urology 02/01/24 In office voiding trial performed however patient unable to independently void. - Bladder scan showed over 800mls, Quinones catheter reinserted, follow up in 1 month. - Finasteride added by Urology Assessment & Plan (01/25/2024 12:27 PM EDT): Quinones placed 01/21/24 in hospital at [facility] for urinary retention. They recommend follow up 1 week urology. -referral placed 01/25/24 Dementia 01/17/2024 Overview (07/15/2025): Patients VNA from [facility] requested evaluation for worsening memory 01/2024. Family repots memory has been getting progressively worse. MOCA/mini mental exam done with RN . MMSE2 in [place] completed with pt. Pt states graduated high [...] unable to repeat a spoken sentence in yoruba and was also unable to write a sentence that was spoken to him. Was prompted to write Mi color favorito es... followed by his favorite color. He said, byrnes and then wrote Sool without the rest of the sentence. He was able to name a square but answered, lines for triangle and zero for nez perce. Lastly he was able to copy a shape on paper. -Pt scored a 10 out of a possible 30 points. This is considered severe cognitive impairment and at an increased odds for dementia status. -referral to geriatrics memory clinic placed 02/22/24 -stable no behavior disturbance 07/15/25 Assessment & Plan (07/15/2025 12:07 PM EDT): Patients VNA from [facility] requested evaluation for worsening memory 01/2024. Family repots memory has been getting progressively worse. MOCA/mini mental exam done with RN . MMSE2 in [place] completed with pt. Pt states graduated high [...] unable to repeat a spoken sentence in yoruba and was also unable to write a sentence that was spoken to him. Was prompted to write Mi color favorito es... followed by his favorite color. He said, byrnes and then wrote Sool without the rest of the sentence. He was able to name a square but answered, lines for triangle and zero for nez perce. Lastly he was able to copy a shape on paper. -Pt scored a 10 out of a possible 30 points. This is considered severe cognitive impairment and at an increased odds for dementia status. -referral to geriatrics memory clinic placed 02/22/24 -stable no behavior disturbance 07/15/25 Assessment & Plan (04/03/2025 10:42 AM EDT): Patients VNA from [facility] requested evaluation for worsening memory 01/2024. Family repots memory has been getting progressively worse. MOCA/mini mental exam done with RN . MMSE2 in [place] completed with pt. Pt states graduated high [...] unable to repeat a spoken sentence in yoruba and was also unable to write a sentence that was spoken to him. Was prompted to write Mi color favorito es... followed by his favorite color. He said, byrnes and then wrote Sool without the rest of the sentence. He was able to name a square but answered, lines for triangle and zero for nez perce. Lastly he was able to copy a shape on paper. -Pt scored a 10 out of a possible 30 points. This is considered severe cognitive impairment and at an increased odds for dementia status. -referral to geriatrics memory clinic placed 02/22/24 Assessment & Plan (02/22/2024 9:18 AM EDT): Patients VNA from [facility] requested evaluation for worsening memory 01/2024. Family repots memory has been getting progressively worse. MOCA/mini mental exam done with RN . MMSE2 in [place] completed with pt. Pt states graduated high [...] unable to repeat a spoken sentence in yoruba and was also unable to write a sentence that was spoken to him. Was prompted to write Mi color favorito es... followed by his favorite color. He said, byrnes and then wrote Sool without the rest of the sentence. He was able to name a square but answered, lines for triangle and zero for nez perce. 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 Pt state he said yes to everything but did not know what was being asked and lost services. Number for [facility] given to sister 07/08/23 to call for evaluation. Has [facility] for INR draws as was not able to get to outside INR checks. 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 Changed to eliquis after eco showed resolution of thrombus at [facility] 12/2023. Discharge summary from [facility] reviewed states LIV demonstrated resolution of LV mural thrombus and patient was transitioned off warfarin an onto Eliquis for clot prophylaxis in the setting of LV aneurysm and history of DVTs. Assessment & Plan (04/03/2025 10:42 AM EDT): - For left ventricular thrombus. Changed to eliquis after eco showed resolution of thrombus at [facility] 12/2023. Discharge summary from [facility] reviewed states LIV demonstrated resolution of LV mural thrombus and patient was transitioned off warfarin an onto Eliquis for clot prophylaxis in the setting of LV aneurysm and history of DVTs. Assessment & Plan (01/25/2024 1:52 PM EDT): - For left ventricular thrombus. Changed to eliquis after eco showed resolution of thrombus at [facility] 12/2023. Assessment & Plan (07/08/2023 8:28 AM EDT): - For left ventricular thrombus. INR dosed by PCP. Other specified health status 07/06/2023 Overview (04/03/2025): -next comprehensive annual evaluation due after 04/03/26 -eye care facilitated by [facility] health care proxy on file 01/25/24 Assessment & Plan (04/03/2025 10:44 AM EDT): -next comprehensive annual evaluation due after 04/03/26 -eye care facilitated by [facility] health care proxy on file 01/25/24 Assessment & Plan (01/25/2024 1:53 PM EDT): -next physical exam due after 07/08/2024 -eye care facilitated by [facility] health care proxy on file 01/25/24 History of CVA (cerebrovascular accident) 2022 Overview (07/06/2023): He saw neurology during hospitalization Oct 2011who reviewed his neurological work up in [place] including carotid ultrasound that was unremarkable. Neurology recommended no further work up and continuing aspirin. - coninue ASA and atorvastatin 80qhs Assessment & Plan (04/03/2025 10:43 AM EDT): He saw neurology during hospitalization Oct 2011who reviewed his neurological work up in [place] including carotid ultrasound that was unremarkable. Neurology recommended no further work up and continuing aspirin. - coninue ASA and atorvastatin 80qhs Assessment & Plan (07/08/2023 8:29 AM EDT): He saw neurology during hospitalization Oct 2011who reviewed his neurological work up in [place] including carotid ultrasound that was unremarkable. Neurology recommended no further work up and continuing aspirin. - coninue ASA and atorvastatin 80qhs Coronary artery stenosis 12/26/2021 Overview (03/28/2025): Admitted to [facility] in March of 2020 due to [...] qd. -Continue ASA and Eliquis changed in [facility] 12/2023 due to thrombus resolved on echo and required transfusion for bleeding tooth abscess -Followed by Dr. Greg Galaviz of [facility], we called 07/08/23 and they repot he missed last appointment. -echo in [facility] 12/2023 showed mildly reduced ejection fraction of 45% and was initiated on metoprolol as part of GDMT. -seen by [facility] 02/2025 continue Eliquis Assessment & Plan (04/03/2025 10:43 AM EDT): Admitted to [facility] in March of 2020 due to [...] qd. -Continue ASA and Eliquis changed in [facility] 12/2023 due to thrombus resolved on echo and required transfusion for bleeding tooth abscess -Followed by Dr. Greg Galaviz of [facility], we called 07/08/23 and they repot he missed last appointment. -echo in [facility] 12/2023 showed mildly reduced ejection fraction of 45% and was initiated on metoprolol as part of GDMT. -seen by [facility] 02/2025 continue Eliquis Assessment & Plan (07/08/2023 9:33 AM EDT): Admitted to [facility] in March of 2020 due to [...] thrombus) -Followed by Dr. Greg Galaviz of [facility], we called 07/08/23 and they [...] Overview (04/26/2024): - Followed by Dr. Flanagan, Local Area Network Systems Adminstrator.Note from 04/19/24 reviewed. - Stable on Jakafi (Ruxolitinib) started June 28, 2014 - CAT scan of abdomen performed on 06/01/16. -he has difficulty maintain weight due to his chronic illness , Rx Boost for nutrition supplementation Assessment & Plan (07/15/2025 12:07 PM EDT): - Followed by Dr. Flanagan, Local Area Network Systems Adminstrator.Note from 04/19/24 reviewed. - Stable on Jakafi (Ruxolitinib) started June 28, 2014 - CAT scan of abdomen performed on 06/01/16. -he has difficulty maintain weight due to his chronic illness , Rx Boost for nutrition supplementation Assessment & Plan (04/03/2025 10:42 AM EDT): - Followed by Dr. Flanagan, Local Area Network Systems Adminstrator.Note from 04/19/24 reviewed. - Stable on Jakafi (Ruxolitinib) started June 28, 2014 - CAT scan of abdomen performed on 06/01/16. -he has difficulty maintain weight due to his chronic illness , Rx Boost for nutrition supplementation Assessment & Plan (07/08/2023 9:01 AM EDT): - Followed by Dr. Flanagan, Local Area Network Systems Adminstrator. - Stable on Jakafi (Ruxolitinib) started June [...] thrombus. -Followed by Dr. Greg Galaviz of [facility], we called 07/08/23 and they [...] that involve head trauma. 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 Assessment & Plan [...] Description 07/15/2025 11:30 AM EDT Office Visit [facility] [address] [place] [address] Siobhan Vanessa MD Dementia without behavioral disturbance, psychotic disturbance, mood disturbance, or anxiety, unspecified dementia severity, unspecified dementia type (CMS/HCC) (Primary Dx); Dyslipidemia; Benign essential hypertension; Iron deficiency anemia, unspecified iron deficiency anemia type; Transaminitis; Myelofibrosis (CMS/HCC); Myeloproliferative disorder (CMS/HCC); Tubular adenoma; Injury of tendon of biceps 07/15/2025 Travel 07/12/2025 Telephone [facility] [address] [place] [address] Siobhan Vanessa MD CHART PREP 06/20/2025 Orders Only [facility] [address] [place] [address] Siobhan Vanessa MD Acute pain of right shoulder (Primary Dx) 06/20/2025 Telephone [facility] [address] [place] [phone] Siobhan Vanessa MD Appointment Request 06/20/2025 Travel 06/19/2025 Telephone [facility] [address] [facility] [place] [phone] Siobhan Vanessa MD Appointment Request 06/19/2025 Telephone [facility] [address] [facility] [place] [address] Siobhan Vanessa MD Referral 05/06/2025 Telephone [facility] [address] [place], [place] [phone] Siobhan Vanessa MD Medication Question from Last [...] 8:46 AM EDT) Triglycerides 55 <150 mg/dL [facility] Comment:Desirable Triglyceri de: less than 150 mg/dLBorderline High Triglyceride 150-199 mg/dLHigh Triglyceride: 200-499 mg/dLVery High Triglyceride: greater than or equal to 5OO mg/dL Cholesterol 78 <200 mg/dL [facility] Comment:Desirable Cholestero l: less than 200 mg/dLBorderline High Cholesterol: 200-239 mg/dLHigh Cholesterol: greater than 239 mg/dL LDL Cholesterol Calculated 39 <100 mg/dL [facility] Comment:Desirable LDL: less than 100 mg/dLNear Optimal/Above Optimal LDL: 110- 129 mg/dLBorderline High LDL: 130-159 mg/dLHigh LDL: 160-189 mg/dLVery High LDL: greater than or equal to 190 mg/dL HDL Cholesterol 28(L) >40 mg/dL [facility] Comment:Desirable HDL: great er than 40 mg/dL Note: This HDL assay may give artificially low results in patients with liver disease. Blood Venous blood specimen / Unknown 01/26/2024 8:46 AM EDT 01/26/2024 11:17 AM EDT us Siobhan Vanessa MD LAB BLOOD ORDERABLES Final Result [facility] [address] [place], [place] [phone] * Hepatitis C Ab (07/12/2023 8:31 AM EDT) Hepatitis C Antibody Nonreactive Nonreactive [facility] Comment:Antibodies to HCV no t detected; does not exclude early acuteHCV infection. Blood 07/12/2023 8:31 AM EDT 07/12/2023 11:10 AM EDT Siobhan Vanessa MD LAB BLOOD ORDERABLES Final Result [facility] [address] [place] [address] [phone] * Colonoscopy (06/23/2018) Colonoscopy tubular adenoma with Dr. Hartley Historical Provider HEALTH MAINTENANCE Final Result from Last 3 Months or Most Recently Relevant to Health Maintenance Insurance Advance Directives Documents on File Type Date Recorded Patient Squilgeer Expl anation Advance Directives and Livin g Will 01/25/2024 Health Care Proxy Care Teams Student Worker Relationship Specialty Start Date End Date Siobhan Vanessa MD [address] [place] [address] PCP - General Family Medicine 01/04/12 [facility] [address] [place] [address] Cardiology 03/28/25 Pepper Flanagan MD [address] [place] [address] Hematology and Oncology 04/03/25 Harshal Hartley MD [address] [facility] [address] [place] [address] General Surgery 04/03/25 Nancy Lyles NP [address] [place] [address] Urology 04/03/25 [facility] [place], [facility] [address] [place] [address] Orthopaedic Surgery 04/24/25
--- OUTSIDE RECORDS SUMMARY | 2025-07-16 09:57 | XMS_ITS | Encounter Summary ---
Author Organization [employer] Address [address] [facility] 7t [place] [address] Care Team Providers Care Level Vial Inside Grinder Name Role Phone Siobhan Vanessa MD Primary Care Provider [phone] [place] Unavailable Pepper Flanagan MD Unavailable [phone] Harshal Hartley MD Unavailable Nancy Lyles NP Unavailable Reason for Visit * Reason Onset Date Comments Med Refill 09/29/2023 Encounter Details Date Type Department Care Team (Late st Contact Info) Description 09/29/2023 Telephone [facility] [address] [place] [address] Siobhan Vanessa MD [address] [place] [address] Med Refill Social History Tobacco [...] MG chemo tablet to be sent to [facility] [place], [place] - [address] [facility] [...] documented as of this encounter Care Teams Level Vial Inside Grinder Relationship Specialty Start Date End Date Bentley Vanessaie, MD [address] [place] [address] PCP - General Family Medicine 01/04/12 [place] [address]rd [place] [address] Cardiology 03/28/25 Pepper Flanagan MD [address] [place] [address] Hematology and Oncology 04/03/25 Harshal Hartley MD [address] [place] [address] General Surgery 04/03/25 Nancy Lyles NP [address] [place] [address] Urology 04/03/25 [facility] [place], [address] [address] Orthopaedic Surgery 04/24/25 documented as of this encounter
--- OUTSIDE RECORDS SUMMARY | 2025-07-16 09:57 | XMS_ITS | Encounter Summary ---
Author Organization [employer] Address [address] 7t [place] [address] Care Team Providers Care Fluoroscope Operator Name Role Phone Siobhan Vanessa MD Primary Care Provider [phone] [place] Unavailable Pepper Flanagan MD Unavailable [phone] Harshal Hartley MD Unavailable Nancy Lyles NP Unavailable Reason for Visit * Reason Onset Date Comments CHART PREP 07/12/2025 Encounter Details Date Type Department Care Team (Late st Contact Info) Description 07/12/2025 Telephone [facility] [address] [place] [address] Siobhan Vanessa MD [address] [place], [place] [phone] CHART PREP Social History Tobacco Use Types [...] documented as of this encounter Care Teams Fluoroscope Operator Relationship Specialty Start Date End Date Siobhan Vanessa MD [address] [place] [address] PCP - General Family Medicine 01/04/12 [place] [address] [place] [address] Cardiology 03/28/25 Pepper Flanagan MD [address] [place] [address] Hematology and Oncology 04/03/25 Harshal Hartley MD [address] [address] General Surgery 04/03/25 Nancy Lyles NP [address] [place] [address] Urology 04/03/25 [facility] [place], [facility] [address] [place] [address] Orthopaedic Surgery 04/24/25 documented as of this encounter
--- OUTSIDE RECORDS SUMMARY | 2025-07-16 09:57 | XMS_ITS | Encounter Summary ---
Author Organization [employer] Address [address] [facility] 7t [place] [address] Care Team Providers Care Dye And Chemical Coordinator Name Role Phone Siobhan Vanessa MD Primary Care Provider [phone] [place] Unavailable Pepper Flanagan MD Unavailable [phone] Harshal Hartley MD Unavailable Nancy Lyles NP Unavailable Encounter Details Date Type Department Care Team (Late st Contact Info) Description 12/27/2022 Abstract [facility] [address] [place], [place] [phone] Siobhan Vanessa MD [address] [place], [place] [phone] Social History Tobacco Use Types Packs/Day Years [...] on filedocumented in this encounter Care Teams Dye And Chemical Coordinator Relationship Specialty Start Date End Date Siobhan Vanessa MD [address] [place] [address] PCP - General Family Medicine 01/04/12 [place] [address] [facility] [address] [place] [address] Cardiology 03/28/25 Pepper Flanagan MD [address] [place] [address] Hematology and Oncology 04/03/25 Harshal Hartley MD [address] [address] General Surgery 04/03/25 Nancy Lyles NP [address] [place] [address] Urology 04/03/25 [facility] [place], [address] [phone] Orthopaedic Surgery 04/24/25 documented as of this encounter
--- OUTSIDE RECORDS SUMMARY | 2025-07-16 09:57 | XMS_ITS | Clinical Summary ---
Author Organization [facility] Address [address] [place] [address] Care Team Providers Care Hand Nailer Name Role Phone Unavailable Primary Care Provider [...] (adult) (1 - 1-dose 75+ series) 2025 [id number] (2 - season) 2025 023 Imm-Influenza (#1) [...] Most Recently Relevant to Health Maintenance Insurance [facility] Member Subscriber Plan / Payer (Ef fective 2022-Present) Name:Mervin Boyle Relation to Subscriber:Self Name:Mervin Boyle Payer ID:[id number] (NAIC) Group ID:Not on file Type:Indemnity Address: [place] [id number]
--- OUTSIDE RECORDS SUMMARY | 2025-07-16 09:57 | XMS_ITS ---
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 Other problems related to pr dical facilities and other health care Active [...] abscess. Sent to 4 facilities, ultimately at [facility] where I and D was done. Hospital [...] He is in the process of obtaining APPARATUS ENGINEERING TECHNOLOGIST hours (number provided for follow up)01/17/24: MMSE2 scored 10/30 points07/19/24Sister/CG reports he is doing well enough, is in good spirits, enjoys going fishing and they have gone 2 or 3 times recently.confirms DX of dementia. No on meds currently. Able to answer questions appropriately. Reports as being forgetful.. MyelofibrosisImmunodeficiency Active 0 N/A Follows up with Flute Grinder, Oncologist and PCP regularly. Flute Grinder every 6 months. Has appt this week.Oncologist [...] (do not use for phone, instead use [id number]) [facility] ([place] MyelofibrosisImmunodeficienc y, unspecifiedPersonal history of other venous thrombosis and embolismLong term (current) use of anticoagulantsPrsnl hx of TIA (TIA), and cereb infrc w/o resid deficitsEssential (primary) hypertension New patient,40-59min; chronic exacerbation, 2 stable chronic or 1 acute illness add add modifier 95 for video (do not use for phone, instead use 05629-48) [facility] New patient,40-59min; chronic exacerbation, 2 stable chronic or 1 acute illness add add modifier 95 for video (do not use for phone, instead use 46249-78) [facility] New patient,40-59min; chronic exacerbation, 2 stable chronic or 1 acute illness add add modifier 95 for video (do not use for phone, instead use 83125-51) [facility] New patient,40-59min; chronic exacerbation, 2 stable chronic or 1 acute illness add add modifier 95 for video (do not use for phone, instead use 51644-36) [facility] New patient,40-59min; chronic exacerbation, 2 stable chronic or 1 acute illness add add modifier 95 for video (do not use for phone, instead use 69036-62) [facility] New patient,40-59min; chronic exacerbation, 2 stable chronic or 1 acute illness add add modifier 95 for video (do not use for phone, instead use 61518-57) [facility] New patient,40-59min; chronic exacerbation, 2 stable chronic or 1 acute illness add add modifier 95 for video (do not use for phone, instead use 33709-91) [facility] New patient,40-59min; chronic exacerbation, 2 stable chronic or 1 acute illness add add modifier 95 for video (do not use for phone, instead use 15813-43) [facility] New patient,40-59min; chronic exacerbation, 2 stable chronic or 1 acute illness add add modifier 95 for video (do not use for phone, instead use 26953-43) [facility]2023 Unlisted special service; to be used for medical record reviews and reporting CPTII codes (1111F, etc) [facility] [place]/2023 Other specified counseling Unlisted special service; to be used for medical record reviews and reporting CPTII codes (1111F, etc) [facility] [place]23 Unlisted special service; to be used for medical record reviews and reporting CPTII codes (1111F, etc) [facility] [place] Estab. patient 30-39min; chronic exacerbation, 2 stable chronic or 1 acute illness add add modifier 95 for video, (do not use for phone, instead use 32923-73) [facility] 03[place] MyelofibrosisImmunodeficienc y, unspecifiedOther problems related to [...] (do not use for phone, instead use 33881-68) [facility] ([place] Estab. patient 30-39min; chronic exacerbation, 2 stable chronic or 1 acute illness add add modifier 95 for video, (do not use for phone, instead use 28337-54) [facility] Estab. patient 30-39min; chronic exacerbation, 2 stable chronic or 1 acute illness add add modifier 95 for video, (do not use for phone, instead use 41698-33) [facility] Estab. patient 30-39min; chronic exacerbation, 2 stable chronic or 1 acute illness add add modifier 95 for video, (do not use for phone, instead use 65969-18) [facility] Estab. patient 30-39min; chronic exacerbation, 2 stable chronic or 1 acute illness add add modifier 95 for video, (do not use for phone, instead use 47414-91) [facility] Estab. patient 30-39min; chronic exacerbation, 2 stable chronic or 1 acute illness add add modifier 95 for video, (do not use for phone, instead use 71811-57) [facility] Estab. patient 30-39min; chronic exacerbation, 2 stable chronic or 1 acute illness add add modifier 95 for video, (do not use for phone, instead use 39083-97) [facility] Estab. patient 30-39min; chronic exacerbation, 2 stable chronic or 1 acute illness add add modifier 95 for video, (do not use for phone, instead use 78574-57) [facility] Estab. patient 30-39min; chronic exacerbation, 2 stable chronic or 1 acute illness add add modifier 95 for video, (do not use for phone, instead use 86401-86) [facility] 03/28/[place] No Data Available [facility], [facility]) 07/19/2024 Unspecified dementia without behavioral disturbanceMyelofibrosisOther problems related to medical facilities and other health careImmunodeficiency, unspecified No Data Available [facility] Estab. patient 10-29min; 1 minor problem; add add modifier 95 for video, modifier 93 for phone [facility] 07[place]/2025 MyelofibrosisImmunodeficienc y, unspecifiedUnspecified dementia without behavioral disturbancePersonal history of other venous thrombosis and embolismLong term (current) use of anticoagulantsPrsnl hx of TIA (TIA), and cereb infrc w/o resid deficitsEssential (primary) hypertensionHyperlipidemia, unspecifiedPain in arm, unspecified Estab. patient 10-29min; 1 minor problem; add add modifier 95 for video, modifier 93 for phone [facility]/20[place] Estab. patient 10-29min; 1 minor problem; add add modifier 95 for video, modifier 93 for [facility], [place] 07/11/20[place] Estab. patient 10-29min; 1 minor problem; add add modifier 95 for video, modifier 93 for [facility], [facility]) 07/11/2025 Estab. patient 10-29min; 1 minor problem; add add modifier 95 for video, modifier 93 for [facility], [facility]) 07/11/2025 Estab. patient 10-29min; 1 minor problem; add add modifier 95 for video, modifier 93 for [facility] 07/11/2025 Estab. patient 10-29min; 1 minor problem; add add modifier 95 for video, modifier 93 for [facility] 07/11/2025 Vital Signs Date of Collection Vitals [...] Time Current Smoking Status Never smoker 2025-07-01 6 Sex Male Gender identity Man History of Procedures Procedures Service Procedure code Service date Servicing provider Phone# New patient,40-59min; chronic exacerbation, 2 stable chronic or 1 acute illness add add modifier 95 for video (do not use for phone, instead use 26656-88) [id number] 2023-04-19 No Data Available No Data Availa [...] reviews and reporting CPTII codes (1111F, etc) 73591 2023-08-08 No Data Available No Data Availa ble SBP < 130 (3074F) 3074F 2023-08-08 No Data Available No Data Available DBP <80 (3078F) 3078F 2023-08-08 No Data Available No Data Available Estab. patient 30-39min; chronic exacerbation, 2 stable chronic or 1 acute illness add add modifier 95 for video, (do not use for phone, instead use 23082-50) 45119 2024-03-28 No Data Available No Data Availa [...] No Data Avail able No Data Available [id number] 2024-07-19 No Data Available No Data Available Medication List Documented (1159F) 1159F 2024-07-19 No Data Available No Data Mabel ilable Estab. patient 10-29min; 1 minor problem; add add modifier 95 for video, modifier 93 for phone 75048 2025-07-11 No Data Available No Data Availa [...] 08:55:27 MyelofibrosisImmunod eficiencyHistory of DVT (deep vein thrombosis)skilled nursing current use of anticoagulantHistory of CVA (cerebrovascular accident)Hypertension 2024-03-28 11:15:09 MyelofibrosisImmunod eficiencyOther problems related to medical facilities and other health careHistory of DVT (deep vein thrombosis)predatory animal exterminator current use of anticoagulantHistory of CVA (cerebrovascular [...] unspecified dementia typeHistory of DVT (deep vein thrombosis)predatory animal exterminator current use of anticoagulantHistory of CVA (cerebrovascular [...] education needs that may arise.Follows up with Flute Grinder, Oncologist and PCP regularly. Flute Grinder every 6 months. Has appt this week.Oncologist every 6 month. Next appt this week. 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 Flute Grinder every 6 months. Has appt this week.Oncologist every 6 month. Next appt this week. Taking:Jakafi 20 mg Tab QDImmunodeficiency due to: weakened immune system, encourage hand washing, avoid large crowds, stay up to date on vaccines (annual flu), monitor for and report early any s/s of infectionDenies any acute complaints.Advised to follow up as scheduled.Contact [facility] 24 as needed.When member to call: [...] x3 days/ Trazodone 50mg at bedtimeHistory of DVT.predatory animal exterminator current use of anticoagulants with INR goal [...] He is in the process of obtaining APPARATUS ENGINEERING TECHNOLOGIST hours (number provided for follow up)01/17/24: MMSE2 scored 10/30 pointsMedical Records requested, approx 01/18/24 'Pt presented with submandibular abscess. Sent to 4 facilities, ultimately at [facility] where I and D was done. Hospital [...] He is in the process of obtaining APPARATUS ENGINEERING TECHNOLOGIST hours (number provided for follow up)01/17/24: MMSE2 scored 10/30 points07/19/24Sister/CG reports he is doing well enough, is in good spirits, enjoys going fishing and they have gone 2 or 3 times recently.Follows up with Flute Grinder, Oncologist and PCP regularly. Flute Grinder every 6 months. Has appt this week.Oncologist [...] heat and muscle rubs.PAIN CONTINGENCY PLANLast updated: 07/11/2025[facility] the [facility]: Decreased mobility/ Fall / Increased painPlanned intervention: Tylenol 1,000mg q6h/ Voltaren gel to affected area/ Apply heat to affected area/ Apply ice to affected area Goals Date Goal 2023-04-19 Remember to keep all appointments with your PCP and specialists. Call CB 23/05 if you have questions or concerns. Discussed how to contact [facility] via phone or tablet. Health Concerns Date [...] Assessmen t<.>functional FastKey here 2025-07-11 REMINDERS (DELETE IL IOR TO SIGNING NOTE):Update demographicsAdd PCP to patient's provider listAdd pharmacyAdd pain score, weight, height, and BP in vitals. Report location where vitals were obtained if not patient reported.[place] current medications and all active diagnoses to this noteRecord PHQ2 or PHQ9 and export to noteAsk about influenza, COVID, pneumococcal, and RSV Vaccines
[2025-07-16 11:42] LABS: Hematocrit 38.0 % (42.0-52.0); Hemoglobin 10.8 g/dl (14.0-18.0); Mean Corpuscular HGB Conc 28.4 g/dl (31.0-36.0); Mean Corpuscular Hemoglobin 22.6 pg (27.0-33.0); Mean Corpuscular Volume 79.7 fL (80.0-98.0); NRBC Abs Auto 0.290 X10*3/uL (0.0-0.012); PLT CLUMP 1; Red Blood Count 4.77 X10*6/uL (4.60-5.80)
[2025-07-16 11:59] LABS: NRBC Pct Auto 1.9 /100WBC (0.0-0.2)
[2025-07-16 12:25] LABS: Alanine Aminotransferase 37 U/L (0-40); Albumin Level 4.0 g/dL (3.5-5.0); Alkaline Phosphatase 77 U/L (39-117); Anion Gap 8 (12-20); Aspartate Amino Transferase 38 U/L (5-37); Blood Urea Nitrogen 10 mg/dL (9-16); Calcium 8.8 mg/dL (8.4-10.2); Carbon Dioxide 28 mmol/L (22-29); Chloride 109 mmol/L (96-108); Estimated Glomerular Filt Rate > 60; Potassium 3.8 mmol/L (3.3-5.1); Sodium 141 mmol/L (135-145); Total Protein 6.4 g/dL (6.5-8.0)
[2025-07-16 12:26] LABS: Band Neutrophils Percent 8 % (3-5); Basophils Percent Manual 5 % (0-2); Blast Percent 2 %; Eosinophils Percent Manual 1 % (0-4); Lymphocytes Percent Manual 9 % (20-40); Metamyelocytes Percent 8 %; Microcytosis 1+ (5-14) /OIF; Monocytes Percent Manual 15 % (2-11); Myelocytes Percent 7 %; Neutrophils Percent Manual 43 % (45-73); Promyelocytes Percent 2 %; RBC Morphology NOTED
[2025-07-16 12:28] LABS: Acanthocytes 1+ (0-2) /OIF; Alanine Aminotransferase 37 U/L (0-40); Albumin Level 3.9 g/dL (3.5-5.0); Alkaline Phosphatase 77 U/L (39-117); Anion Gap 10 (12-20); Aspartate Amino Transferase 38 U/L (5-37); Blood Urea Nitrogen 10 mg/dL (9-16); Calcium 8.7 mg/dL (8.4-10.2); Carbon Dioxide 27 mmol/L (22-29); Chloride 109 mmol/L (96-108); Cholesterol 84 mg/dL (<200); Estimated Glomerular Filt Rate > 60; HDL Cholesterol 28 mg/dL (>40); Large Platelet PRESENT; Ovalocytes 1+ (5-14) /OIF; Potassium 3.9 mmol/L (3.3-5.1); Sodium 142 mmol/L (135-145); Tear Drop Cells 3+ (>5) /OIF; Total Protein 6.3 g/dL (6.5-8.0); Triglycerides 66 mg/dL (<150)
[2025-07-16 12:29] LABS: Polychromasia 1+ (0-2) /OIF
[2025-07-16 12:30] LABS: ~HepC Num1 0.06 S/CO (0.00-0.79); ~Hepatitis C Antibody Nonreactive (Nonreactive)
[2025-07-16 12:31] LABS: Basophils Abs Manual 0.8 X10*3/uL (0.0-0.2); Blastocytes Absolute 0.3 X10*3/uL; Eosinophils Absolute Manual 0.2 X10*3/uL (0.0-0.4); Lymphocytes Absolute Manual 1.4 X10*3/uL (1.2-4.9); Metamyelocytes Absolute 1.2 X10*3/uL; Monocytes Absolute Manual 2.3 X10*3/uL (0.1-1.2); Myelocytes Absolute 1.1 X10*/uL; Neutrophils Absolute Manual 7.8 X10*3/uL (2.0-8.3); Platelet Count 74 X10*3/uL (160-400); Promyelocytes Absolute 0.3 X10*3/uL; Toxic Vacuolation PRESENT; White Blood Count 15.3 X10*3/uL (4.8-10.8)
[2025-07-16 13:11] LABS: Microalbum/Creatinine Ratio Ur 6.7 ug/mg cr (<30)
== END 2025-07-16 08:26 | disposition home or self-care (01) ==
LOC: HO.HHCL 08:25
PROVIDERS: PCP Family Medicine; Referring Provider Internal Medicine Medical Oncology; Visit Provider Nurse Practitioner Family
DX: D50.9 Iron deficiency anemia, unspecified (principal); I10 Essential (primary) hypertension; I51.3 Intracardiac thrombosis, not elsewhere classified; D75.81 Myelofibrosis; E78.5 Hyperlipidemia, unspecified
CPT/HCPCS: 36415; 80053; 80061; 80076; 82043; 82248; 82570; 83615; 85007; 85025; 85027; 86803

== ENCOUNTER 2025-09-09 14:33 | Outpatient (AMB) | payer MEDICARE, SELFPAY ==
--- NOTE | 2025-09-09 14:59 | MHC.OFFVIS ---
Vital Signs 09/09/25 15:07 Height 5 ft 5 in Weight 169 lb BMI 28.1 BP 131/61 Blood Pressure Location Lt brachial Position Sitting Pulse 69 Intake Visit Reasons: Colonoscopy screening Intake Note: This patient presents for recall colonoscopy screening. Pt c/o; last colonoscopy 08/01/2023, reports no rectal bleeding or pain, reports left inguinal hernia, bulge, discomfort, reports he was evaluated at [facility] in [place], [place] on 08/26/2025 and was referred to [facility] General Surgery for further evaluation. Kidney Puller Required: Yes Kidney Puller Language: Administrative Support Assoc Services: Kidney Puller Present Kidney Puller Name: Ihsan Information Interpreted: non-clinical & clinical Accompanied by: Family/Other Allergies No Known Allergies Allergy (Verified 09/09/25 15:09) HPI HPI Colonoscopy screening: Details: 75-year-old male referred for colonoscopy for screening and for a left inguinal hernia. Review of his records show that his last colonoscopy was in 2018 and he had a small polyp removed with a time. I had seen him in 2022 and told him that he was not be due for a colonoscopy then. He denies GI complaints. He denies blood per rectum. Says he feels well overall. He however says that he had been to the urgent care center recently because of a lump on his left groin. He was told he had had a left inguinal hernia. He says that this has been uncomfortable for him. He has noticed this for a few months. He has been on anticoagulation because of a left ventricular thrombus in the past. 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 HLD (hyperlipidemia) HTN (hypertension) Ischemic cardiomyopathy History of CVA (cerebrovascular accident) Myelofibrosis Coronary artery disease Surgical History History of appendectomy Family History Mother History of cancer of unknown primary site Social History Household Members: Family Alcohol intake: former Patient Tobacco Use Status: Never used Tobacco service: No Review of Systems Const Denies chills and Denies fever(s) Card Denies chest pain, Denies dyspnea and Denies dyspnea on exertion Resp Denies cough, Denies dyspnea and Denies dyspnea on exertion GI Denies hematochezia and Denies change in bowel habits Denies hematuria and Denies difficulty urinating Musc Denies back pain and Denies limited range of motion Neuro Denies focal weakness and Denies convulsions Psych Denies depression and Denies mood swings Physical Exam Vital Signs: Last Vital Signs Pulse 69 09/09/25 15:07 BP 131/61 09/09/25 15:07 BMI result Body Mass Index 28.1 Const General: comfortable and no acute distress Orientation/consciousness: patient oriented x3 Neck Neck: Yes no lymphadenopathy Resp Auscultation: clear to auscultation bilaterally Cardio Rhythm: regular rhythm GI Other: Left inguinal hernia, reducible Palpation (GI): Soft to palpation, nontender, no guarding and Splenomegaly present Neuro General: patient oriented x3 Assessment & Plan Assessment & Plan (1) Colon cancer screening: Code(s): Z12.11 - Encounter for screening for malignant neoplasm of colon Category: Medical Plan: I explained to the technique of colonoscopy. He says he understands the risks including but not limited to bleeding and perforation, as well as the benefits and alternatives. He says he wants to proceed. He however wants to do the left inguinal hernia 1st before proceeding with a colonoscopy as the hernia has been bothering him. (2) Left inguinal hernia: Code(s): K40.90 - Unilateral inguinal hernia, without obstruction or gangrene, not specified as recurrent Category: Medical Plan: He has this reducible left inguinal hernia. I explained the technique of repair with mesh. I reviewed the risks including but not limited to bleeding, infections, injury to other organs, recurrence, postop pain, as well as the benefits and alternatives. I explained to him what to expect postoperatively. He understands and wants to proceed as he says that this has been bothering him. (3) Splenomegaly: Code(s): R16.1 - Splenomegaly, not elsewhere classified Category: Medical Plan: Physical exam currently shows he has splenomegaly. He does not seem to be aware of this. I am going to send her for a CAT scan and he may need to have workup for this splenomegaly before proceeding with surgery. Orders: Orders CT abdomen pelvis wo IV con 09/09/25 R16.1 - Splenomegaly, not elsewhere classified Coding Level of Care Code New Pt Level 4 (66980) Diagnoses Colon cancer screening Z12.11 Left inguinal hernia K40.90 Splenomegaly R16.1
[2025-09-09 15:07] VITALS: BP 131/61; PULSE 69; BMI 28.1
--- OUTSIDE RECORDS SUMMARY | 2025-09-09 16:52 | XMS_ITS | Encounter Summary ---
Author Organization [employer] Address [address] [place] [address] Care Team Providers Care Catheter Finisher And Inspector Name Role Phone Siobhan Vanessa MD Primary Care Provider [phone] [place] Unavailable Pepper Flanagan MD Unavailable [phone] Harshal Hartley MD Unavailable Nancy Lyles NP Unavailable Reason for Visit * Reason Onset Date Comments Med Refill 2024 Encounter Details Date Type Department Care Team (Late st Contact Info) Description 2024 Telephone [facility] [address] [place] [address] Siobhan Vanessa MD [address] [place] [address] Med Refill Social History Tobacco [...] started during hospitalization in December, prescribed by [facility] for HFrEF. Patient has been taking since discharge * Telephone Encounter - Roxy Gayle LPN - 2024 2:21 PM EDT Please review request.Medication was discontinued on 01/25/24 * Telephone Encounter - Yain Spears - 2024 2:07 PM EDT TC [...] documented as of this encounter Care Teams Catheter Finisher And Inspector Relationship Specialty Start Date End Date Siobhan Vanessa MD [address] [place] [address] PCP - General Family Medicine 01/04/12 [place] [address] [place] [address] [address] [place] [address] Cardiology 03/28/25 Pepper Flanagan MD [address] [place] [address] Hematology and Oncology 04/03/25 Harshal Hartley MD [address] [place] [address] [address] [place] [address] General Surgery 04/03/25 Nancy Lyles NP [address] [place] [address] Urology 04/03/25 [facility] [place], [facility] [address] [place] [address] Orthopaedic Surgery 04/24/25 documented as of this encounter
--- OUTSIDE RECORDS SUMMARY | 2025-09-09 16:52 | XMS_ITS | Encounter Summary ---
Author Organization [employer] Address [address] [place] [address] Care Team Providers Care Metal Pourer Name Role Phone Siobhan Vanessa MD Primary Care Provider [phone] [place] Unavailable Pepper Flanagan MD Unavailable [phone] Harshal Hartley MD Unavailable Nancy Lyles NP Unavailable Reason for Visit * Reason Onset Date Comments Coagulation Disorder 02/22/2023 Encounter Details Date Type Department Care Team (Late st Contact Info) Description 02/22/2023 Telephone [facility] [address] [place], [place] [phone] Siobhan Vanessa MD [address] [place], [place] [phone] Coagulation Disorder Social History Tobacco Use Types [...] a mutual Pt. Please contact rosie at [phone] documented in this encounter Plan of Treatment Not on file documented as of this encounter Visit Diagnoses Not on filedocumented in this encounter Care Teams Metal Pourer Relationship Specialty Start Date End Date Siobhan Vanessa MD [address] [place] [address] PCP - General Family Medicine 01/04/12 [place] [address] [facility] [address] [place] [address] Cardiology 03/28/25 Pepper Flanagan MD [address] [place] [address] Hematology and Oncology 04/03/25 Harshal Hartley MD [address] [address] General Surgery 04/03/25 Nancy Lyles NP [address] [place] [address] Urology 04/03/25 [facility]opedic [place], [facility] [address] [place] [address] Orthopaedic Surgery 04/24/25 documented as of this encounter
--- OUTSIDE RECORDS SUMMARY | 2025-09-09 16:52 | XMS_ITS | Clinical Summary ---
Author Organization [employer] Address [address] [place] [address] Care Team Providers Care Nail Tech Name Role Phone Siobhan Vanessa MD Primary Care Provider [phone] [place] Unavailable Pepper Flanagan MD Unavailable [phone] Harshal Hartley MD Unavailable Nancy Lyles NP Unavailable Allergies No known active allergies Medications tamsulosin (Flomax) 0.4 MG 24 hr capsuleIndicati ons:Benign prostatic hyperplasia with lower urinary tract symptoms, symptom details unspecified Take 1 capsule (0.4 mg) by mouth in the morning. 90 capsule 3 02/01/20 24 Active Jakafi 20 MG chemo tabletIndicatio ns:Myeloprolife rative disorder (CMS/HCC) (HCC) 02/20/20 24 Active Stool Softener/Laxati ve 50-8.6 MG tabletIndicatio ns:Constipation , unspecified constipation type TAKE 2 TABLETS BY MOUTH EVERY DAY NEEDED FOR CONSTIPATION 180 tablet 3 08/14/20 24 Active Diclofenac Sodium 1 % gelIndications: Pain Apply 4 g topically if needed in the morning, at noon, in the evening, and at bedtime (pain). 100 g 04/03/20 25 Active metoprolol succinate XL (Toprol XL) 25 MG 24 hr tabletIndicatio ns:Benign essential hypertension Take 1 tablet (25 mg) by mouth Once per day. Do not crush or chew. 90 tablet 3 04/03/20 25 2025 Active spironolactone (Aldactone) 25 MG tabletIndicatio ns:Benign essential hypertension,Is chemic myocardial dysfunction Take 1 tablet (25 mg) by mouth Once per day. 30 tablet 11 04/03/20 25 2025 Active aspirin (Aspirin Low Dose) 81 MG EC tabletIndicatio ns:Coronary artery disease involving holy cross coronary artery of holy cross heart without angina pectoris TAKE 1 TABLET BY MOUTH EVERY MORNING 90 tablet 3 04/03/20 25 Active atorvastatin (Lipitor) 80 MG tabletIndicatio ns:Coronary artery stenosis TAKE 1 TABLET BY MOUTH AT BEDTIME 90 tablet 3 04/03/20 25 Active Eliquis 5 MG tabletIndicatio ns:Mural thrombus of left ventricle TAKE 1 TABLET BY MOUTH TWICE DAILY IN THE MORNING AND IN THE EVENING 180 tablet 3 08/20/20 25 Active apixaban (Eliquis) 5 MG tabletIndicatio ns:Mural thrombus of left ventricle TAKE 1 TABLET BY MOUTH TWICE DAILY IN THE MORNING AND IN THE EVENING 180 tablet 3 09/03/20 24 2024 Discontinued Active Problems Problem Noted Date Diagnosed Date Myelofibrosis (CMS/HCC) 07/15/2025 Assessment & Plan (07/15/2025 12:07 PM EDT): - Followed by Dr. Flanagan, Produce Sorter.Note from 04/19/24 reviewed. - Stable on Jakafi (Ruxolitinib) started June 28, 2014 - CAT scan of abdomen performed on 06/01/16. -he has difficulty maintain weight due to his chronic illness , Rx Boost for nutrition supplementation Injury of tendon of biceps 03/26/2025 Overview (07/15/2025): -Seen by [facility] [place], [facility] 04/16/25x ray revased superior humeral head migration, degenerative changes at the greater tuberosity with cystic changes. 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 Assessment & Plan (07/15/2025 12:07 PM EDT): -Seen by [facility] [place], [facility] 04/16/25x ray revased superior humeral head [...] in one month. Urinary retention 01/25/2024 Overview (07/18/2025): Quinones placed 01/21/24 in hospital [facility] for urinary retention. They recommend follow up 1 week urology. -Seen by urology 02/01/24 In office voiding trial performed however patient unable to independently void. - Bladder scan showed over 800mls, Quinones catheter reinserted, follow up in 1 month. - Finasteride added by Urology -seen by urology 05/22/24 Continue finasteride, terazosin, methenamine, and vitamin-C. -note from Cornelius agee 07/15/25 Assessment & Plan (02/03/2024 10:02 AM EDT): Quinones placed 01/21/24 in hospital at [facility] for urinary retention. They recommend follow up 1 week urology. -Seen by urology 02/01/24 In office voiding trial performed however patient unable to independently void. - Bladder scan showed over 800mls, Quinones catheter reinserted, follow up in 1 month. - Finasteride added by Urology Assessment & Plan (01/25/2024 12:27 PM EDT): Quinones placed 01/21/24 in hospital [facility] for urinary retention. They recommend follow up 1 week urology. -referral placed 01/25/24 Dementia ([facility] 01/17/2024 Overview (07/15/2025): Patients VNA from [facility] requested evaluation for worsening memory 01/2024. Family repots memory has been getting progressively worse. MOCA/mini mental exam done with RN . MMSE2 in [place]ian completed with pt. Pt states graduated high [...] unable to repeat a spoken sentence in sri [place]ank[place] and was also unable to write a sentence that was spoken to him. Was prompted to write Mi color favorito es... followed by his favorite color. He said, byrnes and then wrote Sool without the rest of the sentence. He was able to name a square but answered, lines for triangle and zero for [place]. Lastly he was able to copy a shape on paper. -Pt scored a 10 out of a possible 30 points. This is considered severe cognitive impairment and at an increased odds for dementia status. -referral to geriatrics memory clinic placed 02/22/24 -stable no behavior disturbance 07/15/25 Assessment & Plan (07/15/2025 12:07 PM EDT): Patients VNA from [facility] requested evaluation for worsening memory 01/2024. Family repots memory has been getting progressively worse. MOCA/mini mental exam done with RN . MMSE2 in [place]ian completed with pt. Pt states graduated high [...] unable to repeat a spoken sentence in [place] and was also unable to write a sentence that was spoken to him. Was prompted to write Mi color favorito es... followed by his favorite color. He said, byrnes and then wrote Sool without the rest of the sentence. He was able to name a square but answered, lines for triangle and zero for [place]. Lastly he was able to copy a shape on paper. -Pt scored a 10 out of a possible 30 points. This is considered severe cognitive impairment and at an increased odds for dementia status. -referral to geriatrics memory clinic placed 02/22/24 -stable no behavior disturbance 07/15/25 Assessment & Plan (04/03/2025 10:42 AM EDT): Patients VNA from [facility] requested evaluation for worsening memory 01/2024. Family repots memory has been getting progressively worse. MOCA/mini mental exam done with RN . MMSE2 in [place]ian completed with pt. Pt states graduated high [...] unable to repeat a spoken sentence in [place] and was also unable to write a sentence that was spoken to him. Was prompted to write Mi color favorito es... followed by his favorite color. He said, byrnes and then wrote Sool without the rest of the sentence. He was able to name a square but answered, lines for triangle and zero for [place]. Lastly he was able to copy a shape on paper. -Pt scored a 10 out of a possible 30 points. This is considered severe cognitive impairment and at an increased odds for dementia status. -referral to geriatrics memory clinic placed 02/22/24 Assessment & Plan (02/22/2024 9:18 AM EDT): Patients VNA from [facility] requested evaluation for worsening memory 01/2024. Family repots memory has been getting progressively worse. MOCA/mini mental exam done with RN . MMSE2 in [place]ian completed with pt. Pt states graduated high [...] unable to repeat a spoken sentence in [place] and was also unable to write a sentence that was spoken to him. Was prompted to write Mi color favorito es... followed by his favorite color. He said, byrnes and then wrote Sool without the rest of the sentence. He was able to name a square but answered, lines for triangle and zero for [place]. Lastly he was able to copy a [...] 9:39 AM EDT): He had 28 hours [employer]ATE[employer] PLANNING [employer]SULT[employer] serves but when he moved he was reevaluated by someone who did not speak Slovenian. Pt state he said yes to everything but did not know what was being asked and lost services. Number for [facility] given to sister 07/08/23 to call for evaluation. Has [facility] for INR draws as was not able to get to outside INR checks. 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 Changed to eliquis after eco showed resolution of thrombus at [facility] 12/2023. 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 Assessment & Plan (04/03/2025 10:42 AM EDT): - For left ventricular thrombus. Changed to eliquis after eco showed resolution of thrombus at [facility] 12/2023. 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 Assessment & Plan (01/25/2024 1:52 PM EDT): - For left ventricular thrombus. Changed to eliquis after eco showed resolution of thrombus at [facility] 12/2023. Assessment & Plan (07/08/2023 8:28 AM EDT): - For left ventricular thrombus. INR dosed by PCP. Other specified health status 07/06/2023 Overview (04/03/2025): -next comprehensive annual evaluation due after 04/03/26 -eye care facilitated by [facility] health care proxy on file 01/25/24 Assessment & Plan (04/03/2025 10:44 AM EDT): -next comprehensive annual evaluation due after 04/03/26 -eye care facilitated by [facility] health care proxy on file 01/25/24 Assessment & Plan (01/25/2024 1:53 PM EDT): -next physical exam due after 07/08/2024 -eye care facilitated by [facility] health care proxy on file 01/25/24 History of CVA (cerebrovascular accident) 2022 Overview (07/06/2023): He saw neurology during hospitalization Oct 2011who reviewed his neurological work up in [place] including carotid ultrasound that was unremarkable. Neurology recommended no further work up and continuing aspirin. - coninue ASA and atorvastatin 80qhs Assessment & Plan (04/03/2025 10:43 AM EDT): He saw neurology during hospitalization Oct 2011who reviewed his neurological work up in [place] including carotid ultrasound that was unremarkable. Neurology recommended no further work up and continuing aspirin. - coninue ASA and atorvastatin 80qhs Assessment & Plan (07/08/2023 8:29 AM EDT): He saw neurology during hospitalization Oct 2011who reviewed his neurological work up in [place] including carotid ultrasound that was unremarkable. Neurology recommended no further work up and continuing aspirin. - coninue ASA and atorvastatin 80qhs Coronary artery stenosis 12/26/2021 Overview (03/28/2025): Admitted to [facility] in March of 2020 due to cardiac [...] qd. -Continue ASA and Eliquis changed in [facility] 12/2023 due to thrombus resolved on echo and required transfusion for bleeding tooth abscess -Followed by Dr. Greg Galaviz of [facility], we called 07/08/23 and they repot he missed last appointment. -echo in [facility] 12/2023 showed mildly reduced ejection fraction of 45% and was initiated on metoprolol as part of GDMT. -seen by [place] 02/2025 continue Eliquis Assessment & Plan (04/03/2025 10:43 AM EDT): Admitted to [facility] in March of 2020 due to cardiac [...] qd. -Continue ASA and Eliquis changed in [facility] 12/2023 due to thrombus resolved on echo and required transfusion for bleeding tooth abscess -Followed by Dr. Greg Galaviz of [facility], we called 07/08/23 and they repot he missed last appointment. -echo in [facility] 12/2023 showed mildly reduced ejection fraction of 45% and was initiated on metoprolol as part of GDMT. -seen by [place] 02/2025 continue Eliquis Assessment & Plan (07/08/2023 9:33 AM EDT): Admitted to [facility] in March of 2020 due to cardiac [...] thrombus) -Followed by Dr. Greg Galaviz of [facility], we called 07/08/23 and they [...] years. History of appendectomy 01/17/2013 Myeloproliferative disorder (CMS/HCC) 01/17/2013 Overview (04/26/2024): - Followed by Dr. Flanagan, Produce Sorter.Note from 04/19/24 reviewed. - Stable on Jakafi (Ruxolitinib) started June 28, 2014 - CAT scan of abdomen performed on 06/01/16. -he has difficulty maintain weight due to his chronic illness , Rx Boost for nutrition supplementation Assessment & Plan (07/15/2025 12:07 PM EDT): - Followed by Dr. Flanagan, Produce Sorter.Note from 04/19/24 reviewed. - Stable on Jakafi (Ruxolitinib) started June 28, 2014 - CAT scan of abdomen performed on 06/01/16. -he has difficulty maintain weight due to his chronic illness , Rx Boost for nutrition supplementation Assessment & Plan (04/03/2025 10:42 AM EDT): - Followed by Dr. Flanagan, Produce Sorter.Note from 04/19/24 reviewed. - Stable on Jakafi (Ruxolitinib) started June 28, 2014 - CAT scan of abdomen performed on 06/01/16. -he has difficulty maintain weight due to his chronic illness , Rx Boost for nutrition supplementation Assessment & Plan (07/08/2023 9:01 AM EDT): - Followed by Dr. Flanagan, Produce Sorter. - Stable on Jakafi (Ruxolitinib) started June 28, 2014 - CAT scan of abdomen performed on 06/01/16. - he has difficulty maintain weight due to his chronic illness , Rx Boost for nutrition supplementation Resolved Problems Problem Noted Date Diagnosed Date Resolved Date Preop examination 01/25/2025 04/03/2025 CVA (cerebral vascular accident) (CMS/HCC) 01/17/2024 01/25/2024 Submandibular abscess 01/17/20242023 Overview (01/25/2024): [...] thrombus. -Followed by Dr. Greg Galaviz of [facility], we called 07/08/23 and they [...] that involve head trauma. He and his STRATEGIC PLANNING CONSULTANT agree with the plan. Assessment & Plan [...] Encounters Date Type Department Care Team Description 08/18/2025 Refill [facility] [place] [address] Siobhan Vanessa MD Mural thrombus of left ventricle 07/16/2025 Orders Only [facility] [place] [address] Siobhan Vanessa MD 07/15/2025 11:30 AM EDT Office Visit [facility] [place] [address] Siobhan Vanessa MD Dementia without behavioral disturbance, psychotic disturbance, mood disturbance, or anxiety, unspecified dementia severity, unspecified dementia type (CMS/HCC) (Primary Dx); Dyslipidemia; Benign essential hypertension; Iron deficiency anemia, unspecified iron deficiency anemia type; Transaminitis; Myelofibrosis (CMS/HCC); Myeloproliferative disorder (CMS/HCC); Tubular adenoma; Injury of tendon of biceps 07/15/2025 Travel 07/12/2025 Telephone [facility] [address] [place] [address] Siobhan Vanessa MD CHART PREP 06/20/2025 Orders Only [facility] [address] [place] [address] Siobhan Vanessa MD Acute pain of right shoulder (Primary Dx) 06/20/2025 Telephone [facility] [address] [place] [address] Siobhan Vanessa MD Appointment Request 06/20/2025 Travel 06/19/2025 Telephone [facility] [address] [place] [address] [phone] Siobhan Vanessa MD Appointment Request 06/19/2025 Telephone [facility] [address] [place], [place] [phone] Siobhan Vanessa MD Referral from Last 3 Months Immunizations Immunization Administration [...] 2025 COVID-19 Vaccine ( - season) 2025 07/08/2023, 11/11/2021, 01/30/2021, Additional history exists Influenza Vaccine (#1) 2025 , 08/12/2016, 10/03/2015, Additional history exists Alcohol/Substance Use Screening 01/25/2026 01/25/2025 Depression Screening 01/25/2026 01/25/2025, 01/26/20 25 SDOH Screening 01/25/2026 01/25/2025 Tobacco Screening 07/15/2026 07/15/2025 Lipid Panel 01/25/2029 01/26/2024, 07/01, 05/12/2021, Additional history exists DTaP/Tdap/Td Vaccines (3 - Td or Tdap) 04/03/2035 04/03/2025, 05/06/2014 Pneumococcal Vaccine: 50+ Years Completed 11/11/2021, 11/14/2015 Hepatitis C Screening Completed 07/16/2025, 023 HIB Vaccines Aged Out No longer eligi [...] Procedure Name Priority Date/Time Associated Diagnosis Comments LD Routine 07/16/2025 8:32 AM EDT COMPREHENSIVE METABOLIC PANEL Routine 07/16/2025 8:32 AM EDT COMPLETE BLOOD COUNT MAN DIF Routine 07/16/2025 8:32 AM EDT CBC WITH AUTO DIFFERENTIAL Routine 07/16/2025 8:32 AM EDT HEPATITIS C AB W/REFL TO HCV RNA, QN, PCR Routine 07/16/2025 8:32 AM EDT Iron deficiency anemia, unspecified iron deficiency anemia type ALBUMIN, RANDOM URINE W/CREATININE Routine 07/16/2025 8:32 AM EDT Benign essential hypertension LIPID PANEL, STANDARD Routine 01/26/2024 8:46 AM EDT Dyslipidemia HM COLONOSCOPY Routine 06/23/2018 from Last 3 Months or Most Recently Relevant to Health Maintenance Results * (ABNORMAL) Complete Blood Count Manual Diff (07/16/2025 8:32 AM EDT) White Blood Count 15.3(H) 4.8 - 10.8 X10*3/uL [facility] Red Blood Count 4.77 4.60 - 5.80 X10*6/uL [facility] Hemoglobin 10.8(L) 14.0 - 18.0 g/dl [facility] Hematocrit 38.0(L) 42.0 - 52.0 % [facility] Mean Corpuscular Volume 79.7(L) 80.0 - 98.0 fL [facility] Mean Corpuscular Hemoglobin 22.6(L) 27.0 - 33.0 pg [facility] Mean Corpuscular HGB Conc 28.4(L) 31.0 - 36.0 g/dl [facility] Red Cell Distribution Width 19.9(H) 11.0 - 16.0 % [facility] Platelet Count 74(L) 160 - 400 X10*3/uL [facility] NRBC Pct Auto 1.9(H) 0.0 - 0.2 /100WBC [facility] NRBC Abs Auto 0.290(H) 0.0 - 0.012 X10*3/uL [facility] Neutrophils % Manual 43(L) 45 - 73 % [facility] Band Neutrophils Percent 8(H) 3 - 5 % [facility] Lymphocytes Percent Manual 9(L) 20 - 40 % [facility] Monocytes Percent Manual 15(H) 2 - 11 % [facility] EOSINOPHILS % MANUAL 1 0 - 4 % [facility] BASOPHILS % MANUAL 5(H) 0 - 2 % [facility] Metamyelocytes % (Manual) 8 % [facility] Myelocytes 7 % [facility] Promyelocytes 2 % [facility] Blasts % Manual 2 % [facility] NEUTROPHILS ABSOLUTE MANUAL 7.8 2.0 - 8.3 X10*3/uL [facility] LYMPHOCYTES ABSOLUTE MANUAL 1.4 1.2 - 4.9 X10*3/uL [facility] MONOCYTES ABSOLUTE MANUAL 2.3(H) 0.1 - 1.2 X10*3/uL [facility] EOSINOPHILS ABSOLUTE MANUAL 0.2 0.0 - 0.4 X10*3/uL [facility] BASOPHILS ABSOLUTE MANUAL 0.8(H) 0.0 - 0.2 X10*3/uL [facility] Absolute Metamyelocytes 1.2 X10*3/uL [facility] Absolute Myelocytes 1.1 X10*/uL [facility] ABSOLUTE PROMYELOCYTES 0.3 X10*3/uL [facility] Absolute Basts 0.3 X10*3/uL [facility] Nucleated RBC's 2(H) 0 - 0 /100WBC [facility] Platelet Estimate DECREASED NORMAL [facility] Large Platelet [facility] Giant Platelets [facility] Platelet Morphology Comment NOTED [facility] RBC Morphology NOTED [facility] POLYCHROMASIA 1+ (0-2) /F [facility] Microcytosis 1+ (5-14) /OIF [facility] Tear Drop Cells 3+ (>5) /OIF [facility] Ovalocytes 1+ (5-14) /[facility] Toxic Vacuolation [facility] Acanthocytes 1+ (0-2) /[facility] 07/16/2025 8:32 AM EDT 07/16/2025 11:16 AM EDT Siobhan Vanessa MD LAB BLOOD ORDERABLES Final Result Performing Organization Address City/[facility]/ZIP Co de Phone Number [facility] [address] [place] [phone] * Albumin, Random Urine W/Creatinine (07/16/2025 8:32 AM EDT) Creatinine, Urine 117.69 mg/dL [facility] Microalbumin Urine 8.0 mg/L [facility] Microalbum Creatinine Ratio Ur 6.7 <30 ug/mg cr [facility] Comment:Albumin/Creatinine R atio Reference Ranges: Normal: < 30 ug/mg creatinine Microalbuminuria: 30 - 300 ug/mg creatinineClinical Albuminuria: > 300 ug/mg creatinine Urine 07/16/2025 8:32 AM EDT 07/16/2025 12:18 PM EDT Siobhan Vanessa MD LAB URINE ORDERABLES Final Result Performing Organization Address [facility]/ZIP Co de Phone Number [facility] [address] [place] [phone] * Hepatitis C Antibody with Reflex to HCV, RNA, Quantitative, Real-Time PCR (07/16/2025 8:32 AM EDT) Pathologist [facility] Hepatitis C Antibody Nonreactive Nonreactive [facility] Comment:Antibodies to HCV no t detected; does not exclude early acuteHCV infection. Blood Venous blood specimen / Unknown 07/16/2025 8:32 AM EDT 07/16/2025 11:16 AM EDT Siobhan Vanessa MD LAB BLOOD ORDERABLES Final Result Performing Organization Address [facility]/ZIP Co de Phone Number [facility] [address] [place] [phone] * (ABNORMAL) Lactate Dehydrogenase (LD) (07/16/2025 8:32 AM EDT) Pathologist [facility] Lactate Dehydrogenase 959(H) 118 - 273 U/L [facility] 07/16/2025 8:32 AM EDT 07/16/2025 11:16 AM EDT Generic External Data Provider LAB BLOOD ORDERAB LES Final Result Performing Organization Address [facility]/ZIP Co de Phone Number [facility] [address] [place] [phone] * (ABNORMAL) Comprehensive Metabolic Panel (07/16/2025 8:32 AM EDT) Pathologist [facility] Sodium 141 135 - 145 mmol/L [facility] Potassium 3.8 3.3 - 5.1 mmol/L [facility] Chloride 109(H) 96 - 108 mmol/L [facility] Carbon Dioxide 28 22 - 29 mmol/L [facility] Anion Gap 8(L) 12 - 20 [facility] Urea Nitrogen (BUN) 10 9 - 16 mg/dL [facility] Creatinine, Serum 0.87 0.5 - 1.4 mg/dL [facility] Estimated Glomerular Filt Rate >60 [facility] Comment:Chronic Kidney Disea se: Estimated GFR < 60 mL/min/1.82l8[place]hee Kidney Disease: Estimated GFR < 15 mL/min/1.73m2 Glucose 80 60 - 115 mg/dL [facility] Calcium 8.8 8.4 - 10.2 mg/dL [facility] Bilirubin, Total 0.7 0.0 - 1.0 mg/dL [facility] Aspartate Amino Transferase 38(H) 5 - 37 U/L [facility] Alanine Aminotransferase 37 0 - 40 U/L [facility] Total Protein 6.4(L) 6.5 - 8.0 g/dL [facility] Albumin Level 4.0 3.5 - 5.0 g/dL [facility] Alkaline Phosphatase 77 39 - 117 U/L [facility] 07/16/2025 8:32 AM EDT 07/16/2025 11:16 AM EDT us Generic External Data Provider LAB BLOOD ORDERAB LES Final Result [facility] [address] [place] [phone] * (ABNORMAL) Lipid Panel, Standard (01/26/2024 8:46 AM EDT) Triglycerides 55 <150 mg/dL [facility] Comment:Desirable Triglyceri de: less than 150 mg/dLBorderline High Triglyceride 150-199 mg/dLHigh Triglyceride: 200-499 mg/dLVery High Triglyceride: greater than or equal to 5OO mg/dL Cholesterol 78 <200 mg/dL [facility] Comment:Desirable Cholestero l: less than 200 mg/dLBorderline High Cholesterol: 200-239 mg/dLHigh Cholesterol: greater than 239 mg/dL LDL Cholesterol Calculated 39 <100 mg/dL [facility] Comment:Desirable LDL: less than 100 mg/dLNear Optimal/Above Optimal LDL: 110- 129 mg/dLBorderline High LDL: 130-159 mg/dLHigh LDL: 160-189 mg/dLVery High LDL: greater than or equal to 190 mg/dL HDL Cholesterol 28(L) >40 mg/dL [facility] Comment:Desirable HDL: great er than 40 mg/dL Note: This HDL assay may give artificially low results in patients with liver disease. Blood Venous blood specimen / Unknown 01/26/2024 8:46 AM EDT 01/26/2024 11:17 AM EDT Siobhan Vanessa MD LAB BLOOD ORDERABLES Final Result [facility] [address] [place] [address] [phone] * Colonoscopy (06/23/2018) Colonoscopy tubular adenoma with Dr. Hartley Historical Provider HEALTH MAINTENANCE Final Result from Last 3 Months or Most Recently Relevant to Health Maintenance Insurance Advance Directives Documents on File Type Date Recorded Patient Manager Media Relations Expl anation Advance Directives and Livin g Will 01/25/2024 Health Care Proxy Care Teams Nail Tech Relationship Specialty Start Date End Date [place], MD Siobhan [address] [place] [address] PCP - General Family Medicine 01/04/12 [place] [address] [place] [address] Cardiology 03/28/25 Pepper Flanagan MD [address] [place] [address] Hematology and Oncology 04/03/25 Harshal Hartley MD [address] [address] General Surgery 04/03/25 Nancy Lyles NP [address] [place] [address] Urology 04/03/25 [facility] Orthopedic [place], [facility] [address] [place] [address] Orthopaedic Surgery 04/24/25
--- OUTSIDE RECORDS SUMMARY | 2025-09-09 16:52 | XMS_ITS | Encounter Summary ---
Author Organization [employer] Address [address] [facility] [address] 7t [place] [address] Care Team Providers Care Chronometer Assembler And Adjuster Name Role Phone Siobhan Vanessa MD Primary Care Provider [phone] [place] Unavailable Pepper Flanagan MD Unavailable [phone] Harshal Hartley MD Unavailable [phone] Nancy Lyles NP Unavailable Encounter Details Date Type Department Care Team (Late st Contact Info) Description 2024 Orders Only [facility] MEDICINE [address] [place], [place] [phone] Siobhan Vanessa MD 230 [place], [place] [phone] Social History Tobacco Use Types Packs/Day Years [...] documented as of this encounter Care Teams Chronometer Assembler And Adjuster Relationship Specialty Start Date End Date Siobhan Vanessa MD [address] [place] [address] PCP - General Family Medicine 01/04/[address] [place] [address] Cardiology 03/28/25 Pepper Flanagan MD [address] [place] [address] Hematology and Oncology 04/03/25 Harshal Hartley MD [address] [place] [address] General Surgery 04/03/25 Nancy Lyles NP [address] [place] [address] Urology 04/03/25 [facility] Orthopedic [place], [facility] [address] [place] [address] Orthopaedic Surgery 04/24/25 documented as of this encounter
--- OUTSIDE RECORDS SUMMARY | 2025-09-09 16:52 | XMS_ITS | Encounter Summary ---
Author Organization [employer] Address 75 [facility] 7t [place] [address] Care Team Providers Care Automotive Teacher Name Role Phone Siobhan Vanessa MD Primary Care Provider [phone]- [phone] [place] Unavailable Pepper Flanagan MD Unavailable [phone] Harshal Hartley MD Unavailable [phone] Nancy yLles NP Unavailable Encounter Details Date Type Department Care Team (Late st Contact Info) Description 01/24/2025 Orders Only [facility] MEDICINE 230 [place], [place] [phone] Siobhan Vanessa MD 230 [place], [place] [phone] Social History Tobacco Use Types Packs/Day Years [...] documented as of this encounter Care Teams Automotive Teacher Relationship Specialty Start Date End Date Siobhan Vanessa MD [address] [place] [address] PCP - General Family Medicine 01/04/12 [place] [address] [place] [address] 3[address] [place] [address] Cardiology 03/28/25 Pepper Flanagan MD [address] [place] [address] Hematology and Oncology 04/03/25 Harshal Hartley MD [address] 3rd [place] [address] General Surgery 04/03/25 Nancy Lyles NP [address] [place] [address] Urology 04/03/25 [facility] Orthopedic [place], [facility] [address] [place] [address] Orthopaedic Surgery 04/24/25 documented as of this encounter
--- OUTSIDE RECORDS SUMMARY | 2025-09-09 16:52 | XMS_ITS | Encounter Summary ---
Author Organization [employer] Address 75 [facility] 7t [place] [address] Care Team Providers Care Project Intern Name Role Phone Siobhan Vanessa MD Primary Care Provider [phone]- [phone] [place] Unavailable Pepper Flanagan MD Unavailable [phone] Harshal Hartley MD Unavailable Nancy Lyles NP Unavailable Encounter Details Date Type Department Care Team (Late st Contact Info) Description 12/27/2022 Abstract [facility] MEDICINE 230 [place], [place] [phone] Siobhan Vanessa MD 230 [place], [place] [phone] Social History Tobacco Use Types Packs/Day Years [...] on filedocumented in this encounter Care Teams Project Intern Relationship Specialty Start Date End Date Siobhan Vanessa MD [address] [place] [address] PCP - General Family Medicine 01/04/12 [place] [address] [facility] 3rd [place] [address] Cardiology 03/28/25 Pepper Flanagan MD [address] [place] [address] Hematology and Oncology 04/03/25 Harshal Hartley MD [address] [address] General Surgery 04/03/25 Nancy Lyles NP [address] [place] [address] Urology 04/03/25 [facility] Orthopedic [place], [address] [address] Orthopaedic Surgery 04/24/25 documented as of this encounter
--- OUTSIDE RECORDS SUMMARY | 2025-09-09 16:52 | XMS_ITS | Clinical Summary ---
Author Organization [facility] Address [address] [place] [address] Care Team Providers Care Calibration Checker Name Role Phone Siobhan Vanessa MD Primary Care Provider [phone]- [phone] Allergies No known active allergies Medications aspirin [...] drink = 0.6 oz pur e alcohol) [facility] Utilities Answer Date Recorded In the past 12 months has e [employer], gas, oil, or water Code Fever threatened to shut off services in your [...] place to sleep or slept in a halfway (including now)? No 01/20/2024 Sex and Gender [...] Vaccine (1 of 2) 02/28/2000 RSV Vaccine 50 years and older and Patients (1 - 1-dose 75+ series) 2025 Influenza Vaccine 05/31/2025 11/11/2021, , 10/03/2015, Additional history exists COVID-19 Vaccine ( - season) 2025 07/08/2023 Advance Care Planning Completed 01/17/2024 Hepatitis B Vaccines Aged Out No long er eligible based on patient's age to complete this topic Insurance [facility] UNITED HEALTHCARE MGD MEDICARE Advance Directives Documents on File Type Date Recorded Patient Reacher Expl anation Advance Directive-Scan 01/17/2024 Josh WALTERS. HEALTH CARE PROXY 01/17/2024 HH * Full Code (Latest Code Status on File) Date Activated Date Inactivated Comments 01/17/2024 5:57 AM Healthcare Agents on File Name Relationship Healthcare Agent Relationship Communication Gladys Nesbitt Healthcare charter representative 1. Health Care Reacher Care Teams Calibration Checker Relationship Specialty Start Date End Date Siobhan Vanessa MD [address] [place] [address] PCP - General Family Medicine 01/17/24
--- OUTSIDE RECORDS SUMMARY | 2025-09-09 16:52 | XMS_ITS | Encounter Summary ---
Author Organization [employer] Address 75 [facility] 7t [place] [address] Care Team Providers Care Sandwich Hand Name Role Phone Siobhan Vanessa MD Primary Care Provider [phone] [place] Unavailable Pepper Flanagan MD Unavailable [phone] Harshal Hartley MD Unavailable Nancy Lyles NP Unavailable Reason for Visit * Reason Onset Date Comments Med Refill 02/28/2024 Encounter Details Date Type Department Care Team (Late st Contact Info) Description 02/28/2024 Telephone [facility] MEDICINE 230 [place] [address] Siobhan Vanessa MD 230 [place] [address] Med Refill Social History Tobacco [...] getting delivery today To be sent to: [facility] [place], [place] - 230 [facility] documented in this encounter Plan of [...] documented as of this encounter Care Teams Sandwich Hand Relationship Specialty Start Date End Date Siobhan Vanessa MD [address] [place] [address] PCP - General Family Medicine 01/04/12 [place] [address] [place] [address] Cardiology 03/28/25 Pepper Flanagan MD [address] [place] [address] Hematology and Oncology 04/03/25 Harshal Hartley MD [address] [address] General Surgery 04/03/25 Nancy Lyles NP [address] [place] [address] Urology 04/03/25 [facility] Orthopedic [place], [facility] [address] [place] [address] Orthopaedic Surgery 04/24/25 documented as of this encounter
--- OUTSIDE RECORDS SUMMARY | 2025-09-09 16:52 | XMS_ITS | Clinical Summary ---
Author Organization [facility] Address [address] [place] [address] Phone Care Team Providers Care Hospitality Director Name Role Phone Siobhan Vanessa MD Primary Care Provider [phone]- [phone] Allergies No known active allergies Active Problems Problem Noted Date Diagnosed Date CVA (cerebral vascular accident) (CMS/HCC V24, C MS/HCC V28) 01/17/2024 Benign essential hypertension 12/26/2021 Overview (03/21/2025): -Blood pressure is at goal -Continue lifestyle modifications -Continue current medications Coronary artery stenosis 12/26/2021 Overview (03/21/2025): Admitted to [facility] in March of 2020 due to [...] qd. -Continue ASA and Eliquis changed in [facility] 12/2023 due to thrombus resolved on echo and required transfusion for bleeding tooth abscess -Followed by Dr. Greg Galaviz of [facility], we called 07/08/23 and they repot he missed last appointment. -echo in [facility] 12/2023 showed mildly reduced ejection fraction of 45% and was initiated on metoprolol as part of GDMT. -seen by [facility] 01/2024, continue Eliquis Myeloproliferative disorder (CMS/HCC V24, CMS/HC C V28) 01/17/2013 Overview (03/21/2025): - Followed by Dr. Flanagan, Tinner Helper.Note from 04/19/24 reviewed. - Stable on Jakafi (Ruxolitinib) started June 28, 2014 - CAT scan of abdomen performed on 06/01/16. -he has difficulty maintain weight due to his chronic illness , Rx Boost for nutrition supplementation Encounters Date Type Department Care Team Description 09/02/2025 8:30 AM EST Treatment [address] [address] Nuzhat Ernandez, PT Chronic right shoulder pain (Primary Dx) 08/28/2025 8:30 AM EDT Treatment [address] [address] Familia Gutierrez PTA Chronic right shoulder pain (Primary Dx) 08/26/2025 8:30 AM EDT Treatment [address] [address] Familia Gutierrez PTA Chronic right shoulder pain (Primary Dx) 08/21/2025 8:30 AM EDT Treatment [address] [address] Chucky Meier PTA Chronic right shoulder pain (Primary Dx) 08/19/2025 9:00 AM EDT Treatment [address] [address] Familia Gutierrez PTA Chronic right shoulder pain (Primary Dx) 08/14/2025 9:00 AM EDT Treatment [address] [address] Chucky Meier TRIAGE CLINICIAN Chronic right shoulder pain (Primary Dx) 07/30/2025 8:30 AM EDT Treatment [address] [address] Nuzhat Ernandez, PT Chronic right shoulder pain (Primary Dx) 07/25/2025 8:30 AM EDT Treatment [address] [address] Vitor Joe, TRIAGE CLINICIAN Chronic right shoulder pain (Primary Dx) 07/17/2025 8:30 AM EDT Treatment [address] [address] Nuzhat Ernandez, PT Chronic right shoulder pain (Primary Dx) 07/15/2025 8:30 AM EDT Treatment [address] [address] Natan Morris, TRIAGE CLINICIAN Chronic right shoulder pain (Primary Dx) 07/11/2025 8:30 AM EDT Treatment [address] [address] Vitor Joe, VISHAL Chronic right shoulder pain (Primary Dx) 07/09/2025 8:30 AM EDT Treatment [address] [address] Vitor Joe TRIAGE CLINICIAN Chronic right shoulder pain (Primary Dx) 07/04/2025 1:30 PM EDT Treatment [address] [address] Chucky Meier, TRIAGE CLINICIAN Chronic right shoulder pain (Primary Dx) 06/19/2025 7:00 AM EDT Evaluation [address] [address] Nuzhat Ernandez, PT Chronic right shoulder pain [...] Care Team (Late st Contact Info) Description 09/18/2025 12:30 PM EST Evaluation [address] [address] Livier Meier, PT Health Maintenance Due Date Last Done Comments Colorectal Cancer Screening: Colonoscopy 1950 Zoster Vaccines (2 of 2) 09/02/2023 07/08/2023 Falls Risk Assessment 05/22/2024 Medicare Annual Wellness Visit 05/22/2024 Social Influencers of Health Screening 05/22/2024 Depression Screening 10/31/2024 RSV Immunization Adult Patients (1 - 1-dose 75+ series) 2025 COVID-19 Vaccine ( season) 2025 07/08/2023, 11/11/2021, 01/30/2021, Additional history exists Influenza Vaccine (#1) 2025 , 08/12/2016, 10/03/2015, Additional history exists Hypertension/CHF/CAD Annual BMP Blood Test 07/16/2026 07/16/2025, 03/21/2025, 01/21/2024, Additional history exists Cholesterol Screening (Lipid Panel) 01/25/2029 01/26/2024 DTaP,Tdap,and Td Vaccines (3 - Td or Tdap) 04/03/2035 04/03/2025, 05/06/2014 Pneumococcal Vaccine: 50+ Years Completed 11/11/2021, 11/14/2015 Hepatitis C Screening Completed 07/16/2025 HIB Vaccines Aged Out No longer eligi [...] mmol/L LAB CHEMISTRY METHOD 03/21/2025 1:51 AM EDT [facility] Potassium 4.4 3.5 - 5.5 mmol/L LAB CHEMISTRY METHOD 03/21/2025 1:51 AM T [facility] Chloride 102 96 - 110 mmol/L LAB CHEMISTRY METHOD 03/21/2025 1:[address] [facility] CO2 25 21 - 32 mmol/L LAB CHEMISTRY METHOD 03/21/2025 1:[address] [facility] Anion Gap 7 3 - 11 LAB CHEMISTRY METHOD 03/21/2025 1:[address] [facility] Glucose 184(H) 70 - 100 mg/dL LAB CHEMISTRY METHOD 03/21/2025 1:[address] [facility] BUN 16 5 - 25 mg/dL LAB CHEMISTRY METHOD 03/21/2025 1:[address] [facility] Creatinine 0.85 0.70 - 1.30 mg/dL LAB CHEMISTRY METHOD 03/21/2025 1:[address] [facility] eGFR 91 >=60 mL/min/1. 73m2 LAB CHEMISTRY METHOD 03/21/2025 1:[address] [facility] Comment:Calculation based on the Chronic Kidney Disease Epidemiology Collaboration (CKD-EPI) equation refit without adjustment for race. BUN/Creatinine Ratio 18.8 LAB CHEMISTRY METHOD 03/21/2025 1:[address] [facility] Calcium 8.5 8.5 - 10.5 mg/dL LAB CHEMISTRY METHOD 03/21/2025 1:[address] [facility] AST (SGOT) 36 10 - 42 unit/L LAB CHEMISTRY METHOD 03/21/2025 1:[address] [facility] ALT (SGPT) 47 10 - 60 unit/L LAB CHEMISTRY METHOD 03/21/2025 1:[address] [facility] Alkaline Phosphatase 94 42 - 121 unit/L LAB CHEMISTRY METHOD 03/21/2025 1:[address] [facility] Total Protein 6.5 6.0 - 8.0 g/dL LAB CHEMISTRY METHOD 03/21/2025 1:[address] [facility] Albumin 3.6 3.2 - 5.0 g/dL LAB CHEMISTRY METHOD 03/21/2025 1:[address] [facility] Total Bilirubin 0.6 0.0 - 1.4 mg/dL LAB CHEMISTRY METHOD 03/21/2025 1:51 AM EDT [facility] Blood Venous blood specimen / Unknown Venipuncture / Unknown 03/21/2025 12:46 AM EDT 03/21/2025 1:27 AM EDT us Sadia Downey MD LAB BLOOD ORDERABLES Fin al Result [facility] [address] [place] [address], from Last 3 Months or Most Recently Relevant to Health Maintenance Insurance MEDICAID - [place] UNITED HEALTHCARE MEDICARE Care Teams Hospitality Director Relationship Specialty Start Date End Date [place], MD Siobhan [address] [place] [phone] PCP - General 01/16/24
--- OUTSIDE RECORDS SUMMARY | 2025-09-09 16:53 | XMS_ITS | Encounter Summary ---
Author Organization [employer] Address 75 [facility] 7t [place] [address] Care Team Providers Care Accounting Professor Name Role Phone Siobhan Vanessa MD Primary Care Provider [phone]- [phone] [place] Unavailable Pepper Flanagan MD Unavailable [phone] Harshal Hartley MD Unavailable Nancy Lyles NP Unavailable Reason for Visit * Reason Onset Date Comments INR Report 11/22/2023 Encounter Details Date Type Department Care Team (Late st Contact Info) Description 11/22/2023 Telephone [facility] MEDICINE [address] [place] [address] Siobhan Vanessa MD [address] [place], [place] [phone] INR Report Social History Tobacco Use Types [...] 11/22/2023 3:34 PM EST [facility] calling to report INR . documented [...] documented as of this encounter Care Teams Accounting Professor Relationship Specialty Start Date End Date Siobhan Vanessa MD [address] [place] [address] PCP - General Family Medicine 01/04/12 [place] [address] [place] [address] Cardiology 03/28/25 Pepper Flanagan MD [address] [place] [address] Hematology and Oncology 04/03/25 Harshal Hartley MD [address] [address] General Surgery 04/03/25 Nancy Lyles NP [address] [place] [address] Urology 04/03/25 [facility] Orthopedic [place], [facility] [address] [place] [address] Orthopaedic Surgery 04/24/25 documented as of this encounter
--- OUTSIDE RECORDS SUMMARY | 2025-09-09 16:53 | XMS_ITS | Clinical Summary ---
Author Organization [facility] Address [address] [place] [address] Care Team Providers Care Primary Therapist Name Role Phone Unavailable Primary Care Provider [...] (adult) (1 - 1-dose 75+ series) 2025 [id number] (2 - season) 2025 023 Imm-Influenza (#1) [...] Most Recently Relevant to Health Maintenance Insurance [facility] Member Subscriber Plan / Payer (Ef fective 2022-Present) Name:Mervin Boyle Relation to Subscriber:Self Name:Mervin Boyle Payer ID:[id number] (NAIC) Group ID:Not on file Type:Indemnity Address: [place] [id number]
--- OUTSIDE RECORDS SUMMARY | 2025-09-09 16:53 | XMS_ITS | Encounter Summary ---
Author Organization [employer] Address [address] [facility] 7t [place] [address] Care Team Providers Care Director Of Optimization Name Role Phone Siobhan Vansesa MD Primary Care Provider [phone]- [phone] [place] Unavailable Pepper Flanagan MD Unavailable [phone] Harshal Hartley MD Unavailable Nancy Lyles NP Unavailable Reason for Visit * Reason Onset Date Comments Med Refill 09/29/2023 Encounter Details Date Type Department Care Team (Late st Contact Info) Description 09/29/2023 Telephone [facility] MEDICINE [address] [place] [address] Siobhan Vanessa MD [address] [place] [address] Med Refill Social History Tobacco [...] MG chemo tablet to be sent to [facility] [place], [place] - 230 [facility] documented in this encounter Plan of [...] documented as of this encounter Care Teams Director Of Optimization Relationship Specialty Start Date End Date Bentley Vanessaie, MD 230 [place] [address] PCP - General Family Medicine 01/04/12 [place] [address] 3rd [place] [address] Cardiology 03/28/25 Pepper Flanagan MD [address] [place] [address] Hematology and Oncology 04/03/25 Harshal Hartley MD [address] [place] [address] General Surgery 04/03/25 Nancy Lyles NP [address] [place] [address] Urology 04/03/25 [facility] Orthopedic [place], [address] [address] Orthopaedic Surgery 04/24/25 documented as of this encounter
== END 2025-09-09 16:03 | disposition home or self-care (01) ==
LOC: HO.HGS 14:33
PROVIDERS: PCP Family Medicine; Visit Provider Surgery
DX: Z12.11 Encounter for screening for malignant neoplasm of colon (principal); K40.90 Unilateral inguinal hernia, without obstruction or gangrene, not specified as recurrent; R16.1 Splenomegaly, not elsewhere classified
CPT/HCPCS: 99214

== ENCOUNTER → 2025-09-09 14:33 | Outpatient (BNVA) | payer MEDICARE, SELFPAY | PROVIDERS: PCP Family Medicine; Visit Provider Surgery | DX: Z12.11 Encounter for screening for malignant neoplasm of colon (principal); K40.90 Unilateral inguinal hernia, without obstruction or gangrene, not specified as recurrent; R16.1 Splenomegaly, not elsewhere classified | CPT/HCPCS: 99212 ==

== ENCOUNTER 2025-10-07 08:34 | Outpatient (REF) | payer MEDICARE, SELFPAY ==
--- NOTE | ~2025-10-07 | US_ITS ---
CLINICAL HISTORY: R33.9 - Retention of urine, unspecified US Renal Comparison: US/SR - US RETROPERITONEUM - 04/25/24 12:54 EDT Findings: Right kidney normal size and echotexture, 12.6 x 5.4 x 5.3 cm. Left kidney normal size and echotexture, 12.8 x 5 x 3 cm. No collecting system dilatation of either kidney. Normal color Doppler. Urinary bladder is unremarkable. Prevoid volume 111 mL. Postvoid volume 53 mL. Left ureteral jet is visualized. Incidentally, a massively enlarged spleen is noted. IMPRESSION: No acute sonographic abnormality in the bilateral kidneys. No signs of obstructive uropathy. There is bladder postvoid residual as noted. Massively enlarged spleen. This document has been electronically signed by: Abraham Douglass MD on 10/08/2025 10:14:28
[2025-10-07 10:19] LABS: Prostate Specific Antigen 1.20 ng/mL (<0.05-4.0)
== END 2025-10-07 08:35 | disposition home or self-care (01) ==
LOC: HO.US 08:34
PROVIDERS: PCP Family Medicine; Visit Provider Nurse Practitioner Family
DX: R35.0 Frequency of micturition (principal); R35.1 Nocturia; R33.9 Retention of urine, unspecified; R39.9 Unspecified symptoms and signs involving the genitourinary system; Z12.5 Encounter for screening for malignant neoplasm of prostate
CPT/HCPCS: 36415; 76770; 84153

== ENCOUNTER 2025-10-14 12:44 | Outpatient (AMB) | payer MEDICARE, SELFPAY ==
--- OUTSIDE RECORDS SUMMARY | 2025-10-09 10:00 | XMS_ITS | Encounter Summary ---
Author Organization [facility] Address [address] [place] [address] Care Team Providers Care Automatic Lathe Setter Name Role Phone Siobhan Vanessa MD Primary Care Provider [phone]- [phone] Reason for Visit * Consultation (Routine) - Authorized Specialty Diagnoses / Procedures Referred By Abby higgins Referred To Contact Physical Therapy Diagnoses Unspecified rotator cuff tear or rupture of right shoulder, not specified as traumatic Viridiana Walsh, PEDIATRIC NEPHROLOGIST [address] [place] [address] Phone: tel: fax: [facility] [address] [address] Phone: tel: fax: Referral ID Status Reason Start Date Expiration Date Visits Requested Visits Authorized [id number] Authorized Specialty Services Required 09/02/2025 09/02/2026 16 16 Encounter Details Date Type Department Care Team (Late st Contact Info) Description 10/09/2025 10:00 AM EST Treatment [facility] [address] [phone] Natan Morris PTA Traumatic tear of right rotator cuff, unspecified tear extent, subsequent encounter (Primary Dx) Social History Tobacco Use Types Packs/Day Years Used Date Smoking Tobacco: Never Assessed Sex and Gender Information Value Date Recorded Sex Assigned at Not on file Legal Sex Male 5:05 AM EST Gender Identity Not on file Sexual Orientation Not on file documented as of this encounter Progress Notes * Natan Morris PTA - 10/09/2025 10:00 AM EST [facility] - Outpatient PHYSICAL THERAPY DAILY TREATMENT NOTE - OP Date: 10/09/2025 Visit Number: 6 Patient Name: Mervin Alonso : 1950 Age: 75 y.o. Gender: male Diagnosis: ICD-10-CM ICD-9-CM 1. Traumatic tear of right rotator cuff, unspecified tear extent, subsequent encounter S46.011D V58.89 840.4 Date of Onset/Surgery: Multiple active episodes found Referring Provider: Viridiana Walsh NP Insurance: Payor: [employer] MEDICARE / Plan: [facility] MED[facility] ADVANTAGE / Product Type: *No Product type* / Patient Identified by: Natan Morris PTA Language: Speaks and understands Yakut as preferred language with no sales project engineer required Medications: Medications Ordered Prior to Encounter[1] Allergies: has no known allergies. Precautions: H/o R biceps tendon tear, HTN, coronary artery stenosis, h/o cancer (bone) WBAT no motion restrictions per order from 09/06 PROM, AAROM, AROM. Isometric RTC strengthening. Fall risk: No SUBJECTIVE Subjective Report: pt reports feeling better Chart Reviewed: Yes Pain: no current right shldr sxs TREATMENT INTERVENTION: Shoulder pulleys into flexion x2 min Shoulder ER AAROM using dowel in supine, 2x10 reps Shoulder flexion AAROM using dowel in standing, 2x10 reps Supine punch x20 arom Standing arom flexion/er/scaption 2 x 10ea standing scaption/flexion with dowel in front of mirror. X20 ea R shoulder isometric x10 5 sec holds-held PROM into flex/scap/abd/er ASSESSMENT/Response to Treatment Good -presenting improved mobility right shldr, needs to improve periscap and rtc strength Patient Education: Education provided: POC Education Provided To: Patient utilizing Explanation and Demonstration mode(s) of education Response to Education: Applied Knowledge, Verbal Understanding, and Demonstrated Skills PLAN POC Development/Review: No Change in the Plan of Care; Participants: Patient Interventions Time Entry: Modalities: Therapeutic procedures: Therapeutic Exercise Time Entry: 30 Total Treatment Time: 30 Documentation completed by Natan Morris PTA [1] No current outpatient medications on file prior to visit. No current facility-administered medications on file prior to visit. documented in this encounter Plan of Treatment Upcoming Encounters Date Type Department Care Team (Late st Contact Info) Description 10/16/2025 8:30 AM EST Treatment [facility] [address] [phone] Vitor Joe, EYE DROPPER ASSEMBLER 10/18/2025 8:30 AM EST Treatment [facility] [address] [phone] Livier Meier, PT documented as of this encounter Visit Diagnoses Diagnosis Traumatic tear of right rotator cuff, unspecified tear extent, subsequent encounter- Primary documented in this encounter Care Teams Automatic Lathe Setter Relationship Specialty Start Date End Date Siobhan Vanessa MD [address] [place] [phone] PCP - General 01/16/24 documented as of this encounter
--- OUTSIDE RECORDS SUMMARY | 2025-10-11 08:30 | XMS_ITS | Encounter Summary ---
Author Organization [facility] Address [address] [place] [address] Care Team Providers Care Seafood Technology Specialist Name Role Phone Rasheeda, Siobhan [place] Primary Care Provider [phone]- [phone] Reason for Visit * Consultation (Routine) - Authorized Specialty Diagnoses / Procedures Referred By Abby higgins Referred To Contact Physical Therapy Diagnoses Unspecified rotator cuff tear or rupture of right shoulder, not specified as traumatic Viridiana Walsh ED MANAGER [address] [facility] [place] [address] Phone: tel: fax: [address] [address] Phone: tel: fax: Referral ID Status Reason Start Date Expiration Date Visits Requested Visits Authorized [id number] Authorized Specialty Services Required 09/02/2025 09/02/2026 16 16 Encounter Details Date Type Department Care Team (Late st Contact Info) Description 10/11/2025 8:30 AM EST Treatment [address] [phone] Vitor Joe PTA Traumatic tear of right rotator cuff, [...] Progress Notes * Vitor Joe PTA - 10/11/2025 8:30 AM EST [facility] - Outpatient PHYSICAL THERAPY DAILY TREATMENT NOTE - OP Date: 10/11/2025 Visit Number: 7 Patient Name: Mervin Alonso : 1950 Age: 75 y.o. Gender: male Diagnosis: ICD-10-CM ICD-9-CM 1. Traumatic tear of right rotator cuff, unspecified tear extent, subsequent encounter S46.011D V58.89 840.4 Date of Onset/Surgery: 03/21/2025 Referring Provider: Viridiana Walsh NP Insurance: Payor: [employer] MEDICARE / Plan: [facility] MEDICARE ADVANTAGE / Product Type: *No Product type* / Patient Identified by: Vitor Joe PTA Language: Speaks and understands Faroese as preferred language with no digital computer systems analyst required Medications: Medications Ordered Prior to Encounter[1] [...] sxs TREATMENT INTERVENTION: Shoulder pulleys into flexion x3 min R Gh jt post and inf glides Passive R shld flexion in supine Passive R shld ROM in L s/l: flexion, ext, Abd/ER, circumduction with distraction and compression, abd S/l active ER, 2 x 10 Supine wand flexion x 30 Shoulder ER AAROM using dowel in supine, x 30 reps Supine punch x20 arom Standing arom flexion/er/scaption 2 x 10ea ASSESSMENT/Response to Treatment Good -laurita exs and man stretching well. Patient Education: Education provided: POC Education Provided To: Patient utilizing Explanation and Demonstration mode(s) of education Response to Education: Applied Knowledge, Verbal Understanding, and Demonstrated Skills PLAN POC Development/Review: No Change in the Plan of Care; Participants: Patient Interventions Time Entry: Modalities: Therapeutic procedures: Therapeutic Exercise Time Entry: 28 Total Treatment Time: 28 Documentation completed by Vitor Joe PTA [1] No current outpatient medications on file prior to visit. No current facility-administered medications on file prior to visit. documented in this encounter Plan of Treatment Upcoming Encounters Date Type Department Care Team (Late st Contact Info) Description 10/16/2025 8:30 AM EST Treatment [facility] [address] [phone] Vitor Joe PTA 10/18/2025 8:30 AM EST Treatment [facility] [address] [phone] Livier Meier, PT documented as of this encounter Visit Diagnoses Diagnosis Traumatic tear of right rotator cuff, unspecified tear extent, subsequent encounter- Primary documented in this encounter Care Teams Seafood Technology Specialist Relationship Specialty Start Date End Date Siobhan Vanessa MD [address] [phone] PCP - General 01/16/24 documented as of this encounter
--- OUTSIDE RECORDS SUMMARY | 2025-10-14 08:30 | XMS_ITS | Encounter Summary ---
Author Organization [facility] Address [address] [place] [address] Care Team Providers Care Nuclear Physicist Name Role Phone Rasheeda, Siobhan [place] Primary Care Provider +1- [phone] Reason for Visit * Consultation (Routine) - Authorized Specialty Diagnoses / Procedures Referred By Abby higgins Referred To Contact Physical Therapy Diagnoses Unspecified rotator cuff tear or rupture of right shoulder, not specified as traumatic Viridiana Walsh, BLUNGER [address] [place] [address] Phone: tel: fax: [address] [phone] Phone: tel: fax: Referral ID Status Reason Start Date Expiration Date Visits Requested Visits Authorized [id number] Authorized Specialty Services Required 09/02/2025 09/02/2026 16 16 Encounter Details Date Type Department Care Team (Late st Contact Info) Description 10/14/2025 8:30 AM EST Treatment [facility] [address] [phone] Nuzhat Ernandez, RUDY Traumatic tear of right rotator cuff, unspecified tear extent, subsequent encounter (Primary Dx) Social History Tobacco Use Types Packs/Day Years Used Date Smoking Tobacco: Never Assessed Sex and Gender Information Value Date Recorded Sex Assigned at Not on file Legal Sex Male 5:05 AM EST Gender Identity Not on file Sexual Orientation Not on file documented as of this encounter Progress Notes * Nuzhat Ernandez PT - 10/14/2025 8:30 AM EST [facility] - Outpatient PHYSICAL THERAPY DAILY TREATMENT NOTE - OP Date: 10/14/2025 Visit Number: 8 Patient Name: Mervin Alonso : 1950 Age: 75 y.o. Gender: male Diagnosis: ICD-10-CM ICD-9-CM 1. Traumatic tear of right rotator cuff, unspecified tear extent, subsequent encounter S46.011D V58.89 840.4 Date of Onset/Surgery: 03/21/2025 Referring Provider: Viridiana Walsh NP Insurance: Payor: [employer] MEDICARE / Plan: [facility] MEDICARE ADVANTAGE / Product Type: *No Product type* / Patient Identified by: Nuzhat Ernandez PT Language: Speaks and understands Namibian as preferred language with no pipeline gang supervisor required Medications: Medications Ordered Prior to Encounter[1] Allergies: has no known allergies. Precautions: H/o R biceps tendon tear, HTN, coronary artery stenosis, h/o cancer (bone) WBAT no motion restrictions per order from 09/06 PROM, AAROM, AROM. Isometric RTC strengthening. Fall risk: No SUBJECTIVE Subjective Report: pt reported that he is doing his exercises every day at home and it's getting easier for him to do them. Chart Reviewed: Yes Pain: no current right shldr sxs TREATMENT INTERVENTION: Shoulder pulleys into flexion x3 min Standing R shoulder isometric flexion, ABD, ER and extension, 10 x 5 seconds each S/l active ER, x 20 Supine wand flexion x 30 Shoulder ER AAROM using dowel in supine, x 30 reps Supine punch x20 AROM Supine R shoulder ABD AROM with focus on upward scapular rotation, x 10, poor scapular upward rotation observed Supine clinical somatic washcloth exercise, partial practice, x 10 with verbal and tactile cuing ASSESSMENT/Response to Treatment Good Pt tolerated therapy session well, however, pt demonstrated poor upward scapular rotation during shoulder elevation. Patient Education: Education provided: POC, pt instructed to continue with current HEP Education Provided To: Patient utilizing Explanation mode(s) of education Response to Education: Verbal Understanding PLAN POC Development/Review: No Change in the Plan of Care; Participants: Patient Interventions Time Entry: Modalities: Therapeutic procedures: Therapeutic Exercise Time Entry: 30 Total Treatment Time: 30 Documentation completed by Nuzhat Ernandez PT [1] No current outpatient medications on file prior to visit. No current facility-administered medications on file prior to visit. documented in this encounter Plan of Treatment Upcoming Encounters Date Type Department Care Team (Late st Contact Info) Description 10/16/2025 8:30 AM EST Treatment [facility] [address] [phone] Vitor Joe, GUN NUMBER 10/18/2025 8:30 AM EST Treatment [facility] [address] [phone] Livier Meier, RUDY documented as of this encounter Visit Diagnoses Diagnosis Traumatic tear of right rotator cuff, unspecified tear extent, subsequent encounter- Primary documented in this encounter Care Teams Nuclear Physicist Relationship Specialty Start Date End Date Siobhan Vanessa MD [address] [place] [address] [place] [phone] PCP - General 01/16/24 documented as of this encounter
--- NOTE | 2025-10-14 12:57 | A.OFFVIS_ITS ---
Intake Visit Reasons: 3M/PSA/US/UA Intake Note: Reason for Visit: PSA/US/UA/PVR Follow Up Urology Meds: Terazosin, Methenamine, Vitamin C, Finasteride Blood Thinners: Aspirin, Eliquis Labs: PSA: 1.20 (10/07/2025) Last Culture: 2023 Imaging: Ultrasound 10/08/2025 Last PVR: 121ml PVR: 27ml Manager Analysis Required: No Manager Analysis Services: Manager Analysis Offered & Declined Grinder Tender: Grinder Tender Present Accompanied by: Family/Other Allergies No Known Allergies Allergy (Verified 10/14/25 13:21) Medication List - Last Reconciled 10/14/25 by AMANDO Ardon acetaminophen 500 mg PO DAILY apixaban (Eliquis) 5 mg PO Q12H ascorbic acid (vitamin C) 500 mg PO DAILY 90 days aspirin 81 mg PO DAILY atorvastatin 80 mg PO DAILY chlorhexidine gluconate 0.12% 15 mL PO BID finasteride 5 mg PO DAILY 90 days methenamine hippurate 1 g PO DAILY 90 days metoprolol tartrate 25 mg PO BID 90 days ruxolitinib 20 mg PO BID ruxolitinib 20 mg PO BID spironolactone 25 mg PO QAM terazosin 5 mg PO BEDTIME 30 days HPI Comments Details: Mervin is a pleasant 75-year-old male patient of Dr. Vanessa. He has a past medical history of left ventricular thrombosis, ACD, hyperlipidemia, hypertension, ischemic cardiomyopathy, CVA, and bone marrow cancer. He presents to the office today for a follow up of her urinary retention. In discussion with the patient today he reports to be doing and feeling well. He reports compliance with finasteride, methenamine, vitamin-C, and terazosin as prescribed. He denies having had any bothersome urinary issues or concerns since his last office visit here. He reports he has been independently voiding without difficulty. In office urinalysis results reviewed with the patient today. PVR 27 mL. Recent retroperitoneal ultrasound results reviewed with the patient today. 10/24 bilateral kidneys are normal in size and echotexture. No collecting system dilatation of either kidney noted bilaterally. The urinary b ladder is unremarkable. Incidentally a massively enlarged spleen is noted. In discussion with the patient today he reports having already followed up with General surgery regarding this issue in his scheduled for an upcoming CT within the next few weeks. Recent PSA results reviewed with the patient today as noted and trended below: PSA: 05/23 2.1, 04/24 1.3 , 10/24 1.2 He denies urinary urgency, urinary frequency, incontinence, nocturia, hematuria, dysuria, foul smelling urine, changes to urinary stream, flank pain, fever, and or chills. He is happy with his current voiding parameters. He otherwise offers no other issues or concerns at this time. 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 HLD (hyperlipidemia) HTN (hypertension) Ischemic cardiomyopathy History of CVA (cerebrovascular accident) Myelofibrosis Coronary artery disease Surgical History History of appendectomy Family History Mother History of cancer of unknown primary site Social History Household Members: Family Alcohol intake: former Patient Tobacco Use Status: Never used Tobacco service: No Review of Systems Const Reports as per HPI Eyes Reports no additional complaints ENT Reports no additional complaints Card Reports as per HPI Resp Reports no additional complaints GI Reports no additional complaints Reports as per HPI Musc Reports as per HPI Neuro Reports no additional complaints Psych Reports no additional complaints Endo Reports no additional complaints Apollo/Lymph Reports as per HPI Aller/Immun Reports as per HPI Physical Exam Const General: cooperative, healthy appearing, comfortable, no acute distress, well developed, alert and awake Nutritional Appearance: thin Orientation/consciousness: patient oriented x3 Limitations: no limitations HEENT Head: Yes normal to inspection, Yes normocephalic and Yes atraumatic Ears: hearing grossly normal bilaterally Eyes General: appearance normal, both eyes and all related structures Neck Neck: Yes normal visual inspection and Yes trachea midline Chest Chest palpation & inspection: normal inspection of the chest Resp Effort & Inspection: normal respiratory effort and able to speak in complete sentences Cardio Rate: regular rate GI Inspection: Yes normal to inspection General: Yes no CVA tenderness Back/Spine/Pelvis Back: no CVA tenderness Skin General skin exam: no rashes or lesions noted Neuro General: patient oriented x3 Extrem General: Yes normal to inspection Psych Appearance: grossly normal and well kempt Mental Status: mental status grossly normal Speech and movement: Normal speech and movement present and Clear speech present Affect: normal affect Attitude: cooperative Thought process: Normal thought process present Thought content: Normal thought content present Insight: Fair insight present (Psych) Judgement: Fair judgement present (Psych) Office Procedures Post Void Residual Post Residual Void Post Void Residual (PVR): 27 [id number] Void Residual by ultrasound Results AMB Urinalysis, Automated UA Leukoctes 0 Leonard/uL Last Edit by Laura Royal ON LICENSE OF [facility] on 10/14/25 13:08 UA Nitrite Negative Last Edit by Laura Royal ON LICENSE OF [facility] on 10/14/25 13:08 UA Urobilinogen 1 mg/dL Last Edit by Laura Royal A on 10/14/25 13:08 UA Protein 15 mg/dL Last Edit by Laura Royal ON LICENSE OF [facility] on 10/14/25 13:08 UA pH 6.5 Last Edit by Laura Royal ON LICENSE OF [facility] on 10/14/25 13:08 UA Blood 0 Robbin/uL Last Edit by Laura Royal ON LICENSE OF [facility] on 10/14/25 13:08 UA Specific [place] 1.005 Last Edit by Laura Royal ON LICENSE OF [facility] on 10/14/25 13: 08 UA Ketone Negative Last Edit by Laura Royal ON LICENSE OF [facility] on 10/14/25 13:08 UA Bilirubin 0 mg/dL Last Edit by Laura Royal ON LICENSE OF [facility] on 10/14/25 13:08 UA Glucose 0 mg/dL Last Edit by Laura Royal ON LICENSE OF [facility] on 10/14/25 13:08 Results Reviewed Results Reviewed: Laboratory Last Values Urine pH (Auto) 6.5 10/14/25 13:07 Specific [place] (Auto) 1.005 10/14/25 13:07 Urine Protein (Auto) 15 mg/dL 10/14/25 13:07 Glucose (UA)(Auto) 0 mg/dL 10/14/25 13:07 Urine Ketones (Auto) Negative 10/14/25 13:07 Urine Blood (Auto) 0 Robbin/uL 10/14/25 13:07 Urine Nitrite (Auto) Negative 10/14/25 13:07 Urine Bilirubin (Auto) 0 mg/dL 10/14/25 13:07 Urine Urobilinogen (Auto) 1 mg/dL 10/14/25 13:07 Leukocyte Esterase (Auto) 0 Leonard/uL 10/14/25 13:07 Date of Service: 10/07/25 Procedure(s): US retroperitoneal comp Comparison: US/SR - US RETROPERITONEUM - 04/25/24 12:54 EDT Findings: Right kidney normal size and echotexture, 12.6 x 5.4 x 5.3 cm. Left kidney normal size and echotexture, 12.8 x 5 x 3 cm. No collecting system dilatation of either kidney. Normal color Doppler. Urinary bladder is unremarkable. Prevoid volume 111 mL. Postvoid volume 53 mL. Left ureteral jet is visualized. Incidentally, a massively enlarged spleen is noted. IMPRESSION: No acute sonographic abnormality in the bilateral kidneys. No signs of obstructive uropathy. There is bladder postvoid residual as noted. Massively enlarged spleen. Assessment & Plan Assessment & Plan (1) Urinary retention: Code(s): R33.9 - Retention of urine, unspecified Category: Medical (2) Lower urinary tract symptoms: Code(s): R39.9 - Unspecified symptoms and signs involving the genitourinary system Category: Medical (3) Urinary frequency: Code(s): R35.0 - Frequency of micturition Category: Medical (4) Nocturia: Code(s): R35.1 - Nocturia Category: Medical Plan In office urinalysis results with the patient today; as noted above. PVR 27 mL. Most recent retroperitoneal ultrasound results reviewed with the patient today; as noted above. All questions were answered. Recent PSA results reviewed with the patient today; as noted above. He currently denies any bothersome urinary issues or concerns. He reports be happy with current voiding parameters. Continue methenamine, vitamin-C, finasteride, and terazosin as prescribed Continue to follow-up with general surgery as planned Follow-up in 6 months with PVR; or sooner with any issues, concerns, and or questions Orders: Orders AMB Urinalysis Automated Today Z13.9 - Encounter for screening, unspecified AMB Post Void Residual by ultrasound Today R33.9 - Retention of urine, unspecified Patient Instructions: The patient had an opportunity to ask questions regarding the treatment plan. All questions were answered. Physical exam, labs, and imaging were discussed and reviewed in detail. As well as risks, benefits, and discussion of treatment choices. No major barriers to understanding were identified. The patient expressed understanding and agreement with the above treatment plan. The patient was made aware they should contact our office by phone for worsening of their current condition, the appearance of new symptoms, or with any questions or concerns. Compliance is encouraged with any medications and follow up testing that is ordered. It is a privilege to be allowed the opportunity to participate in? your urological care.? Again, if you have any questions or concerns If you have any questions or concerns please do not hesitate to contact me. The office is [phone]. This note is constructed using voice recognition software. While every effort has been made to ensure accuracy net manager errors may have been included. Yours sincerely, AMANDO Ardon Coding Level of Care Code Est Pt Level 3 (94930) Add On Problem Visit Only Diagnoses Urinary retention R33.9 Lower urinary tract symptoms R39.9 Urinary frequency R35.0 Nocturia R35.1 CPT Codes Post Residual Void - PVR CPT Code: 76554-[id number] Void Residual by ultrasound ([id number])
--- OUTSIDE RECORDS SUMMARY | 2025-10-14 18:17 | XMS_ITS | Encounter Summary ---
Author Organization [employer] Address [address] [facility] 7t [place] [address] Care Team Providers Care Submarine Operator Name Role Phone Siobhan Vanessa MD Primary Care Provider [phone]- [phone] [place] Unavailable Pepper Flanagan MD Unavailable [phone] Harshal Hartley MD Unavailable Nancy Lyles NP Unavailable Reason for Visit * Reason Onset Date Comments Med Refill 02/28/2024 Encounter Details Date Type Department Care Team (Late st Contact Info) Description 02/28/2024 Telephone [facility] MEDICINE [address] [place] [address] Siobhan Vanessa MD 230 [place] [address] Med Refill Social History Tobacco [...] getting delivery today To be sent to: [facility] - [place], [place] - [address] [facility] documented in this encounter Plan [...] documented as of this encounter Care Teams Submarine Operator Relationship Specialty Start Date End Date Siobhan Vanessa MD 230 [place] [address] PCP - General Family Medicine 01/04/12 [place] [address] [place] [address] Cardiology 03/28/25 Pepper Flanagan MD [address] [place] [address] Hematology and Oncology 04/03/25 Harshal Hartley MD [address] [address] General Surgery 04/03/25 Nancy Lyles NP [address] [place] [address] Urology 04/03/25 [facility] Orthopedic [place], [facility] [address] [place] [address] Orthopaedic Surgery 04/24/25 documented as of this encounter
--- OUTSIDE RECORDS SUMMARY | 2025-10-14 18:19 | XMS_ITS | Encounter Summary ---
Author Organization [employer] Address [address] [facility] 7t [place] [address] Care Team Providers Care Plant Operations Coordinator Name Role Phone Siobhan Vanessa MD Primary Care Provider [phone] [place] Unavailable Pepper Flanagan MD Unavailable [phone] Harshal Hartley MD Unavailable Nancy Lyles NP Unavailable Reason for Visit * Reason Onset Date Comments Med Refill 2024 Encounter Details Date Type Department Care Team (Late st Contact Info) Description 2024 Telephone [facility] MEDICINE [address] [place] [address] Siobhan Vanessa MD [address] [place] [address] Med Refill Social History Tobacco [...] started during hospitalization in December, prescribed by [facility] for HFr[facility]. Patient has been taking [...] documented as of this encounter Care Teams Plant Operations Coordinator Relationship Specialty Start Date End Date Siohban Vanessa MD 230 [place] [address] PCP - General Family Medicine 01/04/12 [place] [address] [place] [address] 3[address] [place] [address] Cardiology 03/28/25 Pepper Flanagan MD [address] [place] [address] Hematology and Oncology 04/03/25 Harshal Hartley MD [address] [place] [address] 3[address] [place] [address] General Surgery 04/03/25 Nancy Lyles NP [address] [place] [address] Urology 04/03/25 [facility] Orthopedic [place], [facility] [address] [place] [address] Orthopaedic Surgery 04/24/25 documented as of this encounter
--- OUTSIDE RECORDS SUMMARY | 2025-10-14 18:19 | XMS_ITS | Encounter Summary ---
Author Organization [employer] Address [address] [facility] [address] 7t [place] [address] Care Team Providers Care Reed Dipper Name Role Phone Siobhan Vanessa MD Primary Care Provider [phone]- [phone] [place] Unavailable Pepper Flanagan MD Unavailable [phone] Harshal Hartley MD Unavailable [phone] Nancy Lyles NP Unavailable Encounter Details Date Type Department Care Team (Late st Contact Info) Description 2024 Orders Only [facility] MEDICINE 230 [place], [place] [phone] Siobhan Vanessa MD 230 [place], [place] [phone] Social History Tobacco Use Types Packs/Day Years [...] documented as of this encounter Care Teams Reed Dipper Relationship Specialty Start Date End Date Siobhan Vanessa MD 230 [place] [address] PCP - General Family Medicine 01/04/[address] [place] [address] Cardiology 03/28/25 Pepper Flanagan MD [address] [place] [address] Hematology and Oncology 04/03/25 Harshal Hartley MD [address] [place] [address] General Surgery 04/03/25 Nancy Lyles NP [address] [place] [address] Urology 04/03/25 [facility] Orthopedic [place], [facility] [address] [place] [address] Orthopaedic Surgery 04/24/25 documented as of this encounter
--- OUTSIDE RECORDS SUMMARY | 2025-10-14 18:19 | XMS_ITS | Clinical Summary ---
Author Organization [facility] Address [address] [place] [address] Care Team Providers Care Astrophysics Teacher Name Role Phone Siobhan Vanessa MD Primary Care Provider [phone]- [phone] Allergies No known active allergies Medications aspirin [...] drink = 0.6 oz pur e alcohol) [facility] Utilities Answer Date Recorded In the past 12 months has e [employer], gas, oil, or water Property Partner threatened to shut off services in your [...] place to sleep or slept in a fdc (including now)? No 01/20/2024 Sex and Gender [...] patient's age to complete this topic Insurance [facility] [employer] MGD MEDICARE Advance Directives Documents on File Type Date Recorded Patient Laborer Electroplating Expl anation Advance Directive-Scan 01/17/2024 Josh WALTERS. HEALTH CARE PROXY 01/17/2024 HH * Full Code (Latest Code Status on File) Date Activated Date Inactivated Comments 01/17/2024 5:57 AM Healthcare Agents on File Name Relationship Healthcare Agent Relationship Communication Gladys Nesbitt Healthcare client support representative 1. Health Care Laborer Electroplating Care Teams Astrophysics Teacher Relationship Specialty Start Date End Date Siobhan Vanessa MD [address] [place] [address] PCP - General Family Medicine 01/17/24
--- OUTSIDE RECORDS SUMMARY | 2025-10-14 18:19 | XMS_ITS | Clinical Summary ---
Author Organization [facility] Address [address] [place] [address] Phone Care Team Providers Care Car Unloader Name Role Phone Siobhan Vanessa MD Primary Care Provider [phone]- [phone] Allergies No known active allergies Active Problems Problem Noted Date Diagnosed Date CVA (cerebral vascular accident) 01/17/2024 Benign essential hypertension 12/26/2021 Overview (03/21/2025): -Blood pressure is at goal -Continue lifestyle modifications -Continue current medications Coronary artery stenosis 12/26/2021 Overview (03/21/2025): Admitted to [facility] in March of 2020 due to cardiac [...] abscess -Followed by Dr. Greg Galaviz of [facility], we called 07/08/23 and they repot he missed last appointment. -echo in [facility] 12/2023 showed mildly reduced ejection fraction of 45% and was initiated on metoprolol as part of GDMT. -seen by [place] 01/2024, continue Eliquis Myeloproliferative disorder 01/17/2013 Overview (03/21/2025): - Followed by Dr. Flanagan, Community Development Specialist.Note from 04/19/24 reviewed. - Stable on Jakafi (Ruxolitinib) started June 28, 2014 - CAT scan of abdomen performed on 06/01/16. -he has difficulty maintain weight due to his chronic illness , Rx Boost for nutrition supplementation Encounters Date Type Department Care Team Description 10/14/2025 8:30 AM EST Treatment [address] [address] Nuzhat Ernandez, PT Traumatic tear of right rotator cuff, unspecified tear extent, subsequent encounter (Primary Dx) 10/11/2025 8:30 AM EST Treatment [address] [address] Vitor Joe, BATCH STILL OPERATOR Traumatic tear of right rotator cuff, unspecified tear extent, subsequent encounter (Primary Dx) 10/09/2025 10:00 AM EST Treatment [address] [address] Natan Morris, BATCH STILL OPERATOR Traumatic tear of right rotator cuff, unspecified tear extent, subsequent encounter (Primary Dx) 10/07/2025 10:30 AM EST Treatment [address] [address] Livier Meier, PT Traumatic tear of right rotator cuff, unspecified tear extent, subsequent encounter (Primary Dx) 10/03/2025 9:30 AM EST Treatment [address] [address] Natan Morris, BATCH STILL OPERATOR Traumatic tear of right rotator cuff, unspecified tear extent, subsequent encounter (Primary Dx) 09/25/2025 8:00 AM EST Treatment [address] [address] Natan Morris, BATCH STILL OPERATOR Traumatic tear of right rotator cuff, unspecified tear extent, subsequent encounter (Primary Dx) 09/23/2025 2:00 PM EST Treatment [address] [address] Livier Meier, PT Traumatic tear of right rotator cuff, unspecified tear extent, subsequent encounter (Primary Dx) 09/18/2025 12:30 PM EST Evaluation [address] [address] Livier Meier, PT Chronic right shoulder pain (Primary Dx) 09/02/2025 8:30 AM EST Treatment [address] [address] Nuzhat Ernandez, PT Chronic right shoulder pain (Primary Dx) 08/28/2025 8:30 AM EDT Treatment [address] [address] Familia Gutierrez, BATCH STILL OPERATOR Chronic right shoulder pain (Primary Dx) 08/26/2025 8:30 AM EDT Treatment [address] [address] Familia Gutierrez, VISHAL Chronic right shoulder pain (Primary Dx) 08/21/2025 8:30 AM EDT Treatment [address] [address] Chucky Meier, BATCH STILL OPERATOR Chronic right shoulder pain (Primary Dx) 08/19/2025 9:00 AM EDT Treatment [address] [address] Familia Gutierrez PTA Chronic right shoulder pain (Primary Dx) 08/14/2025 9:00 AM EDT Treatment [address] [address] Chucky Meier, BATCH STILL OPERATOR Chronic right shoulder pain (Primary Dx) 07/30/2025 8:30 AM EDT Treatment [facility] [address] [address] Nuzhat Ernandez, PT Chronic right shoulder pain (Primary Dx) 07/25/2025 8:30 AM EDT Treatment [address] [address] Vitor Joe, BATCH STILL OPERATOR Chronic right shoulder pain (Primary Dx) 07/17/2025 8:30 AM EDT Treatment [address] [address] Nuzhat Ernandez, PT Chronic right shoulder pain (Primary Dx) 07/15/2025 8:30 AM EDT Treatment [address] [address] Natan Morris, BATCH STILL OPERATOR Chronic right shoulder pain (Primary Dx) from [...] Info) Description 10/16/2025 8:30 AM EST Treatment [facility] [address] [address] Vitor Joe, BATCH STILL OPERATOR 10/18/2025 8:30 AM EST Treatment [facility] [address] [address] Livier Meier, PT Health Maintenance Due Date [...] mmol/L LAB CHEMISTRY METHOD 03/21/2025 1:51 AM [facility] Potassium 4.4 3.5 - 5.5 mmol/L LAB CHEMISTRY METHOD 03/21/2025 1:51 AM [facility] Chloride 102 96 - 110 mmol/L LAB CHEMISTRY METHOD 03/21/2025 1:51 AM [facility] CO2 25 21 - 32 mmol/L LAB CHEMISTRY METHOD 03/21/2025 1:51 AM [facility] Anion Gap 7 3 - 11 LAB CHEMISTRY METHOD 03/21/2025 1:51 AM [facility] Glucose 184(H) 70 - 100 mg/dL LAB CHEMISTRY METHOD 03/21/2025 1:51 AM [facility] BUN 16 5 - 25 mg/dL LAB CHEMISTRY METHOD 03/21/2025 1:51 AM [facility] Creatinine 0.85 0.70 - 1.30 mg/dL LAB CHEMISTRY METHOD 03/21/2025 1:51 AM [facility] eGFR 91 >=60 mL/min/1. 73m2 LAB CHEMISTRY METHOD 03/21/2025 1:51 AM [facility] Comment:Calculation based on the Chronic Kidney Disease Epidemiology Collaboration (CKD-EPI) equation refit without adjustment for race. BUN/Creatinine Ratio 18.8 LAB CHEMISTRY METHOD 03/21/2025 1:51 AM [facility] Calcium 8.5 8.5 - 10.5 mg/dL LAB CHEMISTRY METHOD 03/21/2025 1:51 AM [facility] AST (SGOT) 36 10 - 42 unit/L LAB CHEMISTRY METHOD 03/21/2025 1:51 AM [facility] ALT (SGPT) 47 10 - 60 unit/L LAB CHEMISTRY METHOD 03/21/2025 1:51 AM [facility] Alkaline Phosphatase 94 42 - 121 unit/L LAB CHEMISTRY METHOD 03/21/2025 1:51 AM [facility] Total Protein 6.5 6.0 - 8.0 g/dL LAB CHEMISTRY METHOD 03/21/2025 1:51 AM [facility] Albumin 3.6 3.2 - 5.0 g/dL LAB CHEMISTRY METHOD 03/21/2025 1:51 AM [facility] Total Bilirubin 0.6 0.0 - 1.4 mg/dL LAB CHEMISTRY METHOD 03/21/2025 1:51 AM [facility] Blood Venous blood specimen / Unknown Venipuncture / Unknown 03/21/2025 12:46 AM EDT 03/21/2025 1:27 AM EDT us Sadia Downey MD LAB BLOOD ORDERABLES Fin al Result [facility] [address] [place] [address], from Last 3 Months or Most Recently Relevant to Health Maintenance Insurance [employer] MEDICARE Care Teams Car Unloader Relationship Specialty Start Date End Date [place], MD Siobhan [address] [place] [phone] PCP - General 01/16/24
--- OUTSIDE RECORDS SUMMARY | 2025-10-14 18:19 | XMS_ITS | Encounter Summary ---
Author Organization [employer] Address [address] [facility] 7t [place] [address] Care Team Providers Care Occupational Ther Name Role Phone Siobhan Vanessa MD Primary Care Provider [phone] [place] Unavailable Pepper Flanagan MD Unavailable [phone] Harshal Hartley MD Unavailable Nancy Lyles NP Unavailable Encounter Details Date Type Department Care Team (Late st Contact Info) Description 12/27/2022 Abstract [facility] MEDICINE [address] [place], [place] [phone] Siobhan Vanessa MD [address] [place], [place] [phone] Social History Tobacco Use Types Packs/Day Years [...] on filedocumented in this encounter Care Teams Occupational Ther Relationship Specialty Start Date End Date Siobhan Vanessa MD [address] [place] [address] PCP - General Family Medicine 01/04/12 [place] [address] [facility] 3rd [place] [address] Cardiology 03/28/25 Pepper Flanagan MD [address] [place] [address] Hematology and Oncology 04/03/25 Harshal Hartley MD [address] [address] General Surgery 04/03/25 Nancy Lyles NP [address] [place] [address] Urology 04/03/25 [facility] Orthopedic [place], [address] [address] Orthopaedic Surgery 04/24/25 documented as of this encounter
--- OUTSIDE RECORDS SUMMARY | 2025-10-14 18:19 | XMS_ITS ---
Author Name Lyle MORAN MRS. 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 Contact CB 24 as needed.Does not have a machine at [...] to workout daily. Other problems related to me dical facilities and other health care Active 2023-12-30 2 N/A PAIN CONTINGENCY PLANLast updated: 07/11/2025 to call for the following symptoms: Decreased mobility/ Fall / Increased painPlanned intervention: Tylenol 1,000mg q6h/ Voltaren gel to affected area/ Apply heat to affected area/ Apply ice to affected area Hospitalization or health ca re facility admission within last 6 months Resolved 2024-03-01 9 2025-07-11 Medical Records requested, approx 01/18/24 'Pt presented with submandibular abscess. Sent to 4 facilities, ultimately at [facility] where I and D was done. [...] He is in the process of obtaining [employer]ACH[employer] hours (number provided for follow up)01/17/24: MMSE2 scored 10/30 points07/19/24Sister/CG reports he is doing well enough, is in good spirits, enjoys going fishing and they have gone 2 or 3 times recently.confirms DX of dementia. No on meds currently. Able to answer questions appropriately. Reports as being forgetful.. MyelofibrosisImmunodeficiency Active 0 N/A Follows up with Electromechanic, Oncologist and PCP regularly. Electromechanic every 6 months. Has appt this week.Oncologist [...] getting the Jakafi, it was shipped but [facility] has not delivered it, they say no [...] (do not use for phone, instead use 51614-60) [facility] MyelofibrosisImmunodeficienc y, unspecifiedPersonal history of other venous thrombosis and embolismLong term (current) use of anticoagulantsPrsnl hx of TIA (TIA), and cereb infrc w/o resid deficitsEssential (primary) hypertension New patient,40-59min; chronic exacerbation, 2 stable chronic or 1 acute illness add add modifier 95 for video (do not use for phone, instead use 64190-49) [facility] [place] New patient,40-59min; chronic exacerbation, 2 stable chronic or 1 acute illness add add modifier 95 for video (do not use for phone, instead use 53349-63) [facility] [place] 04[place] New patient,40-59min; chronic exacerbation, 2 stable chronic or 1 acute illness add add modifier 95 for video (do not use for phone, instead use 91731-31) [facility] [place] 04[place]19[place] New patient,40-59min; chronic exacerbation, 2 stable chronic or 1 acute illness add add modifier 95 for video (do not use for phone, instead use 20285-48) [facility] [place] 04[place]23 New patient,40-59min; chronic exacerbation, 2 stable chronic or 1 acute illness add add modifier 95 for video (do not use for phone, instead use 55378-18) [facility] [place] 04[place]19[place]23 New patient,40-59min; chronic exacerbation, 2 stable chronic or 1 acute illness add add modifier 95 for video (do not use for phone, instead use 88753-40) [facility] [place] 04[place]19[place] New patient,40-59min; chronic exacerbation, 2 stable chronic or 1 acute illness add add modifier 95 for video (do not use for phone, instead use 15133-53) [facility] [place] 04[place]19[place]23 New patient,40-59min; chronic exacerbation, 2 stable chronic or 1 acute illness add add modifier 95 for video (do not use for phone, instead use 22394-29) [facility] [place] 04/19[place]23 New patient,40-59min; chronic exacerbation, 2 stable chronic or 1 acute illness add add modifier 95 for video (do not use for phone, instead use 46416-07) [facility] [place] 04/19/2023 Unlisted special service; to be used for medical record reviews and reporting CPTII codes (1111F, etc) [facility] ([place] 08/08/2023 Other specified counseling Unlisted special service; to be used for medical record reviews and reporting CPTII codes (1111F, etc) [facility] [place] 08/08[place]2023 Unlisted special service; to be used for medical record reviews and reporting CPTII codes (1111F, etc) [facility] ([place] 08/08/2023 Estab. patient 30-39min; chronic exacerbation, 2 stable chronic or 1 acute illness add add modifier 95 for video, (do not use for phone, instead use 63167-79) [facility] [place] 03[place]24 MyelofibrosisImmunodeficienc y, unspecifiedOther problems related to [...] (do not use for phone, instead use 41635-04) [facility] [place] Estab. patient 30-39min; chronic exacerbation, 2 stable chronic or 1 acute illness add add modifier 95 for video, (do not use for phone, instead use 99988-84) [facility] [place] 03[place] Estab. patient 30-39min; chronic exacerbation, 2 stable chronic or 1 acute illness add add modifier 95 for video, (do not use for phone, instead use 18213-80) [facility] [place] 03[place] Estab. patient 30-39min; chronic exacerbation, 2 stable chronic or 1 acute illness add add modifier 95 for video, (do not use for phone, instead use 76161-83) [facility] [place] 03[place] Estab. patient 30-39min; chronic exacerbation, 2 stable chronic or 1 acute illness add add modifier 95 for video, (do not use for phone, instead use 92753-62) [facility] [place] 03[place] Estab. patient 30-39min; chronic exacerbation, 2 stable chronic or 1 acute illness add add modifier 95 for video, (do not use for phone, instead use 08001-10) [facility] [place] Estab. patient 30-39min; chronic exacerbation, 2 stable chronic or 1 acute illness add add modifier 95 for video, (do not use for phone, instead use 78992-06) [facility] [place] Estab. patient 30-39min; chronic exacerbation, 2 stable chronic or 1 acute illness add add modifier 95 for video, (do not use for phone, instead use 90969-39) [facility] [place] Estab. patient 30-39min; chronic exacerbation, 2 stable chronic or 1 acute illness add add modifier 95 for video, (do not use for phone, instead use 11218-89) [facility] [place] 03/[place]24 No Data Available [facility] [place] 07/19/2024 Unspecified dementia without behavioral disturbanceMyelofibrosisOther problems related to medical facilities and other health careImmunodeficiency, unspecified No Data Available [facility] [place] 07[place]19[place]20[place] Estab. patient 10-29min; 1 minor problem; add add modifier 95 for video, modifier 93 for phone [facility] [place] 07[place]2025 MyelofibrosisImmunodeficienc y, unspecifiedUnspecified dementia without behavioral disturbancePersonal history of other venous thrombosis and embolismLong term (current) use of anticoagulantsPrsnl hx of TIA (TIA), and cereb infrc w/o resid deficitsEssential (primary) hypertensionHyperlipidemia, unspecifiedPain in arm, unspecifiedOther problems related to medical facilities and other health care Estab. patient 10-29min; 1 minor problem; add add modifier 95 for video, modifier 93 for phone [facility] [place] 07/11/2025 Estab. patient 10-29min; 1 minor problem; add add modifier 95 for video, modifier 93 for phone [facility] [place] 07/11/2025 Estab. patient 10-29min; 1 minor problem; add add modifier 95 for video, modifier 93 for phone [facility] [place] 07/11/2025 Estab. patient 10-29min; 1 minor problem; add add modifier 95 for video, modifier 93 for [facility] [place] 07/11/2025 Estab. patient 10-29min; 1 minor problem; add add modifier 95 for video, modifier 93 for phone [facility] [place] 07/11/2025 Estab. patient 10-29min; 1 minor problem; add add modifier 95 for video, modifier 93 for phone [facility] [place] 07/11/2025 Vital Signs Date of Collection Vitals [...] tive Time Current Smoking Status Never smoker 2025-09-30 5 Sex Male Gender identity Man History of Procedures Procedures Service Procedure code Service date Servicing provider Phone# New patient,40-59min; chronic exacerbation, 2 stable chronic or 1 acute illness add add modifier 95 for video (do not use for phone, instead use 14187-75) 85032 2023-04-19 No Data Available No Data Availa [...] reviews and reporting CPTII codes (1111F, etc) 46562 2023-08-08 No Data Available No Data Availa ble SBP < 130 (3074F) 3074F 2023-08-08 No Data Available No Data Available DBP <80 (3078F) 3078F 2023-08-08 No Data Available No Data Available Estab. patient 30-39min; chronic exacerbation, 2 stable chronic or 1 acute illness add add modifier 95 for video, (do not use for phone, instead use 95000-02) 94257 2024-03-28 No Data Available No Data Availa [...] No Data Avail able No Data Available 55209 2024-07-19 No Data Available No Data Available Medication List Documented (1159F) 1159F 2024-07-19 No Data Available No Data Mabel ilable Estab. patient 10-29min; 1 minor problem; add add modifier 95 for video, modifier 93 for phone 07161 2025-07-11 No Data Available No Data Availa [...] No Data Availa ble Pain Assessment - Pain Documented on a Pain Scale (1125F) 1125F 2025-07-11 No Data Available No Data Mabel ilable Functional Status Functional Category Effective Dates Cognition [...] 08:55:27 MyelofibrosisImmunod eficiencyHistory of DVT (deep vein thrombosis)snf current use of anticoagulantHistory of CVA (cerebrovascular accident)Hypertension 2024-03-28 11:15:09 MyelofibrosisImmunod eficiencyOther problems related to medical facilities and other health careHistory of DVT (deep vein thrombosis)snf current use of anticoagulantHistory of CVA (cerebrovascular [...] unspecified dementia typeHistory of DVT (deep vein thrombosis)assistant terminal manager current use of anticoagulantHistory of CVA [...] education needs that may arise.Follows up with [employer], Oncologist and PCP regularly. Electromechanic every 6 months. Has appt this week.Oncologist every 6 month. Next appt this week. 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 Has home nurse once a week. Last INR reported by patient 2.3, done by home nurse today 04/19/23. Taking:Warfarin Sodium 3 mg Tab QDDenies any acute complaints. Advised to follow up with Hem as scheduled.Contact CB 24/7 as needed.History of stroke 10 years ago. [...] education needs that may arise.Follows up with Electromechanic, Oncologist and PCP regularly. Electromechanic every 6 months. Has appt this week.Oncologist every 6 month. Next appt this week. Taking:Jakafi 20 mg Tab QDImmunodeficiency due to: weakened immune system, encourage hand washing, avoid large crowds, stay up to date on vaccines (annual flu), monitor for and report early any s/s of infectionDenies any acute complaints.Advised to follow up as scheduled.Contact [facility] 23/05 as needed.When member to call: 1. [...] x3 days/ Trazodone 50mg at bedtimeHistory of DVT.snf current use of anticoagulants with INR goal [...] He is in the process of obtaining [employer] hours (number provided for follow up)01/17/24: MMSE2 scored 10/30 pointsMedical Records requested, approx 01/18/24 'Pt presented with submandibular abscess. Sent to 4 facilities, ultimately at [facility] where I and D was done. [...] modifier 95)Continue to see PCP. Follow-up with [facility] as needed for any acute or disease education needs that may arise 23/05.Add Contingency PlanDx recently due to increased forgetfulness, self neglect, requring assistance with all IADLs and most ADLs. He is in the process of obtaining [employer] hours (number provided for follow up)01/17/24: MMSE2 scored 10/30 points07/19/24Sister/CG reports he is doing well enough, is in good spirits, enjoys going fishing and they have gone 2 or 3 times recently.Follows up with Electromechanic, Oncologist and PCP regularly. Electromechanic every 6 months. Has appt this week.Oncologist every 6 month. Next appt this week. Taking:Jakafi 20 mg Tab QDImmunodeficiency due to: weakened immune system, encourage hand washing, avoid large crowds, stay up to date on vaccines (annual flu), monitor for and report early any s/s of infectionDenies any acute complaints.Advised to follow up as scheduled.Contact V 23/05 as needed. 07/19/2024Have been having trouble getting the Jakafi, it was shipped but [facility] has not delivered it, they say no [...] for phoneContinue to see PCP. Follow-up with [facility] as needed for any acute or [...] heat and muscle rubs.PAIN CONTINGENCY PLANLast updated: 07/11/2025[facility] the following symptoms: Decreased mobility/ Fall / Increased painPlanned intervention: Tylenol 1,000mg q6h/ Voltaren gel to affected area/ Apply heat to affected area/ Apply ice to affected area Goals Date Goal 2023-04-19 Remember to keep all appointments with your PCP and specialists. Call CB 23/05 if you have questions or concerns. Discussed how to contact [facility] via phone or tablet. Health Concerns [...] Measures: No open measures 2025-07-11 Advance Care Plannin g Conversation<.>acp and <.>seriousillness FastKey here 2025-07-11 Functional Assessmen t<.>functional FastKey here 2025-07-11 REMINDERS (DELETE [place] IOR TO SIGNING NOTE):Update demographicsAdd PCP to patient's provider listAdd pharmacyAdd pain score, weight, height, and BP in vitals. Report location where vitals were obtained if not patient reported.[place] current medications and all active diagnoses to this noteRecord PHQ2 or PHQ9 and export to noteAsk about influenza, COVID, pneumococcal, and RSV Vaccines
--- OUTSIDE RECORDS SUMMARY | 2025-10-14 18:19 | XMS_ITS | Encounter Summary ---
Author Organization [employer] Address [address] [facility] [address]t [place] [address] Care Team Providers Care Commercial Crabber Name Role Phone Siobhan Vanessa MD Primary Care Provider [phone] [place] Unavailable Pepper Flanagan MD Unavailable [phone] Harshal Hartley MD Unavailable Nancy Lyles NP Unavailable Encounter Details Date Type Department Care Team (Late st Contact Info) Description 01/24/2025 Orders Only [facility] MEDICINE [address] [place], [place] [phone] Siobhan Vanessa MD [address] [place], [place] [phone] Social History Tobacco Use Types Packs/Day Years [...] documented as of this encounter Care Teams Commercial Crabber Relationship Specialty Start Date End Date Siobhan Vanessa MD [address] [place] [address] PCP - General Family Medicine 01/04/12 [place] [address] [place] [address] 3[address] [place] [address] Cardiology 03/28/25 Pepper Flanagan MD [address] [place] [address] Hematology and Oncology 04/03/25 Harshal Hartley MD [address] 3rd [place] [address] General Surgery 04/03/25 Nancy Lyles NP [address] [place] [address] Urology 04/03/25 [facility] Orthopedic [place], [facility] [address] [place] [address] Orthopaedic Surgery 04/24/25 documented as of this encounter
--- OUTSIDE RECORDS SUMMARY | 2025-10-14 18:19 | XMS_ITS | Encounter Summary ---
Author Organization [employer] Address [address] [facility] 7t [place] [address] Care Team Providers Care Voice Instructor Name Role Phone Siobhan Vanessa MD Primary Care Provider [phone] [place] Unavailable Pepper Flanagan MD Unavailable [phone] Harshal Hartley MD Unavailable Nancy Lyles NP Unavailable Reason for Visit * Reason Onset Date Comments Coagulation Disorder 02/22/2023 Encounter Details Date Type Department Care Team (Late st Contact Info) Description 02/22/2023 Telephone [facility] MEDICINE [address] [place], [place] [phone] Siobhan Vanessa MD [address] [place], [place] [phone] Coagulation Disorder Social History Tobacco Use Types [...] a mutual Pt. Please contact rosie at [phone] documented in this encounter Plan of Treatment Not on file documented as of this encounter Visit Diagnoses Not on filedocumented in this encounter Care Teams Voice Instructor Relationship Specialty Start Date End Date Siobhan Vanessa MD [address] [place] [address] PCP - General Family Medicine 01/04/12 [place] [address] [facility] [address] [place] [address] Cardiology 03/28/25 Pepper Flanagan MD [address] [place] [address] Hematology and Oncology 04/03/25 Harshal Hartley MD [address] [address] General Surgery 04/03/25 Nancy Lyles NP [address] [place] [address] Urology 04/03/25 [facility] Orthopedic [place], [facility] [address] [place] [address] Orthopaedic Surgery 04/24/25 documented as of this encounter
--- OUTSIDE RECORDS SUMMARY | 2025-10-14 18:19 | XMS_ITS | Clinical Summary ---
Author Organization [employer] [facility] Prior to 03/30/[address] [place] [address] Care Team Providers Care Structural Worker Name Role Phone Siobhan Vanessa MD Primary Care Provider [phone]- [phone] Allergies No known active allergies Medications No [...] - 1-dose 75+ series) 2025 COVID-19 Vaccine (2 - 2025-26 season) 2025 07/08/2023 Influenza Vaccine (#1) 2025 2, 08/12/2016, 10/03/2015, Additional history exists Pneumococcal Vaccine Completed 11/11/2021, 11/14/19 16 Hepatitis B Vaccines Aged Out No long er eligible based on patient's age to complete this topic RSV Ped < 20 months Aged Out No longe r eligible based on patient's age to complete this topic Care Teams Structural Worker Relationship Specialty Start Date End Date [place], [place] Siobhan [address] [place] [address] PCP - General Family Medicine 01/16/24
--- OUTSIDE RECORDS SUMMARY | 2025-10-14 18:19 | XMS_ITS | Encounter Summary ---
Author Organization [employer] Address [address] [facility] 7t [place] [address] Care Team Providers Care Insulation Nozzleman Name Role Phone Siobhan Vanessa MD Primary Care Provider [phone] [place] Unavailable Pepper Flanagan MD Unavailable [phone] Harshal Hartley MD Unavailable Nancy Lyles NP Unavailable Reason for Visit * Reason Onset Date Comments Med Refill 09/29/2023 Encounter Details Date Type Department Care Team (Late st Contact Info) Description 09/29/2023 Telephone [facility] MEDICINE [address] [place] [address] Siobhan Vanessa MD [address] [place] [address] Med Refill Social History Tobacco [...] MG chemo tablet to be sent to [facility] - [place], [place] - [address] [facility] documented in this encounter Plan of [...] documented as of this encounter Care Teams Insulation Nozzleman Relationship Specialty Start Date End Date Bentley Vanessaie, MD [address] [place] [address] PCP - General Family Medicine 01/04/12 [place] [address] 3rd [place] [address] Cardiology 03/28/25 Pepper Flanagan MD [address] [place] [address] Hematology and Oncology 04/03/25 Harshal Hartley MD [address] [place] [address] General Surgery 04/03/25 Nancy Lyles NP [address] [place] [address] Urology 04/03/25 [facility] Orthopedic [place], [address] [address] Orthopaedic Surgery 04/24/25 documented as of this encounter
--- OUTSIDE RECORDS SUMMARY | 2025-10-14 18:19 | XMS_ITS | Clinical Summary ---
Author Organization [employer] Address [address] [facility] [address] [facility] [address] [place] [address] Care Team Providers Care Lithographic Printing Machinist Name Role Phone Siobhan Vanessa MD Primary Care Provider [phone] [place] Unavailable Pepper Flanagan MD Unavailable [phone] Harshal Hartley MD Unavailable Nancy Lyles NP Unavailable Allergies No known active allergies Medications tamsulosin (Flomax) 0.4 MG 24 hr capsuleIndicatio ns:Benign prostatic hyperplasia with lower urinary tract symptoms, symptom details unspecified Take 1 capsule (0.4 mg) by mouth in the morning. 90 capsule 3 4 Active Jakafi 20 MG chemo tabletIndication s:Myeloprolifera tive disorder (CMS/HCC) (HCC) 4 Active Stool Softener/Laxativ e 50-8.6 MG tabletIndication s:Constipation, unspecified constipation type TAKE 2 TABLETS BY MOUTH EVERY DAY NEEDED FOR CONSTIPATION 180 tablet 3 4 Active Diclofenac Sodium [...] MG EC tabletIndication s:Coronary artery disease involving wiyot coronary artery of wiyot heart without angina pectoris TAKE 1 TABLET BY MOUTH EVERY MORNING 90 tablet 3 5 Active atorvastatin (Lipitor) 80 MG tabletIndication s:Coronary artery stenosis TAKE 1 TABLET BY MOUTH AT BEDTIME 90 tablet 3 5 Active Eliquis 5 MG tabletIndication s:Mural thrombus of left ventricle TAKE 1 TABLET BY MOUTH TWICE DAILY IN THE MORNING AND IN THE EVENING 180 tablet 3 5 Active Active Problems Problem Noted Date Diagnosed Date Myelofibrosis (CMS/HCC) 07/15/2025 Assessment & Plan (07/15/2025 12:07 PM EDT): - Followed by Dr. Flanagan, Steel Pickler.Note from 04/19/24 reviewed. - Stable on Jakafi (Ruxolitinib) started June 28, 2014 - CAT scan of abdomen performed on 06/01/16. -he has difficulty maintain weight due to his chronic illness , Rx Boost for nutrition supplementation Injury of tendon of biceps 03/26/2025 Overview (07/15/2025): -Seen by [employer], Communication Science 04/16/25x ray revased superior humeral head migration, degenerative changes at the greater tuberosity with cystic changes. 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 Assessment & Plan (07/15/2025 12:07 PM EDT): -Seen by [facility] 04/16/25x ray revased superior humeral head migration, [...] 01/25/2024 Overview (07/18/2025): Quinones placed 01/21/[address] [facility] for urinary retention. They recommend follow up 1 week urology. -Seen by urology 02/01/24 In office voiding trial performed however patient unable to independently void. - Bladder scan showed over 800mls, Quinones catheter reinserted, follow up in 1 month. - Finasteride added by Urology -seen by urology 05/22/24 Continue finasteride, terazosin, methenamine, and vitamin-C. -note from Cornelius Trupti agee 07/15/25 Assessment & Plan (02/03/2024 10:02 AM EDT): Quinones placed 01/21/24 in hospital at [place] for urinary retention. They recommend follow up 1 week urology. -Seen by urology 02/01/24 In office voiding trial performed however patient unable to independently void. - Bladder scan showed over 800mls, Quinones catheter reinserted, follow up in 1 month. - Finasteride added by Urology Assessment & Plan (01/25/2024 12:27 PM EDT): Quinones placed 01/21/24 in hospital at [place] for urinary retention. They recommend follow up 1 week urology. -referral placed 01/25/24 Dementia ([facility]) 01/17/2024 Overview (07/15/2025): Patients VNA from [facility] requested evaluation for worsening memory 01/2024. Family repots memory has been getting progressively worse. MOCA/mini mental exam done with RN . MMSE2 in [place] completed with pt. Pt states graduated high [...] unable to repeat a spoken sentence in luxembourgish and was also unable to write a sentence that was spoken to him. Was prompted to write Mi color favorito es... followed by his favorite color. He said, byrnes and then wrote Sool without the rest of the sentence. He was able to name a square but answered, lines for triangle and zero for apache. Lastly he was able to copy a shape on paper. -Pt scored a 10 out of a possible 30 points. This is considered severe cognitive impairment and at an increased odds for dementia status. -referral to geriatrics memory clinic placed 02/22/24 -stable no behavior disturbance 07/15/25 Assessment & Plan (07/15/2025 12:07 PM EDT): Patients VNA from [facility] requested evaluation for worsening memory 01/2024. Family repots memory has been getting progressively worse. MOCA/mini mental exam done with RN . MMSE2 in [place] completed with pt. Pt states graduated high [...] unable to repeat a spoken sentence in luxembourgish and was also unable to write a sentence that was spoken to him. Was prompted to write Mi color favorito es... followed by his favorite color. He said, byrnes and then wrote Sool without the rest of the sentence. He was able to name a square but answered, lines for triangle and zero for apache. Lastly he was able to copy a shape on paper. -Pt scored a 10 out of a possible 30 points. This is considered severe cognitive impairment and at an increased odds for dementia status. -referral to geriatrics memory clinic placed 02/22/24 -stable no behavior disturbance 07/15/25 Assessment & Plan (04/03/2025 10:42 AM EDT): Patients VNA from [facility] requested evaluation for worsening memory 01/2024. Family repots memory has been getting progressively worse. MOCA/mini mental exam done with RN . MMSE2 in [place] completed with pt. Pt states graduated high [...] unable to repeat a spoken sentence in luxembourgish and was also unable to write a sentence that was spoken to him. Was prompted to write Mi color favorito es... followed by his favorite color. He said, byrnes and then wrote Sool without the rest of the sentence. He was able to name a square but answered, lines for triangle and zero for apache. Lastly he was able to copy a shape on paper. -Pt scored a 10 out of a possible 30 points. This is considered severe cognitive impairment and at an increased odds for dementia status. -referral to geriatrics memory clinic placed 02/22/24 Assessment & Plan (02/22/2024 9:18 AM EDT): Patients VNA from [facility] requested evaluation for worsening memory 01/2024. Family repots memory has been getting progressively worse. MOCA/mini mental exam done with RN . MMSE2 in [place] completed with pt. Pt states graduated high [...] unable to repeat a spoken sentence in luxembourgish and was also unable to write a sentence that was spoken to him. Was prompted to write Mi color favorito es... followed by his favorite color. He said, byrnes and then wrote Sool without the rest of the sentence. He was able to name a square but answered, lines for triangle and zero for apache. Lastly he was able to copy a [...] 9:39 AM EDT): He had 28 hours DIRECTOR [employer]OLOG[employer] serves but when he moved he was reevaluated by someone who did not speak [place]er. Pt state he said yes to everything but did not know what was being asked and lost services. Number for [facility] given to sister 07/08/23 to call for evaluation. Has [facility] for INR draws as was not able to get to outside INR checks. 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 Changed to eliquis after eco showed resolution of thrombus at [facility] 12/2023. Discharge summary from [facility] reviewed states LIV demonstrated resolution of LV mural thrombus and patient was transitioned off warfarin an onto Eliquis for clot prophylaxis in the setting of LV aneurysm and history of DVTs. Assessment & Plan (04/03/2025 10:42 AM EDT): - For left ventricular thrombus. Changed to eliquis after eco showed resolution of thrombus at [facility] 12/2023. Discharge summary from [facility] reviewed states LIV demonstrated resolution of LV mural thrombus and patient was transitioned off warfarin an onto Eliquis for clot prophylaxis in the setting of LV aneurysm and history of DVTs. Assessment & Plan (01/25/2024 1:52 PM EDT): - For left ventricular thrombus. Changed to eliquis after eco showed resolution of thrombus at [facility] 12/2023. Assessment & Plan (07/08/2023 8:28 AM EDT): - For left ventricular thrombus. INR dosed by PCP. Other specified health status 07/06/2023 Overview (04/03/2025): -next comprehensive annual evaluation due after 04/03/26 -eye care facilitated by [facility] health care proxy on file 01/25/24 Assessment & Plan (04/03/2025 10:44 AM EDT): -next comprehensive annual evaluation due after 04/03/26 -eye care facilitated by [facility] health care proxy on file 01/25/24 Assessment & Plan (01/25/2024 1:53 PM EDT): -next physical exam due after 07/08/2024 -eye care facilitated by [facility] health care proxy on file 01/25/24 History of CVA (cerebrovascular accident) 2022 Overview (07/06/2023): He saw neurology during hospitalization Oct 2011who reviewed his neurological work up in [place] including carotid ultrasound that was unremarkable. Neurology recommended no further work up and continuing aspirin. - coninue ASA and atorvastatin 80qhs Assessment & Plan (04/03/2025 10:43 AM EDT): He saw neurology during hospitalization Oct 2011who reviewed his neurological work up in [place] including carotid ultrasound that was unremarkable. Neurology recommended no further work up and continuing aspirin. - coninue ASA and atorvastatin 80qhs Assessment & Plan (07/08/2023 8:29 AM EDT): He saw neurology during hospitalization Oct 2011who reviewed his neurological work up in [place] including carotid ultrasound that was unremarkable. Neurology recommended no further work up and continuing aspirin. - coninue ASA and atorvastatin 80qhs Coronary artery stenosis 12/26/2021 Overview (03/28/2025): Admitted to [facility] in March of 2020 due to [...] qd. -Continue ASA and Eliquis changed in [facility] 12/2023 due to thrombus resolved on echo and required transfusion for bleeding tooth abscess -Followed by Dr. Greg Galaviz of [facility], we called 07/08/23 and they repot he missed last appointment. -echo in [facility] 12/2023 showed mildly reduced ejection fraction of 45% and was initiated on metoprolol as part of GDMT. -seen by [place] 02/2025 continue Eliquis Assessment & Plan (04/03/2025 10:43 AM EDT): Admitted to [facility] in March of 2020 due to [...] qd. -Continue ASA and Eliquis changed in [facility] 12/2023 due to thrombus resolved on echo and required transfusion for bleeding tooth abscess -Followed by Dr. Greg Galaviz of [facility], we called 07/08/23 and they repot he missed last appointment. -echo in [facility] 12/2023 showed mildly reduced ejection fraction of 45% and was initiated on metoprolol as part of GDMT. -seen by [place] 02/2025 continue Eliquis Assessment & Plan (07/08/2023 9:33 AM EDT): Admitted to [facility] in March of 2020 due to [...] thrombus) -Followed by Dr. Greg Galaviz of [facility], we called 07/08/23 and [...] Overview (04/26/2024): - Followed by Dr. Flanagan, Steel Pickler.Note from 04/19/24 reviewed. - Stable on Jakafi (Ruxolitinib) started June 28, 2014 - CAT scan of abdomen performed on 06/01/16. -he has difficulty maintain weight due to his chronic illness , Rx Boost for nutrition supplementation Assessment & Plan (07/15/2025 12:07 PM EDT): - Followed by Dr. Flanagan, Steel Pickler.Note from 04/19/24 reviewed. - Stable on Jakafi (Ruxolitinib) started June 28, 2014 - CAT scan of abdomen performed on 06/01/16. -he has difficulty maintain weight due to his chronic illness , Rx Boost for nutrition supplementation Assessment & Plan (04/03/2025 10:42 AM EDT): - Followed by Dr. Flanagan, Steel Pickler.Note from 04/19/24 reviewed. - Stable on Jakafi (Ruxolitinib) started June 28, 2014 - CAT scan of abdomen performed on 06/01/16. -he has difficulty maintain weight due to his chronic illness , Rx Boost for nutrition supplementation Assessment & Plan (07/08/2023 9:01 AM EDT): - Followed by Dr. Flanagan, Steel Pickler. - Stable on Jakafi (Ruxolitinib) started June [...] thrombus. -Followed by Dr. Greg Galaviz of [facility], we called 07/08/23 and [...] that involve head trauma. He and his DIRECTOR BIOLOGICS agree with the plan. Assessment & Plan [...] Encounters Date Type Department Care Team Description 10/07/2025 Orders Only GENERIC EXTERNAL DATA DEPARTMENT Provider, Generic External Data 08/18/2025 Refill [facility] [address] [place] [phone] Siobhan Vanessa MD Mural thrombus of left ventricle 07/16/2025 Orders Only [facility] [place] [address] Siobhan Vanessa MD 07/15/2025 11:30 AM EDT Office Visit [facility] [address] [place] [phone] Siobhan Vanessa MD Dementia without behavioral disturbance, psychotic disturbance, mood disturbance, or anxiety, unspecified dementia severity, unspecified dementia type (CMS/HCC) (Primary Dx); Dyslipidemia; Benign essential hypertension; Iron deficiency anemia, unspecified iron deficiency anemia type; Transaminitis; Myelofibrosis (CMS/HCC); Myeloproliferative disorder (CMS/HCC); Tubular adenoma; Injury of tendon of biceps 07/15/2025 Travel from Last 3 Months Immunizations Immunization Administration [...] Procedure Name Priority Date/Time Associated Diagnosis Comments US RETROPERITONEAL COMPLETE Routine 10/08/2025 10:14 AM EST PSA, TOTAL Routine 10/07/2025 8:52 AM EST LD Routine 07/16/2025 8:32 AM EDT COMPREHENSIVE [...] Recently Relevant to Health Maintenance Results * US Retroperitoneal Complete (10/08/2025 10:14 AM EST) Anatomical Region Laterality Modality Ultrasound 10/08/2025 10:1 4 AM EST Narrative 10/08/2025 10:15 AM EST [place] [address] Ultrasound Report Signed Patient: Mervin Liu MR#: [id number] : 1950 Acct:[id number] Age/Sex: 75 / M ADM Date: 10/07/25 Loc: HO.US Attending Dr: Nancy GOEL Ordering Physician: Nancy Lyles Date of Service: 10/07/25 Procedure(s): US retroperitoneal comp Accession Number(s): [id number] cc: Siobhan Vanessa MD; Nancy Lyles Reason for Exam: R33.9 - Retention of urine, unspecified CLINICAL HISTORY: R33.9 - Retention of urine, unspecified US Renal Comparison: US/SR - US RETROPERITONEUM - 04/25/24 12:54 EDT Findings: Right kidney normal size and echotexture, 12.6 x 5.4 x 5.3 cm. Left kidney normal size and echotexture, 12.8 x 5 x 3 cm. No collecting system dilatation of either kidney. Normal color Doppler. Urinary bladder is unremarkable. Prevoid volume 111 mL. Postvoid volume 53 mL. Left ureteral jet is visualized. Incidentally, a massively enlarged spleen is noted. IMPRESSION: No acute sonographic abnormality in the bilateral kidneys. No signs of obstructive uropathy. There is bladder postvoid residual as noted. Massively enlarged spleen. This document has been electronically signed by: Abraham Douglass MD on 10/08/2025 10:14:28 Dictated By: Abraham Douglass MD Signed By: <Electronically signed by Abraham Douglass MD in OV> 10/08/25 1015 DD/ 1014 TD/TT: 10/08/25 1014 Payroll Machine Operator: Procedure Note Donotuseinterpreter, Image - 10/08/2025 [place] [address] Ultrasound Report Signed Patient: Mervin Liu#: [id number] : 1950Acct:[id number] Age/Sex: 75 / MADM Date: 10/07/25 Loc: HO.US Attending Dr: Nancy GOEL Ordering Physician: Nancy Lyles Date of Service: 10/07/25 Procedure(s): US retroperitoneal comp Accession Number(s): [id number] cc: Siobhan Vanessa MD; Nancy Lyles Reason for Exam: R33.9 - Retention of urine, unspecified CLINICAL HISTORY: R33.9 - Retention of urine, unspecified US Renal Comparison: US/SR - US RETROPERITONEUM - 04/25/24 12:54 EDT Findings: Right kidney normal size and echotexture, 12.6 x 5.4 x 5.3 cm. Left kidney normal size and echotexture, 12.8 x 5 x 3 cm. No collecting system dilatation of either kidney. Normal color Doppler. Urinary bladder is unremarkable. Prevoid volume 111 mL. Postvoid volume 53 mL. Left ureteral jet is visualized. Incidentally, a massively enlarged spleen is noted. IMPRESSION: No acute sonographic abnormality in the bilateral kidneys. No signs of obstructive uropathy. There is bladder postvoid residual as noted. Massively enlarged spleen. This document has been electronically signed by: Abraham Douglass MD on 10/08/2025 10:14:28 Dictated By: Abraham Douglass MD Signed By: <Electronically signed by Abraham Douglass MD in OV> 10/08/25 1015 DD/ 1014 TD/TT: 10/08/25 1014 Payroll Machine Operator: us [facility] External Provider IMG US PROCEDURES Final Result * PSA,Total (10/07/2025 8:52 AM EST) Prostate Specific Antigen 1.20 <0.05 - 4.0 ng/mL [facility] Comment:PSA methodology: Jarod Nelson i ChemiluminescentMicroparticle Immunoassay (CMIA) 10/07/2025 8:52 AM EST 10/07/2025 8:52 AM EST Generic External Data Provider LAB BLOOD ORDERAB LES Final Result [facility] [address] [place] [phone] * (ABNORMAL) Complete Blood Count Manual Diff (07/16/2025 8:32 AM EDT) White Blood Count 15.3(H) 4.8 - 10.8 X10*3/uL [facility] Red Blood Count 4.77 4.60 - 5.80 X10*6/uL [facility] Hemoglobin 10.8(L) 14.0 - 18.0 g/dl [facility] Hematocrit 38.0(L) 42.0 - 52.0 % [facility] Mean Corpuscular Volume 79.7(L) 80.0 - 98.0 fL [facility] Mean Corpuscular Hemoglobin 22.6(L) 27.0 - 33.0 pg [facility] Mean Corpuscular HGB Conc 28.4(L) 31.0 - 36.0 g/dl [facility] Red Cell Distribution Width 19.9(H) 11.0 - 16.0 % [facility] Platelet Count 74(L) 160 - 400 X10*3/uL [facility] NRBC Pct Auto 1.9(H) 0.0 - 0.2 /100WBC [facility] NRBC Abs Auto 0.290(H) 0.0 - 0.012 X10*3/uL [facility] Neutrophils % Manual 43(L) 45 - 73 % [facility] Band Neutrophils Percent 8(H) 3 - 5 % [facility] Lymphocytes Percent Manual 9(L) 20 - 40 % [facility] Monocytes Percent Manual 15(H) 2 - 11 % [facility] EOSINOPHILS % MANUAL 1 0 - 4 % [facility] BASOPHILS % MANUAL 5(H) 0 - 2 % [facility] Metamyelocytes % (Manual) 8 % [facility] Myelocytes 7 % [facility] Promyelocytes 2 % [facility] Blasts % Manual 2 % [facility] NEUTROPHILS ABSOLUTE MANUAL 7.8 2.0 - 8.3 X10*3/uL [facility] LYMPHOCYTES ABSOLUTE MANUAL 1.4 1.2 - 4.9 X10*3/uL [facility] MONOCYTES ABSOLUTE MANUAL 2.3(H) 0.1 - 1.2 X10*3/uL [facility] EOSINOPHILS ABSOLUTE MANUAL 0.2 0.0 - 0.4 X10*3/uL [facility] BASOPHILS ABSOLUTE MANUAL 0.8(H) 0.0 - 0.2 X10*3/uL [facility] Absolute Metamyelocytes 1.2 X10*3/uL [facility] Absolute Myelocytes 1.1 X10*/uL [facility] ABSOLUTE PROMYELOCYTES 0.3 X10*3/uL [facility] Absolute Basts 0.3 X10*3/uL [facility] Nucleated RBC's 2(H) 0 - 0 /100WBC [facility] Platelet Estimate DECREASED NORMAL [facility] Large Platelet PRESENT [facility] Giant Platelets PRESENT [facility] Platelet Morphology Comment NOTED [facility] RBC Morphology NOTED [facility] POLYCHROMASIA 1+ (0-2) /OIF [facility] Microcytosis 1+ (5-14) /[facility] Tear Drop Cells 3+ (>5) /[facility] Ovalocytes 1+ (5-14) /[facility] Toxic Vacuolation PRESENT [facility] Acanthocytes 1+ (0-2) /[facility] 07/16/2025 8:32 AM EDT 07/16/2025 11:16 AM EDT Siobhan Vanessa MD LAB BLOOD ORDERABLES Final Result Performing Organization Address [facility]/ZIP Co de Phone Number [facility] [address] [place] [phone] * Albumin, Random Urine W/Creatinine (07/16/2025 8:32 AM EDT) Creatinine, Urine 117.69 mg/dL [facility] Microalbumin Urine 8.0 mg/L [facility] Microalbum Creatinine Ratio Ur 6.7 <30 ug/mg cr [facility] Comment:Albumin/Creatinine R atio Reference Ranges: Normal: < 30 ug/mg creatinine Microalbuminuria: 30 - 300 ug/mg creatinineClinical Albuminuria: > 300 ug/mg creatinine Urine 07/16/2025 8:32 AM EDT 07/16/2025 12:18 PM EDT Siobhan Vanessa MD LAB URINE ORDERABLES Final Result Performing Organization Address City/[facility]/ZIP Co de Phone Number [facility] [address] [place] [phone] * Hepatitis C Antibody with Reflex to HCV, RNA, Quantitative, Real-Time PCR (07/16/2025 8:32 AM EDT) Hepatitis C Antibody Nonreactive Nonreactive [facility] Comment:Antibodies to HCV no t detected; does not exclude early acuteHCV infection. Blood Venous blood specimen / Unknown 07/16/2025 8:32 AM EDT 07/16/2025 11:16 AM EDT us Siobhan Vanessa MD LAB BLOOD ORDERABLES Final Result Performing Organization Address City/[facility]/ZIP Co de Phone Number [facility] [address] [place] [phone] * (ABNORMAL) Lactate Dehydrogenase (LD) (07/16/2025 8:32 AM EDT) Lactate Dehydrogenase 959(H) 118 - 273 U/L [facility] 07/16/2025 8:32 AM EDT 07/16/2025 11:16 AM EDT us Generic External Data Provider LAB BLOOD ORDERAB LES Final Result Performing Organization Address [facility]/RUST de Phone Number [facility] [address] [place] [phone] * (ABNORMAL) Comprehensive Metabolic Panel (07/16/2025 8:32 AM EDT) Sodium 141 135 - 145 mmol/L [facility] Potassium 3.8 3.3 - 5.1 mmol/L [facility] Chloride 109(H) 96 - 108 mmol/L [facility] Carbon Dioxide 28 22 - 29 mmol/L [facility] Anion Gap 8(L) 12 - 20 [facility] Urea Nitrogen (BUN) 10 9 - 16 mg/dL [facility] Creatinine, Serum 0.87 0.5 - 1.4 mg/dL [facility] Estimated Glomerular Filt Rate >60 [facility] Comment:Chronic Kidney Disea se: Estimated GFR < 60 mL/min/[id number] Kidney Disease: Estimated GFR < 15 mL/min/1.73m2 Glucose 80 60 - 115 mg/dL [facility] Calcium 8.8 8.4 - 10.2 mg/dL [facility] Bilirubin, Total 0.7 0.0 - 1.0 mg/dL [facility] Aspartate Amino Transferase 38(H) 5 - 37 U/L [facility] Alanine Aminotransferase 37 0 - 40 U/L [facility] Total Protein 6.4(L) 6.5 - 8.0 g/dL [facility] Albumin Level 4.0 3.5 - 5.0 g/dL [facility] Alkaline Phosphatase 77 39 - 117 U/L [facility] 07/16/2025 8:32 AM EDT 07/16/2025 11:16 AM EDT us Generic External Data Provider LAB BLOOD ORDERAB LES Final Result [facility] [address] [place] [phone] * (ABNORMAL) Lipid Panel, Standard (01/26/2024 8:46 AM EDT) Triglycerides 55 <150 mg/dL [facility] Comment:Desirable Triglyceri de: less than 150 mg/dLBorderline High Triglyceride 150-199 mg/dLHigh Triglyceride: 200-499 mg/dLVery High Triglyceride: greater than or equal to 5OO mg/dL Cholesterol 78 <200 mg/dL [facility] Comment:Desirable Cholestero l: less than 200 mg/dLBorderline High Cholesterol: 200-239 mg/dLHigh Cholesterol: greater than 239 mg/dL LDL Cholesterol Calculated 39 <100 mg/dL [facility] Comment:Desirable LDL: less than 100 mg/dLNear Optimal/Above Optimal LDL: 110- 129 mg/dLBorderline High LDL: 130-159 mg/dLHigh LDL: 160-189 mg/dLVery High LDL: greater than or equal to 190 mg/dL HDL Cholesterol 28(L) >40 mg/dL [facility] Comment:Desirable HDL: great er than 40 mg/dL Note: This HDL assay may give artificially low results in patients with liver disease. Blood Venous blood specimen / Unknown 01/26/2024 8:46 AM EDT 01/26/2024 11:17 AM EDT Siobhan Vanessa MD LAB BLOOD ORDERABLES Final Result [facility] [address] [place] [address] [phone] * Colonoscopy (06/23/2018) Colonoscopy tubular adenoma with Dr. Hartley Historical Provider HEALTH MAINTENANCE Final Result from Last 3 Months or Most Recently Relevant to Health Maintenance Insurance Advance Directives Documents on File Type Date Recorded Patient Rolling Machine Tender Expl anation Advance Directives and Livin g Will 01/25/2024 Health Care Proxy Care Teams Lithographic Printing Machinist Relationship Specialty Start Date End Date Siobhan Vanessa MD [address] [place] [address] PCP - General Family Medicine 01/04/12 [place] [address] [place] [address] Cardiology 03/28/25 Pepper Flanagan MD [address] [place] [phone] Hematology and Oncology 04/03/25 Harshal Hartley MD [address] [address] General Surgery 04/03/25 Nancy Lyles NP [address] [place] [address] Urology 04/03/25 [facility] [place], [facility] [address] [place] [address] Orthopaedic Surgery 04/24/25
--- OUTSIDE RECORDS SUMMARY | 2025-10-14 18:20 | XMS_ITS | Encounter Summary ---
Author Organization [employer] Address [address] [place] [address] Care Team Providers Care Food And Drug Inspector Name Role Phone Siobhan Vanessa MD Primary Care Provider [phone] [place] Unavailable Pepper Flanagan MD Unavailable [phone] Harshal Hartley MD Unavailable [phone] Nancy Lyles NP Unavailable Reason for Visit * Reason Onset Date Comments INR Report 11/22/2023 Encounter Details Date Type Department Care Team (Late st Contact Info) Description 11/22/2023 Telephone [facility] [address] [place] [address] Siobhan Vanessa MD [address] [place], [place] [phone] INR Report Social History Tobacco Use Types [...] 11/22/2023 3:34 PM EST [facility] calling to report INR . documented in [...] documented as of this encounter Care Teams Food And Drug Inspector Relationship Specialty Start Date End Date Siobhan Vanessa MD [address] [place] [address] PCP - General Family Medicine 01/04/12 [place] [address] [place] [address] Cardiology 03/28/25 Pepper Flanagan MD [address] [place] [address] Hematology and Oncology 04/03/25 Harshal Hartley MD [address] [address] General Surgery 04/03/25 Nancy Lyles NP [address] [place] [address] Urology 04/03/25 [facility] [place], [facility] [address] [place] [address] Orthopaedic Surgery 04/24/25 documented as of this encounter
== END 2025-10-14 13:22 | disposition home or self-care (01) ==
LOC: HO.HUSH 12:44
PROVIDERS: PCP Family Medicine; Visit Provider Nurse Practitioner Family
DX: R33.9 Retention of urine, unspecified (principal); R39.9 Unspecified symptoms and signs involving the genitourinary system; R35.0 Frequency of micturition; R35.1 Nocturia; Z13.9 Encounter for screening, unspecified
CPT/HCPCS: 99213; G2211

== ENCOUNTER → 2025-10-14 12:44 | Outpatient (BNVA) | payer MEDICARE, SELFPAY | PROVIDERS: PCP Family Medicine; Visit Provider Nurse Practitioner Family | DX: R33.9 Retention of urine, unspecified (principal); R39.9 Unspecified symptoms and signs involving the genitourinary system; R35.0 Frequency of micturition; R35.1 Nocturia; Z13.9 Encounter for screening, unspecified | CPT/HCPCS: 51798; 81003; 99212 ==